=== PATIENT | female | born 1960 | race Caucasian/White ===

== ENCOUNTER → 2019-11-21 12:54 | Outpatient (BNVA) | payer OTHER, SELFPAY | PROVIDERS: PCP Nurse Practitioner Family; Referring Provider Nurse Practitioner Family; Visit Provider Internal Medicine Cardiovascular Disease | DX: R00.2 Palpitations (principal); I73.9 Peripheral vascular disease, unspecified; Z79.82 Long term (current) use of aspirin; Z79.899 Other long term (current) drug therapy | CPT/HCPCS: 99213 ==

== ENCOUNTER 2019-11-27 15:57 | Outpatient (REF) | payer OTHER, SELFPAY ==
--- NOTE | 2019-11-27 | MM_ITS ---
EXAMINATION: MM SCREENING DIGITAL BREAST TOMOSYNTHESIS, BILATERAL CLINICAL INFORMATION: Screening. Asymptomatic. The lifetime risk of breast cancer based on the Tyrer-Cuzick Model is 5%. COMPARISON: Mammography: 11/21/2018, 09/03/2015 TECHNIQUE: Digital breast tomosynthesis is performed in both the craniocaudal and mediolateral oblique views along with computer-aided detection (CAD). Synthesized 2D images are generated from the tomosynthesis. Additional right exaggerated CC view is provided. FINDINGS: There are scattered areas of fibroglandular density (ACR BI-RADS breast composition Category b). There are no significant masses, abnormal calcifications, or other abnormalities. Parenchymal pattern is similar to prior studies. No significant changes. IMPRESSION: No mammographic evidence of malignancy. ASSESSMENT: BI-RADS 1: Negative RECOMMENDATION: Routine annual mammography screening. This patient's information was entered into a reminder system with a target due date for their next mammogram.
== END 2019-11-27 15:58 | disposition home or self-care (01) ==
LOC: HO.MAMMO 15:57
PROVIDERS: PCP Nurse Practitioner Family; Visit Provider Nurse Practitioner Family
DX: Z12.31 Encounter for screening mammogram for malignant neoplasm of breast (principal)
CPT/HCPCS: 77063; 77067

== ENCOUNTER 2020-02-14 16:28 | Outpatient (REF) | payer OTHER, SELFPAY ==
[2020-02-16 11:31] LABS: BV Int Neg Control Negative (Negative); BV Int Pos Control Positive (Positive)
== END 2020-02-14 16:29 | disposition home or self-care (01) ==
LOC: HO.LAB 16:28
PROVIDERS: Visit Provider Nurse Practitioner Family
DX: R10.2 Pelvic and perineal pain (principal)
CPT/HCPCS: 87480; 87510; 87660

== ENCOUNTER 2020-02-18 14:44 | Outpatient (REF) | payer OTHER, SELFPAY ==
[2020-02-18 16:54] LABS: Alanine Aminotransferase 40 U/L (0-31); Albumin Level 4.1 g/dL (3.5-5.0); Alkaline Phosphatase 123 U/L (39-117); Anion Gap 12 (12-20); Aspartate Amino Transferase 30 U/L (5-31); Bilirubin Total 0.7 mg/dL (0.0-1.0); Blood Urea Nitrogen 11 mg/dL (9-16); Calcium 8.8 mg/dL (8.4-10.2); Carbon Dioxide 30 mmol/L (22-29); Chloride 105 mmol/L (96-108); Cholesterol 137 mg/dL; Estimated Glomerular Filt Rate > 60; Glucose Fasting 108 mg/dL (60-99); HDL Cholesterol 48 mg/dL; LDL Cholesterol Calculated 69 mg/dl; Potassium 4.7 mmol/l (3.3-5.1); Sodium 142 mmol/L (135-145); Total Protein 7.1 g/dL (6.5-8.0); Triglycerides 104 mg/dL
[2020-02-18 17:08] LABS: TSH reflex Free T4 1.56 mIU/mL (0.32-4.0)
== END 2020-02-18 14:45 | disposition home or self-care (01) ==
LOC: HO.HMGCLDS 14:44
PROVIDERS: PCP Nurse Practitioner Family; Visit Provider Nurse Practitioner Family
DX: E78.5 Hyperlipidemia, unspecified (principal); E03.9 Hypothyroidism, unspecified
CPT/HCPCS: 36415; 80053; 80061; 84443

== ENCOUNTER 2020-03-06 14:55 | Outpatient (REF) | payer OTHER, SELFPAY ==
[2020-03-06 16:58] LABS: Alanine Aminotransferase 27 U/L (0-31); Albumin Level 4.3 g/dL (3.5-5.0); Alkaline Phosphatase 121 U/L (39-117); Aspartate Amino Transferase 19 U/L (5-31); Bilirubin Direct 0.3 mg/dL (0.0-0.5); Total Protein 7.4 g/dL (6.5-8.0)
[2020-03-06 17:04] LABS: Gamma Glutamyl Transpeptidase 26 U/L (7-33)
== END 2020-03-06 14:56 | disposition home or self-care (01) ==
LOC: HO.HMGCLDS 14:55
PROVIDERS: PCP Nurse Practitioner Family; Visit Provider Nurse Practitioner Family
DX: R74.8 Abnormal levels of other serum enzymes (principal)
CPT/HCPCS: 36415; 80076; 82977

== ENCOUNTER 2020-04-16 13:27 | Outpatient (REF) | payer OTHER, SELFPAY ==
[2020-04-17 09:21] LABS: BV Int Neg Control Negative (Negative); BV Int Pos Control Positive (Positive)
[2020-04-20 12:07] LABS: HPV mRNA E6/E7 rflx Not Detected (Not Detected)
== END 2020-04-16 13:28 | disposition home or self-care (01) ==
LOC: HO.LAB 13:27
PROVIDERS: PCP Nurse Practitioner Family; Visit Provider Advanced Practice Midwife
DX: Z01.419 Encounter for gynecological examination (general) (routine) without abnormal findings (principal); E66.01 Morbid (severe) obesity due to excess calories; N76.0 Acute vaginitis; Z68.44 Body mass index [BMI] 60.0-69.9, adult
CPT/HCPCS: 36415; 87480; 87510; 87624; 87660; 88142

== ENCOUNTER 2020-04-17 07:26 | Day surgery (SDC) | payer OTHER, SELFPAY ==
[2020-04-14 15:30] VITALS: BMI 58.4
--- NOTE | 2020-04-16 09:22 | P.CONAN_ITS ---
Documented by User: Lisethher Tellezney 04/16/20 09:26 HPI - Anesthesia Eval Consult details Narrative: 59yo F for Colonoscopy PMFSH Active Problems Active Problems: All Active Problems (Updated 04/14/20 @ 15:27 by Yina Duncan) Pelvic pain (Acute) Dyslipidemia (Acute) Elevated alkaline phosphatase level (Acute) Mild depression (Acute) Sinusitis (Acute) Depression with anxiety (Acute) Hypothyroid (Acute) Morbid obesity (Acute) Low back pain (Acute) PVD (peripheral vascular disease) (Acute) Palpitations (Acute) Past Medical History Medical History Anxiety Arthritis DDD (degenerative disc disease) Depression with anxiety Diabetes Elevated cholesterol History of cellulitis HTN (hypertension) Hx of solitary pulmonary nodule Hypothyroid Low back pain Morbid obesity Morbid obesity with BMI of 60.0-69.9, adult AMY on CPAP Palpitations PVD (peripheral vascular disease) Spinal stenosis Family History Family History Father Stroke Former smoker Mother Brain tumor Maternal Uncle CVD (cardiovascular disease) Diabetes mellitus Myocardial infarction Brother No problems noted. Sister No problems noted. Sister No problems noted. Sister No problems noted. Son No problems noted. Daughter No problems noted. Daughter No problems noted. Surgical History Surgical History History of carpal tunnel surgery of left wrist History of endometrial ablation History of incisional hernia repair Hx of section Hx of cholecystectomy Hx of colonoscopy Hx of repair of left rotator cuff Hx of tonsillectomy Hx of tubal ligation Social History Social History Smoking Status: Former smoker Use of substances other than those prescribed or required for medical reasons: No Have you been hit, kicked, punched, or otherwise hurt by someone within the past year? If so, by whom?: No Advance Directives: No Advance Directives Information Provided: No Advance Directives on File: No Meds Allergies Allergy/AdvReac Type Severity Reaction Status Date / Time tioconazole Allergy Rash Verified 04/17/20 08:06 [From Monistat 1 (tioconazole)] Penicillin Allergy Unknown Unknown Uncoded 04/17/20 08:06 Sulfa Allergy Unknown Unknown Uncoded 04/17/20 08:06 Home Medications Medication Instructions Recorded Confirmed Last Taken Type aspirin 81 mg tablet,delayed 81 mg PO DAILY 11/21/19 04/17/20 04/16/20 23:59 History release meloxicam 15 mg tablet 15 mg PO DAILY tab 11/21/19 04/14/20 Unknown History Exam Exam Date and Time: April 16, 2020 0922 Height,Weight and Vital Signs: Height 5 ft 3 in Weight 149.685 kg Pertinent Lab Results Pertinent Lab Results: Laboratory Tests 02/18/20 14:50 Sodium 142 Potassium 4.7 Chloride 105 Carbon Dioxide 30 H BUN 11 Creatinine 0.82 Narrative Narrative: Echo 2018 LV systolic function is normal EF 55-60% Indeterminate filling pressures Gr 1-2 diastolic dysfunction No obvious valve pathology Mild pulmonary htn EKG 01/2020 per Cardiology Office Visit: gagan BLACK EKG Assessment and Plan Assessment Anesthesia Assessment: Chart Reviewed Documented by User: Daniel Dao 04/17/20 08:45 PMFSH Past Medical History Medical History Anxiety Arthritis DDD (degenerative disc disease) Depression with anxiety Diabetes Elevated cholesterol History of cellulitis HTN (hypertension) Hx of solitary pulmonary nodule Hypothyroid Low back pain Morbid obesity Morbid obesity with BMI of 60.0-69.9, adult AMY on CPAP Palpitations PVD (peripheral vascular disease) Spinal stenosis Family History Family History Father Stroke Former smoker Mother Brain tumor Maternal Uncle CVD (cardiovascular disease) Diabetes mellitus Myocardial infarction Brother No problems noted. Sister No problems noted. Sister No problems noted. Sister No problems noted. Son No problems noted. Daughter No problems noted. Daughter No problems noted. Surgical History Surgical History History of carpal tunnel surgery of left wrist History of endometrial ablation History of incisional hernia repair Hx of section Hx of cholecystectomy Hx of colonoscopy Hx of repair of left rotator cuff Hx of tonsillectomy Hx of tubal ligation Social History Social History Smoking Status: Former smoker Use of substances other than those prescribed or required for medical reasons: No Have you been hit, kicked, punched, or otherwise hurt by someone within the past year? If so, by whom?: No Advance Directives: No Advance Directives Information Provided: No Advance Directives on File: No Meds Allergies Allergy/AdvReac Type Severity Reaction Status Date / Time tioconazole Allergy Rash Verified 04/17/20 08:06 [From Monistat 1 (tioconazole)] Penicillin Allergy Unknown Unknown Uncoded 04/17/20 08:06 Sulfa Allergy Unknown Unknown Uncoded 04/17/20 08:06 Home Medications Medication Instructions Recorded Confirmed Last Taken Type aspirin 81 mg tablet,delayed 81 mg PO DAILY 11/21/19 04/17/20 04/16/20 23:59 Hi story release meloxicam 15 mg tablet 15 mg PO DAILY tab 11/21/19 04/14/20 Unknown History Exam Airway Mallampati Class: III TM Dist: >3cm Neck ROM: Full Denture: Upper Partial: Lower Loose/Missing/Broken Teeth: Yes Heart: [id number] Lungs: cta b/l Assessment and Plan Assessment Anesthesia Assessment: Anesthesia Plan Discussed, PAT Visit and Chart Reviewed Final Anesthetic Review NPO: Yes ASA Class: IV Final Preanesthetic Review: No Changes in Pt Med Stat, Meds/Allgs Chart Reviewed, Consent Obtained/Reviewed and Anes Risks/Benef Reviewed Patient Risk: High Procedure Risk: Low Assessment/Block/Sedation in SS: Assess/Block/Sedation-SS Anesthetic Plan Anesthetic Plan: MAC: and Agree w/ Assess. and Plan Disposition: Standard PACU
[2020-04-17 08:08] VITALS: BP 174/93; PULSE 82; RESP 20; TEMP 36.4; O2SAT 97
[2020-04-17 08:23] LABS: Glucose, Whole Blood 109 mg/dL (60-115)
--- NOTE | 2020-04-17 08:25 | P.HPSUR_ITS ---
Pre-Procedural Eval Section B Chief Complaint: screening Details of Present Illness: Colon cancer screening, Brother(older) had polyps recent sinus infection-resolved with antibx Relevant Family History (Specify if Yes): Yes Relevant Social History: None Present Medications: see Short Stay Collaborative assessment Medical History: Significant History (AMY(USES CPAP), PULMONARY HTN, BMI--60) History of Previous Operations: Relevant previous surgery/procedure and date(s) ( X2;CHOLECYSTECTOMY, LAST COLO (PLEET)--> 10YR--NO POLYPS) Allergies: Allergies Allergy/AdvReac Type Severity Reaction Status Date / Time tioconazole Allergy Rash Verified 04/17/20 08:06 [From Monistat 1 (tioconazole)] Penicillin Allergy Unknown Unknown Uncoded 04/17/20 08:06 Sulfa Allergy Unknown Unknown Uncoded 04/17/20 08:06 Review of Systems Sugical H&P ROS: Negative: Cardiovascular and Gastrointestinal and Yes, Specify: Constitution (MORBID OBESITY), Respiratory (AMY) and Psychiatric (HX DEPRESSION) Exam Surgical H&P Exam: Normal: HEENT, Normal: Heart, Normal: Lungs, Normal: Ext remities and Normal: Skin and Significant Findings: Abdomen (MARKED CENTRAL OBESITY) Plan Diagnosis/Plan: Unchanged I have reviewed the history and physical and performed a pertinent physical examination on my patient. No changes have occurred unless specified. YES
--- NOTE | 2020-04-17 09:11 | P.BOP_ITS ---
Brief Operative Note Date of Service: 04/17/20 Pre-op diagnosis: Colon cancer screening (hx polyps in her brother)--last colo- 2007 markedly elevated BMI/hx AMY Post-op diagnosis: other (Diminutive polyp) Procedure: Colonoscopy with excisional polypectomy Implants: none Surgeon: Kim Marcelino MD Anesthesia: MAC (Cuff, phone screener) Estimated blood loss (mL): 5 Pathology: other (polyp @ 70cm) Condition: stable Disposition: PACU
--- NOTE | 2020-04-17 09:11 | PM.OP ---
Brief Operative Note Date of Service: 04/17/20 Pre-op diagnosis: Colon cancer screening (hx polyps in her brother)--last colo-2007 markedly elevated BMI/hx AMY Post-op diagnosis: other (Diminutive polyp) Procedure: Colonoscopy with excisional polypectomy Implants: none Surgeon: Kim Marcelino MD Anesthesia: MAC (Cuff, memorandum statement clerk) Estimated blood loss (mL): 5 Pathology: other (polyp @ 70cm) Condition: stable Disposition: PACU
[2020-04-17 09:13] VITALS: BP 127/75; PULSE 78; RESP 20; TEMP 37.2; O2SAT 98
[2020-04-17 09:18] VITALS: PULSE 78; RESP 18; O2SAT 95
[2020-04-17 09:33] VITALS: BP 113/65; PULSE 80; RESP 18; O2SAT 98
--- NOTE | 2020-04-17 09:33 | W.PM.OPN ---
Operative Note Operative Note Date of Service: 04/17/20 Narrative: Pre-op diagnosis: Colon cancer screening (hx polyps in her brother)--last colo-2007 markedly elevated BMI/hx AMY Post-op diagnosis: other (Diminutive polyp) Procedure: Colonoscopy with excisional polypectomy Implants: none Surgeon: Kim Marcelino MD Anesthesia: MAC (Cuff, Steam Station Supervisor) FINDINGS: RONNI-good tone Colonoscope introduced with no difficulty advanced easily through sigmoid, descending to transverse colon--there was mild looping as we approached the hepatic flexure. With repositioning I was able to pass into the ascending colon and cecum. Appendiceal orifice and ileocecal valve were seen PREP: Good moderate residual liquid residue, easily flushed and suctioned. On our way in @ about 70cm a diminutive polyp had been removed excisionally with cold bx forceps. Slow withdrawal of scope revealed no additional mucosal lesions. ARV was clear. (She has hx of hemorrhoids. In Left lateral position for the procedure these were not seen. Estimated blood loss (mL): 5 Pathology: other (polyp @ 70cm) Condition: stable Disposition: PACU PLAN; WITH POSITIVE FAMILY HX PATIENT WOULD BEST BE MANAGED ON A 6 YEAR ASYMPTOMATIC RECALL. Patient was spoken to after the procedure. Should be considered for Tele visit--post op in 2-4 weeks.
== END 2020-04-17 10:06 | disposition home or self-care (01) ==
PROVIDERS: PCP Nurse Practitioner Family; Visit Provider Internal Medicine Gastroenterology
PROC: 0DJD8ZZ Inspection of Lower Intestinal Tract, Via Natural or Artificial Opening Endoscopic (ICD-10-PCS; CPT 45378; principal; 2020-04-17 08:30)
DX: Z12.11 Encounter for screening for malignant neoplasm of colon (principal); Z83.71 Family history of colonic polyps; D12.4 Benign neoplasm of descending colon; K64.8 Other hemorrhoids; I10 Essential (primary) hypertension; I27.20 Pulmonary hypertension, unspecified; E11.9 Type 2 diabetes mellitus without complications; G47.33 Obstructive sleep apnea (adult) (pediatric); Z99.89 Dependence on other enabling machines and devices; Z79.82 Long term (current) use of aspirin; Z79.899 Other long term (current) drug therapy; E66.01 Morbid (severe) obesity due to excess calories; Z68.44 Body mass index [BMI] 60.0-69.9, adult; Z90.49 Acquired absence of other specified parts of digestive tract; Z87.891 Personal history of nicotine dependence; Z88.0 Allergy status to penicillin; Z88.2 Allergy status to sulfonamides
CPT/HCPCS: 45380; 82947; 88305

== ENCOUNTER 2020-09-18 15:34 | Emergency (ER) | payer OTHER, SELFPAY ==
--- NOTE | 2020-09-18 | ECG_ITS ---
Test Reason : CP Blood Pressure : / mmHG Vent. Rate : 077 BPM Atrial Rate : 077 BPM P-R Int : 152 ms QRS Dur : 102 ms QT Int : 400 ms P-R-T Axes : 017 020 012 degrees QTc Int : 452 ms Normal sinus rhythm Normal ECG No significant changes when compared with the previous EKG of 2014 Referred By: Generic ED Physician Electronically Signed By:NANCY ALMAZAN
--- NOTE | ~2020-09-18 | XR_ITS ---
EXAMINATION: XR CHEST CLINICAL INFORMATION: Chest pain COMPARISON: 01/17/2018 TECHNIQUE: Frontal view of the chest was obtained. FINDINGS: No acute finding. No obvious failure or infiltrate. There is no effusion. Lung hill are grossly clear. The hilar structures are comparable to previous. The cardiac silhouette is unremarkable. XR/XR chest 1V IMPRESSION: No acute finding.
[2020-09-18 15:43] VITALS: BP 151/73; PULSE 82; RESP 16; TEMP 36.1; O2SAT 95; BMI 58.4
[2020-09-18 21:06] LABS: MANUAL DIFF FLAG NO
[2020-09-18 21:13] LABS: Basophils Percent Auto 0.5 % (0-2); Eosinophils Absolute Auto 0.1 X10*3/uL (0.0-0.4); Eosinophils Percent Auto 1.1 % (0-4); Hematocrit 40.1 % (37-47); Hemoglobin 12.5 g/dl (12.0-16.0); Imm Gran Abs Auto 0.02 X10*3/uL (0.00-0.03); Imm Gran Pct Auto 0.2 % (0.0-0.4); Lymphocytes Absolute Auto 2.5 X10*3/uL (1.2-4.9); Lymphocytes Percent Auto 29.3 % (20-40); Mean Corpuscular HGB Conc 31.2 g/dl (31.0-35.0); Mean Corpuscular Hemoglobin 28.7 pg (27.0-33.0); Mean Platelet Volume 10.9 fL (9.4-12.3); Monocytes Absolute Auto 0.6 X10*3/uL (0.1-1.2); Monocytes Percent Auto 6.8 % (2-11); Neutrophils Absolute Auto 5.2 X10*3/uL (2.0-8.3); Neutrophils Percent Auto 62.1 % (45-73); Platelet Count 232 X10*3/uL (160-400); Red Blood Count 4.36 X10*6/uL (4.20-5.50); Red Cell Distribution Width 13.8 % (11.0-16.0); White Blood Count 8.4 X10*3/uL (4.8-10.8)
[2020-09-18 21:28] LABS: D Dimer < 200 NG/ML
[2020-09-18 21:38] LABS: Alanine Aminotransferase 23 U/L (0-31); Albumin Level 4.1 g/dL (3.5-5.0); Alkaline Phosphatase 128 U/L (39-117); Anion Gap 12 (12-20); Aspartate Amino Transferase 17 U/L (5-31); Bilirubin Total 0.8 mg/dL (0.0-1.0); Blood Urea Nitrogen 7 mg/dL (9-16); Calcium 9.3 mg/dL (8.4-10.2); Carbon Dioxide 26 mmol/L (22-29); Chloride 108 mmol/L (96-108); Estimated Glomerular Filt Rate 59; Glucose Random 96 mg/dL (60-115); Magnesium 1.9 mg/dL (1.6-2.6); Potassium 4.1 mmol/L (3.3-5.1); Sodium 142 mmol/L (135-145)
[2020-09-18 21:40] LABS: B Type Natriuretic Peptide 36 pg/mL (<100); Troponin-I High Sensitivity < 3.5 ng/L (<3.5-17.0)
[2020-09-18 21:58] LABS: TSH reflex Free T4 3.19 uIU/mL (0.32-4.0)
[2020-09-18 22:00] VITALS: BP 130/73; PULSE 70; RESP 16; O2SAT 97
[2020-09-18 22:21] VITALS: BP 122/75; PULSE 75
[2020-09-18 22:22] VITALS: BP 159/85; PULSE 73
[2020-09-18 22:24] VITALS: BP 160/91; PULSE 74
--- NOTE | 2020-09-18 22:49 | ED_ITS ---
HPI - Chest Pain General Chief Complaint: Chest Pain Stated Complaint: CHEST HEAVY Time Seen by Provider: 09/18/20 20:07 Source: patient Mode of arrival: ambulatory History of Present Illness HPI narrative: 60-year-old female with a past medical history of anxiety, arthritis, DDD, diabetes, hyperlipidemia, hypertension, hypothyroid, AMY on CPAP, PVD to the ED complaining of chest tightness, mild SOB, intermittent lightheadedness, intermittent palpitations, and feeling like she can not take a complete breath x3 days. Admits symptoms are intermittent, actually improving today. Denies fever, chills, cough, abdominal pain, nausea/vomiting, headache, visual change, LE edema, recent travel, COVID-19 exposure MD complaint: chest heaviness Related Data Home Medications Medication Instructions Recorded Confirmed aspirin 81 mg tablet,delayed 81 mg PO DAILY 11/21/19 04/17/20 release (Adult Low Dose Aspirin) meloxicam 15 mg tablet 15 mg PO DAILY tab 11/21/19 04/14/20 Previous Rx's Medication Instructions Recorded doxycycline hyclate 100 mg tablet 100 mg PO BID 10 Days #20 tab 04/09/20 fluconazole 150 mg tablet 150 mg PO DAILY 2 Days #2 tab 04/09/20 (Diflucan) levothyroxine 150 mcg tablet 150 mcg PO QAM #90 tab 06/03/20 atenolol 25 mg tablet 25 mg PO DAILY #30 tab 07/31/20 bupropion HCl 300 mg 24 hr tablet, 300 mg PO QAM 30 Days #30 tab 07/31/20 extended release atorvastatin 80 mg tablet 80 mg PO DAILY #90 tab 08/27/20 Allergies Allergy/AdvReac Type Severity Reaction Status Date / Time tioconazole Allergy Rash Verified 04/17/20 08:06 [From Monistat 1 (tioconazole)] Penicillin Allergy Unknown Unknown Uncoded 04/17/20 08:06 Sulfa Allergy Unknown Unknown Uncoded 04/17/20 08:06 Review of Systems Review of Systems: Constitutional: No Fever, No Chills, + Fatigue, No Malaise Cardiovascular: + Chest Pain, + SOB, No Dyspnea on Exertion, No Orthopnea, No Edema, + Palpitations Respiratory: No Cough, +Dyspnea Gastrointestinal: No Nausea, No Vomiting, No Abdominal pain Genitourinary: No Dysuria, No Urinary Frequency, No Hematuria Musculoskeletal: No joint pain, No Myalgias, No Joint Swelling Skin: No Skin Lesions, No rash Neuro: No Weakness, No Numbness, No Paresthesias, + lightheadedness, No Headache Yes all other systems are reviewed and are negative [facility] Past Medical History Attestation statement: The following information was validated with the patient. Medical History Anxiety Arthritis DDD (degenerative disc disease) Depression with anxiety Diabetes Elevated cholesterol History of cellulitis HTN (hypertension) Hx of solitary pulmonary nodule Hypothyroid Low back pain Morbid obesity Morbid obesity with BMI of 60.0-69.9, adult AMY on CPAP Palpitations PVD (peripheral vascular disease) Spinal stenosis Surgical History History of carpal tunnel surgery of left wrist History of endometrial ablation History of incisional hernia repair Hx of section Hx of cholecystectomy Hx of colonoscopy Hx of repair of left rotator cuff Hx of tonsillectomy Hx of tubal ligation Family History Family History Father Stroke Former smoker Mother Brain tumor Maternal Uncle CVD (cardiovascular disease) Diabetes mellitus Myocardial infarction Brother No problems noted. Sister No problems noted. Sister No problems noted. Sister No problems noted. Son No problems noted. Daughter No problems noted. Daughter No problems noted. Social History Social History Advance Directives: No Patient : No Physical Exam Vital Signs: Vital Signs: Last Vital Signs Temp 97.0 F 09/18/20 15:43 Pulse 74 09/18/20 22:24 Resp 16 09/18/20 22:00 BP 160/91 H 09/18/20 22:24 Pulse Ox 97 09/18/20 22:00 Body Mass Index 58.4 Const: General: cooperative, comfortable, no acute distress, well developed, alert and awake Nutritional Appearance: obese Orientation/consciousness: patient oriented x3 Limitations: no limitations HENMT: Head: Yes normal to inspection Ears: hearing grossly normal bilaterally General nose exam: Normal external nose present Face and sinus: Yes normal facial exam Eyes: General: appearance normal, both eyes and all related structures EOM: EOMs intact bilaterally Neck: Neck: Yes normal visual inspection and Yes no meningeal signs Resp: Effort & Inspection: normal respiratory effort Auscultation: clear to auscultation bilaterally, no rales, no rhonchi and no wheezes Cardio: Rate: regular rate Heart sounds: S1 normal heart sound present and S2 normal heart sound present GI: Inspection: Yes normal to inspection Palpation (GI): Soft to palpation, nontender, no guarding and not rigid Skin: Rashes: no rashes Wounds: no wounds Neuro: General: patient oriented x3 and no meningeal signs Gait exam (Neuro): Normal gait present Extrem: General: Yes normal to inspection, Yes no pedal edema and Yes no calf tenderness Course Course Course Narrative: -no leukocytosis, H&H stable, D-dimer negative -labs otherwise unremarkable, troponin negative, BNP WNL, TSH WNL XR chest 1V IMPRESSION: No acute finding. ? -orthostatic vital signs negative. Lab results discussed with patient including worrisome signs and symptoms and strict return precautions. She is to follow-up with her PCP/cardiology as needed, she verbalized understanding feel safe for discharge home MDM - Chest Pain Lab Data Result diagrams: 09/18/20 21:02 09/18/20 21:02 Labs: Lab Results 09/18/20 09/18/20 09/18/20 Range/Units 21:02 21:02 21:02 WBC 8.4 (4.8-10.8) X10*3/uL RBC 4.36 (4.20-5.50) X10*6/uL Hgb 12.5 (12.0-16.0) g/dl Hct 40.1 (37-47) % MCV 92.0 (80-98) fL MCH 28.7 (27.0-33.0) pg MCHC 31.2 (31.0-35.0) g/dl RDW 13.8 (11.0-16.0) % Plt Count 232 (160-400) X10*3/uL MPV 10.9 (9.4-12.3) fL Immature Gran % (Auto) 0.2 (0.0-0.4) % Neut % (Auto) 62.1 (45-73) % Lymph % (Auto) 29.3 (20-40) % Greene % (Auto) 6.8 (2-11) % Eos % (Auto) 1.1 (0-4) % Baso % (Auto) 0.5 (0-2) % Lymph # (Auto) 2.5 (1.2-4.9) X10*3/uL Greene # (Auto) 0.6 (0.1-1.2) X10*3/uL Eos # (Auto) 0.1 (0.0-0.4) X10*3/uL Baso # (Auto) 0.0 (0.0-0.2) X10*3/uL Abs Immat Gran (auto) 0.02 (0.00-0.03) X10*3/uL Absolute Neuts (auto) 5.2 (2.0-8.3) X10*3/uL Absolute Nucleated RBC 0.000 (0.0-0.012) X10*3/uL Nucleated RBC % (auto) 0.0 (0.0-0.2) /100WBC D-Dimer NG/ML Sodium 142 (135-145) mmol/L Potassium 4.1 (3.3-5.1) mmol/L Chloride 108 (96-108) mmol/L Carbon Dioxide 26 (22-29) mmol/L Anion Gap 12 (12-20) BUN 7 L (9-16) mg/dL Creatinine 0.96 (0.5-1.4) mg/dL Estim Creat Clear Calc 91.0 Estimated GFR 59 Random Glucose 96 (60-115) mg/dL Calcium 9.3 (8.4-10.2) mg/dL Magnesium 1.9 (1.6-2.6) mg/dL Total Bilirubin 0.8 (0.0-1.0) mg/dL AST 17 (5-31) U/L ALT 23 (0-31) U/L Alkaline Phosphatase 128 H (39-117) U/L Troponin I High Sens < 3.5 (<3.5-17.0) ng/L B-Natriuretic Peptide 36 (<100) pg/mL Total Protein 7.0 (6.5-8.0) g/dL Albumin 4.1 (3.5-5.0) g/dL TSH 3.19 (0.32-4.0) uIU/mL 09/18/20 Range/Units 21:02 WBC (4.8-10.8) X10*3/uL RBC (4.20-5.50) X10*6/uL Hgb (12.0-16.0) g/dl Hct (37-47) % MCV (80-98) fL MCH (27.0-33.0) pg MCHC (31.0-35.0) g/dl RDW (11.0-16.0) % Plt Count (160-400) X10*3/uL MPV (9.4-12.3) fL Immature Gran % (Auto) (0.0-0.4) % Neut % (Auto) (45-73) % Lymph % (Auto) (20-40) % Greene % (Auto) (2-11) % Eos % (Auto) (0-4) % Baso % (Auto) (0-2) % Lymph # (Auto) (1.2-4.9) X10*3/uL Greene # (Auto) (0.1-1.2) X10*3/uL Eos # (Auto) (0.0-0.4) X10*3/uL Baso # (Auto) (0.0-0.2) X10*3/uL Abs Immat Gran (auto) (0.00-0.03) X10*3/uL Absolute Neuts (auto) (2.0-8.3) X10*3/uL Absolute Nucleated RBC (0.0-0.012) X10*3/uL Nucleated RBC % (auto) (0.0-0.2) /100WBC D-Dimer < 200 NG/ML Sodium (135-145) mmol/L Potassium (3.3-5.1) mmol/L Chloride (96-108) mmol/L Carbon Dioxide (22-29) mmol/L Anion Gap (12-20) BUN (9-16) mg/dL Creatinine (0.5-1.4) mg/dL Estim Creat Clear Calc Estimated GFR Random Glucose (60-115) mg/dL Calcium (8.4-10.2) mg/dL Magnesium (1.6-2.6) mg/dL Total Bilirubin (0.0-1.0) mg/dL AST (5-31) U/L ALT (0-31) U/L Alkaline Phosphatase (39-117) U/L Troponin I High Sens (<3.5-17.0) ng/L B-Natriuretic Peptide (<100) pg/mL Total Protein (6.5-8.0) g/dL Albumin (3.5-5.0) g/dL TSH (0.32-4.0) uIU/mL Discharge Plan Discharge Clinical Impression: Atypical chest pain, Dyspnea, Episodic lightheadedness Patient Disposition: Home, Self-Care Instructions: Chest Pain (ED) Additional Instructions: Your blood work and chest x-ray were reassuring today in the ED It is important for you to follow-up her primary care doctor Please stay hydrated at home If her symptoms persist or worsen, be more constant, unbearable, you have fever/chills Please return to the ED Follow-up with cardiology as needed Prescriptions: No Action doxycycline hyclate 100 mg tablet 100 mg PO BID 10 Days Qty: 20 RF: 0 fluconazole [Diflucan] 150 mg tablet 150 mg PO DAILY 2 Days Qty: 2 RF: 2 levothyroxine 150 mcg tablet 150 mcg PO QAM Qty: 90 RF: 1 atenolol 25 mg tablet 25 mg PO DAILY Qty: 30 RF: 3 bupropion HCl 300 mg tablet extended release 24 hr 300 mg PO QAM 30 Days Qty: 30 RF: 3 atorvastatin 80 mg tablet 80 mg PO DAILY Qty: 90 RF: 1 meloxicam 15 mg tablet 15 mg PO DAILY RF: 0 Hold Instructions: Resume on 04/24/20. DIMINUTIVE POLYPECTOMY ASA 81MG OK aspirin [Adult Low Dose Aspirin] 81 mg tablet,delayed release (DR/EC) 81 mg PO DAILY RF: 0 Referrals: Ruddy Nicole FNP- [Primary Care Provider] - 2 days Sergio Soriano MD [Physician] - 1 week
== END 2020-09-18 23:05 | disposition home or self-care (01) ==
PROVIDERS: Physician Assistant; Emergency Provider Student in an Organized Health Care Education/Training Program; PCP Nurse Practitioner Family
DX: R07.89 Other chest pain (principal); R06.00 Dyspnea, unspecified; R42 Dizziness and giddiness; R06.02 Shortness of breath; E11.9 Type 2 diabetes mellitus without complications; I10 Essential (primary) hypertension; Z79.82 Long term (current) use of aspirin; Z79.899 Other long term (current) drug therapy
CPT/HCPCS: 36415; 71045; 80053; 83735; 83880; 84443; 84484; 85025; 85379; 93005; 99283; 99284

== ENCOUNTER → 2020-11-24 13:03 | Outpatient (BNVA) | payer OTHER, SELFPAY | PROVIDERS: PCP Nurse Practitioner Family; Referring Provider Nurse Practitioner Family; Visit Provider Internal Medicine Cardiovascular Disease | DX: I73.9 Peripheral vascular disease, unspecified (principal); R00.2 Palpitations | CPT/HCPCS: 99212 ==

== ENCOUNTER 2020-12-02 14:00 | Emergency (ER) | payer OTHER, SELFPAY ==
[2020-12-02 14:05] VITALS: BP 156/94; PULSE 81; RESP 20; TEMP 36.7; O2SAT 97; BMI 58.4
--- NOTE | 2020-12-02 14:24 | ED.BACK ---
HPI - Back Pain/Injury General Chief Complaint: Back Pain/Injury Stated Complaint: back pain Time Seen by Provider: 12/02/20 14:24 Source: patient Mode of arrival: ambulatory Limitations: no limitations History of Present Illness HPI Narrative: 60-year-old female with a history of obesity, depression, anxiety, HLD, PVD, degenerative disc disease who presents to the ER with 3 days of increased right sided low back pain that radiates down her leg. She reports a history of longstanding low back pain for the last several years. Three days ago she noticed a hernia right lower back and right buttock were hurting more than usual. The pain comes and goes and is sharp and shooting. She started having pain radiating down the backside of her right leg along with pins and needle sensation in her right leg. She denies any trauma or falls recently. She had this similar sensation several years ago but does not recall what was done about it or how it went away. She denies any urinary or fecal incontinence. She denies any saddle paresthesias. She has not seen her PCP in some time, and last she knew she did not fit in the MRI when it was ordered to further assess her back. MD elicited complaint: back pain Pertinent past history: prior back pain Onset (ago): day(s) (3) Timing: intermittent Severity: severe Similar Symptoms Previously: Yes Quality: burning and sharp Location: right lower back Radiation: right upper leg Exacerbating factors: movement and walking Relieving factors: none Context: unknown Associated symptoms: denies other symptoms Work related injury: No Related Data Home Medications Medication Instructions Recorded Confirmed aspirin 81 mg tablet,delayed 81 mg PO DAILY 11/21/19 11/24/20 release (Adult Low Dose Aspirin) meloxicam 15 mg tablet 15 mg PO DAILY tab 11/21/19 11/24/20 Previous Rx's Medication Instructions Recorded levothyroxine 150 mcg tablet 150 mcg PO QAM #90 tab 06/03/20 bupropion HCl 300 mg 24 hr tablet, 300 mg PO QAM 30 Days #30 tab 07/31/20 extended release atenolol 25 mg tablet 25 mg PO DAILY #90 tab 11/24/20 atorvastatin 80 mg tablet 80 mg PO DAILY #90 tab 11/24/20 cyclobenzaprine 10 mg tablet 10 mg PO TID PRN #10 tab 12/02/20 lidocaine 5 % topical patch 1 patch TOPICAL DAILY #15 ea 12/02/20 naproxen 500 mg tablet 500 mg PO BID PRN #20 tab 12/02/20 oxycodone-acetaminophen 5 mg-325 1 tab PO TID PRN #7 tab 12/02/20 mg tablet Allergies Allergy/AdvReac Type Severity Reaction Status Date / Time tioconazole Allergy Rash Verified 11/24/20 13:43 [From Monistat 1 (tioconazole)] Penicillin Allergy Unknown Unknown Uncoded 11/24/20 13:43 Sulfa Allergy Unknown Unknown Uncoded 11/24/20 13:43 Review of Systems Review of Systems: Constitutional: No Fever, No Chills Cardiovascular: No Chest Pain, No SOB Gastrointestinal: No Nausea, No Vomiting, No Diarrhea, No abdominal Pain Genitourinary: No Dysuria, No Urinary Frequency, No Hematuria Musculoskeletal: + joint pain, + Myalgias Skin: No Skin Lesions, No rash Neuro: No Weakness, No Numbness Psych: + Anxiety/Panic, + Depression Heme/Lymph: No Bruising, No Lymphadenopathy PMFSH Past Medical History Attestation statement: The following information was validated with the patient. Medical History Anxiety Arthritis DDD (degenerative disc disease) Depression with anxiety Diabetes Elevated cholesterol History of cellulitis HTN (hypertension) Hx of solitary pulmonary nodule Hypothyroid Low back pain Morbid obesity Morbid obesity with BMI of 60.0-69.9, adult AMY on CPAP Palpitations PVD (peripheral vascular disease) Spinal stenosis Surgical History History of carpal tunnel surgery of left wrist History of endometrial ablation History of incisional hernia repair Hx of section Hx of cholecystectomy Hx of colonoscopy Hx of repair of left rotator cuff Hx of tonsillectomy Hx of tubal ligation Family History Family History Father Stroke Former smoker Mother Brain tumor Maternal Uncle CVD (cardiovascular disease) Diabetes mellitus Myocardial infarction Brother No problems noted. Sister No problems noted. Sister No problems noted. Sister No problems noted. Son No problems noted. Daughter No problems noted. Daughter No problems noted. Social History Social History (Updated 11/24/20 @ 13:45 by ESTHELA KnutsonGriselda) Patient Tobacco Use Status: Never used Tobacco Advance Directives: No Patient : No Physical Exam Vital Signs: Vital Signs: Last Vital Signs Temp 98.0 F 12/02/20 14:05 Pulse 81 12/02/20 14:05 Resp 20 12/02/20 14:05 BP 156/94 H 12/02/20 14:05 Pulse Ox 97 12/02/20 14:05 Body Mass Index 58.4 Appearance: Alert. Oriented X3. Tearful at times. HEENT: normal external inspection Neck: Normal inspection. Neck supple. CVS: Normal heart rate and rhythm. Pulses normal. Respiratory: No respiratory distress. Breath sounds normal. Back: normal inspection. right low lumbar and right SI joint tenderness. Skin: Skin warm and dry. Normal skin color. Normal skin turgor. No rashes. Extremities: No lower extremity edema. Neuro: Oriented X 3. No motor deficit. No sensory deficit. Ambulates with a slow but steady gait Course Course Course Narrative: 60 yo female presenting with acute on chronic right sided low back pain. No recent trauma. No red flag symptoms of LBP. No IVDA, no fevers. Her clinical presentation is consistent with lumbar radiculopathy and sciatica. She has not taken any medication for pain yet today. She is in severe pain right now. Will medicate and reassess. Reevaluation(s) Reevaluation #1: Patient's pain is much improved. Will plan to discharge home with a course of anti-inflammatories, muscle relaxers, an as needed oxycodone for severe pain. She was encouraged follow-up with her PCP to arrange for an outpatient MRI for further evaluation of her radiculopathy. Patient agrees with plan is stable for discharge home Critical Care Time Critical Care Time Critical Care Time: No Discharge Plan Discharge Clinical Impression: Acute lumbar radiculopathy Patient Disposition: Home, Self-Care Instructions: Lumbar Radiculopathy (ED) Additional Instructions: Rest but do not stay in one position for too long. No bending, lifting or twisting. Use ice several times per day for 20 minutes at a time for the next 48 hours and then change to heat. Take medications as prescribed to help with pain and discomfort. Follow up with your Primary Care Doctor this week. You need an outpatient MRI for further evaluation. If your pain worsens, if you develop new numbness, tingling, weakness, loss of function or incontinence call 911 or come back to the ER right away for evaluation. Prescriptions: New oxycodone-acetaminophen 5-325 mg tablet 1 tab PO TID PRN (Reason: pain) Qty: 7 RF: 0 cyclobenzaprine 10 mg tablet 10 mg PO TID PRN (Reason: muscle spasm) Qty: 10 RF: 0 lidocaine 5 % adhesive patch,medicated 1 patch topical DAILY Qty: 15 RF: 0 naproxen 500 mg tablet 500 mg PO BID PRN (Reason: pain) Qty: 20 RF: 0 No Action levothyroxine 150 mcg tablet 150 mcg PO QAM Qty: 90 RF: 1 bupropion HCl 300 mg tablet extended release 24 hr 300 mg PO QAM 30 Days Qty: 30 RF: 3 atenolol 25 mg tablet 25 mg PO DAILY Qty: 90 RF: 1 atorvastatin 80 mg tablet 80 mg PO DAILY Qty: 90 RF: 1 meloxicam 15 mg tablet 15 mg PO DAILY RF: 0 Hold Instructions: Resume on 04/24/20. DIMINUTIVE POLYPECTOMY ASA 81MG OK aspirin [Adult Low Dose Aspirin] 81 mg tablet,delayed release (DR/EC) 81 mg PO DAILY RF: 0
[2020-12-02] MEDS: Acetaminophen 325 MG TABLET 975 MG PO (15:04)
[2020-12-02] MEDS: Ketorolac Tromethamine 60 MG/2 ML VIAL IM (15:04)
[2020-12-02] MEDS: oxyCODONE HCl Immed Release 5 MG TABLET PO (15:04)
[2020-12-02 15:24] VITALS: RESP 18
== END 2020-12-02 15:25 | disposition home or self-care (01) ==
PROVIDERS: Emergency Provider Emergency Medicine; PCP Nurse Practitioner Family
DX: M54.16 Radiculopathy, lumbar region (principal); M54.50 Low back pain, unspecified; E66.01 Morbid (severe) obesity due to excess calories
CPT/HCPCS: 96372; 99284; J1885

== ENCOUNTER 2020-12-15 13:04 | Outpatient (REF) | payer OTHER, SELFPAY ==
--- NOTE | ~2020-12-15 | MM_ITS ---
EXAMINATION: MM SCREENING DIGITAL BREAST TOMOSYNTHESIS, BILATERAL CLINICAL INFORMATION: Screening. Asymptomatic. The lifetime risk of breast cancer based on the Tyrer-Cuzick Model is 5%. COMPARISON: Mammography: 11/27/2019, 11/21/2018, 09/03/2015 TECHNIQUE: Digital breast tomosynthesis is performed in both the craniocaudal and mediolateral oblique views along with computer-aided detection (CAD). Synthesized 2D images are generated from the tomosynthesis. Additional left MLO view is provided. FINDINGS: There are scattered areas of fibroglandular density (ACR BI-RADS breast composition Category b). There are no significant masses, abnormal calcifications, or other abnormalities. The parenchymal pattern is similar to prior studies. No developing density. No significant changes. MM/MM tomosynthesis screening BI IMPRESSION: No mammographic evidence of malignancy. ASSESSMENT: BI-RADS 1: Negative RECOMMENDATION: Routine annual mammography screening. This patient's information was entered into a reminder system with a target due date for their next mammogram.
== END 2020-12-15 13:05 | disposition home or self-care (01) ==
LOC: HO.MAMMO 13:04
PROVIDERS: Visit Provider Nurse Practitioner Family
DX: Z12.31 Encounter for screening mammogram for malignant neoplasm of breast (principal)
CPT/HCPCS: 77063; 77067

== ENCOUNTER 2020-12-16 14:59 | Outpatient (REF) | payer OTHER, SELFPAY ==
--- NOTE | ~2020-12-16 | XR_ITS ---
EXAMINATION: XR LUMBOSACRAL SPINE CLINICAL INFORMATION: Radiculopathy, lumbar region COMPARISON: Abdomen CT from 07/11/2013. Lumbar spine radiographs from 06/27/2018. TECHNIQUE: Three views of the lumbosacral spine. FINDINGS: The lumbar vertebra are normal in height. No evidence of pars interarticularis defect or vertebral compression fracture. No focal lytic or osteoblastic lesion. There is 0.3 cm of grade 1 anterolisthesis at L3-L4 and L4-L5. There is chronic severe loss of disc height, vacuum disc phenomenon and endplate sclerosis at L5-S1. There is degenerative subarticular sclerosis/osteophytosis at the sacroiliac joints. No evidence of sacral fracture or sacroiliitis. Atherosclerotic calcification of the abdominal aorta. Cholecystectomy clips in the right upper quadrant. Bowel gas pattern is normal. A 1.3 x 1.5 cm opacity/calcific density projects over the right mid abdomen (projects to the right of L3-L4).. The specific location/significance of this is uncertain. There was no calcified lymph node in the mesentery on 07/11/2013. This finding is unchanged compared to 06/27/2018. XR/XR lumbar spine 2-3V IMPRESSION: * No acute fractures in the lumbar spine. * Chronic degenerative disc disease at L5-S1. * Chronic, minimal degenerative anterolisthesis is noted at L3-L4 and L4-L5.
== END 2020-12-16 15:00 | disposition home or self-care (01) ==
LOC: HO.HMGCX 14:59
PROVIDERS: PCP Nurse Practitioner Family; Visit Provider Nurse Practitioner Family
DX: M54.16 Radiculopathy, lumbar region (principal); G89.29 Other chronic pain
CPT/HCPCS: 72100

== ENCOUNTER 2021-01-05 14:51 | Outpatient (REF) | payer OTHER, SELFPAY ==
[2021-01-05 16:49] LABS: Appearance Urine CLEAR; Color Urine YELLOW; Glucose Urine UA NEG (NEG); Leukocyte Esterase Urine NEG (NEG); Nitrite Urine NEG (NEG); Urine Blood NEG (NEG); Urine Ketones NEG (NEG); Urine Protein NEG (NEG-TRACE)
[2021-01-05 17:04] LABS: Alanine Aminotransferase 35 U/L (0-31); Albumin Level 3.9 g/dL (3.5-5.0); Alkaline Phosphatase 116 U/L (39-117); Anion Gap 12 (12-20); Aspartate Amino Transferase 23 U/L (5-31); Bilirubin Total 0.9 mg/dL (0.0-1.0); Blood Urea Nitrogen 12 mg/dL (9-16); Carbon Dioxide 27 mmol/L (22-29); Chloride 106 mmol/L (96-108); Cholesterol 141 mg/dL; Estimated Glomerular Filt Rate > 60; Glucose Fasting 100 mg/dL (60-99); HDL Cholesterol 47 mg/dL; LDL Cholesterol Calculated 71 mg/dl; Potassium 4.5 mmol/L (3.3-5.1); Sodium 140 mmol/L (135-145); Triglycerides 116 mg/dL
[2021-01-05 17:27] LABS: TSH reflex Free T4 1.97 uIU/mL (0.32-4.0)
== END 2021-01-05 14:52 | disposition home or self-care (01) ==
LOC: HO.HMGCLDS 14:51
PROVIDERS: Visit Provider Nurse Practitioner Family
DX: E78.5 Hyperlipidemia, unspecified (principal)
CPT/HCPCS: 36415; 80053; 80061; 81003; 84443

== ENCOUNTER 2021-04-20 13:27 | Outpatient (REF) | payer MEDICARE, MEDICAID, SELFPAY ==
[2021-04-21 14:12] LABS: BV Int Neg Control Negative (Negative); BV Int Pos Control Positive (Positive)
== END 2021-04-20 13:28 | disposition home or self-care (01) ==
LOC: HO.LAB 13:27
PROVIDERS: PCP Nurse Practitioner Family; Visit Provider Advanced Practice Midwife
DX: Z01.411 Encounter for gynecological examination (general) (routine) with abnormal findings (principal); N89.8 Other specified noninflammatory disorders of vagina; R10.2 Pelvic and perineal pain
CPT/HCPCS: 87480; 87510; 87660; 99212

== ENCOUNTER 2021-05-06 15:09 | Outpatient (REF) | payer MEDICARE, MEDICAID, SELFPAY ==
--- NOTE | ~2021-05-06 | XR_ITS ---
EXAMINATION: XR SHOULDER, RIGHT CLINICAL INFORMATION: Right shoulder pain. COMPARISON: Right shoulder MRI dated 12/23/2009. TECHNIQUE: AP, Grashey, and scapular Y views of the right shoulder. FINDINGS: No acute fracture or dislocation. Moderate acromioclavicular marginal osteophytes. No glenohumeral joint space narrowing or marginal osteophytes. No osseous erosion. No abnormal soft tissue calcification. XR/XR shoulder RT min 2V IMPRESSION: Moderate acromioclavicular osteoarthritis.
--- NOTE | ~2021-05-06 | XR_ITS ---
EXAMINATION: XR HAND, LEFT CLINICAL INFORMATION: Left ring finger pain. COMPARISON: None TECHNIQUE: PA, lateral, and oblique views of the left hand. FINDINGS: Evaluation is limited due to the overlying metallic ring. No acute fracture or dislocation. Normal carpal alignment. Mild joint space narrowing with tiny marginal osteophytes scattered throughout the interphalangeal joints. No osseous erosion. No abnormal soft tissue calcification. Mild 4th finger soft tissue swelling distal to the ring. XR/XR hand LT min 3V IMPRESSION: Mild 4th finger soft tissue swelling distal to the ring without acute osseous abnormality. Mild osteoarthritis throughout the interphalangeal joints.
[2021-05-06 16:47] LABS: MANUAL DIFF FLAG NO
[2021-05-06 16:50] LABS: Basophils Percent Auto 0.6 % (0-2); Eosinophils Absolute Auto 0.2 X10*3/uL (0.0-0.4); Eosinophils Percent Auto 2.4 % (0-4); Hematocrit 40.4 % (37.0-47.0); Hemoglobin 12.6 g/dl (12.0-16.0); Imm Gran Abs Auto 0.03 X10*3/uL (0.00-0.03); Imm Gran Pct Auto 0.4 % (0.0-0.4); Lymphocytes Absolute Auto 2.1 X10*3/uL (1.2-4.9); Lymphocytes Percent Auto 30.4 % (20-40); Mean Corpuscular HGB Conc 31.2 g/dl (31.0-35.0); Mean Corpuscular Hemoglobin 28.9 pg (27.0-33.0); Mean Corpuscular Volume 92.7 fL (80.0-98.0); Mean Platelet Volume 11.7 fL (9.4-12.3); Monocytes Absolute Auto 0.6 X10*3/uL (0.1-1.2); Monocytes Percent Auto 8.4 % (2-11); Neutrophils Absolute Auto 3.9 x10*3/uL (2.0-8.3); Neutrophils Percent Auto 57.8 % (45-73); Platelet Count 220 X10*3/uL (160-400); Red Blood Count 4.36 X10*6/uL (4.20-5.50); Red Cell Distribution Width 13.7 % (11.0-16.0); White Blood Count 6.8 X10*3/uL (4.8-10.8)
[2021-05-06 16:52] LABS: Appearance Urine CLEAR; Color Urine YELLOW; Glucose Urine UA NEG (NEG); Leukocyte Esterase Urine NEG (NEG); Nitrite Urine NEG (NEG); Specific Gravity - Urine 1.025 (1.005-1.025); Urine Blood NEG (NEG); Urine Ketones NEG (NEG); Urine Protein NEG (NEG-TRACE)
[2021-05-06 17:25] LABS: Alanine Aminotransferase 23 U/L (0-31); Albumin Level 4.1 g/dL (3.5-5.0); Alkaline Phosphatase 118 U/L (39-117); Anion Gap 12 (12-20); Aspartate Amino Transferase 17 U/L (5-31); Bilirubin Total 0.7 mg/dL (0.0-1.0); Blood Urea Nitrogen 11 mg/dL (9-16); Calcium 9.1 mg/dL (8.4-10.2); Carbon Dioxide 27 mmol/L (22-29); Chloride 106 mmol/L (96-108); Cholesterol 128 mg/dL; Estimated Glomerular Filt Rate > 60; Glucose Fasting 98 mg/dL (60-99); HDL Cholesterol 51 mg/dL; LDL Cholesterol Calculated 61 mg/dl; Potassium 4.5 mmol/L (3.3-5.1); Sodium 140 mmol/L (135-145); Total Protein 6.9 g/dL (6.5-8.0); Triglycerides 81 mg/dL
[2021-05-06 17:48] LABS: TSH reflex Free T4 3.01 uIU/mL (0.32-4.0)
== END 2021-05-06 15:10 | disposition home or self-care (01) ==
LOC: HO.HMGCX 15:09
PROVIDERS: PCP Nurse Practitioner Family; Visit Provider Nurse Practitioner Family
DX: M25.511 Pain in right shoulder (principal); M79.645 Pain in left finger(s); I10 Essential (primary) hypertension
CPT/HCPCS: 36415; 73030; 73130; 80053; 80061; 81003; 84443; 85025

== ENCOUNTER → 2021-05-20 13:55 | Outpatient (BNVA) | payer MEDICARE, MEDICAID, SELFPAY | PROVIDERS: PCP Nurse Practitioner Family; Referring Provider Nurse Practitioner Family; Visit Provider Internal Medicine Cardiovascular Disease | DX: I10 Essential (primary) hypertension (principal) | CPT/HCPCS: 99212 ==

== ENCOUNTER 2021-07-08 14:00 | Outpatient (RCR) | payer MEDICARE, MEDICAID, SELFPAY ==
--- NOTE | 2021-05-27 15:53 | MHC.PT.EP ---
[facility] [place] Office [place] Office [place] Office [address] Aurea Stallings [address] [phone] F: [phone] F: [phone] F: [phone] F: [phone] Physical Therapy Plan of Care Date of Evaluation: Date of Surgery: n/a Diagnosis: R shoulder pain Assessment: Patient is a 60 year old female presenting to PT with complaints of pain in her R shoulder. Pt reports onset of pain began March 2021 due to falling and landing on her hands. She presents today with impairments in pain, shoulder ROM, shoulder strength, and posture. Pt's current occupation is none - disabled, with baseline physical activities including reaching, lifting, and ADLs. 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 Clinical presentation today is most consistent with signs and sx associated with shoulder pain with likely RC involvement and pt will benefit from skilled PT to address the following problems and impairments noted upon evaluation: pain, shoulder ROM, shoulder strength, and posture. These problems limit the patient with the following functional activities: reaching, lifting, and ADLs. The prescribed treatment plan of care is medically necessary. Co-morbidities of PVD, diabetes, HTN, states she has palpitations, hx L RC repair 2016 were identified and taken into considerations of plan of care. Pt was educated on HEP, role of PT, prognosis, POC. Frequency and Duration: The patient will be seen 2 x week x 4 weeks Short Term Goals: Pt will demonstrate improved shoulder AROM flex and abd to 100 in 2 weeks. Pt will demonstrate improved shoulder MMT strength by 1/3 grade in 2 weeks. Pt will demonstrate improved postural awareness by sitting with biomechanically correct posture without cues throughout session to improve overall postural function in 2 weeks. Retirement Goals: Pt will demonstrate improved SPADI score by 13 points in 4 weeks for improved UE functional mobility. Pt will demonstrate improved ability to reach OH in 4 weeks for improved tolerance to ADLs. Pt will demonstrate ability to lift household items with min to difficulty in 4 weeks for return to PLOF. Treatment Plan: Modalities to reduce pain, spasms and effusion. Manual therapy to restore motion and function. Therapeutic exercise to improve strength and flexibility. Neuromuscular re-education for posture and balance. Therapeutic activities to return to functional activities of daily living. Electronically signed by: Corrine Muro, PT, DPT, ATC Please sign and return to therapist. Thank you for your referral.
--- NOTE | 2021-07-08 15:07 | MHC.PT.DC ---
[facility] [place] [facility] [place] [facility] [place] Office [address] Janae Stallings [address] [phone] F: [phone] F: [phone] F: [phone] F: [phone] Physical Therapy Discharge Report Diagnosis: R shoulder pain Date of Surgery: n/a Date of Evaluation: 05/27/21 Date of Discharge: 07/08/21 Treatments to Date: 9 Cancellations to Date: 1 No Shows to Date: 0 Discharge Status: Recommend MD Follow-up Discharge Summary: Pt has made some improvements since beginning skilled PT however continues to have pain and functional limitations primarily with lifting and reaching activities. She has made some progress towards her goals but her pain and continued limited ROM and strength has prevented her from fully meeting her goals. At this time max benefits of PT have been provided and skilled PT is no longer indicated at this time. Discussed with patient recommendation to follow up with referring provider for possible ortho referral for further assessment and pt with good understanding. Pt in agreement with d/c today. Electronically signed by: Corrine Muro, PT, DPT, ATC Please sign and return to therapist. Thank you for your referral.
== END 2021-07-08 15:07 | disposition home or self-care (01) ==
LOC: HO.PTCHIC 14:00
PROVIDERS: PCP Nurse Practitioner Family; Visit Provider Nurse Practitioner Family
DX: M25.511 Pain in right shoulder (principal)
CPT/HCPCS: 97110; 97162

== ENCOUNTER 2021-12-24 12:37 | Outpatient (REF) | payer MEDICARE, MEDICAID, SELFPAY ==
--- NOTE | ~2021-12-24 | MM_ITS ---
EXAMINATION: MM SCREENING DIGITAL BREAST TOMOSYNTHESIS, BILATERAL CLINICAL INFORMATION: Screening. Asymptomatic. The lifetime risk of breast cancer based on the Tyrer-Cuzick Model is 4.5%. COMPARISON: Mammography: 12/15/2020 and studies dating back to 01/12/2014. TECHNIQUE: Digital breast tomosynthesis is performed in both the craniocaudal and mediolateral oblique views along with computer-aided detection (CAD). Synthesized 2D images are generated from the tomosynthesis. FINDINGS: There are scattered areas of fibroglandular density (ACR BI-RADS breast composition Category b). There is a stable parenchymal pattern of the right breast without new abnormal dominant mass or suspicious grouping of microcalcifications. Within the superior aspect of the left breast approximately 4 cm from the nipple there is an asymmetric density present for which further evaluation with spot compression film and possible ultrasound is recommended. MM/MM tomosynthesis screening BI IMPRESSION: Question left breast density superiorly. ASSESSMENT: BI-RADS 0: Incomplete - Need Additional Imaging Evaluation RECOMMENDATION: 1. Additional views of the left breast. 2. Targeted ultrasound if warranted after review of the additional views. 3. Radiology department staff will contact the patient for additional imaging. This patient's information was entered into a reminder system with a target due date for their next mammogram.
--- NOTE | ~2021-12-24 | MM_ITS ---
EXAMINATION: BONE DENSITOMETRY CLINICAL INDICATION: Asymptomatic menopausal state. COMPARISON: None (current study represents initial baseline exam). TECHNIQUE: Using a Derceto DXA System (software version: 13.1) manufactured by [employer], dual-energy x-ray absorptiometry was performed of the lumbar spine and left hip. The images are of good technical quality. Summary results are attached. FINDINGS: AP SPINE L1-L4: BMD 1.201 g/cm2, Z-score 0.2, T-score 0.2, normal. LEFT FEMUR, NECK: BMD 0.749 g/cm2, Z-score -1.6, T-score -2.1, osteopenia. LEFT FEMUR, TOTAL: BMD 0.881 g/cm2, Z-score -0.9, T-score -1.0, normal. IDENTIFIED RISK FACTORS: Menopause. HISTORY OF FRACTURE: None listed. MEDICATIONS: None listed. MM/XR DEXA axial skeleton IMPRESSION: 1. DIAGNOSIS: Osteopenia based on the lowest T-score value of -2.1 in the lumbar spine applying World Health Organization criteria. 2. 10-YEAR FRACTURE RISK PREDICTION, FRAX: Major osteoporotic fracture (clinical spine, forearm, hip or shoulder) 5.8%. Hip fracture 0.6%. 3. Treatment Recommendations: NOF guidelines recommend consideration for treatment in postmenopausal women and men age 50 and older presenting with the following: -A hip or vertebral (clinical or morphometric) fracture. -T-score less than or equal to -2.5 at the femoral neck or spine after appropriate evaluation to exclude secondary causes. -Low bone mass at the hip or spine and a 10-year fracture probability by FRAX of greater than or equal to 3% for hip fracture or greater than or equal to 20% for major osteoporotic fracture based on the [place] adapted WHO algorithm. 4. Other Recommendations: All treatment decisions require clinical judgment and consideration of individual patient factors, including patient preferences, comorbidities, previous drug use, risk factors not captured in the FRAX model (e.g. frailty, falls, vitamin D deficiency, increased bone turnover, interval significant decline in bone density) and possible under or overestimation of fracture risk by FRAX. Additional medical evaluation for secondary cause of low bone mineral density may be appropriate. FUTURE SCAN RECOMMENDATION: People with diagnosed cases of osteoporosis or at high risk for fracture should have regular bone mineral density tests. For patients eligible for Medicare, routine testing is allowed once every 2 years. The testing frequency can be increased to one year for patients who have rapidly progressing disease, those who are receiving or discontinuing medical therapy to restore bone mass, or have additional risk factors.
== END 2021-12-24 12:38 | disposition home or self-care (01) ==
LOC: HO.MAMMO 12:37
PROVIDERS: PCP Nurse Practitioner Family; Visit Provider Nurse Practitioner Family
DX: Z12.31 Encounter for screening mammogram for malignant neoplasm of breast (principal); Z13.820 Encounter for screening for osteoporosis; Z78.0 Asymptomatic menopausal state
CPT/HCPCS: 77063; 77067; 77080

== ENCOUNTER 2022-01-12 13:54 | Outpatient (REF) | payer MEDICARE, MEDICAID, SELFPAY ==
--- NOTE | ~2022-01-12 | MM_ITS ---
EXAMINATION: MM DIAGNOSTIC DIGITAL BREAST TOMOSYNTHESIS, LEFT CLINICAL INFORMATION: Recall from screening for question of asymmetric density upper left breast 4 cm from nipple. COMPARISON: Mammography: 12/24/2021, 12/15/2020, 11/27/2019, 11/21/2018, 09/03/2015 TECHNIQUE: Digital breast tomosynthesis is performed. 2D images are generated from the tomosynthesis. The following views are obtained: Spot CC, spot MLO. FINDINGS: There are scattered areas of fibroglandular density (ACR BI-RADS breast composition Category b). The additional views show no underlying mass or architectural abnormality or developing density from prior studies. Finding on recent synthesized left MLO view at screening is believed to have represented summation artifact. Results are discussed with the patient at time of visit. MM/MM tomosynthesis added views L IMPRESSION: Additional views show no persistent asymmetric density or other significant change from prior studies. ASSESSMENT: BI-RADS 2: Benign RECOMMENDATION: Routine annual mammography screening. This patient's information was entered into a reminder system with a target due date for their next mammogram.
== END 2022-01-12 13:55 | disposition home or self-care (01) ==
LOC: HO.MAMMO 13:54
PROVIDERS: PCP Nurse Practitioner Family; Visit Provider Nurse Practitioner Family
DX: R92.2 Inconclusive mammogram (principal)
CPT/HCPCS: 77061; 77065

== ENCOUNTER 2022-04-22 12:58 | Outpatient (REF) | payer MEDICARE, MEDICAID, SELFPAY ==
[2022-04-23 11:14] LABS: BV Int Neg Control Negative (Negative); BV Int Pos Control Positive (Positive)
== END 2022-04-22 12:59 | disposition home or self-care (01) ==
LOC: HO.LAB 12:58
PROVIDERS: PCP Nurse Practitioner Family; Visit Provider Advanced Practice Midwife
DX: N89.8 Other specified noninflammatory disorders of vagina (principal)
CPT/HCPCS: 87480; 87510; 87660

== ENCOUNTER 2022-05-19 14:46 | Outpatient (REF) | payer MEDICARE, MEDICAID, SELFPAY ==
[2022-05-19 17:10] LABS: MANUAL DIFF FLAG NO
[2022-05-19 17:11] LABS: Appearance Urine Clear; Color Urine Yellow; Glucose Urine UA Negative (Negative); Leukocyte Esterase Urine Trace (Negative); Nitrite Urine Negative (Negative); UMIC TRIGGER UACC YES; Urine Blood Negative (Negative); Urine Ketones Negative (Negative); Urine Protein Negative (Neg-Trace)
[2022-05-19 17:14] LABS: Bacteria Urine None Seen (None Seen); Hyaline Casts Urine 0-2 /LPF (0-2); RBC Urine 0-2 /HPF (0-2); WBC Urine 0-5 /HPF (0-5)
[2022-05-19 17:24] LABS: Basophils Absolute Auto 0.1 X10*3/uL (0.0-0.2); Eosinophils Absolute Auto 0.1 X10*3/uL (0.0-0.4); Eosinophils Percent Auto 1.3 % (0-4); Hematocrit 39.5 % (37.0-47.0); Hemoglobin 12.4 g/dl (12.0-16.0); Imm Gran Abs Auto 0.02 X10*3/uL (0.00-0.03); Imm Gran Pct Auto 0.3 % (0.0-0.4); Lymphocytes Absolute Auto 2.2 X10*3/uL (1.2-4.9); Lymphocytes Percent Auto 31.3 % (20-40); Mean Corpuscular HGB Conc 31.4 g/dl (31.0-35.0); Mean Corpuscular Hemoglobin 28.4 pg (27.0-33.0); Mean Corpuscular Volume 90.6 fL (80.0-98.0); Mean Platelet Volume 11.6 fL (9.4-12.3); Monocytes Absolute Auto 0.5 X10*3/uL (0.1-1.2); Monocytes Percent Auto 6.7 % (2-11); Neutrophils Absolute Auto 4.2 x10*3/uL (2.0-8.3); Neutrophils Percent Auto 59.4 % (45-73); Platelet Count 243 X10*3/uL (160-400); Red Blood Count 4.36 X10*6/uL (4.20-5.50); Red Cell Distribution Width 14.1 % (11.0-16.0)
[2022-05-19 17:49] LABS: Alanine Aminotransferase 26 U/L (0-31); Albumin Level 3.9 g/dL (3.5-5.0); Alkaline Phosphatase 126 U/L (39-117); Anion Gap 10 (12-20); Aspartate Amino Transferase 16 U/L (5-31); Blood Urea Nitrogen 10 mg/dL (9-16); Calcium 9.2 mg/dL (8.4-10.2); Carbon Dioxide 28 mmol/L (22-29); Chloride 107 mmol/L (96-108); Cholesterol 129 mg/dL; Estimated Glomerular Filt Rate > 60; Glucose Fasting 109 mg/dL (60-99); HDL Cholesterol 49 mg/dL; LDL Cholesterol Calculated 63 mg/dl; Potassium 4.2 mmol/L (3.3-5.1); Sodium 141 mmol/L (135-145); TSH reflex Free T4 1.33 uIU/mL (0.32-4.0); Total Protein 6.5 g/dL (6.5-8.0); Triglycerides 86 mg/dL
== END 2022-05-19 14:47 | disposition home or self-care (01) ==
LOC: HO.HMGCLDS 14:46
PROVIDERS: PCP Nurse Practitioner Family; Visit Provider Nurse Practitioner Family
DX: I10 Essential (primary) hypertension (principal)
CPT/HCPCS: 36415; 80053; 80061; 81001; 84443; 85025

== ENCOUNTER 2022-05-27 11:29 | Outpatient (REF) | payer MEDICARE, MEDICAID, SELFPAY ==
--- NOTE | ~2022-05-27 | CT_ITS ---
EXAMINATION: CT ABDOMEN AND PELVIS WITH CONTRAST CLINICAL INFORMATION: Abdominal hernia without obstruction or gangrene COMPARISON: Previous CT of the abdomen and pelvis most recent from 2013 TECHNIQUE: Multidetector volumetric images were obtained from the superior aspect of the liver through the pubic symphysis following administration 100 mL of Omnipaque 350 intravenous contrast. Sagittal and coronal reformatted images were obtained on the technologist's workstation. Oral contrast: Yes This CT examination was performed using dose optimization techniques as appropriate, variously including the following: *Automated exposure control *Adjustment of mA and/or kV according to patient size (this includes techniques or standardized protocols for targeted exams where dose is matched to indication/reason for exam; i.e. extremities or head) *Use of iterative reconstruction technique DLP: 1458 mGy-cm FINDINGS: LUNG BASES: The visualized lung bases are unremarkable. LIVER, GALLBLADDER, AND BILIARY TREE: The liver is normal in size, shape, and attenuation. No focal hepatic lesion or biliary ductal dilatation is present. The gallbladder has been removed. PANCREAS: Unremarkable. SPLEEN: Unremarkable. ADRENAL GLANDS: Unremarkable. KIDNEYS AND URETERS: Severe right hydronephrosis from a 6 x 10 mm right UVJ stone. Small bilateral renal stones. Question 1 cm low-attenuation lesion in the anterior lower pole of the right kidney axial image 37 series 3. Hounsfield units without contrast measure 49 not suggestive of a simple cyst. Previous CT from 2013 demonstrates a 1.8 cm cyst in this region. This may represent complex hyperdense cyst. Follow-up renal ultrasound recommended. BLADDER: Unremarkable. GASTROINTESTINAL TRACT: The small and large bowel are unremarkable. The appendix is unremarkable. ABDOMINAL WALL: Large umbilical hernia containing fat. Right ventral hernia containing fat. LYMPH NODES: Normal. VASCULAR: Unremarkable. PELVIC VISCERA: Unremarkable. OSSEOUS STRUCTURES: Degenerative changes of the spine. CT/CT abdomen pelvis w IV con IMPRESSION: Right ventral and umbilical hernias containing fat. Severe right hydronephrosis from a 6 x 10 mm right UPJ stone. Small bilateral renal stones. 1 cm indeterminate lesion in the anterior lower pole of the left kidney. When compared with prior exam July 2013, this may represent a hyperdense cyst. Follow-up renal ultrasound recommended. Findings will be communicated by the [place] work flow prototype fabricator Fleischner guidelines were followed.
[2022-05-27] MEDS: iohexoL 350 MG/ML 100 ML INFUS..BTL IV (14:04)
[2022-05-27] MEDS: Barium Sulfate Oral (Vanilla) 450 ML ORAL.SUSP 900 ML PO (14:05)
== END 2022-05-27 11:30 | disposition home or self-care (01) ==
LOC: HO.CT 11:29
PROVIDERS: PCP Nurse Practitioner Family; Visit Provider Nurse Practitioner Family
DX: K46.9 Unspecified abdominal hernia without obstruction or gangrene (principal)
CPT/HCPCS: 74177; Q9967

== ENCOUNTER 2022-06-02 14:52 | Outpatient (REF) | payer MEDICARE, MEDICAID, SELFPAY ==
[2022-06-02 16:53] LABS: Appearance Urine Cloudy; Color Urine Yellow; Glucose Urine UA Negative (Negative); Leukocyte Esterase Urine Trace (Negative); Nitrite Urine Negative (Negative); PH 5.5 (5.0-9.0); UMIC TRIGGER UACC YES; Urine Blood Negative (Negative); Urine Ketones Negative (Negative); Urine Protein Negative (Neg-Trace)
[2022-06-02 17:14] LABS: Gamma Glutamyl Transpeptidase 20 U/L (7-33)
[2022-06-02 17:16] LABS: Bacteria Urine 1+ (None Seen); Hyaline Casts Urine 0-2 /LPF (0-2); UACC Culture Trigger YES
[2022-06-02 17:43] LABS: WBC Urine 0-5 /HPF (0-5)
[2022-06-09 14:23] LABS: Alk.Phos Iso. Macrohepatic 0 % (<=0); Alk.Phos Isoenzymes Bone 23 % (28-66); Alk.Phos Isoenzymes Intest 4 % (1-24); Alk.Phos Isoenzymes Liver 73 % (25-69); Alk.Phos Isoenzymes Placental 0 % (<=0); Alk.Phos Isoenzymes Total 107 U/L (37-153)
== END 2022-06-02 14:53 | disposition home or self-care (01) ==
LOC: HO.HMGCLDS 14:52
PROVIDERS: PCP Nurse Practitioner Family; Visit Provider Nurse Practitioner Family
DX: R74.8 Abnormal levels of other serum enzymes (principal); R82.90 Unspecified abnormal findings in urine
CPT/HCPCS: 36415; 81001; 82977; 84080; 87086

== ENCOUNTER 2022-06-03 15:21 | Outpatient (REF) | payer MEDICARE, MEDICAID, SELFPAY ==
--- NOTE | ~2022-06-03 | US_ITS ---
EXAMINATION: US RETROPERITONEAL LIMITED (RENAL ONLY) CLINICAL INFORMATION: N13.30 - Unspecified hydronephrosis. COMPARISON: CT abdomen and pelvis with contrast 05/27/2022. TECHNIQUE: Ultrasound of the kidneys is performed using grayscale imaging and color Doppler. The bladder is not imaged. FINDINGS: RIGHT KIDNEY: 13.4 x 5.6 x 7.3 cm (SAG x AP x TRV). The kidney is normal in size, contour, and echogenicity. Renal cortical thickness is normal. Incidental lower pole cyst under 1 cm. No additional imaging follow-up recommended for the cyst. There is prominent hydronephrosis and distended extrarenal pelvis similar to recent CT. No visible perinephric fluid. Ureteropelvic junction calculus is again noted, estimated around 1.5 cm, better visualized on the CT exam. LEFT KIDNEY: 12.5 x 6.4 x 5.9 cm (SAG x AP x TRV). The kidney is normal in size, contour, and echogenicity. Renal cortical thickness is normal. Incidental anterior mid to lower pole cyst approximately 1.4 cm. No additional imaging follow-up recommended for the cyst. No hydronephrosis. There are nonobstructing calculi again noted upper pole approximately 1.1 cm and smaller nonobstructing calculus lower pole, better visualized on the CT. US/US renal BI IMPRESSION: Right: -Prominent hydronephrosis secondary to a UPJ calculus as noted on recent CT imaging. No perinephric fluid. Left: -No hydronephrosis. Nonobstructing calculi upper and lower pole as noted on recent CT imaging.
== END 2022-06-03 15:22 | disposition home or self-care (01) ==
LOC: HO.HMGCX 15:21
PROVIDERS: PCP Nurse Practitioner Family; Visit Provider Nurse Practitioner Family
DX: N13.30 Unspecified hydronephrosis (principal); N28.1 Cyst of kidney, acquired
CPT/HCPCS: 76775

== ENCOUNTER → 2022-06-10 15:24 | Outpatient (BNVA) | payer MEDICARE, MEDICAID, SELFPAY | PROVIDERS: PCP Nurse Practitioner Family; Visit Provider Nurse Practitioner Family | DX: N13.1 Hydronephrosis with ureteral stricture, not elsewhere classified (principal); N28.1 Cyst of kidney, acquired | CPT/HCPCS: 99202 ==

== ENCOUNTER 2022-06-11 14:20 | Outpatient (REF) | payer MEDICARE, MEDICAID, SELFPAY ==
[2022-06-11 17:22] LABS: Folate 6.8 ng/mL (> or = 4.0); Vitamin B12 290 pg/mL (200-900)
[2022-06-15 18:14] LABS: Ceruloplasmin 28 mg/dL (18-53)
== END 2022-06-11 14:21 | disposition home or self-care (01) ==
LOC: HO.HMGCLDS 14:20
PROVIDERS: PCP Nurse Practitioner Family; Visit Provider Nurse Practitioner Family
DX: R74.8 Abnormal levels of other serum enzymes (principal)
CPT/HCPCS: 36415; 82390; 82607; 82746; 84630

== ENCOUNTER 2022-06-15 12:53 | Day surgery (SDC) | payer MEDICARE, MEDICAID, SELFPAY ==
--- NOTE | ~2022-06-15 | FL_ITS ---
EXAMINATION: XR FLUOROSCOPY WITH IMAGES CLINICAL INFORMATION: Cystoscopy ureteroscopy and retrograde exam. Right hydronephrosis and UPJ stone. COMPARISON: Previous CT of the abdomen and pelvis May 2022 TECHNIQUE: Fluoroscopy Supervised By: Dr. Wise. Fluoroscopy Time: 216 seconds. Cumulative Dose: 193 mGy. DAP: Gycm2. Images: 4. FINDINGS: There is severe right hydronephrosis. There is right UPJ obstruction. There is a filling defect or irregularity seen in this region questionable for a stone. Final image demonstrates catheter or stent in the right renal pelvis. FL/FL guidance in OR IMPRESSION: Fluoroscopy guidance for urologic procedure.
[2022-06-15 13:19] VITALS: BMI 60.2
[2022-06-15] MEDS: Lactated Ringers 1,000 ML 50 ML IVCONT (13:28)
--- NOTE | 2022-06-15 13:29 | PC.NURSE ---
verified with Dr. Wise that patient has an unknown reaction to PCN. stated okay to give Cefazolin 2 gm IV as ordered. Pharmacy updated.
--- NOTE | 2022-06-15 15:10 | P.CONAN_ITS ---
HPI - Anesthesia Eval Consult details Narrative: for cysto, ureteroscopy, laser. Right ureteral stone PMFSH Active Problems Active Problems: All Active Problems (Updated 06/12/22 @ 11:40 by Ruddy Nicole [facility]) Vitamin D deficiency (Acute) Ureteropelvic junction (UPJ) obstruction, right (Acute) Kidney cysts (Acute) Hydronephrosis (Acute) Cyst of left kidney (Acute) Abdominal hernia (Acute) Encounter for annual wellness visit (AWV) in Medicare patient (Acute) Postmenopausal (Acute) Screening for AAA (aortic abdominal aneurysm) (Acute) Screening for heart disease (Acute) Arthritis of shoulder region, right (Acute) HTN (hypertension) (Acute) Pain of left thumb (Acute) Right shoulder pain (Acute) Chronic radicular pain of lower back (Acute) Skin lesion of face (Acute) Morbid obesity with BMI of 60.0-69.9, adult (Acute) Pelvic pain (Acute) Dyslipidemia (Acute) Elevated alkaline phosphatase level (Acute) Mild depression (Acute) Sinusitis (Acute) Depression with anxiety (Acute) Hypothyroid (Acute) Morbid obesity (Acute) Low back pain (Acute) PVD (peripheral vascular disease) (Acute) Palpitations (Acute) Past Medical History Medical History Anterolisthesis of cervicothoracic spine Anxiety Arthritis DDD (degenerative disc disease) Depression with anxiety Diabetes Elevated cholesterol History of cellulitis HTN (hypertension) Hx of solitary pulmonary nodule Hypothyroid Low back pain Morbid obesity Morbid obesity with BMI of 60.0-69.9, adult AMY on CPAP Palpitations PVD (peripheral vascular disease) Spinal stenosis Family History Family History Father Stroke Former smoker Mother Brain tumor Maternal Uncle CVD (cardiovascular disease) Diabetes mellitus Myocardial infarction Brother No problems noted. Sister No problems noted. Sister No problems noted. Sister No problems noted. Son No problems noted. Daughter No problems noted. Daughter No problems noted. Family history of problems with anesthesia: No Surgical History Surgical History History of carpal tunnel surgery of left wrist History of endometrial ablation History of incisional hernia repair Hx of section Hx of cholecystectomy Hx of colonoscopy Hx of repair of left rotator cuff Hx of tonsillectomy Hx of tubal ligation History of Problems with Anesthesia: No Social History Social History Housing: House Patient Tobacco Use Status: Former Tobacco user Years Smoked: 16 years ago e-Cigarette/Vaping Use: Never Used Second Hand Smoke Exposure: No Are you DNR?: No Advance Directives: No Advance Directives Information Provided: Yes Nutrition Risks: No Nutritional Risk service: No Current occupational status: disabled Cognitive needs: No Hearing needs: No Vision needs: No Meds Allergies Allergy/AdvReac Type Severity Reaction Status Date / Time Penicillins Allergy Unknown Unknown Verified 06/15/22 03:13 Sulfa (Sulfonamide Allergy Unknown Unknown Verified 06/15/22 03:14 Antibiotics) tioconazole Allergy Rash Verified 06/10/22 15:29 [From Monistat 1 (tioconazole)] Active Medications: Current Medications Lactated Ringer's (Lr) 1,000 mls @ 50 mls/hr IVCONT .Q20H ZACHARY Last Admin: 06/15/22 13:28 Dose: 50 mls/hr Home Medications Medication Instructions Recorded Confirmed Last Taken Type aspirin 81 mg tablet,delayed 81 mg PO DAILY 11/21/19 06/15/22 04/16/20 23:59 History release (Adult Low Dose Aspirin) Exam Exam Date and Time: June 15, 2022 1510 Height,Weight and Vital Signs: Height 5 ft 3 in Weight 154.221 kg Airway Mallampati Class: I TM Dist: <=3cm (no neck.) Neck ROM: Full Denture: Upper Partial: Lower Heart: ok Lungs: ok Assessment and Plan Assessment Anesthesia Assessment: Anesthesia Plan Discussed and Chart Reviewed Final Anesthetic Review Family History of Problems with Anesthesia: No History of Problems with Anesthesia: No NPO: Yes ASA Class: III Final Preanesthetic Review: No Changes in Pt Med Stat, Meds/Allgs Chart Reviewed, Consent Obtained/Reviewed and Anes Risks/Benef Reviewed Patient Risk: Intermediate Procedure Risk: Intermediate Anesthetic Plan Anesthetic Plan: GA and Agree w/ Assess. and Plan Disposition: Standard PACU
--- NOTE | 2022-06-15 15:16 | MHC.SHP ---
Pre-Procedural Eval Section A Date of Service: 06/15/22 The patient is an INPATIENT: No The History & Physical has been completed within 30 days and I have reviewed it.: Yes Section B Chief Complaint: Calculus of kidney Allergies: Allergies Allergy/AdvReac Type Severity Reaction Status Date / Time Penicillins Allergy Unknown Unknown Verified 06/15/22 03:13 Sulfa (Sulfonamide Allergy Unknown Unknown Verified 06/15/22 03:14 Antibiotics) tioconazole Allergy Rash Verified 06/10/22 15:29 [From Monistat 1 (tioconazole)] Plan Diagnosis/Plan: Unchanged I have reviewed the history and physical and performed a pertinent physical examination on my patient. No changes have occurred unless specified. Cystoscopy. Right ureteral stent. right retrograde, possible ureteroscopy. Discussed risks to include but not limited to, blood in the urine, burning with urination, urgency. Time Spent With Patient Time: Total time managing care of this patient today ____ minutes.
[2022-06-15 16:45] VITALS: BP 119/61; BP 144/64; PULSE 83; PULSE 84; RESP 16; RESP 18; TEMP 36.3; O2SAT 94; O2SAT 97
--- NOTE | 2022-06-15 16:47 | W.PM.OPN ---
Operative Note Operative Note Date of Service: 06/15/22 Narrative: PreOperative Diagnosis:?? Right obstructing UPJ stone, right hydronephrosis Post Operative Diagnosis:?? ?Right obstructing UPJ stone, right hydronephrosis Procedure: - cystoscopy, right retrograde, - balloon dilation right ureteral orifice - right ureteroscopy - right stent placement, size 6 fr x 26 cm Surgeon:?Dr Rachel Wise Anesthesia:? General Indications for procedure: Michelle holder for treatment of obstructing right UPJ stone Procedure: After informed consent was verified the patient was brought to the operating placed on the OR table in supine position.? General Anesthesia was administered per protocol.? The patient was placed in lithotomy position, prepped and draped in the usual sterile fashion.? Safety pause time-out and side of surgery confirmed.? Antibiotics confirmed. A 22 Citizen [place] cystoscope was inserted transurethrally, The bladder was visualized.? Both ureteric orifices were in normal position. The? right ureteric orifice was cannulated? and a retrograde examination was performed, the stone was noted at the UPJ stone which was obstructive. A hydrophilic guidewire was passed and there was difficulty to bypass stone. Following several attempts to pass the guidewire beyond the stone, next the right ureteral orifice was balloon dilated. Then the Assess shealth 12f by 28 cm, was placed followed by the flexible ureteroscope and the guide wire was passed into to renal pelvis. After removing ureteroscopy, a? 6 [place] by 26 length stent was placed into the ureter and renal pelvis under a combination of fluoroscopy and direct visualization. The bladder was emptied.? The rigid cystoscope was removed. ? The patient tolerated the procedure well and was brought to the recovery room in stable condition. Complications: None Drains: Ureteral stent as dictated above
[2022-06-15 16:50] VITALS: BP 124/67; PULSE 77; RESP 18; O2SAT 97
[2022-06-15] MEDS: Acetaminophen 325 MG TABLET 650 MG PO (16:51)
[2022-06-15] MEDS: Phenazopyridine HCL 100 MG TABLET 200 MG PO (16:52)
--- NOTE | 2022-06-15 16:53 | PC.NURSE ---
Pyridium 200mg tablet not in pyxis. Two pyridium 100mg given. Pharmacy verified to do this and they would change in MAR
[2022-06-15 16:55] VITALS: BP 112/61; PULSE 72; RESP 18; O2SAT 97
[2022-06-15 17:00] VITALS: BP 118/62; PULSE 80; RESP 16; O2SAT 97
[2022-06-15 17:15] VITALS: BP 114/78; PULSE 79; RESP 16; TEMP 36.3; O2SAT 98
== END 2022-06-15 17:20 | disposition home or self-care (01) ==
PROVIDERS: PCP Nurse Practitioner Family; Visit Provider Urology
PROC: (CPT 52345; principal; 2022-06-15 14:25)
DX: N13.2 Hydronephrosis with renal and ureteral calculous obstruction (principal); N28.1 Cyst of kidney, acquired; G47.33 Obstructive sleep apnea (adult) (pediatric); I10 Essential (primary) hypertension; I73.9 Peripheral vascular disease, unspecified; R00.2 Palpitations; E78.00 Pure hypercholesterolemia, unspecified; E03.9 Hypothyroidism, unspecified; E11.9 Type 2 diabetes mellitus without complications; F41.8 Other specified anxiety disorders; M48.00 Spinal stenosis, site unspecified; Z88.0 Allergy status to penicillin; Z88.2 Allergy status to sulfonamides; E66.01 Morbid (severe) obesity due to excess calories; Z68.44 Body mass index [BMI] 60.0-69.9, adult; Z79.82 Long term (current) use of aspirin; Z79.899 Other long term (current) drug therapy; Z98.890 Other specified postprocedural states; Z87.891 Personal history of nicotine dependence
CPT/HCPCS: 52345; 52332; 87086; C1726; C1758; C1769; C2617; J0690; J2405; J3010; Q9967

== ENCOUNTER → 2022-06-28 13:37 | Outpatient (BNVA) | payer MEDICARE, MEDICAID, SELFPAY | PROVIDERS: PCP Nurse Practitioner Family; Referring Provider Nurse Practitioner Family; Visit Provider Internal Medicine Cardiovascular Disease | DX: I10 Essential (primary) hypertension (principal); I73.9 Peripheral vascular disease, unspecified; Z79.899 Other long term (current) drug therapy | CPT/HCPCS: 93005; 99212 ==

== ENCOUNTER 2022-07-02 14:03 | Outpatient (REF) | payer MEDICARE, MEDICAID, SELFPAY ==
--- NOTE | ~2022-07-02 | XR_ITS ---
EXAMINATION: XR ABDOMEN KUB CLINICAL INDICATION: Hydronephrosis. COMPARISON: None available. TECHNIQUE: AP view of the abdomen. XR/XR KUB FINDINGS/IMPRESSION: The study is somewhat limited by patient body habitus and the lateral portions of the abdomen being cut off the film. Overlying bowel contents limit evaluation for subtle urinary tract stone. An approximately 1.5 cm calcification projects over the lower pole of the right renal shadow, suggesting a renal collecting system stone. No stone is identified as such on the left. The proximal loop of a right double-J stent projects over the mid right renal shadow. The distal loop projects over the expected location of the urinary bladder. There are bilateral pelvic phleboliths. No soft tissue mass or organomegaly is noted. There is no evidence of intestinal obstruction or free air. There are mild degenerative changes of the lower lumbar spine. The patient is status post cholecystectomy.
== END 2022-07-02 14:04 | disposition home or self-care (01) ==
LOC: HO.HMGCX 14:03
PROVIDERS: Absent Provider Urology; PCP Nurse Practitioner Family; Visit Provider Nurse Practitioner Family
DX: N13.30 Unspecified hydronephrosis (principal); E55.9 Vitamin D deficiency, unspecified
CPT/HCPCS: 36415; 74018; 82306

== ENCOUNTER → 2022-07-08 14:40 | Outpatient (BNVA) | payer MEDICARE, MEDICAID, SELFPAY | PROVIDERS: PCP Nurse Practitioner Family; Visit Provider Urology | DX: N20.0 Calculus of kidney (principal) | CPT/HCPCS: 99212 ==

== ENCOUNTER 2022-08-11 06:07 | Day surgery (SDC) | payer MEDICARE, MEDICAID, SELFPAY ==
--- NOTE | 2022-08-09 09:19 | HO.ANESPROP2 ---
Documented by User: Liseth Castro NP 08/09/22 09:20 HPI - Anesthesia Eval Consult details Narrative: 62yo F for Right ESWL s/p cysto,etc 06/2022 with GA-LMA 3 Stable at 06/2022 routine cardio office visit. No change in tx. OK to hold asa for uro procedures. [facility] Active Problems Active Problems: All Active Problems (Updated 07/08/22 @ 15:53 by Fallon Hines) Renal calculi (Acute) Vitamin D deficiency (Acute) Ureteropelvic junction (UPJ) obstruction, right (Acute) Kidney cysts (Acute) Hydronephrosis (Acute) Cyst of left kidney (Acute) Abdominal hernia (Acute) Encounter for annual wellness visit (AWV) in Medicare patient (Acute) Postmenopausal (Acute) Screening for AAA (aortic abdominal aneurysm) (Acute) Screening for heart disease (Acute) Arthritis of shoulder region, right (Acute) HTN (hypertension) (Acute) Pain of left thumb (Acute) Right shoulder pain (Acute) Chronic radicular pain of lower back (Acute) Skin lesion of face (Acute) Morbid obesity with BMI of 60.0-69.9, adult (Acute) Pelvic pain (Acute) Dyslipidemia (Acute) Elevated alkaline phosphatase level (Acute) Mild depression (Acute) Sinusitis (Acute) Depression with anxiety (Acute) Hypothyroid (Acute) Morbid obesity (Acute) Low back pain (Acute) PVD (peripheral vascular disease) (Acute) Palpitations (Acute) Past Medical History Medical History Anterolisthesis of cervicothoracic spine Anxiety Arthritis DDD (degenerative disc disease) Depression with anxiety Diabetes Elevated cholesterol History of cellulitis HTN (hypertension) Hx of solitary pulmonary nodule Hypothyroid Low back pain Morbid obesity Morbid obesity with BMI of 60.0-69.9, adult AMY on CPAP Palpitations PVD (peripheral vascular disease) Spinal stenosis Family History Family History Father Stroke Former smoker Mother Brain tumor Maternal Uncle CVD (cardiovascular disease) Diabetes mellitus Myocardial infarction Brother No problems noted. Sister No problems noted. Sister No problems noted. Sister No problems noted. Son No problems noted. Daughter No problems noted. Daughter No problems noted. Family history of problems with anesthesia: No Surgical History Surgical History History of carpal tunnel surgery of left wrist History of endometrial ablation History of incisional hernia repair Hx of section Hx of cholecystectomy Hx of colonoscopy Hx of repair of left rotator cuff Hx of tonsillectomy Hx of tubal ligation History of Problems with Anesthesia: No Social History Social History Housing: House Patient Tobacco Use Status: Former Tobacco user Years Smoked: 16 years ago e-Cigarette/Vaping Use: Never Used Second Hand Smoke Exposure: No Use of substances other than those prescribed or required for medical reasons: No Are you DNR?: No Advance Directives: No Advance Directives Information Provided: Yes service: No Current occupational status: disabled Cognitive needs: No Hearing needs: No Vision needs: No Meds Allergies Allergy/AdvReac Type Severity Reaction Status Date / Time Penicillins Allergy Unknown Unknown Verified 07/08/22 15:04 Sulfa (Sulfonamide Allergy Unknown Unknown Verified 07/08/22 15:04 Antibiotics) tioconazole Allergy Rash Verified 07/08/22 15:04 [From Monistat 1 (tioconazole)] Home Medications Medication Instructions Recorded Confirmed Last Taken Type aspirin 81 mg tablet,delayed 81 mg PO DAILY 11/21/19 08/05/22 08/05/22 History release (Adult Low Dose Aspirin) Exam Exam Date and Time: August 09, 2022 0919 Narrative Narrative: EKG 06/2022 Sinus rhythm 75 beats per minute, normal axis, normal EKG, QTC 448 milliseconds Assessment and Plan Assessment Anesthesia Assessment: Chart Reviewed Final Anesthetic Review Family History of Problems with Anesthesia: No History of Problems with Anesthesia: No Documented by User: Wade Martinez MD 08/11/22 07:18 [facility] Past Medical History Medical History Anterolisthesis of cervicothoracic spine Anxiety Arthritis DDD (degenerative disc disease) Depression with anxiety Diabetes Elevated cholesterol History of cellulitis HTN (hypertension) Hx of solitary pulmonary nodule Hypothyroid Low back pain Morbid obesity Morbid obesity with BMI of 60.0-69.9, adult AMY on CPAP Palpitations PVD (peripheral vascular disease) Spinal stenosis Family History Family History Father Stroke Former smoker Mother Brain tumor Maternal Uncle CVD (cardiovascular disease) Diabetes mellitus Myocardial infarction Brother No problems noted. Sister No problems noted. Sister No problems noted. Sister No problems noted. Son No problems noted. Daughter No problems noted. Daughter No problems noted. Surgical History Surgical History History of carpal tunnel surgery of left wrist History of endometrial ablation History of incisional hernia repair Hx of section Hx of cholecystectomy Hx of colonoscopy Hx of repair of left rotator cuff Hx of tonsillectomy Hx of tubal ligation Social History Social History Housing: House Patient Tobacco Use Status: Former Tobacco user Years Smoked: 16 years ago e-Cigarette/Vaping Use: Never Used Second Hand Smoke Exposure: No Use of substances other than those prescribed or required for medical reasons: No Are you DNR?: No Advance Directives: No Advance Directives Information Provided: Yes service: No Current occupational status: disabled Cognitive needs: No Hearing needs: No Vision needs: No Meds Allergies Allergy/AdvReac Type Severity Reaction Status Date / Time Penicillins Allergy Unknown Unknown Verified 07/08/22 15:04 Sulfa (Sulfonamide Allergy Unknown Unknown Verified 07/08/22 15:04 Antibiotics) tioconazole Allergy Rash Verified 07/08/22 15:04 [From Monistat 1 (tioconazole)] Home Medications Medication Instructions Recorded Confirmed Last Taken Type aspirin 81 mg tablet,delayed 81 mg PO DAILY 11/21/19 08/05/22 08/05/22 History release (Adult Low Dose Aspirin) Exam Airway Mallampati Class: II TM Dist: <=3cm Neck ROM: Full Denture: Upper Partial: Lower Heart: ok Lungs: ok Assessment and Plan Assessment Anesthesia Assessment: Anesthesia Plan Discussed Final Anesthetic Review NPO: Yes ASA Class: III Final Preanesthetic Review: No Changes in Pt Med Stat, Meds/Allgs Chart Reviewed, Consent Obtained/Reviewed and Anes Risks/Benef Reviewed Patient Risk: Intermediate Procedure Risk: Low Anesthetic Plan Anesthetic Plan: GA and Agree w/ Assess. and Plan Disposition: Standard PACU
[2022-08-11 06:42] VITALS: BMI 59.3
[2022-08-11 06:55] VITALS: BP 127/71; PULSE 75; RESP 18; TEMP 36.8; O2SAT 96
--- NOTE | 2022-08-11 07:37 | MHC.SHP ---
Pre-Procedural Eval Section A Date of Service: 08/11/22 The patient is an INPATIENT: No The History & Physical has been completed within 30 days and I have reviewed it.: Yes Section B Chief Complaint: Calculus of kidney Allergies: Allergies Allergy/AdvReac Type Severity Reaction Status Date / Time Penicillins Allergy Unknown Unknown Verified 07/08/22 15:04 Sulfa (Sulfonamide Allergy Unknown Unknown Verified 07/08/22 15:04 Antibiotics) tioconazole Allergy Rash Verified 07/08/22 15:04 [From Monistat 1 (tioconazole)] Plan Diagnosis/Plan: Unchanged I have reviewed the history and physical and performed a pertinent physical examination on my patient. No changes have occurred unless specified. Right ESWL Time Spent With Patient Time: Total time managing care of this patient today ____ minutes.
[2022-08-11 08:30] VITALS: BP 141/79; PULSE 68; RESP 16; TEMP 36.9; O2SAT 100
--- NOTE | 2022-08-11 08:33 | W.PM.OPN ---
Operative Note Operative Note Date of Service: 08/11/22 Narrative: PreOperative Diagnosis:? ? Right Renal stone Post Operative Diagnosis:?Right? Renal stone Procedure:?Right? ESWL Surgeon:?Dr Rachel Wise Anesthesia:? General Indications for procedure: The patient is status post right ureteral stent. The patient understands ESWL may be a staged procedure and subsequent intervention may be required based on imaging after ESWL.? They also understand? there is a risk of bleeding to the kidney, infection, damage to adjacent organs, and stone migration following the procedure. - Imaging 16 mm Right lower pole stone Procedure: After informed consent was verified the patient was brought to the operating room and placed in a supine position.? Anesthesia was performed per protocol. Safety pause time-out was performed. Imaging was displayed in the room and laterality confirmed. ESWL was performed.?The stone was visualized on ultrasound.? Shockwave lithotripsy was performed, after the first 300 shocks a pause for 3 minutes.? A total of 2500 shocks to a maximum of power of 18 with a maximum rate of 120 hertz.? Some fragmentation of the stone was appreciated. The patient tolerated the procedure well and was transferred to the recovery area upon completion. Complications: None
[2022-08-11 08:35] VITALS: BP 140/83; PULSE 68; RESP 16; O2SAT 98
[2022-08-11 08:40] VITALS: BP 137/81; PULSE 66; RESP 16; O2SAT 98
[2022-08-11 08:45] VITALS: BP 140/81; PULSE 71; RESP 16; O2SAT 98
[2022-08-11 09:00] VITALS: BP 151/94; PULSE 79; RESP 16; TEMP 36.2; O2SAT 97
== END 2022-08-11 09:46 ==
LOC: HO.SSS 06:07
PROVIDERS: PCP Nurse Practitioner Family; Visit Provider Urology
PROC: (CPT 50590; principal; 2022-08-11 07:30)
DX: N20.0 Calculus of kidney (principal); Z96.0 Presence of urogenital implants; N28.1 Cyst of kidney, acquired; I10 Essential (primary) hypertension; G47.33 Obstructive sleep apnea (adult) (pediatric); F41.8 Other specified anxiety disorders; E66.01 Morbid (severe) obesity due to excess calories; Z68.44 Body mass index [BMI] 60.0-69.9, adult; I73.89 Other specified peripheral vascular diseases; E78.00 Pure hypercholesterolemia, unspecified; E11.9 Type 2 diabetes mellitus without complications; Z99.89 Dependence on other enabling machines and devices; Z88.0 Allergy status to penicillin; Z88.2 Allergy status to sulfonamides; Z87.891 Personal history of nicotine dependence
CPT/HCPCS: 50590; 74018; J0131; J1100; J1940; J1956; J2250; J2405; J3010

== ENCOUNTER 2022-08-17 11:37 | Outpatient (AMB) | payer MEDICARE, MEDICAID, SELFPAY ==
[2022-08-17 11:42] VITALS: BP 120/82; PULSE 80; O2SAT 97; BMI 59.0
--- NOTE | 2022-08-17 11:42 | AM.OFFVISMDC ---
Intake Vital Signs 08/17/22 11:42 Height 5 ft 3 in Intake Visit Reasons: AWV Allergies Penicillins Allergy (Unknown, Verified 07/08/22 15:04) Unknown Sulfa (Sulfonamide Antibiotics) Allergy (Unknown, Verified 07/08/22 15:04) Unknown tioconazole [From Monistat 1 (tioconazole)] Allergy (Verified 07/08/22 15:04) Rash PFSH Medical History Anterolisthesis of cervicothoracic spine Anxiety Arthritis DDD (degenerative disc disease) Depression with anxiety Diabetes Elevated cholesterol History of cellulitis HTN (hypertension) Hx of solitary pulmonary nodule Hypothyroid Low back pain Morbid obesity Morbid obesity with BMI of 60.0-69.9, adult AMY on CPAP Palpitations PVD (peripheral vascular disease) Spinal stenosis Surgical History History of carpal tunnel surgery of left wrist History of endometrial ablation History of incisional hernia repair Hx of section Hx of cholecystectomy Hx of colonoscopy Hx of repair of left rotator cuff Hx of tonsillectomy Hx of tubal ligation Family History Father Stroke Former smoker Mother Brain tumor Maternal Uncle CVD (cardiovascular disease) Diabetes mellitus Myocardial infarction Brother No problems noted. Sister No problems noted. Sister No problems noted. Sister No problems noted. Son No problems noted. Daughter No problems noted. Daughter No problems noted. Social History Housing: House Patient Tobacco Use Status: Former Tobacco user Years Smoked: 16 years ago e-Cigarette/Vaping Use: Never Used Second Hand Smoke Exposure: No service: No Current occupational status: disabled Cognitive needs: No Hearing needs: No Vision needs: No Coding Diagnoses
--- NOTE | 2022-08-17 11:51 | A.OFFPC_ITS ---
Vital Signs 08/17/22 11:42 Height 5 ft 3 in Weight 333 lb 6 oz BMI 59.0 BP 120/82 Blood Pressure Location Lt brachial Position Sitting Pulse 80 Pulse Source Pulse Oximeter Pulse Oximetry (%) 97 Oxygen Delivery Method Room Air Intake Visit Reasons: AWV Allergies Penicillins Allergy (Unknown, Verified 08/17/22 13:44) Unknown Sulfa (Sulfonamide Antibiotics) Allergy (Unknown, Verified 08/17/22 13:44) Unknown tioconazole [From Monistat 1 (tioconazole)] Allergy (Verified 08/17/22 13:44) Rash Medication List - Last Reconciled 08/17/22 by Ruddy Nicole, MANAGER OF IT- aspirin (Adult Low Dose Aspirin) 81 mg PO DAILY atenolol 25 mg PO DAILY atorvastatin 80 mg PO DAILY bupropion HCl 300 mg PO QAM 90 days calcium carbonate-vitamin D3 600 mg-10 mcg (400 unit) (Calcium 600 with Vitamin D3) 1 tab PO BID fluconazole (Diflucan) 150 mg PO ONCE 2 doses levofloxacin 500 mg PO DAILY 7 days levothyroxine 150 mcg PO QAM oxycodone-acetaminophen 5-325 mg (Percocet) 1 tab PO Q6H PRN Tobacco use date assessed: 05/17/22 HPI AWV HPI Details NOT AN AWV. HTN: Blood pressure is stable, managed with atenolol 25mg. Will order labs. Denies shortness of breath, headache, dizziness, and blurred vision. Pt reports some intermittent palpitations. Last holter was 07/2018. Pt's symptoms correlated with isolated PVCs. Will do an EKG in office. She reports some chest discomfort related to anxiety. Denies any syncope. Pt reports being under a lot of stress currently. Pt has seen cardiology in the [facility] Medical History Anterolisthesis of cervicothoracic spine Anxiety Arthritis DDD (degenerative disc disease) Depression with anxiety Diabetes Elevated cholesterol History of cellulitis HTN (hypertension) Hx of solitary pulmonary nodule Hypothyroid Low back pain Morbid obesity Morbid obesity with BMI of 60.0-69.9, adult AMY on CPAP Palpitations PVD (peripheral vascular disease) Spinal stenosis Surgical History History of carpal tunnel surgery of left wrist History of endometrial ablation History of incisional hernia repair Hx of section Hx of cholecystectomy Hx of colonoscopy Hx of repair of left rotator cuff Hx of tonsillectomy Hx of tubal ligation Family History Father Stroke Former smoker Mother Brain tumor Maternal Uncle CVD (cardiovascular disease) Diabetes mellitus Myocardial infarction Brother No problems noted. Sister No problems noted. Sister No problems noted. Sister No problems noted. Son No problems noted. Daughter No problems noted. Daughter No problems noted. Social History Housing: House Patient Tobacco Use Status: Former Tobacco user Years Smoked: 16 years ago e-Cigarette/Vaping Use: Never Used Second Hand Smoke Exposure: No service: No Current occupational status: disabled Cognitive needs: No Hearing needs: No Vision needs: No Questionnaire Thrive Questionnaire Date Thrive assessed: 04/30/21 ROSEMARY-7 AMB Questionnaire ROSEMARY-7 Date ROSEMARY - 7 assessed: 04/30/21 Source: Developed by Drs. Ghassan Marie, Heather Bennett, Bucky Chadwick and colleagues, with an educational halina from [employer]. Review of Systems Const Reports as per HPI Physical exam (Primary Care) Vital Signs: Last Vital Signs Pulse 80 08/17/22 11:42 BP 120/82 08/17/22 11:42 Pulse Ox 97 08/17/22 11:42 Oxygen Delivery Method Room Air 08/17/22 11:42 BMI result Body Mass Index 59.0 Tobacco/Smoking Status: Tobacco use Status Tobacco use date assessed 05/17/22 08/17/22 11:53 Patient Tobacco Use Status Former Tobacco user 08/17/22 11:53 e-Cigarette/Vaping Use Never Used 08/17/22 11:53 Thrive Assessment: Date of Thrive Assessment Date Thrive assessed 04/30/21 08/17/22 11:53 Const General: cooperative Nutritional Appearance: obese morbidly obese Orientation/consciousness: patient oriented x3 Resp Effort & Inspection: normal respiratory effort Auscultation: clear to auscultation bilaterally Cardio Rate: regular rate Rhythm: regular rhythm Heart sounds: S1 normal heart sound present and S2 normal heart sound present Neuro General: patient oriented x3 Extrem Right lower extremity: edema (trace) Left lower extremity: edema (trace) Psych Appearance: grossly normal Mental Status: mental status grossly normal Speech and movement: Normal speech and movement present Affect: normal affect Attitude: cooperative Thought process: Normal thought process present Thought content: Normal thought content present Insight: Good insight present (Psych) Judgement: Good judgement present (Psych) Assessment and Plan Assessment & Plan (1) HTN (hypertension): Code(s): I10 - Essential (primary) hypertension Plan: Labs ordered (2) Palpitations: Comment: Sees Dr Monsalve Code(s): R00.2 - Palpitations Plan The patient agreed to the use of a director medical safety for this encounter. Scribed for STACIE Auguste by Olivia Nicole director medical safety, on 08/17/2022 at 11:55 EST. Orders: Orders Comprehensive [place]. Panel Fast Today I10 - Essential (primary) hypertension Lipid Panel Today I10 - Essential (primary) hypertension TSH reflex Free T4 Today I10 - Essential (primary) hypertension Complete Blood Count Auto Diff Today I10 - Essential (primary) hypertension UA CC w/rflx Micro + Cult Today I10 - Essential (primary) hypertension AMB EKG-In Office Today I10 - Essential (primary) hypertension Coding Level of Care Code Est Pt Level 3 (12339) Diagnoses HTN (hypertension) I10 Palpitations R00.2
== END 2022-08-17 12:51 | disposition home or self-care (01) ==
PROVIDERS: PCP Nurse Practitioner Family; Visit Provider Nurse Practitioner Family
DX: I10 Essential (primary) hypertension (principal); R00.2 Palpitations
CPT/HCPCS: 99213

== ENCOUNTER 2022-08-23 14:45 | Outpatient (REF) | payer MEDICARE, MEDICAID, SELFPAY ==
--- NOTE | ~2022-08-23 | XR_ITS ---
EXAMINATION: XR ABDOMEN KUB CLINICAL INDICATION: Stone disease status ESWL COMPARISON: 08/11/2022 TECHNIQUE: 2 views of the abdomen. FINDINGS: Right-sided pigtail stent in place in good position unchanged. Clips consistent with cholecystectomy. Previously questioned faint calculi on the left is not well demonstrated on the current study. Imaging is limited due to body habitus. The index stones in the right appear fragmented and less well-defined. The amorphous calcifications are presumably secondary to a small ESWL with fragmentation. Large fragment measures up to 9 mm only in the current study. No definite stones along the course of the ureter. Sclerosis about the right sacrum stable. XR/XR KUB IMPRESSION: 1. Right-sided stent in good position. No definite calculi along the course of the ureter. 2. Fragmented appearance of the right index renal calculi as above.
[2022-08-23 16:02] LABS: MANUAL DIFF FLAG NO
[2022-08-23 16:13] LABS: Appearance Urine Clear; Color Urine Yellow; Glucose Urine UA Negative (Negative); Leukocyte Esterase Urine Trace (Negative); Nitrite Urine Negative (Negative); PH 6.5 (5.0-9.0); UMIC TRIGGER UACC YES; Urine Blood Moderate (2+) (Negative); Urine Ketones Negative (Negative); Urine Protein Negative (Neg-Trace)
[2022-08-23 16:15] LABS: Bacteria Urine None Seen (None Seen); Hyaline Casts Urine 0-2 /LPF (0-2); RBC Urine >20 /HPF (0-2); Squamous Epithelial Cell Urine 0-2 /HPF (0-2); WBC Urine 0-5 /HPF (0-5)
[2022-08-23 16:30] LABS: Basophils Absolute Auto 0.1 X10*3/uL (0.0-0.2); Basophils Percent Auto 0.7 % (0-2); Eosinophils Absolute Auto 0.1 X10*3/uL (0.0-0.4); Eosinophils Percent Auto 1.5 % (0-4); Hematocrit 41.3 % (37.0-47.0); Hemoglobin 12.9 g/dl (12.0-16.0); Imm Gran Abs Auto 0.02 X10*3/uL (0.00-0.03); Imm Gran Pct Auto 0.3 % (0.0-0.4); Lymphocytes Absolute Auto 2.2 X10*3/uL (1.2-4.9); Lymphocytes Percent Auto 32.8 % (20-40); Mean Corpuscular HGB Conc 31.2 g/dl (31.0-35.0); Mean Corpuscular Hemoglobin 28.4 pg (27.0-33.0); Mean Platelet Volume 11.4 fL (9.4-12.3); Monocytes Absolute Auto 0.5 X10*3/uL (0.1-1.2); Monocytes Percent Auto 7.8 % (2-11); Neutrophils Absolute Auto 3.9 x10*3/uL (2.0-8.3); Neutrophils Percent Auto 56.9 % (45-73); Platelet Count 220 X10*3/uL (160-400); Red Blood Count 4.54 X10*6/uL (4.20-5.50); White Blood Count 6.8 X10*3/uL (4.8-10.8)
[2022-08-23 17:17] LABS: Alanine Aminotransferase 22 U/L (0-31); Alkaline Phosphatase 107 U/L (39-117); Anion Gap 12 (12-20); Aspartate Amino Transferase 17 U/L (5-31); Bilirubin Total 0.7 mg/dL (0.0-1.0); Blood Urea Nitrogen 12 mg/dL (9-16); Calcium 9.3 mg/dL (8.4-10.2); Carbon Dioxide 25 mmol/L (22-29); Chloride 106 mmol/L (96-108); Cholesterol 189 mg/dL; Estimated Glomerular Filt Rate > 60; Glucose Fasting 107 mg/dL (60-99); HDL Cholesterol 57 mg/dL; LDL Cholesterol Calculated 109 mg/dl; Potassium 4.3 mmol/L (3.3-5.1); Sodium 139 mmol/L (135-145); Triglycerides 117 mg/dL
[2022-08-23 17:34] LABS: TSH reflex Free T4 2.49 uIU/mL (0.32-4.0)
== END 2022-08-23 14:46 | disposition home or self-care (01) ==
LOC: HO.HMGCX 14:45
PROVIDERS: Absent Provider Urology; PCP Nurse Practitioner Family; Visit Provider Nurse Practitioner Family
DX: N20.0 Calculus of kidney (principal); I10 Essential (primary) hypertension
CPT/HCPCS: 36415; 74018; 80053; 80061; 81001; 84443; 85025

== ENCOUNTER 2022-08-26 13:27 | Outpatient (REF) | payer MEDICARE, MEDICAID, SELFPAY | END 2022-08-26 13:28 | disposition home or self-care (01) | LOC: HO.LNP 13:27 | PROVIDERS: PCP Nurse Practitioner Family; Visit Provider Urology | DX: N20.0 Calculus of kidney (principal) | CPT/HCPCS: 52310; 88300 ==

== ENCOUNTER 2022-08-26 13:27 | Outpatient (AMB) | payer MEDICARE, MEDICAID, SELFPAY ==
--- NOTE | 2022-08-26 11:11 | A.OFFVIS_ITS ---
Intake Intake Visit Reasons: post op/stent removal/KUB Intake Note: Patient presents today for a CYSTOSCOPY Procedure: Meds: None Allergies to Antibiotic: Penicillin & Sulfa Blood Thinner: Asprin Urinalysis test clear for Cysto Disposible Uro-G Cystoscope Cannula: Lot: [id number] Exp: 07/23/2024 Bliss Press Operator Required: No Accompanied by: Self / Same As Patient Allergies Penicillins Allergy (Unknown, Verified 08/26/22 13:44) Unknown Sulfa (Sulfonamide Antibiotics) Allergy (Unknown, Verified 08/26/22 13:44) Unknown tioconazole [From Monistat 1 (tioconazole)] Allergy (Verified 08/26/22 13:44) Rash Medication List - Last Reconciled 08/26/22 by Rachel Wise MD aspirin (Adult Low Dose Aspirin) 81 mg PO DAILY atenolol 25 mg PO DAILY atorvastatin 80 mg PO DAILY bupropion HCl 300 mg PO QAM 90 days calcium carbonate-vitamin D3 600 mg-10 mcg (400 unit) (Calcium 600 with Vitamin D3) 1 tab PO BID fluconazole (Diflucan) 150 mg PO ONCE 2 doses fluconazole (Diflucan) 150 mg PO ONCE levofloxacin 500 mg PO DAILY 7 days levothyroxine 150 mcg PO QAM oxycodone-acetaminophen 5-325 mg (Percocet) 1 tab PO Q6H PRN HPI HPI Comments History of Present Illness Details Michelle is a 62-year-old male who presents today to the office for cystoscopy stent removal. 07/08/22-- Michelle is a 62-year-old female. She is s/p right ureteroscopy and right stent placement on 06/15/22 for right obstructing UPJ stone and hydronephrosis. She was found to have right hydronephrosis secondary to right obstructing UPJ stone. The patient is status post cystoscopy and right ureteral stent placement. At the time of the procedure the stone migrated into the kidney. She is here to follow-up and had KUB done, I reviewed the results with the patient.The stone is in the renal pelvis. I discussed stone management to include right ESWL. The patient has discussed with me that she is very concerned with her son who is currently on peritoneal dialysis. This is very stressful time for the family. The KUB film as well as the CAT scan was reviewed with the patient. Evaluation today-- Blood: 200 Sher/uL. I have discussed treatment with right ESWL, discussed risks including but not limited to, blood in the urine, bruising to the skin, bleeding, possible need for another procedure if a stone fragment obstructs the ureter while passing, possible need to repeat procedure if stone is not completely fragmented. 08/26/2022-- Michelle is a 62-year-old female who presents to the clinic today for cystoscopy stent removal. She is status post left ESWL on 08/11/22. She had a KUB done on 08/23/22. Results reviewed-- I have reviewed the x-rays. Impression: Stent is in good position. No stone fragments along the stent. There are some remaining stone fragments in the left kidney. Patient has brought in significant stone fragment that she passed and we will send it for stone analysis. Serum calcium on 08/23/22 -? 9.3 Plan: Prescribed Diflucan 150 mg as patient states she gets yeast infection after antibiotic use. Right ureteral stent was removed without difficulty. Metabolic work-up to include 24-hour urine collection, CAT scan of abdomen and pelvis, stone protocol in 1 month. Follow up in 10 to 12 weeks. COUNT INCLUDES THE [facility] Medical History Anterolisthesis of cervicothoracic spine Anxiety Arthritis DDD (degenerative disc disease) Depression with anxiety Diabetes Elevated cholesterol History of cellulitis HTN (hypertension) Hx of solitary pulmonary nodule Hypothyroid Low back pain Morbid obesity Morbid obesity with BMI of 60.0-69.9, adult AMY on CPAP Palpitations PVD (peripheral vascular disease) Spinal stenosis Surgical History History of carpal tunnel surgery of left wrist History of endometrial ablation History of incisional hernia repair Hx of section Hx of cholecystectomy Hx of colonoscopy Hx of repair of left rotator cuff Hx of tonsillectomy Hx of tubal ligation Family History Father Stroke Former smoker Mother Brain tumor Maternal Uncle CVD (cardiovascular disease) Diabetes mellitus Myocardial infarction Brother No problems noted. Sister No problems noted. Sister No problems noted. Sister No problems noted. Son No problems noted. Daughter No problems noted. Daughter No problems noted. Social History Housing: House Patient Tobacco Use Status: Former Tobacco user Years Smoked: 16 years ago e-Cigarette/Vaping Use: Never Used Second Hand Smoke Exposure: No service: No Current occupational status: disabled Cognitive needs: No Hearing needs: No Vision needs: No Office Procedures Cystoscopy Consent Discussed risk and benefit or proposed procedure with the patient. Information consent for procedure given to the patient. Discussed technical aspects, risks, benefits and alternatives in full. Addressed all of the patient's questions and concerns regarding the procedure. The patient demonstrated knowledge and understanding. They wish to proceed with this procedure. Preparation The patient was prepped in the usual manner. A analysis reporting developer was present and in the room. Genitalia was prepped with betadine solution in a sterile manner. Lidocaine Jelly 2% was placed into the urethra and 16Fr flexible Olympus cystoscope was inserted into the meatus after adequate lubrication. Time out per protocol performed. Bladder Inspection Cystoscopy findings: mild edema right ureteral orifice which is expected, distal end of ureteral stent visualized. The grasping forceps were used and the stent was removed without difficulty. [id number] with stent removal Procedure code (CPT) selection complete Office Meds lidocaine HCl 2 % mucosal jelly in applicator Performing Provider: Rachel Wise MD [place] [facility] [place] [facility] Documented (not given) by: Rachel Wise MD on 08/26/22 14:47 Dose Route Admin Location Dispensed Lot Number Expiration Date [facility] Finish Mender 10 mL intra-urethral mL nitrofurantoin monohydrate/macrocrystals 100 mg capsule Performing Provider: Rachel Wise MD [place] [facility] [facility] Documented (not given) by: Rachel Wise MD on 08/26/22 14:47 Dose Route Admin Location Dispensed Lot Number Expiration Date [facility] Finish Mender 100 mg PO cap Results AMB Urinalysis, Automated UA Leukoctes 0 Deanne/uL Last Edit by KIRSTIE Mon on 08/26/22 14:22 UA Nitrite Negative Last Edit by Ramiro Julian [facility] on 08/26/22 14:22 UA Urobilinogen 0.2 mg/dL Last Edit by Ramiro Julian [facility] on 08/26/22 14:2 2 UA Protein 0 mg/dL Last Edit by Ramiro Julian [facility] on 08/26/22 14:22 UA pH 6.0 Last Edit by Ramiro Julian [facility] on 08/26/22 14:22 UA Blood 200 Sher/uL Last Edit by Ramiro Julian [facility] on 08/26/22 14:22 3+ Ramiro Julian 08/26/22 14:22 UA Specific [place] 1.010 Last Edit by Ramiro Julian [facility] on 08/26/22 14: 22 UA Ketone Negative Last Edit by Ramiro Julian [facility] on 08/26/22 14:22 UA Bilirubin 0 mg/dL Last Edit by Ramiro Julian [facility] on 08/26/22 14:22 UA Glucose 0 mg/dL Last Edit by Ramiro Julian [facility] on 08/26/22 14:22 Results Reviewed Results Reviewed: 08/26/22 16:55 Kidney Stone Routine Laboratory Last Values Urine pH (Auto) 6.0 08/26/22 13:39 Specific [place] (Auto) 1.010 08/26/22 13:39 Urine Protein (Auto) 0 mg/dL 08/26/22 13:39 Glucose (UA)(Auto) 0 mg/dL 08/26/22 13:39 Urine Ketones (Auto) Negative 08/26/22 13:39 Urine Blood (Auto) 200 Sher/uL 08/26/22 13:39 Urine Nitrite (Auto) Negative 08/26/22 13:39 Urine Bilirubin (Auto) 0 mg/dL 08/26/22 13:39 Urine Urobilinogen (Auto) 0.2 mg/dL 08/26/22 13:39 Leukocyte Esterase (Auto) 0 Deanne/uL 08/26/22 13:39 Stone Source KIDNEY STONE 08/26/22 16:55 Stone Weight 0.077 g 08/26/22 16:55 Stone Constituent 1 SEE NOTE 08/26/22 16:55 Assessment & Plan Assessment & Plan (1) Renal calculi: Code(s): N20.0 - Calculus of kidney Plan Prescribed Diflucan 150 mg as patient states she gets yeast infection after antibiotic use. Right ureteral stent was removed without difficulty. Metabolic work-up to include 24-hour urine collection, CAT scan of abdomen and pelvis, stone protocol in 1 month. Follow up in 10 to 12 weeks. Orders: Orders AMB Urinalysis Automated 08/26/22 Z13.9 - Encounter for screening, unspecified AMB Cystoscopy 08/26/22 Z96.0 - Presence of urogenital implants Surgical 08/26/22 N20.0 - Calculus of kidney Medications: New fluconazole (Diflucan) repeat dose in 3 dys if symptoms persist 150 mg PO ONCE 2 tabs 0RF lidocaine HCl 2% 10 mL intra-urethral ONCE 10 mL 0RF Z96.0 - Presence of urogenital implants nitrofurantoin monohyd/m-cryst 100 mg 100 mg PO ONCE 1 cap 0RF Z96.0 - Presence of urogenital implants Patient Instructions: The patient had an opportunity to ask questions regarding treatment plan. All questions were answered. Imaging, Laboratory studies and physical exam results were discussed and reviewed in detail. No major barriers to understanding were identified. The patient expressed understanding and agreement with the above treatment plan. The patient is aware they should contact our office by phone for worsening of their current condition or the appearance of new symptoms. Compliance is encouraged with any medications and followup testing that is ordered. It is a privilege to be allowed the opportunity to participate in the urologic care of your patient. If you have any questions or concerns regarding treatment for the above conditions please do not hesitate to contact me. The office telephone contact is [phone]. This note is constructed in part using voice recognition software. While every effort has been made to ensure accuracy drier tender naphthalene errors may have been included. Yours sincerely, Rachel Wise MD Coding Level of Care Code Est Pt Level 3 (18591) Procedure Only Diagnoses Renal calculi N20.0 CPT Codes Cystoscopy - CPT: 49017-[id number] with stent removal ([id number])
[2022-09-03 16:48] LABS: Stone Source KIDNEY STONE
== END 2022-08-26 14:44 | disposition home or self-care (01) ==
PROVIDERS: PCP Nurse Practitioner Family; Visit Provider Urology
DX: N20.0 Calculus of kidney (principal)
CPT/HCPCS: 52310

== ENCOUNTER 2022-11-12 11:16 | Outpatient (REF) | payer MEDICARE, MEDICAID, SELFPAY ==
[2022-11-12 14:36] LABS: Blood Urea Nitrogen 13 mg/dL (9-16); Estimated Glomerular Filt Rate > 60
== END 2022-11-12 11:17 | disposition home or self-care (01) ==
LOC: HO.HMGCLDS 11:16
PROVIDERS: PCP Nurse Practitioner Family; Visit Provider Urology
DX: N20.0 Calculus of kidney (principal); N28.1 Cyst of kidney, acquired
CPT/HCPCS: 36415; 82565; 84520

== ENCOUNTER 2022-11-18 15:54 | Outpatient (REF) | payer MEDICARE, MEDICAID, SELFPAY ==
--- NOTE | ~2022-11-18 | CT_ITS ---
EXAMINATION: CT ABDOMEN AND PELVIS WITHOUT AND WITH CONTRAST CLINICAL INFORMATION: Reason for Exam N20.0 - Calculus of kidney COMPARISON: CT abdomen and pelvis 05/27/2022. TECHNIQUE: Noncontrast helical scanning was performed with submillimeter collimation through the abdomen and pelvis. Postcontrast helical scanning was then repeated with submillimeter collimation through the abdomen and pelvis in the pyelographic/urographic phase using split dose technique with 85 mL of Omnipaque 350 intravenous contrast. Sagittal and coronal 2-D reconstructions were obtained. This CT examination was performed using dose optimization techniques as appropriate, variously including the following: *Automated exposure control *Adjustment of mA and/or kV according to patient size (this includes techniques or standardized protocols for targeted exams where dose is matched to indication/reason for exam; i.e. extremities or head) *Use of iterative reconstruction technique DLP: 2317 mGycm FINDINGS: KIDNEYS, URETERS, BLADDER: Specific attention was given to the kidneys, ureters, and bladder. The right kidney measures 11.8 cm in size and the left kidney measures 11.7 cm in size. NONCONTRAST: 2 mm nonobstructing calculus upper pole left kidney 13.3 cm from posterior skin surface. Punctate nonobstructing calculus lower pole left kidney 17.5 cm from posterior skin surface. 0.8 cm 950 HU nonobstructing calculus in the posterior mid right kidney 17.0 cm from the posterior skin surface. POSTCONTRAST NEPHROGRAPHIC/UROGRAPHIC: The nephrograms are symmetric. There is mild right hydronephrosis without ureteral nephrosis possibly representing a stricture at the UPJ in the location of the prior stone. The urinary excretion is symmetric. No filling defect in the collecting systems. No discrete ureteral lesion. BLADDER: Unremarkable. PELVIC VISCERA: Again seen is a low-attenuation lesion in the anterior aspect of the mid left kidney which is nonspecific by CT but correlates with a simple cyst on renal ultrasound. OTHER: LUNG BASES: The visualized lung bases are unremarkable. LIVER, GALLBLADDER, AND BILIARY TREE: The liver is normal in size, shape, and attenuation. No focal hepatic lesion or biliary ductal dilatation is present. Cholecystectomy. PANCREAS: No discrete pancreatic mass. No ductal dilatation. SPLEEN: Unremarkable. ADRENAL GLANDS: Unremarkable. GASTROINTESTINAL TRACT: Small bowel is normal in caliber. No mesenteric mass or fluid. The large bowel is normal in caliber. ABDOMINAL WALL: Suspect prior ventral hernia repair with mesh. Right supraumbilical ventral hernia containing fat. Large periumbilical hernia containing fat. LYMPH NODES: No lymphadenopathy. VASCULAR: Unremarkable. OSSEOUS STRUCTURES: Degenerative changes in the spine. CT/CT abdomen pelvis wo/w IV con IMPRESSION: 0.8 cm 950 HU nonobstructing calculus posterior mid right kidney may represent the previously seen UVJ calculus that has migrated retrograde. Additional tiny left-sided nonobstructing renal calculi. Mild right hydronephrosis possibly due to a stricture at the UVJ. There is no delay in the nephrogram to suggest that this is urodynamically significant. Otherwise normal CT urogram.
[2022-11-18] MEDS: iohexoL 350 MG/ML 100 ML INFUS..BTL IV (17:39)
== END 2022-11-18 15:55 | disposition home or self-care (01) ==
LOC: HO.CT 15:54
PROVIDERS: PCP Nurse Practitioner Family; Visit Provider Urology
DX: N20.0 Calculus of kidney (principal); N13.30 Unspecified hydronephrosis; N28.1 Cyst of kidney, acquired
CPT/HCPCS: 74178; Q9967

== ENCOUNTER 2022-11-29 13:13 | Outpatient (AMB) | payer MEDICARE, MEDICAID, SELFPAY ==
--- NOTE | 2022-11-29 13:20 | A.OFFVIS_ITS ---
Intake Intake Visit Reasons: 10w/CT/litholink Intake Note: Patient presents today for a follow-up on Litholink & CT scan results: CT Booked on 11/18/2022 Meds: None Allergies to Antibiotic: Penicillin & Sulfa Blood Thinner: Asprin Coordinator Of Evaluation Required: No Accompanied by: Self / Same As Patient Allergies Penicillins Allergy (Unknown, Verified 11/29/22 13:20) Unknown Sulfa (Sulfonamide Antibiotics) Allergy (Unknown, Verified 11/29/22 13:20) Unknown tioconazole [From Monistat 1 (tioconazole)] Allergy (Verified 11/29/22 13:20) Rash HPI HPI Comments History of Present Illness Details Michelle is a 62-year-old female who presents today to the office for a follow-up. 11/29/22? She is followed today for litholink results, and CT scan results.? She is a status post right ESWL done on 08/11/2022.? She was last seen by me on 08/26/22 for post op/stent removal/KUB. Prescribed Diflucan 150 mg as patient states she gets yeast infection after antibiotic use during that time. I have reviewed 24-hour urine collection results from 09/02/2022 revealed urine volume was 1.55 L, urine calcium was 161, urine oxalates was 21, urine citrate was 514, and urine sodium was 186. I have reviewed the CT abdomen/pelvis results from 11/18/22 revealed 0.8 cm 950 HU nonobstructing calculus posterior mid right kidney may represent the previously seen UVJ calculus that has migrated retrograde. Additional tiny left- sided nonobstructing renal calculi.? Mild right hydronephrosis possibly due to a stricture at the UVJ. I reviewed the X-ray imaging films comparing the CAT scan from 11/18/22 with CAT scan from 05/2022. I discussed the stone analysis with the patient revealed primarily calcium oxalates. Review of charts: She is status post left ESWL on 08/11/22. KUB done on 08/23/22. Results reviewed-- I have reviewed the x-rays. Impression: Stent is in good position. No stone fragments along the stent. There are some remaining stone fragments in the left kidney. Serum calcium on 08/23/22 -? 9.3 11/29/22: Plan: Will schedule repeat right ESWL. [facility] Medical History Anterolisthesis of cervicothoracic spine Morbid obesity with BMI of 60.0-69.9, adult DDD (degenerative disc disease) Diabetes History of cellulitis Hx of solitary pulmonary nodule Depression with anxiety AMY on CPAP Spinal stenosis Arthritis Hypothyroid Elevated cholesterol HTN (hypertension) Anxiety Morbid obesity Low back pain PVD (peripheral vascular disease) Palpitations Surgical History History of endometrial ablation Hx of colonoscopy History of carpal tunnel surgery of left wrist Hx of repair of left rotator cuff History of incisional hernia repair Hx of cholecystectomy Hx of tonsillectomy Hx of tubal ligation Hx of section Family History Father Stroke Former smoker Mother Brain tumor Maternal Uncle CVD (cardiovascular disease) Diabetes mellitus Myocardial infarction Brother No problems noted. Sister No problems noted. Sister No problems noted. Sister No problems noted. Son No problems noted. Daughter No problems noted. Daughter No problems noted. Social History Housing: House Patient Tobacco Use Status: Former Tobacco user Years Smoked: 16 years ago e-Cigarette/Vaping Use: Never Used Second Hand Smoke Exposure: No service: No Current occupational status: disabled Cognitive needs: No Hearing needs: No Vision needs: No Review of Systems Const All systems reviewed & are unremarkable except as noted in HPI and below Reports no additional complaints Eyes Reports no additional complaints and Reports tunnel vision ENT Reports no additional complaints Card Denies dyspnea Resp Denies cough and Denies dyspnea GI Reports no additional complaints Reports no additional complaints Musc Reports no additional complaints Skin/Breast Denies rash and Denies unusual bruising Neuro Reports no additional complaints Psych Reports no additional complaints Endo Reports no additional complaints Timbo/Lymph Reports no additional complaints Aller/Immun Reports no additional complaints Results AMB Urinalysis, Automated UA Leukoctes 0 Deanne/uL Last Edit by Ramiro Julian, A on 11/29/22 16:09 UA Nitrite Negative Last Edit by Ramiro Julian, A on 11/29/22 16:09 UA Urobilinogen 0.2 mg/dL Last Edit by Ramiro Julian, A on 11/29/22 16:0 9 UA Protein 0 mg/dL Last Edit by Ramiro Julian, A on 11/29/22 16:09 UA pH 7.0 Last Edit by Ramiro Julian, A on 11/29/22 16:09 UA Blood 0 Sher/uL Last Edit by Ramiro Julian, A on 11/29/22 16:09 UA Specific Colony 1.010 Last Edit by Ramiro Julian [facility] on 11/29/22 16: 09 UA Ketone Negative Last Edit by Ramiro Julian, A on 11/29/22 16:09 UA Bilirubin 0 mg/dL Last Edit by Ramiro Julian A on 11/29/22 16:09 UA Glucose 0 mg/dL Last Edit by Ramiro Julian, [facility] on 11/29/22 16:09 Results Reviewed Results Reviewed: Laboratory Last Values Urine pH (Auto) 7.0 11/29/22 16:08 Specific Colony (Auto) 1.010 11/29/22 16:08 Urine Protein (Auto) 0 mg/dL 11/29/22 16:08 Glucose (UA)(Auto) 0 mg/dL 11/29/22 16:08 Urine Ketones (Auto) Negative 11/29/22 16:08 Urine Blood (Auto) 0 Sher/uL 11/29/22 16:08 Urine Nitrite (Auto) Negative 11/29/22 16:08 Urine Bilirubin (Auto) 0 mg/dL 11/29/22 16:08 Urine Urobilinogen (Auto) 0.2 mg/dL 11/29/22 16:08 Leukocyte Esterase (Auto) 0 Deanne/uL 11/29/22 16:08 Date of Service: 11/18/22 EXAMINATION: CT ABDOMEN AND PELVIS WITHOUT AND WITH CONTRAST CLINICAL INFORMATION:? Reason for Exam N20.0 - Calculus of kidney COMPARISON:? CT abdomen and pelvis 05/27/2022.?? FINDINGS:? KIDNEYS, URETERS, BLADDER: Specific attention was given to the kidneys, ureters, and bladder. The right kidney measures 11.8 cm in size and the left kidney measures 11.7 cm in size.?? NONCONTRAST: 2 mm nonobstructing calculus upper pole left kidney 13.3 cm from posterior skin surface. Punctate nonobstructing calculus lower pole left kidney 17.5 cm from posterior skin surface. 0.8 cm 950 HU nonobstructing calculus in the posterior mid right kidney 17.0 cm from the posterior skin surface.? POSTCONTRAST NEPHROGRAPHIC/UROGRAPHIC: The nephrograms are symmetric. There is mild right hydronephrosis without ureteral nephrosis possibly representing a stricture at the UPJ in the location of the prior stone. The urinary excretion is symmetric. No filling defect in the collecting systems. No discrete ureteral lesion. BLADDER: Unremarkable. PELVIC VISCERA: Again seen is a low-attenuation lesion in the anterior aspect of the mid left kidney which is nonspecific by CT but correlates with a simple cyst on renal ultrasound. OTHER: LUNG BASES: The visualized lung bases are unremarkable.?? LIVER, GALLBLADDER, AND BILIARY TREE: The liver is normal in size, shape, and attenuation. No focal hepatic lesion or biliary ductal dilatation is present. Cholecystectomy.?? PANCREAS: No discrete pancreatic mass. No ductal dilatation.?? SPLEEN: Unremarkable.?? ADRENAL GLANDS: Unremarkable.?? GASTROINTESTINAL TRACT: Small bowel is normal in caliber. No mesenteric mass or fluid. The large bowel is normal in caliber.?? ABDOMINAL WALL: Suspect prior ventral hernia repair with mesh. Right supraumbilical ventral hernia containing fat. Large periumbilical hernia containing fat. LYMPH NODES: No lymphadenopathy. VASCULAR: Unremarkable. OSSEOUS STRUCTURES: Degenerative changes in the spine.?? IMPRESSION:? 0.8 cm 950 HU nonobstructing calculus posterior mid right kidney may represent the previously seen UVJ calculus that has migrated retrograde. Additional tiny left-sided nonobstructing renal calculi.?? Mild right hydronephrosis possibly due to a stricture at the UVJ. There is no delay in the nephrogram to suggest that this is urodynamically significant. Otherwise normal CT urogram. Assessment & Plan Assessment & Plan (1) Renal calculi: Code(s): N20.0 - Calculus of kidney Plan Will schedule repeat right ESWL. Orders: Orders Urine Culture 11/29/22 N39.0 - Urinary tract infection, site not specified AMB Urinalysis Automated 11/29/22 Z13.9 - Encounter for screening, unspecified Patient Instructions: The patient had an opportunity to ask questions regarding treatment plan. All questions were answered. Imaging, Laboratory studies and physical exam results were discussed and reviewed in detail. No major barriers to understanding were identified. The patient expressed understanding and agreement with the above treatment plan.? ? ? The patient is aware they should contact our office by phone for worsening of their current condition or the appearance of new symptoms. Compliance is encouraged with any medications and followup testing that is ordered.? ? ? It is a privilege to be allowed the opportunity to participate in the urologic care of your patient. If you have any questions or concerns regarding treatment for the above conditions please do not hesitate to contact me. The office telephone contact is [phone].? ? ? This note is constructed in part using voice recognition software. While every effort has been made to ensure accuracy dredge operator supervisor errors may have been included.? ? ? Yours sincerely,? ? ? Rachel Wise MD? Coding Level of Care Code Est Pt Level 4 (86691) Diagnoses Renal calculi N20.0 Time Spent (min) 33
== END 2022-11-29 14:21 | disposition home or self-care (01) ==
PROVIDERS: PCP Nurse Practitioner Family; Visit Provider Urology
DX: N20.0 Calculus of kidney (principal)
CPT/HCPCS: 99214

== ENCOUNTER 2022-11-29 13:13 | Outpatient (REF) | payer MEDICARE, MEDICAID, SELFPAY | END 2022-11-29 13:14 | disposition home or self-care (01) | LOC: HO.LAB 13:13 | PROVIDERS: PCP Nurse Practitioner Family; Visit Provider Urology | DX: N39.0 Urinary tract infection, site not specified (principal); N20.0 Calculus of kidney | CPT/HCPCS: 81003; 87086; 99212 ==

== ENCOUNTER 2022-12-02 12:58 | Outpatient (AMB) | payer MEDICARE, MEDICAID, SELFPAY ==
--- NOTE | 2022-12-02 13:00 | A.OFFPC_ITS ---
Intake Visit Reasons: swv Allergies Penicillins Allergy (Unknown, Verified 11/29/22 13:20) Unknown Sulfa (Sulfonamide Antibiotics) Allergy (Unknown, Verified 11/29/22 13:20) Unknown tioconazole [From Monistat 1 (tioconazole)] Allergy (Verified 11/29/22 13:20) Rash Tobacco use date assessed: 05/17/22 [facility] Medical History Anterolisthesis of cervicothoracic spine Morbid obesity with BMI of 60.0-69.9, adult DDD (degenerative disc disease) Diabetes History of cellulitis Hx of solitary pulmonary nodule Depression with anxiety AMY on CPAP Spinal stenosis Arthritis Hypothyroid Elevated cholesterol HTN (hypertension) Anxiety Morbid obesity Low back pain PVD (peripheral vascular disease) Palpitations Surgical History History of endometrial ablation Hx of colonoscopy History of carpal tunnel surgery of left wrist Hx of repair of left rotator cuff History of incisional hernia repair Hx of cholecystectomy Hx of tonsillectomy Hx of tubal ligation Hx of section Family History Father Stroke Former smoker Mother Brain tumor Maternal Uncle CVD (cardiovascular disease) Diabetes mellitus Myocardial infarction Brother No problems noted. Sister No problems noted. Sister No problems noted. Sister No problems noted. Son No problems noted. Daughter No problems noted. Daughter No problems noted. Social History Housing: House Patient Tobacco Use Status: Former Tobacco user Years Smoked: 16 years ago e-Cigarette/Vaping Use: Never Used Second Hand Smoke Exposure: No service: No Current occupational status: disabled Cognitive needs: No Hearing needs: No Vision needs: No Questionnaire Thrive Questionnaire Date Thrive assessed: 04/30/21 ROSEMARY-7 AMB Questionnaire ROSEMARY-7 Date ROSEMARY - 7 assessed: 04/30/21 Source: Developed by Drs. Ghassan Marie, Heather Bennett, Bucky Chadwick and colleagues, with an educational halina from [employer]. Physical exam (Primary Care) Tobacco/Smoking Status: Tobacco use Status Tobacco use date assessed 05/17/22 08/17/22 11:53 Patient Tobacco Use Status Former Tobacco user 08/17/22 11:53 e-Cigarette/Vaping Use Never Used 08/17/22 11:53 Thrive Assessment: Date of Thrive Assessment Date Thrive assessed 04/30/21 08/17/22 11:53 Coding
[2022-12-02 13:09] VITALS: BP 120/82; PULSE 81; O2SAT 98; BMI 60.0
--- NOTE | 2022-12-02 13:09 | AM.OFFVISMDC ---
Intake Vital Signs 12/02/22 13:09 12/02/22 13:13 Height 5 ft 3 in Weight 339 lb BMI 60.0 60.0 BP 120/82 Blood Pressure Location Rt brachial Position Sitting Pulse 81 Pulse Source Pulse Oximeter Pulse Oximetry (%) 98 Oxygen Delivery Method Room Air Intake Visit Reasons: swv Allergies Penicillins Allergy (Unknown, Verified 11/29/22 13:20) Unknown Sulfa (Sulfonamide Antibiotics) Allergy (Unknown, Verified 11/29/22 13:20) Unknown tioconazole [From Monistat 1 (tioconazole)] Allergy (Verified 11/29/22 13:20) Rash Medication List - Last Reconciled 12/02/22 by STACIE Pulido aspirin (Adult Low Dose Aspirin) 81 mg PO DAILY atenolol 25 mg PO DAILY atorvastatin 80 mg PO DAILY bupropion HCl 300 mg PO QAM 90 days calcium carbonate-vitamin D3 600 mg-10 mcg (400 unit) (Calcium 600 with Vitamin D3) 1 tab PO BID levothyroxine 150 mcg PO QAM Do you need a note to return to daycare/school/sports/work: No HPI swv HPI Details Pt is here for an SWV. Denies fever, chills, and dizziness. [place] of care in scan pile. PPP will be scanned in chart and copy will be given to pt. HPI Comments History of Present Illness Details BMI at 60.00. pt has tried dieting, minimal weight loss noted. Pt is not interested in any surgical procedures, and the weight is causing worsening knee pains. Pt is using a rolling walker currently. Went over major side effects of wegovy, starting medication [facility] Medical History Anterolisthesis of cervicothoracic spine Morbid obesity with BMI of 60.0-69.9, adult DDD (degenerative disc disease) Diabetes History of cellulitis Hx of solitary pulmonary nodule Depression with anxiety AMY on CPAP Spinal stenosis Arthritis Hypothyroid Elevated cholesterol HTN (hypertension) Anxiety Morbid obesity Low back pain PVD (peripheral vascular disease) Palpitations Surgical History History of endometrial ablation Hx of colonoscopy History of carpal tunnel surgery of left wrist Hx of repair of left rotator cuff History of incisional hernia repair Hx of cholecystectomy Hx of tonsillectomy Hx of tubal ligation Hx of section Family History Father Stroke Former smoker Mother Brain tumor Maternal Uncle CVD (cardiovascular disease) Diabetes mellitus Myocardial infarction Brother No problems noted. Sister No problems noted. Sister No problems noted. Sister No problems noted. Son No problems noted. Daughter No problems noted. Daughter No problems noted. Social History (Reviewed 12/02/22 @ 13:41 by Ruddy Nicole [facility] Housing: House Patient Tobacco Use Status: Former Tobacco user Years Smoked: 16 years ago e-Cigarette/Vaping Use: Never Used Second Hand Smoke Exposure: No service: No Current occupational status: disabled Cognitive needs: No Hearing needs: No Vision needs: No Questionnaire Medicare Wellness Checkup What gender do you identify with?: female During the past 4 weeks, how much have you been bothered by emotional problems such as feeling anxious, depressed, irritable, sad or downhearted, and blue?: quite a bit During the past 4 weeks, has your physical & emotional health limited your social activities with family, friends, neighbors, or groups?: quite a bit During the past 4 weeks, how much bodily pain have you generally had?: moderate pain During the past 4 weeks, was someone available to help you if you needed & wanted help?: yes, quite a bit During the past 4 weeks, what was the hardest physical activity you could do for at least 2 minutes?: light Can you get to places out of walking distance without help? (For eg., can you travel alone on buses, taxis or drive your car?): Yes Can you go shopping for groceries or clothes without someone's help?: Yes Can you prepare your own meals?: Yes Because of any health problems, do you need the help of another person with your personal care needs such as eating, bathing, dressing or getting around the house?: No Can you handle your own money without help?: Yes During the past 4 weeks, how would you rate your health in general?: good During the past 4 weeks how have things been going for you?: good & bad parts about equal Are you having difficulties driving your car?: no Do you always fasten your seat belt when you are in a car?: yes, usually During past 4 weeks, have you been bothered by the following: never: Problems using the telephone?, seldom: Falling or dizzy when standing up and Sexual problems?, sometimes: Teeth or denture problems? and often: Trouble eating well? and Tiredness or fatigue? Have you fallen 2 or more times in the past year?: No Are you afraid of falling?: No Are you a smoker?: no During the past 4 weeks, how many drinks of wine, beer, or other alcoholic beverages did you have?: 1 drink or less per week Do you exercise for about 20 minutes 3 or more times a week?: no, I usually do not exercise this much Have you been given information to help with the following?: no: Hazards in your house that might hurt you? and no: Keeping track of your medications? How often do you have trouble taking medicines the way you have been told to take them?: I always take medicine as prescribed How confident are you that you can control & manage most of your health problems?: somewhat confident What is your race?: White Mini Mental State Exam (MMSE) Orientation What is the (year) (season) (date) (day) (month)?: year (2022) Where are we (state) (county) (town or city) (hospital) (floor[place] state ([place] Registration Name of 3 unrelated objects clearly and slowly, then ask patient to repeat all 3 of them. (1st repeat determines score. Make sure they can repeat all three): object 1, object 2 and object 3 Attention & Calculation (CHOOSE ONE) Spell WORLD backwards (DLROW): 5 letters Recall Ask patient to repeat the 3 items from question #3.: object 1, object 2 and object 3 Language Show patient a wristwatch & ask what it is. Repeat for pencil.: watch and pencil Ask the patient to repeat the phrase 'No ifs, ands, or buts' after you.: correct Ask the patient to 'take a piece of paper with their right hand' 'fold paper in half' 'place paper on floor': take paper in right hand, fold paper in half and place paper on floor Print the sentence 'CLOSE YOUR EYES' on a piece. If patient actually closes eyes then score.: followed written direction Give patient a blank piece of paper & ask to write a sentence. Score if it contains a noun & verb.: sentence contains subject and verb Ask patient to copy figure of intersecting pentagons exactly. Score if all 10 angles & 2 intersects are included.: all 10 angles present & 2 are intersected Score Score: 22 Activity of Daily Living Bathing - sponge bath, tub bath or shower: receives no assistance (gets in/out by self, if usual bathing means Dressing - getting clothes from closets & drawers, including inner/outer garments & fasteners.: gets clothes & gets completely dressed without help Toileting - going to the 'toilet room' for urine/bowel elimination & cleaning self/arranging clothes: goes to toilet room, cleans self, arranges clothes without help Transfer: moves in & out of bed and chair without help (may use support object) Continence: controls urination/bowel movements completely by self Feeding: feeds self without help Total Score: 0 Information obtained from: patient Using telephone: independent Traveling: independent Shopping: independent Preparing meals: independent Housework: needs assistance Taking medicine: independent Managing money: independent Review of Systems Const Denies chills and Denies fever(s) Eyes Denies blurry vision ENT Denies vertigo, Denies dizziness and Denies sore throat Card Denies chest pain at rest, Denies chest pain with activity, Denies diaphoresis, Denies dyspnea and Denies dyspnea on exertion Resp Denies cough, Denies dyspnea, Denies dyspnea on exertion and Denies wheezing GI Denies abdominal pain, Denies melena, Denies hematochezia, Denies constipation, Denies diarrhea and Denies loose stools Denies hematuria Musc Denies numbness and Denies tingling Skin/Breast Denies lesions Neuro Denies vertigo, Denies dizziness, Denies numbness and Denies tingling Psych Denies anxiety, Denies depression, Denies homicidal ideation, Denies suicidal ideation and Denies other (substance abuse) Aller/Immun Denies wheezing Physical Exam Vital Signs: Last Vital Signs Pulse 81 12/02/22 13:09 BP 120/82 12/02/22 13:09 Pulse Ox 98 12/02/22 13:09 Oxygen Delivery Method Room Air 12/02/22 13:09 BMI result Body Mass Index 60.0 Const Other: using rolling walker General: cooperative Nutritional Appearance: well nourished Orientation/consciousness: patient oriented x3 HEENT Head: Yes normal to inspection, Yes normocephalic and Yes atraumatic Ears: TM's normal bilaterally Eyes General: appearance normal, both eyes and all related structures Alignment and Position: alignment normal and position normal Neck Neck: Yes normal visual inspection and Yes no lymphadenopathy Thyroid: Thyroid normal Resp Effort & Inspection: normal respiratory effort Auscultation: clear to auscultation bilaterally Cardio Rate: regular rate Rhythm: regular rhythm Heart sounds: S1 normal heart sound present, S2 normal heart sound present and no murmurs GI Palpation (GI): Soft to palpation and nontender Auscultation: normal bowel sounds Skin Rashes: no rashes Neuro General: patient oriented x3, moves all extremities, no focal motor deficits and deep tendon reflexes 2+ bilaterally Romberg Test: Negative Psych Appearance: grossly normal Mental Status: mental status grossly normal Speech and movement: Normal speech and movement present Affect: normal affect Attitude: cooperative Thought process: Normal thought process present Thought content: Normal thought content present Insight: Good insight present (Psych) Judgement: Good judgement present (Psych) Assessment & Plan Assessment & Plan (1) Hearing loss: Code(s): H91.90 - Unspecified hearing loss, unspecified ear (2) Morbid obesity with BMI of 60.0-69.9, adult: Code(s): E66.01 - Morbid (severe) obesity due to excess calories; Z68.44 - Body mass index [BMI] 60.0-69.9, adult (3) Encounter for subsequent annual wellness visit (AWV) in Medicare patient: Code(s): Z00.00 - Encounter for general adult medical examination without abnormal findings Orders: Referrals Speech and Hearing Referral H91.90 - Unspecified hearing loss, unspecified ear Medications: New semaglutide (weight loss) (Wegovy) administer weeks 1 through 4 of therapy 0.25 mg (0.5 mL) subcut QWEEK 2 mL 0RF Coding Level of Care Code Medicare Subsequent (G0439) Est Pt Level 3 (14782) Diagnoses Hearing loss H91.90 Morbid obesity with BMI of 60.0-69.9, adult E66.01; Z68.44 Encounter for subsequent annual wellness visit (AWV) in Medicare patient Z00.00 Advance Care Planning Forms completed: Health Care Proxy (form filled out, pt will drop off), MOLST and Living will (not set up yet, pt is aware)
[2022-12-02 13:13] VITALS: BMI 60.0
== END 2022-12-02 17:28 | disposition home or self-care (01) ==
PROVIDERS: PCP Nurse Practitioner Family; Visit Provider Nurse Practitioner Family
DX: Z00.00 Encounter for general adult medical examination without abnormal findings (principal); E66.01 Morbid (severe) obesity due to excess calories; Z68.44 Body mass index [BMI] 60.0-69.9, adult
CPT/HCPCS: G0439

== ENCOUNTER 2022-12-15 11:18 | Outpatient (REF) | payer MEDICARE, MEDICAID, SELFPAY ==
[2022-12-15 13:31] LABS: MANUAL DIFF FLAG NO
[2022-12-15 13:38] LABS: Basophils Percent Auto 0.5 % (0-2); Eosinophils Absolute Auto 0.1 X10*3/uL (0.0-0.4); Eosinophils Percent Auto 1.5 % (0-4); Hematocrit 40.1 % (37.0-47.0); Hemoglobin 12.4 g/dl (12.0-16.0); Imm Gran Abs Auto 0.02 X10*3/uL (0.00-0.03); Imm Gran Pct Auto 0.3 % (0.0-0.4); Lymphocytes Percent Auto 27.4 % (20-40); Mean Corpuscular HGB Conc 30.9 g/dl (31.0-35.0); Mean Corpuscular Hemoglobin 28.1 pg (27.0-33.0); Mean Corpuscular Volume 90.7 fL (80.0-98.0); Mean Platelet Volume 11.3 fL (9.4-12.3); Monocytes Absolute Auto 0.5 X10*3/uL (0.1-1.2); Monocytes Percent Auto 6.8 % (2-11); Neutrophils Absolute Auto 4.7 x10*3/uL (2.0-8.3); Neutrophils Percent Auto 63.5 % (45-73); Platelet Count 231 X10*3/uL (160-400); Red Blood Count 4.42 X10*6/uL (4.20-5.50); Red Cell Distribution Width 13.7 % (11.0-16.0); White Blood Count 7.3 X10*3/uL (4.8-10.8)
[2022-12-15 14:06] LABS: Alanine Aminotransferase 21 U/L (0-31); Albumin Level 3.9 g/dL (3.5-5.0); Alkaline Phosphatase 115 U/L (39-117); Anion Gap 13 (12-20); Aspartate Amino Transferase 17 U/L (5-31); Bilirubin Total 0.6 mg/dL (0.0-1.0); Blood Urea Nitrogen 10 mg/dL (9-16); Calcium 9.2 mg/dL (8.4-10.2); Carbon Dioxide 27 mmol/L (22-29); Chloride 106 mmol/L (96-108); Estimated Glomerular Filt Rate > 60; Glucose Random 114 mg/dL (60-115); Iron 47 mcg/dL (30-160); Percent Iron Saturation 16 % (15-50); Potassium 4.2 mmol/L (3.3-5.1); Sodium 142 mmol/L (135-145); Total Iron Binding Capacity 288 mcg/dL (228-428); Unsaturated Iron Binding 241 ug/dL
[2022-12-15 14:21] LABS: Ferritin 49 ng/mL (10-250)
[2022-12-15 14:32] LABS: Vitamin B12 246 pg/mL (200-900)
[2022-12-17 15:03] LABS: A. Phagocytphilium DNA,RT-PCR NOT DETECTED (NOT DETECTED); Babesia Microti DNA, RT-PCR NOT DETECTED (NOT DETECTED); Borrelia Miyamotoi,DNA RT-PCR NOT DETECTED (NOT DETECTED); E.Chaffeensis DNA RT-PCR NOT DETECTED (NOT DETECTED); Lyme(Borrelia ssp)DNA RT-PCR NOT DETECTED (NOT DETECTED)
== END 2022-12-15 11:19 | disposition home or self-care (01) ==
LOC: HO.HMGCLDS 11:18
PROVIDERS: PCP Nurse Practitioner Family; Visit Provider Nurse Practitioner Family
DX: R53.83 Other fatigue (principal); D64.9 Anemia, unspecified
CPT/HCPCS: 36415; 80053; 82607; 82728; 82746; 83540; 85025; 87468; 87469; 87478; 87484; 87798

== ENCOUNTER 2022-12-27 12:34 | Outpatient (REF) | payer MEDICARE, MEDICAID, SELFPAY | END 2022-12-27 12:35 | disposition home or self-care (01) | LOC: HO.MAMMO 12:34 | PROVIDERS: PCP Nurse Practitioner Family; Visit Provider Nurse Practitioner Family | DX: Z12.31 Encounter for screening mammogram for malignant neoplasm of breast (principal) | CPT/HCPCS: 77063; 77067 ==

== ENCOUNTER → 2022-12-27 12:45 | Outpatient (BNV) | payer MEDICARE, MEDICAID, SELFPAY | PROVIDERS: PCP Nurse Practitioner Family; Visit Provider Radiology Diagnostic Radiology | DX: Z12.31 Encounter for screening mammogram for malignant neoplasm of breast (principal) | CPT/HCPCS: 77063; 77067 ==

== ENCOUNTER 2023-01-12 09:25 | Day surgery (SDC) | payer MEDICARE, MEDICAID, SELFPAY ==
[2023-01-10 14:21] VITALS: BMI 60.0
--- NOTE | 2023-01-11 10:01 | P.CONAN_ITS ---
HPI - Anesthesia Eval Consult details Narrative: 62yo F for ESWL s/p same 08/2022 with GA-LMA 5 [place] [facility] [place] mild peripheral vascular disease and hypertension. Last office visit 06/2022. Cardiac cleared by workload message 12/2022. ? if pt started semaglutide. LM to confirm last dose. Anesthesia Pre-Procedure Meds Is the patient on any of the following meds?: Semaglutide (Ozempic) If Yes to any meds - educate patient: Pt education - increased risk of aspiration and Pt education - possibility of cancelled proc at provider's discretion PMFSH Active Problems Active Problems: All Active Problems (Updated 01/10/23 @ 14:09 by Marissa Angulo RN) Fatigue (Acute) Encounter for subsequent annual wellness visit (AWV) in Medicare patient (Acute) Hearing loss (Acute) Renal calculi (Acute) Vitamin D deficiency (Acute) Ureteropelvic junction (UPJ) obstruction, right (Acute) Kidney cysts (Acute) Hydronephrosis (Acute) Cyst of left kidney (Acute) Abdominal hernia (Acute) Encounter for annual wellness visit (AWV) in Medicare patient (Acute) Postmenopausal (Acute) Screening for AAA (aortic abdominal aneurysm) (Acute) Screening for heart disease (Acute) Arthritis of shoulder region, right (Acute) HTN (hypertension) (Acute) Pain of left thumb (Acute) Right shoulder pain (Acute) Chronic radicular pain of lower back (Acute) Skin lesion of face (Acute) Sinusitis (Acute) Mild depression (Acute) Elevated alkaline phosphatase level (Acute) Dyslipidemia (Acute) Pelvic pain (Acute) Morbid obesity (Acute) Morbid obesity with BMI of 60.0-69.9, adult (Acute) Depression with anxiety (Acute) Hypothyroid (Acute) Low back pain (Acute) PVD (peripheral vascular disease) (Acute) Palpitations (Acute) Past Medical History Medical History (Updated 01/12/23 @ 11:18 by Madelin Carlisle RN) Anterolisthesis of cervicothoracic spine Morbid obesity with BMI of 60.0-69.9, adult DDD (degenerative disc disease) Diabetes History of cellulitis Hx of solitary pulmonary nodule Depression with anxiety AMY on CPAP Spinal stenosis Arthritis Hypothyroid Elevated cholesterol HTN (hypertension) Anxiety Low back pain PVD (peripheral vascular disease) Palpitations Family History Family History Father Stroke Former smoker Mother Brain tumor Maternal Uncle CVD (cardiovascular disease) Diabetes mellitus Myocardial infarction Brother No problems noted. Sister No problems noted. Sister No problems noted. Sister No problems noted. Son No problems noted. Daughter No problems noted. Daughter No problems noted. Family history of problems with anesthesia: No Surgical History Surgical History Hx of cystoscopy Hx of lithotripsy History of endometrial ablation Hx of colonoscopy History of carpal tunnel surgery of left wrist Hx of repair of left rotator cuff History of incisional hernia repair Hx of cholecystectomy Hx of tonsillectomy Hx of tubal ligation Hx of section History of Problems with Anesthesia: No Social History Social History Housing: House Patient Tobacco Use Status: Former Tobacco user Quit Date: 18 yrs ago Years Smoked: 16 years ago e-Cigarette/Vaping Use: Never Used Second Hand Smoke Exposure: No service: No Current occupational status: disabled Cognitive needs: No Hearing needs: No Vision needs: No Meds Allergies Allergy/AdvReac Type Severity Reaction Status Date / Time tioconazole Allergy Intermediate Rash Verified 01/10/23 14:03 [From Monistat 1 (tioconazole)] Penicillins Allergy Unknown Unknown Verified 11/29/22 13:20 Sulfa (Sulfonamide Allergy Unknown Unknown Verified 11/29/22 13:20 Antibiotics) Home Medications Medication Instructions Recorded Confirmed Last Taken Type aspirin 81 mg tablet,delayed 81 mg PO DAILY 11/21/19 01/10/23 08/05/22 History release (Adult Low Dose Aspirin) Exam Height,Weight and Vital Signs: Height 5 ft 3 in Weight 153.768 kg Pertinent Lab Results Pertinent Lab Results: Laboratory Tests 12/15/22 11:24 WBC 7.3 Hgb 12.4 Hct 40.1 Plt Count 231 Sodium 142 Potassium 4.2 Chloride 106 Carbon Dioxide 27 BUN 10 Creatinine 0.85 Narrative Narrative: EKG 08/2022 NSR @ 82 Inc RBBB Assessment and Plan Assessment Anesthesia Assessment: Chart Reviewed Final Anesthetic Review Family History of Problems with Anesthesia: No History of Problems with Anesthesia: No
--- NOTE | ~2023-01-12 | XR_ITS ---
EXAMINATION: XR ABDOMEN KUB CLINICAL INDICATION: Right renal stone COMPARISON: The abdomen from 11/18/2022 TECHNIQUE: AP view of the abdomen. FINDINGS: 1.1 cm radiopaque calculus overlying the right renal interpolar region. No radiopaque calcifications overlying the left renal shadow or bilateral ureteral paths. Pelvic phleboliths are noted. Bowel gas is nonobstructive. Slight levocurvature of the mid lumbar spine with multilevel degenerative changes. Surgical clips right upper abdomen. Degenerative arthropathy of the bilateral femoral acetabular joints, left greater than right. Soft tissues are unremarkable. XR/XR KUB IMPRESSION: 1. 1.1 cm radiopaque calculus overlying the right renal interpolar region. 2. No radiopaque calcifications overlying the left renal shadow or bilateral ureteral paths. 3. Pelvic phleboliths are noted. 4. Bowel gas is nonobstructive.
--- NOTE | 2023-01-12 11:01 | P.CONAN_ITS ---
[facility] Active Problems Active Problems: All Active Problems (Updated 01/10/23 @ 14:09 by Marissa Angulo RN) Fatigue (Acute) Encounter for subsequent annual wellness visit (AWV) in Medicare patient (Acute) Hearing loss (Acute) Renal calculi (Acute) Vitamin D deficiency (Acute) Ureteropelvic junction (UPJ) obstruction, right (Acute) Kidney cysts (Acute) Hydronephrosis (Acute) Cyst of left kidney (Acute) Abdominal hernia (Acute) Encounter for annual wellness visit (AWV) in Medicare patient (Acute) Postmenopausal (Acute) Screening for AAA (aortic abdominal aneurysm) (Acute) Screening for heart disease (Acute) Arthritis of shoulder region, right (Acute) HTN (hypertension) (Acute) Pain of left thumb (Acute) Right shoulder pain (Acute) Chronic radicular pain of lower back (Acute) Skin lesion of face (Acute) Sinusitis (Acute) Mild depression (Acute) Elevated alkaline phosphatase level (Acute) Dyslipidemia (Acute) Pelvic pain (Acute) Morbid obesity (Acute) Morbid obesity with BMI of 60.0-69.9, adult (Acute) Depression with anxiety (Acute) Hypothyroid (Acute) Low back pain (Acute) PVD (peripheral vascular disease) (Acute) Palpitations (Acute) Past Medical History Medical History Anterolisthesis of cervicothoracic spine Morbid obesity with BMI of 60.0-69.9, adult DDD (degenerative disc disease) Diabetes History of cellulitis Hx of solitary pulmonary nodule Depression with anxiety AMY on CPAP Spinal stenosis Arthritis Hypothyroid Elevated cholesterol HTN (hypertension) Anxiety Low back pain PVD (peripheral vascular disease) Palpitations Patient : No Family History Family History Father Stroke Former smoker Mother Brain tumor Maternal Uncle CVD (cardiovascular disease) Diabetes mellitus Myocardial infarction Brother No problems noted. Sister No problems noted. Sister No problems noted. Sister No problems noted. Son No problems noted. Daughter No problems noted. Daughter No problems noted. Family history of problems with anesthesia: No Surgical History Surgical History Hx of cystoscopy Hx of lithotripsy History of endometrial ablation Hx of colonoscopy History of carpal tunnel surgery of left wrist Hx of repair of left rotator cuff History of incisional hernia repair Hx of cholecystectomy Hx of tonsillectomy Hx of tubal ligation Hx of section History of Problems with Anesthesia: No Social History Social History Housing: House Patient Tobacco Use Status: Former Tobacco user Years Smoked: 16 years ago e-Cigarette/Vaping Use: Never Used Second Hand Smoke Exposure: No Advance Directives: No Advance Directives Information Provided: Yes service: No Current occupational status: disabled Cognitive needs: No Hearing needs: No Vision needs: No Meds Allergies Allergy/AdvReac Type Severity Reaction Status Date / Time tioconazole Allergy Intermediate Rash Verified 01/10/23 14:03 [From Monistat 1 (tioconazole)] Penicillins Allergy Unknown Unknown Verified 11/29/22 13:20 Sulfa (Sulfonamide Allergy Unknown Unknown Verified 11/29/22 13:20 Antibiotics) Home Medications Medication Instructions Recorded Confirmed Last Taken Type aspirin 81 mg tablet,delayed 81 mg PO DAILY 11/21/19 01/10/23 08/05/22 History release (Adult Low Dose Aspirin) Exam Height,Weight and Vital Signs: Height 5 ft 3 in Weight 153.768 kg Airway Mallampati Class: III TM Dist: >3cm Neck ROM: Full Heart: RRR Lungs: CTA Assessment and Plan Assessment Anesthesia Assessment: Anesthesia Plan Discussed Final Anesthetic Review Family History of Problems with Anesthesia: No History of Problems with Anesthesia: No ASA Class: III Final Preanesthetic Review: Meds/Allgs Chart Reviewed, Consent Obtained/Reviewed and Anes Risks/Benef Reviewed Patient Risk: Intermediate Procedure Risk: Low Anesthetic Plan Anesthetic Plan: GA Disposition: Standard PACU
[2023-01-12 11:09] VITALS: BP 127/71; PULSE 72; RESP 16; TEMP 36.9; O2SAT 98; BMI 61.3
[2023-01-12] MEDS: Lactated Ringers 500 ML 999 ML IV (11:26)
[2023-01-12 12:27] VITALS: BP 107/75; PULSE 77; RESP 16; TEMP 36.8; O2SAT 96
[2023-01-12 12:32] VITALS: BP 110/62; PULSE 74; RESP 16; O2SAT 94
--- NOTE | 2023-01-12 12:34 | W.PM.OPN ---
Operative Note Operative Note Date of Service: 01/12/23 Narrative: PreOperative Diagnosis:? ? Right Renal stone Post Operative Diagnosis:?Right? Renal stone Procedure:?Right? ESWL Surgeon:?Dr Rachel Wise Anesthesia:? General Indications for procedure: The patient understands there is a risk of bruising or hematoma to the kidney, infection, and stone migration following the procedure and subsequent intervention may be required.? - Imaging 9 x 9 mm stone Procedure: After informed consent was verified the patient was brought to the operating room and placed in a supine position.? Anesthesia was performed per protocol. Safety pause time-out was performed. Imaging was displayed in the room and laterality confirmed. ESWL was performed.?The stone was visualized on both fluoroscopy and ultrasound.? Shockwave lithotripsy was performed, the first 300 shocks at 120 hertz.? A pause for 3 minutes.? A total of 2500 shocks to a maximum of power of 20 with a maximum rate of 120 hertz.? Good fragmentation of the stone was appreciated. The patient tolerated the procedure well and was transferred to the recovery area upon completion. Complications: None
[2023-01-12 12:37] VITALS: BP 108/62; PULSE 69; RESP 16; O2SAT 96
[2023-01-12 12:42] VITALS: BP 113/53; PULSE 72; RESP 16; O2SAT 97
[2023-01-12 12:57] VITALS: BP 116/56; PULSE 68; RESP 16; TEMP 36.8; O2SAT 98
== END 2023-01-12 13:20 | disposition home or self-care (01) ==
PROVIDERS: PCP Nurse Practitioner Family; Visit Provider Urology
PROC: (CPT 50590; principal; 2023-01-12 11:00)
DX: N20.0 Calculus of kidney (principal); Z87.442 Personal history of urinary calculi; I10 Essential (primary) hypertension; R00.2 Palpitations; E78.00 Pure hypercholesterolemia, unspecified; E11.9 Type 2 diabetes mellitus without complications; I73.9 Peripheral vascular disease, unspecified; G47.33 Obstructive sleep apnea (adult) (pediatric); R91.1 Solitary pulmonary nodule; E66.01 Morbid (severe) obesity due to excess calories; Z68.44 Body mass index [BMI] 60.0-69.9, adult; Z99.89 Dependence on other enabling machines and devices; Z79.82 Long term (current) use of aspirin; Z88.0 Allergy status to penicillin; Z88.2 Allergy status to sulfonamides; Z87.891 Personal history of nicotine dependence
CPT/HCPCS: 50590; 74018; J0131; J1100; J1940; J1956; J2405; J2704

== ENCOUNTER → 2023-01-12 09:25 | Outpatient (BNV) | payer MEDICARE, MEDICAID, SELFPAY | PROVIDERS: PCP Nurse Practitioner Family; Visit Provider Urology | DX: N20.0 Calculus of kidney (principal) | CPT/HCPCS: 50590 ==

== ENCOUNTER 2023-02-24 09:06 | Outpatient (AMB) | payer MEDICARE, MEDICAID, SELFPAY ==
--- NOTE | 2023-02-24 10:15 | MHC.OFFVIS ---
Intake Intake Visit Reasons: S/P R ESWL/US/SET Allergies tioconazole [From Monistat 1 (tioconazole)] Allergy (Intermediate, Verified 01/10/23 14:03) Rash Penicillins Allergy (Unknown, Verified 11/29/22 13:20) Unknown Sulfa (Sulfonamide Antibiotics) Allergy (Unknown, Verified 11/29/22 13:20) Unknown Medication List - Last Reconciled 02/24/23 by Rachel Wise MD aspirin (Adult Low Dose Aspirin) 81 mg PO DAILY atenolol 25 mg PO DAILY atorvastatin 80 mg PO DAILY bupropion HCl 300 mg PO QAM 90 days calcium carbonate-vitamin D3 600 mg-10 mcg (400 unit) (Calcium 600 with Vitamin D3) 1 tab PO BID levothyroxine 150 mcg PO QAM oxycodone-acetaminophen 5-325 mg (Percocet) 1 tab PO Q4-6H PRN semaglutide (weight loss) (Wegovy) 0.5 mg subcut QWEEK HPI HPI Comments History of Present Illness Details Kanika is s/p repeat ESWL of large right kidney stone on 01/12/23. She states she did pass some stone fragments that she saw in the urine. She had some blood in the urine for 1-2 days post procedure. She is unclear if she is having any right kidney pain specifically as she is having some sciatica symptoms, but states definitely she does not feel like she did in the past when the kidney was obstructed. I have discussed follow-up renal ultrasound in KUB. [facility] Medical History Anterolisthesis of cervicothoracic spine Morbid obesity with BMI of 60.0-69.9, adult DDD (degenerative disc disease) Diabetes History of cellulitis Hx of solitary pulmonary nodule Depression with anxiety AMY on CPAP Spinal stenosis Arthritis Hypothyroid Elevated cholesterol HTN (hypertension) Anxiety Low back pain PVD (peripheral vascular disease) Palpitations Surgical History Hx of cystoscopy Hx of lithotripsy History of endometrial ablation Hx of colonoscopy History of carpal tunnel surgery of left wrist Hx of repair of left rotator cuff History of incisional hernia repair Hx of cholecystectomy Hx of tonsillectomy Hx of tubal ligation Hx of section Family History Father Stroke Former smoker Mother Brain tumor Maternal Uncle CVD (cardiovascular disease) Diabetes mellitus Myocardial infarction Brother No problems noted. Sister No problems noted. Sister No problems noted. Sister No problems noted. Son No problems noted. Daughter No problems noted. Daughter No problems noted. Social History Housing: House Patient Tobacco Use Status: Former Tobacco user Quit Date: 18 yrs ago Years Smoked: 16 years ago e-Cigarette/Vaping Use: Never Used Second Hand Smoke Exposure: No service: No Current occupational status: disabled Cognitive needs: No Hearing needs: No Vision needs: No Review of Systems Const All systems reviewed & are unremarkable except as noted in HPI and below Reports no additional complaints Eyes Reports no additional complaints ENT Reports no additional complaints Card Denies dyspnea Resp Denies cough and Denies dyspnea GI Reports no additional complaints Reports no additional complaints Musc Reports no additional complaints Skin/Breast Denies rash and Denies unusual bruising Neuro Reports no additional complaints Psych Reports no additional complaints Endo Reports no additional complaints Timbo/Lymph Reports no additional complaints Aller/Immun Reports no additional complaints Assessment & Plan Assessment & Plan (1) Renal calculi: Code(s): N20.0 - Calculus of kidney (2) Right renal stone: Code(s): N20.0 - Calculus of kidney Plan renal US, KUB Orders: Orders US renal BI 1 Month N20.0 - Calculus of kidney XR KUB 1 Month N20.0 - Calculus of kidney Telehealth Telehealth Location of provider rendering services: practice address Location of patient: address on file Patient Identification confirmed using: Name, : Yes Telehealth method: voice only Patient verbally consented to treatment: Yes Patient verbally consented to billing insurance company: Yes Patient informed of any privacy concerns related to visit: Yes Minutes spent on Phone/Video with Pt.: 10 Coding Level of Care Code Global (45389) Diagnoses Renal calculi N20.0 Right renal stone N20.0
== END 2023-02-24 10:59 | disposition home or self-care (01) ==
LOC: HO.HUSH 09:06
PROVIDERS: PCP Nurse Practitioner Family; Visit Provider Urology
DX: N20.0 Calculus of kidney (principal)
CPT/HCPCS: 99024

== ENCOUNTER → 2023-02-24 09:06 | Outpatient (BNVA) | payer MEDICARE, MEDICAID, SELFPAY | PROVIDERS: PCP Nurse Practitioner Family; Visit Provider Urology | DX: N20.0 Calculus of kidney (principal) | CPT/HCPCS: 99212 ==

== ENCOUNTER 2023-03-07 11:20 | Outpatient (AMB) | payer MEDICARE, MEDICAID, SELFPAY ==
--- NOTE | 2023-03-07 11:26 | A.OFFPC_ITS ---
Vital Signs 03/07/23 11:27 Height 5 ft 3 in Weight 348 lb 8 oz BMI 61.7 BP 136/82 Blood Pressure Location Lt brachial Position Sitting Pulse 80 Pulse Source Pulse Oximeter Pulse Oximetry (%) 98 Oxygen Delivery Method Room Air Intake Visit Reasons: 4 Month follow up Intake Note: Pt is here for a 4 month follow HTN and lipids Allergies tioconazole [From Monistat 1 (tioconazole)] Allergy (Intermediate, Verified 03/07/23 11:31) Rash Penicillins Allergy (Unknown, Verified 03/07/23 11:31) Unknown Sulfa (Sulfonamide Antibiotics) Allergy (Unknown, Verified 03/07/23 11:31) Unknown Tobacco use date assessed: 03/07/23 Dental Screening Dental Screen Date: 03/07/23 Did you have a dental visit in the last 12 months?: Yes Did you have a dental problem in the last 6 months where you did not have access to dental care?: No Was dental information given to patient?: Patient has dentist HPI 4 Month follow up HPI Details Pt c/o left thumb pain. She reports pain to the thenar region of her thumb radiating to her medial wrist. She had a previous hand XR which showed mild osteoarthritis throughout the interphalangeal joints. Will refer to ortho (hand specialist). Denies fever, chills, and dizziness. [facility] Medical History Anterolisthesis of cervicothoracic spine Morbid obesity with BMI of 60.0-69.9, adult DDD (degenerative disc disease) Diabetes History of cellulitis Hx of solitary pulmonary nodule Depression with anxiety AMY on CPAP Spinal stenosis Arthritis Hypothyroid Elevated cholesterol HTN (hypertension) Anxiety Low back pain PVD (peripheral vascular disease) Palpitations Surgical History Hx of cystoscopy Hx of lithotripsy History of endometrial ablation Hx of colonoscopy History of carpal tunnel surgery of left wrist Hx of repair of left rotator cuff History of incisional hernia repair Hx of cholecystectomy Hx of tonsillectomy Hx of tubal ligation Hx of section Family History Father Stroke Former smoker Mother Brain tumor Maternal Uncle CVD (cardiovascular disease) Diabetes mellitus Myocardial infarction Brother No problems noted. Sister No problems noted. Sister No problems noted. Sister No problems noted. Son No problems noted. Daughter No problems noted. Daughter No problems noted. Social History Housing: House Patient Tobacco Use Status: Former Tobacco user Quit Date: 18 yrs ago Years Smoked: 16 years ago e-Cigarette/Vaping Use: Never Used Second Hand Smoke Exposure: No service: No Current occupational status: disabled Cognitive needs: No Hearing needs: No Vision needs: No Questionnaire PHQ-9 Over the last 2 weeks, how often have you been bothered by any of the following problems? 1. Little interest or pleasure in doing things: several days 2. Feeling down, depressed, or hopeless: several days 3. Trouble falling or staying asleep, or sleeping too much: several days 4. Feeling tired or having little energy: several days 5. Poor appetite or overeating: more than half the days 6. Feeling bad about yourself - or that you are a failure or have let yourself or your family down: several days 7. Trouble concentrating on things, such as reading the newspaper or watching television: not at all 8. Moving or speaking so slowly that other people could have noticed. Or the opposite - being so fidgety or restless that you have been moving around a lot more than usual: not at all 9. Thoughts that you would be better off or of hurting yourself in some way: not at all Total score: 7 Source: Developed by Drs. Ghassan Marie, Heather Bennett, Bucky Chadwick and colleagues, with an educational halina from [employer]. Thrive Questionnaire Date Thrive assessed: 03/07/23 What is your living situation today?: I have a steady place to live Within the past 12 months, did the food you bought not last and you didn't have the money to get more?: Never true Within the past 12 months, did you worry whether your food would run out before you got money to buy more?: Never true Do you have trouble paying for medicines?: No Do you have trouble getting transportation to medical appointments?: No Do you have trouble paying your heating and electricity bill?: No Do you have trouble taking care of your child, family member or friend?: No Do you have trouble with day-to-day activities such as bathing, preparing meals, shopping, managing finances, etc.?: Yes Are you currently unemployed and looking for a job?: No Are you interested in more education?: No Please select the resources that you would like help with: None THRIVE Score: 0 AUDIT C Alcohol Use Questionnaire (AUDIT-C) 1. How often do you have a drink containing alcohol?: Monthly or less 2. How many drinks containing alcohol do you have on a typical day when you are drinking?: 1 or 2 3. How often do you have six or more drinks on one occasion?: Never Total Score: 1 ROSEMARY-7 AMB Questionnaire ROSEMARY-7 Date ROSEMARY - 7 assessed: 03/07/23 Feeling nervous, anxious, or on edge: 1 = Several days Not being able to stop or control worryin = Several days Worrying too much about different things: 0 = Not at all Trouble relaxin = Several days Being so restless that it is hard to sit still: 0 = Not at all Becoming easily annoyed or irritable: 0 = Not at all Feeling afraid as if something awful might happen: 0 = Not at all Total ROSEMARY-7 score (0-4 normal; 5-9 mild; 10-14 moderate; 15-21 severe): 3 Source: Developed by Drs. Ghassan Marie, Heather Bennett, Bucky Chadwick and colleagues, with an educational halina from [employer] Review of Systems Const Reports as per HPI Physical exam (Primary Care) Vital Signs: Last Vital Signs Pulse 80 03/07/23 11:27 BP 136/82 03/07/23 11:27 Pulse Ox 98 03/07/23 11:27 Oxygen Delivery Method Room Air 03/07/23 11:27 BMI result Body Mass Index 61.7 Tobacco/Smoking Status: Tobacco use Status Tobacco use date assessed 03/07/23 03/07/23 11:36 Patient Tobacco Use Status Former Tobacco user 03/07/23 11:36 e-Cigarette/Vaping Use Never Used 03/07/23 11:36 PHQ-9: PHQ-9 Score PHQ-9: Total score 7 03/07/23 11:48 Thrive Assessment: Date of Thrive Assessment Date Thrive assessed 03/07/23 03/07/23 11:40 Const General: cooperative Nutritional Appearance: obese morbidly obese Orientation/consciousness: patient oriented x3 Resp Effort & Inspection: normal respiratory effort Auscultation: clear to auscultation bilaterally Cardio Rate: regular rate Rhythm: regular rhythm Heart sounds: S1 normal heart sound present and S2 normal heart sound present Neuro General: patient oriented x3 Extrem Other: - finklesteins to left thumb, no active swelling Psych Appearance: grossly normal Mental Status: mental status grossly normal Speech and movement: Normal speech and movement present Affect: normal affect Attitude: cooperative Thought process: Normal thought process present Thought content: Normal thought content present Insight: Good insight present (Psych) Judgement: Good judgement present (Psych) Assessment and Plan Assessment & Plan (1) Pain of left thumb: Code(s): M79.645 - Pain in left finger(s) Plan: Referred to ortho Plan The patient agreed to the use of a medical support specialist for this encounter. Scribed for STACIE Auguste by Olivia Nicole medical support specialist, on 03/07/2023 at 11:45 EST. Orders: Referrals Orthopedics Referral M79.645 - Pain in left finger(s) Coding Level of Care Code Est Pt Level 3 (16102) Diagnoses Pain of left thumb M79.645
[2023-03-07 11:27] VITALS: BP 136/82; PULSE 80; O2SAT 98; BMI 61.7
== END 2023-03-07 12:19 | disposition home or self-care (01) ==
PROVIDERS: PCP Nurse Practitioner Family; Visit Provider Nurse Practitioner Family
DX: M79.645 Pain in left finger(s) (principal)
CPT/HCPCS: 99213

== ENCOUNTER 2023-03-11 11:18 | Outpatient (REF) | payer MEDICARE, MEDICAID, SELFPAY ==
[2023-03-11 13:11] LABS: MANUAL DIFF FLAG NO
[2023-03-11 13:33] LABS: Basophils Absolute Auto 0.1 X10*3/uL (0.0-0.2); Basophils Percent Auto 0.6 % (0-2); Eosinophils Absolute Auto 0.2 X10*3/uL (0.0-0.4); Eosinophils Percent Auto 1.9 % (0-4); Hematocrit 39.6 % (37.0-47.0); Hemoglobin 12.7 g/dl (12.0-16.0); Imm Gran Abs Auto 0.04 X10*3/uL (0.00-0.03); Imm Gran Pct Auto 0.5 % (0.0-0.4); Lymphocytes Absolute Auto 2.3 X10*3/uL (1.2-4.9); Lymphocytes Percent Auto 28.8 % (20-40); Mean Corpuscular HGB Conc 32.1 g/dl (31.0-35.0); Mean Corpuscular Hemoglobin 28.9 pg (27.0-33.0); Mean Corpuscular Volume 90.2 fL (80.0-98.0); Mean Platelet Volume 11.4 fL (9.4-12.3); Monocytes Absolute Auto 0.6 X10*3/uL (0.1-1.2); Neutrophils Absolute Auto 4.7 x10*3/uL (2.0-8.3); Neutrophils Percent Auto 60.2 % (45-73); Platelet Count 213 X10*3/uL (160-400); Red Blood Count 4.39 X10*6/uL (4.20-5.50); Red Cell Distribution Width 14.2 % (11.0-16.0); White Blood Count 7.9 X10*3/uL (4.8-10.8)
[2023-03-11 14:06] LABS: Alanine Aminotransferase 25 U/L (0-31); Albumin Level 3.9 g/dL (3.5-5.0); Alkaline Phosphatase 120 U/L (39-117); Anion Gap 11 (12-20); Aspartate Amino Transferase 17 U/L (5-31); Bilirubin Total 0.7 mg/dL (0.0-1.0); Blood Urea Nitrogen 13 mg/dL (9-16); Calcium 9.4 mg/dL (8.4-10.2); Carbon Dioxide 26 mmol/L (22-29); Chloride 107 mmol/L (96-108); Estimated Glomerular Filt Rate > 60; Glucose Random 115 mg/dL (60-115); Potassium 3.9 mmol/L (3.3-5.1); Sodium 140 mmol/L (135-145); Total Protein 6.9 g/dL (6.5-8.0)
[2023-03-11 14:24] LABS: TSH reflex Free T4 1.93 uIU/mL (0.32-4.0)
== END 2023-03-11 11:19 | disposition home or self-care (01) ==
LOC: HO.HMGCLDS 11:18
PROVIDERS: PCP Nurse Practitioner Family; Visit Provider Nurse Practitioner Family
DX: R53.83 Other fatigue (principal)
CPT/HCPCS: 36415; 80053; 84443; 85025

== ENCOUNTER 2023-03-29 13:56 | Outpatient (REF) | payer MEDICARE, MEDICAID, SELFPAY ==
--- NOTE | ~2023-03-29 | XR_ITS ---
EXAMINATION: XR ABDOMEN KUB CLINICAL INDICATION: Calculus of kidney COMPARISON: KUB 01/12/2023 TECHNIQUE: AP view of the abdomen. FINDINGS: The bowel gas pattern is normal with no evidence of ileus or obstruction. The left kidney is significantly obscured by overlying bowel gas. No left renal calculus is seen. Previously noted calculus overlying the right renal interpolar region is no longer evident. No right renal calculi are seen. Pelvic phleboliths are unchanged in appearance. Slight curve of the mid lumbar spine, convex left. There are multilevel degenerative changes of the lumbar spine. Surgical clips in the right upper quadrant consistent with prior cholecystectomy. There are mild degenerative changes of the hip joints. XR/XR KUB IMPRESSION: No renal calculus is seen. The left kidney is significantly obscured by overlying bowel gas.
--- NOTE | ~2023-03-29 | US_ITS ---
EXAMINATION: US RETROPERITONEAL LIMITED (RENAL ONLY) CLINICAL INFORMATION: Calculus of kidney. Status post right ESWL 01/12/2023. COMPARISON: X-ray abdomen KUB same date and 01/12/2023. CT abdomen and pelvis 11/18/2022. Renal ultrasound 06/03/2022. TECHNIQUE: Real-time imaging of the kidneys. FINDINGS: RIGHT KIDNEY: 11.6 x 5.3 x 5.1 cm (SAG x AP x TRV). The kidney is normal in size, contour, and echogenicity. Renal cortical thickness is normal. No calculi or focal parenchymal lesions. No hydronephrosis. LEFT KIDNEY: 11.9 x 5.7 x 5.1 cm (SAG x AP x TRV). The kidney is normal in size, contour, and echogenicity. Renal cortical thickness is normal. No hydronephrosis. At the lower pole, 5 mm and 4 mm nonobstructing calculi are seen. At the lower pole, a 1.3 cm benign, simple cyst is seen, for which no imaging follow-up is recommended. US/US renal BI IMPRESSION: 5 mm and 4 mm nonobstructing left renal calculi are seen. No right renal calculus is seen. No hydronephrosis is noted bilaterally.
== END 2023-03-29 13:57 | disposition home or self-care (01) ==
LOC: HO.HMGCX 13:56
PROVIDERS: PCP Nurse Practitioner Family; Visit Provider Urology
DX: N20.0 Calculus of kidney (principal)
CPT/HCPCS: 74018; 76775

== ENCOUNTER 2023-04-12 10:31 | Outpatient (REF) | payer MEDICARE, MEDICAID, SELFPAY ==
--- NOTE | ~2023-04-12 | XR_ITS ---
EXAMINATION: XR HAND, LEFT CLINICAL INFORMATION: Pain. COMPARISON: Radiograph left hand 05/06/2021. TECHNIQUE: PA, lateral, and oblique views of the left hand. FINDINGS: No fracture or subluxation. Mild multifocal degenerative arthrosis with joint space narrowing, subcortical sclerosis and small marginal osteophytes more noticeable in the first carpometacarpal joint, middle interphalangeal and distal interphalangeal joints. No osseous erosions. No abnormal soft tissue calcifications. Again noted diffuse soft tissue swelling most likely related with patient body habitus. XR/XR hand LT min 3V IMPRESSION: 1. No acute fracture or subluxation. 2. Mild multifocal degenerative arthrosis. 3. Diffuse soft tissue swelling.
== END 2023-04-12 10:32 | disposition home or self-care (01) ==
LOC: HO.HOSX 10:31
PROVIDERS: Visit Provider Orthopaedic Surgery
DX: M18.12 Unilateral primary osteoarthritis of first carpometacarpal joint, left hand (principal); R20.0 Anesthesia of skin; R20.2 Paresthesia of skin
CPT/HCPCS: 20600; 73130; 99212

== ENCOUNTER 2023-04-12 13:08 | Outpatient (AMB) | payer MEDICARE, MEDICAID, SELFPAY ==
--- NOTE | 2023-04-12 13:17 | A.OFFVIS_ITS ---
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 States her pain comes and goes through out the years and has worsen recently. Pain is worse with pinching, gripping and over use of thumb. States she feels pain radiating around her CMC joint. States she recalls when putting on her seat belt, at times her thumb has gotten caught and has hyper extended. Also has numbness and tingling at times. Hx of CTR with Dr. Miles 2015. 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 She complains of pain at the base of her thumb primarily with pinching or gripping activities, or with overuse. She says she has had intermittent pain for several years in her thumb. She says her pain tends to be sharp and following activity, she denies any throbbing pain. She says she has found some relief from wearing a thumb brace in the past. She also reports numbness & tingling in her right thumb, index, and middle fingers, and she feels like her small finger has started to go numb, particularly when her elbow is bent. She says she had a left carpal tunnel release with Dr. Miles, DOS: 07/09/15. She says following surgery her sensation improved and is now normal. She ambulates with a walker. [facility] Medical History Anterolisthesis of cervicothoracic spine Morbid obesity with BMI of 60.0-69.9, adult DDD (degenerative disc disease) Diabetes History of cellulitis Hx of solitary pulmonary nodule Depression with anxiety AMY on CPAP Spinal stenosis Arthritis Hypothyroid Elevated cholesterol HTN (hypertension) Anxiety Low back pain PVD (peripheral vascular disease) Palpitations Surgical History Hx of cystoscopy Hx of lithotripsy History of endometrial ablation Hx of colonoscopy History of carpal tunnel surgery of left wrist Hx of repair of left rotator cuff History of incisional hernia repair Hx of cholecystectomy Hx of tonsillectomy Hx of tubal ligation Hx of section Family History Father Stroke Former smoker Mother Brain tumor Maternal Uncle CVD (cardiovascular disease) Diabetes mellitus Myocardial infarction Brother No problems noted. Sister No problems noted. Sister No problems noted. Sister No problems noted. Son No problems noted. Daughter No problems noted. Daughter No problems noted. 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 Cognitive needs: No Hearing needs: No Vision needs: No Review of Systems Const All systems reviewed & are unremarkable except as noted in HPI and below Physical Exam Vital Signs: BMI result Body Mass Index 61.1 Const General: cooperative, healthy appearing and no acute distress Orientation/consciousness: patient oriented x3 HEENT Head: Yes normocephalic and Yes atraumatic Eyes EOM: EOMs intact bilaterally Resp Effort & Inspection: normal respiratory effort and able to speak in complete sentences Cardio Jugular venous distension: no JVD Skin General skin exam: turgor normal Rashes: no rashes Neuro General: patient oriented x3 Extrem Other: Evaluation of Left Upper Extremity: The patient is alert, oriented, and in no acute distress Neuro: Median, Ulnar, Radial nerves motor and sensory intact In regards to the right hand: Normal sensation to the tips of all digits today in clinic Vascular: Cap refill brisk ROM: She can make a fist and extend all her digits Skin: No lacerations or abrasions. General: No Ecchymosis. No Erythema or evidence of infection. Tender over the basal joint + shoulder sign No tenderness over the 1st dorsal compartment or over the MCP joint Radiographs: 3 views of the left hand, with attention to the thumb, were taken and viewed by me today in clinic. They show no fractures or dislocations. There is some basal joint arthritis with joint space narrowing subluxation, and some early osteophyte formation. STT joint appears relatively well-preserved. She has some more generalized arthritic changes in her DIP joints, MCP joints, and ehr middle finger PIP joint. Psych Appearance: grossly normal Affect: normal affect Attitude: cooperative Office Procedures Fracture Care Details: No fracture, injection Fracture Billing Code: Fracture Billing Code Assessment & Plan Assessment & Plan (1) Arthritis of carpometacarpal (CMC) joint of left thumb: Code(s): M18.12 - Unilateral primary osteoarthritis of first carpometacarpal joint, left hand (2) Numbness and tingling in right hand: Code(s): R20.0 - Anesthesia of skin; R20.2 - Paresthesia of skin Plan Assessment & Plan: 1. Left basal joint arthritis I educated her about this condition I discussed operative and non-operative treatment options. I am not recommending surgery at this time. The patient would like to proceed with an injection & bracing She was fitted for a comfort cool brace to wear with daily activity I discussed activity modification, she should limit or avoid any heavy or repetitive pinching or gripping activities If her symptoms persist or worsen she can follow up for a possible steroid injection Injection #1 : The risks and benefits of a steroid injection including but not limited to risk of damage to blood vessels, nerve, tendon, infection, skin bleaching, persistent or worsening pain, and failure to improve symptoms were discussed with the patient and they wish to proceed with the steroid injection. Once consent was obtained the skin over the dorsum of the Left basal joint was sterilely prepped. The joint was then injected with a combination of 1 mL of (40 mg/ml} Depo-Medrol and 1% plain Lidocaine. The patient appears to have tolerated the procedure well and with no complications. She had good early relief before leaving clinic today. She knows that they may not have another steroid injection into this joint for least 4 months. 2. Right hand numbness To the tips of all digits Symptoms intermittent, but daily, worse at night I ordered a NCS to assess for peripheral nerve compression She will follow up when completed for review 3. History of left carpal tunnel release, By Teran: 07/09/15 With normal sensation Scribed for Laura Hansen MD by Maurice Simpson, medical records coordinator, on 04/12/23 at 2:00 PM, EST. Orders: Orders NE nerve conduction velocity Today R20.0 - Anesthesia of skin, R20.2 - Paresthesia of skin XR hand LT min 3V Today M79.642 - Pain in left hand Coding Level of Care Code Est Pt Level 3 (20600) Diagnoses Arthritis of carpometacarpal (CMC) joint of left thumb M18.12 Numbness and tingling in right hand R20.0; R20.2 CPT Codes Fracture Care - Fracture Billing Code: Fracture Billing Code ([id number])
[2023-04-12 13:18] VITALS: BMI 61.1
== END 2023-04-12 14:15 | disposition home or self-care (01) ==
PROVIDERS: PCP Nurse Practitioner Family; Visit Provider Orthopaedic Surgery
DX: M18.12 Unilateral primary osteoarthritis of first carpometacarpal joint, left hand (principal); R20.0 Anesthesia of skin; R20.2 Paresthesia of skin
CPT/HCPCS: 20600; 99213

== ENCOUNTER 2023-04-26 12:56 | Outpatient (AMB) | payer MEDICARE, MEDICAID, SELFPAY ==
--- NOTE | 2023-04-26 13:00 | MHC.OFFVIS ---
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 She is doing well with no concerns. She reports an area that has intermittent irritation of her labia, used a topical cream in the past which worked well. She also uses preventative antifungal powders for her creases with good success in treatment. Attempting to eat a healthy diet with calcium and vitamin D. Currently not sexually active, has medical issues. Last pap smear; 2020. Last mammogram; 2022. Colonoscopy is UTD. Denies any family history of breast, ovarian or colon cancer. [facility] Medical History Anterolisthesis of cervicothoracic spine Morbid obesity with BMI of 60.0-69.9, adult DDD (degenerative disc disease) Diabetes History of cellulitis Hx of solitary pulmonary nodule Depression with anxiety AMY on CPAP Spinal stenosis Arthritis Hypothyroid Elevated cholesterol HTN (hypertension) Anxiety Low back pain PVD (peripheral vascular disease) Palpitations Surgical History Hx of cystoscopy Hx of lithotripsy History of endometrial ablation Hx of colonoscopy History of carpal tunnel surgery of left wrist Hx of repair of left rotator cuff History of incisional hernia repair Hx of cholecystectomy Hx of tonsillectomy Hx of tubal ligation Hx of section Family History Father Stroke Former smoker Mother Brain tumor Maternal Uncle CVD (cardiovascular disease) Diabetes mellitus Myocardial infarction Brother No problems noted. Sister No problems noted. Sister No problems noted. Sister No problems noted. Son No problems noted. Daughter No problems noted. Daughter No problems noted. 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 Cognitive needs: No Hearing needs: No Vision needs: No Female Reproductive History Menstrual Total pregnancies: 3 Full term: 3 Number of Living Children: 3 Date of last pap smear: 04/16/20 (neg pap and hpv) Date of Mammogram: 12/27/22 (Birad 1) Review of Systems Const All systems reviewed & are unremarkable except as noted in HPI and below Reports as per HPI Eyes Reports no additional complaints ENT Reports no additional complaints Card Reports no additional complaints Resp Reports no additional complaints GI Reports as per HPI and Reports no additional complaints Reports as per HPI Musc Reports no additional complaints Skin/Breast Reports as per HPI Neuro Reports no additional complaints Psych Reports no additional complaints Endo Reports no additional complaints Timbo/Lymph Reports no additional complaints Aller/Immun Reports no additional complaints Physical Exam Vital Signs: Last Vital Signs BP 128/80 04/26/23 13:01 BMI result Body Mass Index 61.1 Const General: cooperative, healthy appearing, no acute distress, well developed and alert Orientation/consciousness: patient oriented x3 HEENT Head: Yes normal to inspection Eyes General: appearance normal, both eyes and all related structures Neck Neck: Yes normal visual inspection Thyroid: Thyroid normal Chest Chest palpation & inspection: normal inspection of the chest and other (no puckering, dimpling, peau de orange, retraction, discharge, masses) Breast/axilla inspection: normal inspection of the breasts Breast/axilla palpation: normal palpation of the breasts Resp Effort & Inspection: normal respiratory effort GI Inspection: Yes normal to inspection Palpation (GI): Soft to palpation Rectal Exam - Female: deferred Other: Limited exposure due to approximation of her thighs and limited range of motion with her hips. Staff had to help approximate her thighs to have access to the labial region for visualization. Left labia majora with prominent, pendulous tissue appearance to be in area of thighs which are touching. No lesions or erythema. General: Yes bladder normal to palpation External Female Exam: normal external appearance and normal appearance of the urethra Speculum Exam - Vagina: normal appearance of the vagina, normal palpation and normal vaginal discharge Speculum Exam - Cervix: normal appearance of the cervix and normal palpation Bimanual exam- vagina & uterus: normal bimanual exam, normal palpation, uterine size normal, bladder normal to palpation, normal palpation and non-tender Bimanual Exam- Adnexa, other: no masses Skin General skin exam: no rashes or lesions noted Rashes: no rashes Neuro General: patient oriented x3 Cognition (Neuro): normal cognition Extrem General: Yes normal to inspection Psych Attitude: cooperative Thought process: Normal thought process present Assessment & Plan Assessment & Plan (1) Encounter for well woman exam with routine gynecological exam: Code(s): Z01.419 - Encounter for gynecological examination (general) (routine) without abnormal findings Plan Discussed: Current recommendations for pap smears per ASCCP guidelines. Breast awareness, periodic self breast exams and yearly mammogram. Maintain a healthy lifestyle, well balanced diet including Calcium 1,200 mg and Vitamin D 600 IU daily, and routine exercise with her limitations and follow-up with her primary care for weight management. Discussed vulvar skin care, most likely cause of labial irritation is due to a constant rubbing of the tissues coming together, heat in the area, and moisture to the area. Reviewed self-help measures to keep the area clean and dry. Exposed to air when possible. At this time it will be difficult for anything to prevent the rubbing due to her body habitus. Advised use of the cortisone cream only sparingly, if the itch or irritated region is not resolving or worsening to follow-up for further evaluation. Use of the antifungal is more for the summer as needed, not to be used in combination at this time. Contact the office with any postmenopausal bleeding. Patient verbalizes understanding and agrees to the plan of care. She was given opportunity to ask questions and all questions were answered to the best of my ability. RTO in 1 year for annual nurse gynecology exam. This note is constructed using voice recognition software. While every effort has been made to ensure accuracy, garageman errors may have been included. Medications: New betamethasone, augmented 0.05 % use as directed for itching 1 appl topical BEDTIME PRN 45 grams 0RF itching clotrimazole-betamethasone 1-0.05 % use a directed 1 appl topical BID 7 days 45 grams 0RF itching Coding Level of Care Code Est Pt Prev Care 40-64y(75302) Diagnoses Encounter for well woman exam with routine gynecological exam Z01.419
[2023-04-26 13:01] VITALS: BP 128/80; BMI 61.1
== END 2023-04-26 14:03 | disposition home or self-care (01) ==
PROVIDERS: Visit Provider Advanced Practice Midwife
DX: Z01.419 Encounter for gynecological examination (general) (routine) without abnormal findings (principal)
CPT/HCPCS: G0101

== ENCOUNTER → 2023-04-26 12:56 | Outpatient (BNVA) | payer MEDICARE, MEDICAID, SELFPAY | PROVIDERS: Visit Provider Advanced Practice Midwife | DX: Z01.419 Encounter for gynecological examination (general) (routine) without abnormal findings (principal) | CPT/HCPCS: G0101 ==

== ENCOUNTER 2023-04-28 12:33 | Outpatient (REF) | payer MEDICARE, MEDICAID, SELFPAY | END 2023-04-28 12:34 | disposition home or self-care (01) | LOC: HO.SH 12:33 | PROVIDERS: PCP Nurse Practitioner Family; Visit Provider Nurse Practitioner Family | DX: Z01.10 Encounter for examination of ears and hearing without abnormal findings (principal); H90.3 Sensorineural hearing loss, bilateral | CPT/HCPCS: 92557 ==

== ENCOUNTER 2023-05-12 14:30 | Outpatient (REF) | payer MEDICARE, MEDICAID, SELFPAY ==
--- NOTE | 2023-05-12 14:33 | EMG_ITS ---
Chief complaint: Right forearm and thumb pain. Denies numbness Noted atrophy of right FDI muscle. Chronic neck pain, history of disc herniation. EMG done by Dr. Spencer, in 2016, reported mild right Carpal Tunnel Syndrome. Reason for referral: Evaluate for neuropathy versus radiculopathy Referred by: Dr. Hansen Procedure done: Right upper extremity NCS/EMG Precautions and/or limitations: None The limb temperature was monitored continuously and remained between 32-36 degrees C during the performance of the NCS. Nerve Conduction Studies Anti Sensory Summary Table ?Stim Site NR Onset (ms) Norm Onset (ms) Peak (ms) Norm Peak (ms) O-P Amp (?V) Norm O-P Amp Site1 Site2 Delta-0 (ms) Dist (cm) Escobar (m/s) Norm Escobar (m/s) Right Median Anti Sensory (2nd Digit) Wrist ? 3.7 4.5 <3.6 12.5 >10 Wrist 2nd Digit 3.7 14.0 38 Right Radial Anti Sensory (Thumb) Forearm ? 1.7 2.2 <3.1 23.8 Forearm Thumb 1.7 0.0 Right Ulnar Anti Sensory (5th Digit) Wrist ? 0.9 3.3 <3.7 23.2 >15.0 Wrist 5th Digit 0.9 14.0 156 Motor Summary Table ?Stim Site NR Onset (ms) Norm Onset (ms) O-P Amp (mV) Norm O-P Amp iAmp (mV) Amp (1st) (%) Site1 Site2 Delta-0 (ms) Dist (cm) Escobar (m/s) Norm Escobar (m/s) Right Median Motor (Abd Poll Brev) Wrist ? 6.1 <3.9 6.8 >4.5 8.5 100.0 Elbow Wrist 3.8 18.0 47 >45 Elbow ? 9.9 6.4 7.9 94.1 Right Ulnar Motor (Abd Dig Minimi) Wrist ? 3.0 <3.0 8.1 >5 9.7 100.0 B Elbow Wrist 2.5 15.0 60 >45 B Elbow ? 5.5 7.0 8.6 86.4 A Elbow B Elbow 1.5 10.0 67 >45 A Elbow ? 7.0 6.9 8.6 85.2 EMG ?Side Muscle Nerve Root Ins Act Fibs Psw Amp Dur Poly Recrt Int Pat Comment Right 1stDorInt Ulnar C8-T1 Incr 1+ 1+ Incr Incr 0 Nml Complete Right FlexCarRad Median C6-7 Nml Nml Nml Nml Nml 0 Nml Complete Right Biceps Musculocut C5-6 Nml Nml Nml Nml Nml 0 Nml Complete Right Triceps Radial C6-7-8 Nml Nml Nml Incr Incr 0 Nml Complete Right Deltoid Axillary C5-6 Nml Nml Nml Nml Nml 0 Nml Complete Paraspinal EMG ?Side Muscle Nerve Root Ins Act Fibs Psw Comment Right Cervical Upper Rami Nml Nml Nml Right Cervical Mid Rami Nml Nml Nml Right Cervical Lower Rami Nml Nml Nml FINDINGS: Right median motor nerve showed prolonged distal latency, normal amplitude and normal conduction velocity. Right median sensory nerve prolonged peak latency. All other nerves tested were within normal. Concentric needle EMG was performed in selected muscles of the right upper extremity and cervical paraspinal. Study revealed Signs of electric abnormalities as shown in the table below. Right triceps showed increased duration and amplitude. Right FDI showed increased insertional activity, PSWs, fibrillations; increased duration and amplitude. IMPRESSION: 1. This is an abnormal study. 2. There is electrodiagnostic evidence for right moderate-severe median neuropathy at the wrist consistent with Carpal Tunnel Syndrome. 3. There is electrodiagnostic evidence for right C7-8 subacute/chronic radiculopathy. 4. There is no electrodiagnostic evidence for ulnar neuropathy or brachial plexopathy. CLINICAL COMMENT: Further clinical correlation recommended. Thank you for your kind referral. Zulema Oliveros MD, YASMANI Board Certified, [place] Board of Physical Medicine and Rehabilitation (ABPMR) Board Certified, [place] Board of Electrodiagnostic Medicine (ABEM) CODIN [id number] MTDD
== END 2023-05-12 14:31 | disposition home or self-care (01) ==
LOC: HO.NEURO 14:30
PROVIDERS: PCP Nurse Practitioner Family; Visit Provider Orthopaedic Surgery
DX: R20.0 Anesthesia of skin (principal); R20.2 Paresthesia of skin
CPT/HCPCS: 95886; 95909

== ENCOUNTER → 2023-05-12 14:33 | Outpatient (BNV) | payer MEDICARE, MEDICAID, SELFPAY | PROVIDERS: PCP Nurse Practitioner Family; Visit Provider Physical Medicine & Rehabilitation | DX: G56.01 Carpal tunnel syndrome, right upper limb (principal) | CPT/HCPCS: 95886; 95909 ==

== ENCOUNTER 2023-05-20 14:07 | Outpatient (AMB) | payer MEDICARE, MEDICAID, SELFPAY ==
--- NOTE | 2023-05-20 14:11 | A.OFFVIS_ITS ---
Intake Visit Reasons: 10 week follow up/ US/ KUB Intake Note: Patient presents today for a follow-up on us Results: Meds: None Allergies to Antibiotic: Penicillin & Sulfa Blood Thinner: Aspirin Collective Bargaining Specialist Required: No Accompanied by: Self / Same As Patient Allergies tioconazole [From Monistat 1 (tioconazole)] Allergy (Intermediate, Verified 06/21/23 13:36) Rash Penicillins Allergy (Unknown, Verified 06/21/23 13:36) Unknown Sulfa (Sulfonamide Antibiotics) Allergy (Unknown, Verified 06/21/23 13:36) Unknown HPI Comments Details: Kanika is followed for bilateral nephrolithiasis, she had ESWL x 2 of large right kidney stone. She is here for FU. She had renal US and KUB, 03/29/23. I have reviewed results, Left kidney stones nonobtructing, resolution of right renal calculi. Will cont to monitor kidneys. KUB in [address] [facility] Medical History Anterolisthesis of cervicothoracic spine Morbid obesity with BMI of 60.0-69.9, adult DDD (degenerative disc disease) Diabetes History of cellulitis Hx of solitary pulmonary nodule Depression with anxiety AMY on CPAP Spinal stenosis Arthritis Hypothyroid Elevated cholesterol HTN (hypertension) Anxiety Low back pain PVD (peripheral vascular disease) Palpitations Surgical History Hx of cystoscopy Hx of lithotripsy History of endometrial ablation Hx of colonoscopy History of carpal tunnel surgery of left wrist Hx of repair of left rotator cuff History of incisional hernia repair Hx of cholecystectomy Hx of tonsillectomy Hx of tubal ligation Hx of section Family History Father Stroke Former smoker Mother Brain tumor Maternal Uncle CVD (cardiovascular disease) Diabetes mellitus Myocardial infarction Brother No problems noted. Sister No problems noted. Sister No problems noted. Sister No problems noted. Son No problems noted. Daughter No problems noted. Daughter No problems noted. 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 Cognitive needs: No Hearing needs: No Vision needs: No Review of Systems Const All systems reviewed & are unremarkable except as noted in HPI and below Reports no additional complaints Eyes Reports no additional complaints ENT Reports no additional complaints Card Reports no additional complaints Resp Reports no additional complaints GI Reports no additional complaints Reports as per HPI Musc Reports no additional complaints Skin/Breast Reports system reviewed and no additional complaints, except as documented Neuro Reports no additional complaints Psych Reports no additional complaints Endo Reports no additional complaints Timbo/Lymph Reports no additional complaints Aller/Immun Reports no additional complaints Results Reviewed Results Reviewed: Date of Service: 03/29/23 US RETROPERITONEAL LIMITED (RENAL ONLY) CLINICAL INFORMATION: Calculus of kidney. Status post right ESWL 01/12/2023. COMPARISON: X-ray abdomen KUB same date and 01/12/2023. CT abdomen and pelvis 11/18/2022. Renal ultrasound 06/03/2022. TECHNIQUE: Real-time imaging of the kidneys. FINDINGS: RIGHT KIDNEY: 11.6 x 5.3 x 5.1 cm (SAG x AP x TRV). The kidney is normal in size, contour, and echogenicity. Renal cortical thickness is normal. No calculi or focal parenchymal lesions. No hydronephrosis. LEFT KIDNEY: 11.9 x 5.7 x 5.1 cm (SAG x AP x TRV). The kidney is normal in size, contour, and echogenicity. Renal cortical thickness is normal. No hydronephrosis. At the lower pole, 5 mm and 4 mm nonobstructing calculi are seen. At the lower pole, a 1.3 cm benign, simple cyst is seen, for which no imaging follow-up is recommended. IMPRESSION: 5 mm and 4 mm nonobstructing left renal calculi are seen. No right renal calculus is seen. No hydronephrosis is noted bilaterally. Date of Service: 03/29/23 EXAMINATION: XR ABDOMEN KUB CLINICAL INDICATION: Calculus of kidney COMPARISON: KUB 01/12/2023 TECHNIQUE: AP view of the abdomen. FINDINGS: The bowel gas pattern is normal with no evidence of ileus or obstruction. The left kidney is significantly obscured by overlying bowel gas. No left renal calculus is seen. Previously noted calculus overlying the right renal interpolar region is no longer evident. No right renal calculi are seen. Pelvic phleboliths are unchanged in appearance. Slight curve of the mid lumbar spine, convex left. There are multilevel degenerative changes of the lumbar spine. Surgical clips in the right upper quadrant consistent with prior cholecystectomy. There are mild degenerative changes of the hip joints. IMPRESSION: No renal calculus is seen. The left kidney is significantly obscured by overlying bowel gas. Assessment & Plan Assessment & Plan (1) Renal calculi: Code(s): N20.0 - Calculus of kidney Category: Medical (2) Right renal stone: Code(s): N20.0 - Calculus of kidney Category: Medical Plan fu in 9 months, KUB prior Orders: Orders XR KUB 9 Months N20.0 - Calculus of kidney Patient Instructions: The patient had an opportunity to ask questions regarding treatment plan. The patient expressed understanding and agreement with the above treatment plan. The patient is aware they should contact our office by phone for worsening of their current condition or the appearance of new symptoms. Compliance is encouraged with any medications and followup testing that is ordered. It is a privilege to be allowed the opportunity to participate in the urologic care of your patient. If you have any questions or concerns regarding treatment for the above conditions please do not hesitate to contact me. The office tel ephone contact is [phone]. This note is constructed in part using voice recognition software. While every effort has been made to ensure accuracy drilling rig operator errors may have been included. Yours sincerely, Rachel Wise MD Coding Level of Care Code Est Pt Level 3 (16049) Diagnoses Renal calculi N20.0 Right renal stone N20.0
== END 2023-05-20 14:47 | disposition home or self-care (01) ==
PROVIDERS: PCP Nurse Practitioner Family; Visit Provider Urology
DX: N20.0 Calculus of kidney (principal)
CPT/HCPCS: 99213

== ENCOUNTER → 2023-05-20 14:07 | Outpatient (BNVA) | payer MEDICARE, MEDICAID, SELFPAY | PROVIDERS: PCP Nurse Practitioner Family; Visit Provider Urology | DX: N20.0 Calculus of kidney (principal) | CPT/HCPCS: 99212 ==

== ENCOUNTER 2023-06-21 13:06 | Outpatient (AMB) | payer MEDICARE, MEDICAID, SELFPAY ==
--- NOTE | 2023-06-21 13:23 | A.OFFVIS_ITS ---
Vital Signs 06/21/23 13:24 Height 5 ft 3 in Weight 345 lb BMI 61.1 Intake Visit Reasons: O/V EMG rev rt hand Intake Note: Michelle 63 yr old female presents today for her EMG review of her right hand. Also patient is confirming she did not go forward with left basal joint injection on her last visit from 04/12/23 and states her pain has improved very little. Allergies tioconazole [From Monistat 1 (tioconazole)] Allergy (Intermediate, Verified 06/21/23 13:36) Rash Penicillins Allergy (Unknown, Verified 06/21/23 13:36) Unknown Sulfa (Sulfonamide Antibiotics) Allergy (Unknown, Verified 06/21/23 13:36) Unknown HPI HPI O/V EMG rev rt hand : Details: Michelle Lopez) is a 63 year old right hand dominant woman who returns for a NCS review of her right hand numbness. She continues to have numbness in all fingers of her right hand. Symptoms intermittent, but daily, worse at night or with activity. She was most recently seen on 04/12/2023 for her left basal joint arthritis, but elected not to proceed with the injection. She did not receive a basal joint injection at her last appointment on 04/12/23, her previous note has been addended.? She says she had a left carpal tunnel release with Dr. Miles, DOS: 07/09/15. She says following surgery her sensation improved and is now normal. She ambulates with a walker. [facility] Medical History Anterolisthesis of cervicothoracic spine Morbid obesity with BMI of 60.0-69.9, adult DDD (degenerative disc disease) Diabetes History of cellulitis Hx of solitary pulmonary nodule Depression with anxiety AMY on CPAP Spinal stenosis Arthritis Hypothyroid Elevated cholesterol HTN (hypertension) Anxiety Low back pain PVD (peripheral vascular disease) Palpitations Surgical History Hx of cystoscopy Hx of lithotripsy History of endometrial ablation Hx of colonoscopy History of carpal tunnel surgery of left wrist Hx of repair of left rotator cuff History of incisional hernia repair Hx of cholecystectomy Hx of tonsillectomy Hx of tubal ligation Hx of section Family History Father Stroke Former smoker Mother Brain tumor Maternal Uncle CVD (cardiovascular disease) Diabetes mellitus Myocardial infarction Brother No problems noted. Sister No problems noted. Sister No problems noted. Sister No problems noted. Son No problems noted. Daughter No problems noted. Daughter No problems noted. 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 Cognitive needs: No Hearing needs: No Vision needs: No Physical Exam Vital Signs: BMI result Body Mass Index 61.1 Extrem Other: Evaluation of Right Upper Extremity: The patient is alert, oriented, and in no acute distress Neuro: Normal sensation to the tips of all digits today in clinic No thenar or intrinsic wasting Good APB muscle belly firing and good finger cross Vascular: Cap refill brisk ROM: She can make a fist and extend all her digits General: Left hand: Tender over the basal joint + shoulder sign No tenderness over the 1st dorsal compartment or over the MCP joint Nerve Conduction Study: IMPRESSION: 1. This is an abnormal study. 2. There is electrodiagnostic evidence for right moderate-severe median neuropathy at the wrist consistent with Carpal Tunnel Syndrome. 3. There is electrodiagnostic evidence for right C7-8 subacute/chronic radiculopathy. 4. There is no electrodiagnostic evidence for ulnar neuropathy or brachial plexopathy. CLINICAL COMMENT: Further clinical correlation recommended. Zulema Oliveros MD, YASMANI 05/12/23 Radiographs: 3 views of the left hand, with attention to the thumb, from 04/12/23 were reviewed by me today in clinic. They show no fractures or dislocations. There is some basal joint arthritis with joint space narrowing subluxation, and some early osteophyte formation. STT joint appears relatively well-preserved. She has some more generalized arthritic changes in her DIP joints, MCP joints, and ehr middle finger PIP joint. Assessment & Plan Assessment & Plan (1) Arthritis of carpometacarpal (CMC) joint of left thumb: Code(s): M18.12 - Unilateral primary osteoarthritis of first carpometacarpal joint, left hand Category: Medical (2) Carpal tunnel syndrome of right wrist: Code(s): G56.01 - Carpal tunnel syndrome, right upper limb Category: Medical (3) Cervical radiculopathy: Comment: Right C7-C8 Code(s): M54.12 - Radiculopathy, cervical region Category: Medical Plan Assessment & Plan: 1. Right carpal tunnel syndrome, moderate-severe Symptoms intermittent, but daily, worse at night I educated her about this condition I discussed operative and non-operative treatment options The patient would like to proceed with surgery The risks and benefits of operative treatment were discussed with the patient and the patient wishes to proceed with surgery. These risks include, but are not limited to risk of damage to blood vessels, nerves, tendons, infection, recurrence, incomplete relief of preoperative symptoms, persistent pain, possible need for further surgery and the risks associated with regional blocks and anesthesia. The plan is to take the patient to the operating room sometime in the next few weeks for the following procedures: 1. Right carpal tunnel release, under local All of the preoperative paperwork including the consent was reviewed today. All the patient's questions were answered. The patient understands that they will be contacted by our surgery consultant soon to schedule this procedure She denies Diabetes, blood thinners, asthma, lung, kidney issues She has PVD, and says she takes Semaglutide injections for this. 2 Cervical radiculopathy Right C7-C8, subacute/chronic She also complains of numbness in the right ring & small fingers If her symptoms persist following her carpal tunnel release, we may consider a referral to the spine specialists 3. Left basal joint arthritis I educated her about this condition She will continue to wear her comfort cool brace with daily activity I discussed activity modification, she should limit or avoid any heavy or repetitive pinching or gripping activities 4. History of left carpal tunnel release, By Dr. Miles, DOS: 07/09/15 With normal sensation Scribed for Laura Hansen MD by Maurice Simpson, biomedical service engineer, on 06/21/23 at 1:55 PM, EST. Coding Level of Care Code Est Pt Level 4 (28367) Diagnoses Arthritis of carpometacarpal (CMC) joint of left thumb M18.12 Carpal tunnel syndrome of right wrist G56.01 Cervical radiculopathy M54.12
[2023-06-21 13:24] VITALS: BMI 61.1
== END 2023-06-21 14:10 | disposition home or self-care (01) ==
PROVIDERS: PCP Nurse Practitioner Family; Visit Provider Orthopaedic Surgery
DX: M18.12 Unilateral primary osteoarthritis of first carpometacarpal joint, left hand (principal); G56.01 Carpal tunnel syndrome, right upper limb
CPT/HCPCS: 99214

== ENCOUNTER → 2023-06-21 13:06 | Outpatient (BNVA) | payer MEDICARE, MEDICAID, SELFPAY | PROVIDERS: PCP Nurse Practitioner Family; Visit Provider Orthopaedic Surgery | DX: M18.12 Unilateral primary osteoarthritis of first carpometacarpal joint, left hand (principal); G56.01 Carpal tunnel syndrome, right upper limb; M54.12 Radiculopathy, cervical region | CPT/HCPCS: 99212 ==

== ENCOUNTER 2023-07-12 12:57 | Outpatient (AMB) | payer MEDICARE, MEDICAID, SELFPAY ==
--- NOTE | 2023-07-12 12:58 | A.OFFPC_ITS ---
Vital Signs 07/12/23 13:01 Height 5 ft 3 in Weight 318 lb BMI 56.3 BP 118/80 Blood Pressure Location Lt brachial Pulse 102 H Pulse Source Pulse Oximeter Pulse Oximetry (%) 98 Oxygen Delivery Method Room Air Intake Visit Reasons: Back issues Intake Note: Patient here for back issues. Allergies tioconazole [From Monistat 1 (tioconazole)] Allergy (Intermediate, Verified 07/12/23 13:34) Rash Penicillins Allergy (Unknown, Verified 07/12/23 13:34) Unknown Sulfa (Sulfonamide Antibiotics) Allergy (Unknown, Verified 07/12/23 13:34) Unknown Medication List - Last Reconciled 07/12/23 by STACIE Pulido aspirin (Adult Low Dose Aspirin) 81 mg PO DAILY atenolol 25 mg PO DAILY atorvastatin 80 mg PO DAILY betamethasone, augmented 0.05 % 1 appl topical BEDTIME PRN bupropion HCl XL 300 mg PO QAM 90 days calcium carbonate-vitamin D3 600 mg-10 mcg (400 unit) (Calcium 600 with Vitamin D3) 1 tab PO BID clotrimazole-betamethasone 1-0.05 % 1 appl topical BID 7 days levothyroxine 150 mcg PO QAM semaglutide 0.25 mg subcut QWEEK Tobacco use date assessed: 03/07/23 Dental Screening Dental Screen Date: 03/07/23 HPI Back issues HPI Details Pt c/o lower back pain. She does report radicular symptoms down her lower extremities. Previous XR in December of 2020 showed no acute fractures in the lumbar spine. Chronic degenerative disc disease at L5-S1. Chronic, minimal degenerative anterolisthesis is noted at L3-L4 and L4-L5. Will repeat XR. Denies any signs of cauda equina. Pt is currently taking semaglutide for weight loss. She is also working on her diet. Explained to pt that weight loss will significantly help her back pain. [facility] Medical History Anterolisthesis of cervicothoracic spine Morbid obesity with BMI of 60.0-69.9, adult DDD (degenerative disc disease) Diabetes History of cellulitis Hx of solitary pulmonary nodule Depression with anxiety AMY on CPAP Spinal stenosis Arthritis Hypothyroid Elevated cholesterol HTN (hypertension) Anxiety Low back pain PVD (peripheral vascular disease) Palpitations Surgical History Hx of cystoscopy Hx of lithotripsy History of endometrial ablation Hx of colonoscopy History of carpal tunnel surgery of left wrist Hx of repair of left rotator cuff History of incisional hernia repair Hx of cholecystectomy Hx of tonsillectomy Hx of tubal ligation Hx of section Family History Father Stroke Former smoker Mother Brain tumor Maternal Uncle CVD (cardiovascular disease) Diabetes mellitus Myocardial infarction Brother No problems noted. Sister No problems noted. Sister No problems noted. Sister No problems noted. Son No problems noted. Daughter No problems noted. Daughter No problems noted. 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 Ghassan Marie, Heather Bennett, Bucky Chadwick and colleagues, with an educational halina from [employer]. Review of Systems Const Reports as per HPI Physical exam (Primary Care) BMI result Body Mass Index 56.3 Tobacco/Smoking Status: Tobacco use Status Tobacco use date assessed 03/07/23 07/12/23 12:59 Patient Tobacco Use Status Former Tobacco user 07/12/23 12:59 e-Cigarette/Vaping Use Never Used 07/12/23 12:59 Thrive Assessment: Date of Thrive Assessment Date Thrive assessed 03/07/23 07/12/23 12:59 Const General: cooperative Nutritional Appearance: obese morbidly obese Orientation/consciousness: patient oriented x3 Resp Effort & Inspection: normal respiratory effort Auscultation: clear to auscultation bilaterally Cardio Rate: regular rate Rhythm: regular rhythm Heart sounds: S1 normal heart sound present and S2 normal heart sound present Back/Spine/Pelvis Other: lower back discomfort with radicular symptoms down BLE with heel and toe walking, no pain with bilat straight leg raises Neuro General: patient oriented x3 Psych Appearance: grossly normal Mental Status: mental status grossly normal Speech and movement: Normal speech and movement present Affect: normal affect Attitude: cooperative Thought process: Normal thought process present Thought content: Normal thought content present Insight: Good insight present (Psych) Judgement: Good judgement present (Psych) Assessment and Plan Assessment & Plan (1) Chronic radicular pain of lower back: Code(s): M54.16 - Radiculopathy, lumbar region; G89.29 - Other chronic pain Plan: XR ordered, continue to work on weight loss (2) Morbid obesity: Code(s): E66.01 - Morbid (severe) obesity due to excess calories Plan: Continue to work on weight loss Plan The patient agreed to the use of a infertility medical assistant for this encounter. Scribed for ADONAY Auguste-JOELLE by Olivia Nicole infertility medical assistant, on 07/12/2023 at 13:15 EST. Orders: Orders XR lumbar spine 2-3V Today G89.29 - Other chronic pain, M54.16 - Radiculopathy, lumbar region Coding Level of Care Code Est Pt Level 3 (72075) Diagnoses Chronic radicular pain of lower back M54.16; G89.29 Morbid obesity E66.01
[2023-07-12 13:01] VITALS: BP 118/80; PULSE 102; O2SAT 98; BMI 56.3
== END 2023-07-12 13:37 | disposition home or self-care (01) ==
PROVIDERS: PCP Nurse Practitioner Family; Visit Provider Nurse Practitioner Family
DX: M54.16 Radiculopathy, lumbar region (principal); G89.29 Other chronic pain; E66.01 Morbid (severe) obesity due to excess calories; Z68.43 Body mass index [BMI] 50.0-59.9, adult
CPT/HCPCS: 99213

== ENCOUNTER 2023-07-14 13:52 | Outpatient (AMB) | payer MEDICARE, MEDICAID, SELFPAY ==
[2023-07-14 14:01] VITALS: BP 114/72; PULSE 86; BMI 56.4
--- NOTE | 2023-07-14 14:01 | A.OFFVIS_ITS ---
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 Allergies tioconazole [From Monistat 1 (tioconazole)] Allergy (Intermediate, Verified 07/14/23 14:04) Rash Penicillins Allergy (Unknown, Verified 07/14/23 14:04) Unknown Sulfa (Sulfonamide Antibiotics) Allergy (Unknown, Verified 07/14/23 14:04) Unknown Medication List - Last Reconciled 07/14/23 by Muna Arzate NP-C aspirin (Adult Low Dose Aspirin) 81 mg PO DAILY atenolol 25 mg PO DAILY atorvastatin 80 mg PO DAILY betamethasone, augmented 0.05 % 1 appl topical BEDTIME PRN bupropion HCl XL 300 mg PO QAM 90 days calcium carbonate-vitamin D3 600 mg-10 mcg (400 unit) (Calcium 600 with Vitamin D3) 1 tab PO BID clotrimazole-betamethasone 1-0.05 % 1 appl topical BID 7 days levothyroxine 150 mcg PO QAM semaglutide 0.25 mg subcut QWEEK HPI HPI 1year follow up: Details: Kanika is a 63-year-old female with past medical history of morbid obesity, hypertension, peripheral vascular disease, palpitations who presents for follow- up. Today she reports that she has been doing well in the last year. Her last prior visit was 06/28/2022. She will feel occasional skips in her heartbeat. No sustained rapid or irregular heartbeats. No lightheadedness, presyncope, syncope, falls. No chest discomfort at rest or with activity. No concerning shortness of breath, PND, orthopnea. She will get some swelling in her lower legs at times. Taking meds as directed. [facility] Medical History Anterolisthesis of cervicothoracic spine Morbid obesity with BMI of 60.0-69.9, adult DDD (degenerative disc disease) Diabetes History of cellulitis Hx of solitary pulmonary nodule Depression with anxiety AMY on CPAP Spinal stenosis Arthritis Hypothyroid Elevated cholesterol HTN (hypertension) Anxiety Low back pain PVD (peripheral vascular disease) Palpitations Surgical History Hx of cystoscopy Hx of lithotripsy History of endometrial ablation Hx of colonoscopy History of carpal tunnel surgery of left wrist Hx of repair of left rotator cuff History of incisional hernia repair Hx of cholecystectomy Hx of tonsillectomy Hx of tubal ligation Hx of section Family History Father Stroke Former smoker Mother Brain tumor Maternal Uncle CVD (cardiovascular disease) Diabetes mellitus Myocardial infarction Brother No problems noted. Sister No problems noted. Sister No problems noted. Sister No problems noted. Son No problems noted. Daughter No problems noted. Daughter No problems noted. 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 Cognitive needs: No Hearing needs: No Vision needs: No Review of Systems Const All systems reviewed & are unremarkable except as noted in HPI and below ENT Denies dizziness Card Denies chest pain, Denies chest pain at rest, Denies chest pain with activity, Denies rapid heart rate, Denies pedal edema, Denies edema, Denies leg edema, Denies lightheadedness, Denies palpitations, Denies dyspnea, Reports dyspnea on exertion and Denies orthopnea Resp Denies cough, Denies dyspnea and Reports dyspnea on exertion GI Denies hematochezia and Denies change in stool character Musc Reports abnormal gait, Reports limited range of motion, Denies muscle cramps, Denies muscle weakness, Denies numbness, Denies radiating pain into limb, Denies stiffness and Denies tingling Neuro Reports abnormal gait, Denies dizziness, Denies numbness and Denies tingling Endo Denies palpitations Physical Exam Vital Signs: Last Vital Signs Pulse 86 07/14/23 14:01 BP 114/72 07/14/23 14:01 BMI result Body Mass Index 56.4 Const Other: morbidly obese General: cooperative, healthy appearing and no acute distress Nutritional Appearance: overweight Orientation/consciousness: patient oriented x3 HEENT Head: Yes normal to inspection, Yes normocephalic and Yes atraumatic Neck Neck: Yes normal visual inspection and Yes trachea midline Chest Chest palpation & inspection: normal inspection of the chest Resp Effort & Inspection: normal respiratory effort, able to speak in complete sentences, normal respiratory pattern and no cough Auscultation: clear to auscultation bilaterally, no crackles, no rales, no rhonchi and no wheezes Cardio Rate: regular rate Rhythm: regular rhythm Heart sounds: S1 normal heart sound present, S2 normal heart sound present and no murmurs GI Inspection: Yes normal to inspection (obese) Skin General skin exam: no rashes or lesions noted Neuro General: patient oriented x3 Extrem Other: nonpitting fullness to lower legs General: Yes normal to inspection Psych Appearance: grossly normal Office Procedures EKG Details: Today, read by me, normal sinus rhythm, low-voltage QRS, can not prior exclude anterior infarct, rate 86, QTC 435 milliseconds [id number], Complete Assessment & Plan Assessment & Plan (1) Palpitations: Comment: Sees Dr Monsalve Code(s): R00.2 - Palpitations Category: Medical Plan: Reports of heart palpitations that feel like skipped beats. Previously shown to have PVCs on Holter monitor. Holter done 07/19/2014 shows sinus rhythm with average heart rate 88, rare PVCs. Last echocardiogram done 07/18/2018 showing EF 55-60%, grade 2 diastolic dysfunction, no valve abnormalities. She continues to feel an occasional skipped beat. She has not had sustained rapid or irregular rates. EKG done today showing sinus rhythm with low-voltage QRS, can not exclude prior anterior infarct, rate 86. She can continue on atenolol 25 mg daily. Emergency care if ever needed for concerning palpitations. Cardiology follow-up in 1 year, sooner if needed. (2) Premature ventricular contraction: Code(s): I49.3 - Ventricular premature depolarization Category: Medical Plan: As above (3) HTN (hypertension): Code(s): I10 - Essential (primary) hypertension Category: Medical Plan: Very well controlled at this time. No med changes made. Continues on atenolol. (4) Dyslipidemia: Code(s): E78.5 - Hyperlipidemia, unspecified Category: Medical Plan: [place] LDL goal less than 100. Labs done 08/23/2022 shows LDL 109. Prior LDL is a are much better controlled. The importance of med compliance, weight loss, physical activity all reviewed with her. No med changes made at this time. Plan Time spent on chart review, documentation, interview assessment Coding Level of Care Code Est Pt Level 3 (71479) Diagnoses Palpitations R00.2 Premature ventricular contraction I49.3 HTN (hypertension) I10 Dyslipidemia E78.5 CPT Codes EKG - CPT: 01773-[id number], Complete ([id number]) Time Spent (min) 24
== END 2023-07-14 14:40 | disposition home or self-care (01) ==
PROVIDERS: PCP Nurse Practitioner Family; Visit Provider Nurse Practitioner Family
DX: R00.2 Palpitations (principal); I49.3 Ventricular premature depolarization; I10 Essential (primary) hypertension; E78.5 Hyperlipidemia, unspecified
CPT/HCPCS: 93010; 99213

== ENCOUNTER → 2023-07-14 13:52 | Outpatient (BNVA) | payer MEDICARE, MEDICAID, SELFPAY | PROVIDERS: PCP Nurse Practitioner Family; Visit Provider Nurse Practitioner Family | DX: I49.3 Ventricular premature depolarization (principal); R00.2 Palpitations; I10 Essential (primary) hypertension; E78.5 Hyperlipidemia, unspecified | CPT/HCPCS: 72100; 93005; 99212 ==

== ENCOUNTER 2023-07-14 15:13 | Outpatient (REF) | payer MEDICARE, MEDICAID, SELFPAY ==
--- NOTE | ~2023-07-14 | XR_ITS ---
EXAMINATION: XR LUMBOSACRAL SPINE CLINICAL INFORMATION: Radiculopathy, lumbar region COMPARISON: Lumbar spine 12/16/2020 TECHNIQUE: Three views of the lumbosacral spine. FINDINGS: There is mild curve of the lumbar spine, convex left. There 5 nonrib-bearing lumbar-type vertebral bodies. The height of vertebral bodies is well-maintained. There is marked disc space narrowing with discogenic sclerosis at L5-S1. There is multilevel degenerative facet joint disease. There is grade 1 anterolisthesis of L3 with respect to L4. XR/XR lumbar spine 2-3V IMPRESSION: 1. Marked degenerative disc disease at L5-S1. 2. Multilevel degenerative facet joint disease. 3. Grade 1 anterolisthesis of L3 with respect to L4.
== END 2023-07-14 15:14 | disposition home or self-care (01) ==
LOC: HO.HMGCX 15:13
PROVIDERS: PCP Nurse Practitioner Family; Visit Provider Nurse Practitioner Family
DX: Z13.89 Encounter for screening for other disorder (principal)
CPT/HCPCS: 72100

== ENCOUNTER 2023-10-25 12:56 | Outpatient (AMB) | payer MEDICARE, MEDICAID, SELFPAY ==
--- NOTE | 2023-10-25 12:58 | HO.SPINEOV ---
Intake Visit Reasons: LBP Intake Note: Mrs. Greco is here today c/o neck pain that radiates down the arms with low back pain/numbness, and tingling on right leg. 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 She is a pleasant 63 year old female who comes in today with a chief complaint of low back pain and shooting pain down her right lower extremity. When describing the distribution of her pain she runs her hand down the posterior aspect of her right thigh all the down to the back of her calf. She reports some associated numbness/tingling with this pain. She denies any bowel/bladder incontinence or saddle anesthesia. Kanika reports this has been ongoing since but is unable to identify specific inciting incident that brought it about. She has attempted to take Tylenol, ibuprofen, and CBD cream in an effort to mitigate her pain, but these only provided modest relief. She has not yet been to physical therapy, has not seen a fleshing machine operator/pain management, and has not attempted any other conservative treatments. She feels like the pain near right leg is beginning to affect her daily life, causing her to ambulate with the assistance of a walker and reduce her overall ADLs. PMH: Obesity (BMI over 60), hypothyroidism, depression, high blood pressure, hyperlipidemia. Social hx: The patient does not smoke, reports no substance use. Medications: Aspirin, atenolol, atorvastatin, betamethasone, bupropion, calcium carbonate, clotrimazole, levothyroxine, lidocaine, nitrofurantoin, prednisone, semaglutide. Allergies: Monistat, penicillin, sulfa. Physical exam: On examination CT the has 5/5 strength in her upper and lower extremities with the exception of 4/5 strength with left-sided iliopsoas testing. She has no notable hypoesthesias during examination. She ambulates with the assistance of a walker without a notably antalgic or spastic gait. (-) bilateral straight leg raise, (-) Mccall's, (-) clonus. Imaging review: MRI of the lumbar spine completed at [facility] on 10/13/2023 shows severe degenerative disc disease L5-S1 with a right-sided central disc protrusion, and a extruded fragment effacing the right S1 nerve root. Impression: Kanika is a pleasant 63-year-old female who comes in today with a chief complaint of low back pain and shooting pains down her right lower extremity. On MRI imaging she has a disc herniation effacing the right-sided S1 nerve root. The dermatomal distribution in which she describes her pain matches this nerve. Kanika has not as of yet attempted many conservative treatments aside from [id number]/prescription medications. I would like to send her for both a course of physical therapy and evaluation by physiatry/pain management. Disc herniations can at times resorb on their own although I do have relatively low expectations for this to completely resorb as there is a extruded fragment. Hopefully she at the very least can obtain pain relief via physical therapy and physiatry. I have completed referrals for both. Thank you for allowing us to care for your patient. The total time spent with this visit with this patient was 45 minutes reviewing history, physical exam, MRI imaging review, and implementation of treatment plan or further diagnostic testing Jaswinder Rivera MD,PhD [facility] Orders: Orders PT Evaluation and Treatment Today M54.16 - Radiculopathy, lumbar region Referrals Pain Management Referral M54.16 - Radiculopathy, lumbar region Coding Level of Care Code New Pt Level 4 (91089) Diagnoses Lumbar radiculopathy M54.16
== END 2023-10-25 13:40 | disposition home or self-care (01) ==
PROVIDERS: PCP Nurse Practitioner Family; Referring Provider Nurse Practitioner Family; Visit Provider Physician Assistant
DX: M54.16 Radiculopathy, lumbar region (principal)
CPT/HCPCS: 99204

== ENCOUNTER → 2023-10-25 12:56 | Outpatient (BNVA) | payer MEDICARE, MEDICAID, SELFPAY | PROVIDERS: PCP Nurse Practitioner Family; Visit Provider Physician Assistant | DX: M54.16 Radiculopathy, lumbar region (principal) | CPT/HCPCS: 99202 ==

== ENCOUNTER 2023-11-16 11:33 | Outpatient (AMB) | payer MEDICARE, MEDICAID, SELFPAY ==
[2023-11-16 11:37] VITALS: BP 126/80; PULSE 90; O2SAT 97; BMI 53.3
--- NOTE | 2023-11-16 11:37 | MHC.PC.OV ---
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 Accompanied by: Self / Same As Patient Allergies tioconazole [From Monistat 1 (tioconazole)] Allergy (Intermediate, Verified 11/16/23 11:53) Rash Penicillins Allergy (Unknown, Verified 11/16/23 11:53) Unknown Sulfa (Sulfonamide Antibiotics) Allergy (Unknown, Verified 11/16/23 11:53) Unknown Medication List - Last Reconciled 11/16/23 by STACIE Pulido aspirin (Adult Low Dose Aspirin) 81 mg PO DAILY atenolol 25 mg PO DAILY atorvastatin 80 mg PO DAILY betamethasone, augmented 0.05 % 1 appl topical BEDTIME PRN bupropion HCl XL 300 mg PO QAM 90 days calcium carbonate-vitamin D3 600 mg-10 mcg (400 unit) (Calcium 600 with Vitamin D3) 1 tab PO BID clotrimazole-betamethasone 1-0.05 % 1 appl topical BID 7 days levothyroxine 150 mcg PO QAM semaglutide 2.3 mg subcut QWEEK Tobacco use date assessed: 03/07/23 Dental Screening Dental Screen Date: 03/07/23 HPI Back issues - see comments HPI Details Pt saw neurosurgery due to lower back pain. MRI showed degenerative changes, greater at L5-S1, with right paracentral disc extrusion and sequestered fragment measuring 7mm. Effacement of the descending right S1 nerve root. Less pronounced degenerative changes at L3-4 and L4-5. She reports ongoing lower back pain with right-sided sciatica. Pt is going to [facility] for PT but she has not started this yet. She was also referred to pain management but has not heard anything about this yet. Will send dexamethasone. She will keep me posted with her condition. Denies any signs of cauda equina. COUNTS INCLUDE 234 BEDS AT THE [facility] Medical History Anterolisthesis of cervicothoracic spine Morbid obesity with BMI of 60.0-69.9, adult DDD (degenerative disc disease) Diabetes History of cellulitis Hx of solitary pulmonary nodule Depression with anxiety AMY on CPAP Spinal stenosis Arthritis Hypothyroid Elevated cholesterol HTN (hypertension) Anxiety Low back pain PVD (peripheral vascular disease) Palpitations Surgical History Hx of cystoscopy Hx of lithotripsy History of endometrial ablation Hx of colonoscopy History of carpal tunnel surgery of left wrist Hx of repair of left rotator cuff History of incisional hernia repair Hx of cholecystectomy Hx of tonsillectomy Hx of tubal ligation Hx of section Family History Father Stroke Former smoker Mother Brain tumor Maternal Uncle CVD (cardiovascular disease) Diabetes mellitus Myocardial infarction Brother No problems noted. Sister No problems noted. Sister No problems noted. Sister No problems noted. Son No problems noted. Daughter No problems noted. Daughter No problems noted. 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 1. Little interest or pleasure in doing things: not at all 2. Feeling down, depressed, or hopeless: not at all 3. Trouble falling or staying asleep, or sleeping too much: several days 4. Feeling tired or having little energy: several days 5. Poor appetite or overeating: several days 6. Feeling bad about yourself - or that you are a failure or have let yourself or your family down: not at all 7. Trouble concentrating on things, such as reading the newspaper or watching television: not at all 8. Moving or speaking so slowly that other people could have noticed. Or the opposite - being so fidgety or restless that you have been moving around a lot more than usual: not at all 9. Thoughts that you would be better off or of hurting yourself in some way: not at all Total score: 3 Depression Screening Interpretation: Negative Depression Screening Done: Yes 57642 - PHQ-9 Billing: Yes Source: Developed by Drs. Ghassan Marie, Heather Bennett, Bucky Chadwick and colleagues, with an educational halina from [employer]. Thrive Questionnaire Date Thrive assessed: 11/16/23 I am a: Patient What is your living situation today?: I have a steady place to live Within the past 12 months, did the food you bought not last and you didn't have the money to get more?: Never true Within the past 12 months, did you worry whether your food would run out before you got money to buy more?: Never true Do you have trouble paying for medicines?: No Do you have trouble getting transportation to medical appointments?: No Do you have trouble paying your heating and electricity bill?: No Do you have trouble taking care of your child, family member or friend?: No Do you have trouble with day-to-day activities such as bathing, preparing meals, shopping, managing finances, etc.?: No Are you interested in more education?: No Please select the resources that you would like help with: None Currently or been in a relationship where the following occur: No concerns reported THRIVE Score: 0 AUDIT C Alcohol Use Questionnaire (AUDIT-C) 1. How often do you have a drink containing alcohol?: Monthly or less 2. How many drinks containing alcohol do you have on a typical day when you are drinking?: 1 or 2 3. How often do you have six or more drinks on one occasion?: Never Total Score: 1 Score Reviewed/Action Taken: Yes ROSEMARY-7 AMB Questionnaire ROSEMARY-7 Date ROSEMARY - 7 assessed: 11/16/23 Feeling nervous, anxious, or on edge: 0 = Not at all Not being able to stop or control worryin = Several days Worrying too much about different things: 1 = Several days Trouble relaxin = Not at all Being so restless that it is hard to sit still: 0 = Not at all Becoming easily annoyed or irritable: 0 = Not at all Feeling afraid as if something awful might happen: 0 = Not at all Total ROSEMARY-7 score (0-4 normal; 5-9 mild; 10-14 moderate; 15-21 severe): 2 Source: Developed by Drs. Ghassan Marie, Heather Bennett, Bucky Chadwick and colleagues, with an educational halina from [employer]. ROSEMARY-7 Assessment Billing ROSEMARY-7 Assessment Tool: ROSEMARY-7 Assessment 62935 Review of Systems Const Reports as per HPI Physical exam (Primary Care) Vital Signs: Last Vital Signs Pulse 90 11/16/23 11:37 BP 126/80 11/16/23 11:37 Pulse Ox 97 11/16/23 11:37 Oxygen Delivery Method Room Air 11/16/23 11:37 BMI result Body Mass Index 53.3 Tobacco/Smoking Status: Tobacco use Status Tobacco use date assessed 03/07/23 11/16/23 11:39 Patient Tobacco Use Status Former Tobacco user 11/16/23 11:39 e-Cigarette/Vaping Use Never Used 11/16/23 11:39 PHQ-9: PHQ-9 Score PHQ-9: Total score 3 11/16/23 12:31 Depression Screening Interpretation: Negative Thrive Assessment: Date of Thrive Assessment Date Thrive assessed 11/16/23 11/16/23 11:39 Currently or been in a relationship where the following occur: No concerns reported Const General: cooperative Nutritional Appearance: obese morbidly obese Orientation/consciousness: patient oriented x3 Resp Effort & Inspection: normal respiratory effort Auscultation: clear to auscultation bilaterally Cardio Rate: regular rate Rhythm: regular rhythm Heart sounds: S1 normal heart sound present and S2 normal heart sound present Neuro General: patient oriented x3 Psych Appearance: grossly normal Mental Status: mental status grossly normal Speech and movement: Normal speech and movement present Affect: normal affect Attitude: cooperative Thought process: Normal thought process present Thought content: Normal thought content present Insight: Good insight present (Psych) Judgement: Good judgement present (Psych) Coding Level of Care Code Est Pt Level 3 (58318) Diagnoses Lumbar radiculopathy M54.16 Nerve root compression G54.9 Anterolisthesis of lumbar spine M43.16 Additional Codes ROSEMARY-7 Assessment Billing - ROSEMARY-7 Assessment Tool: ROSEMARY-7 Assessment 69487 ([id number]) Assessment & Plan Assessment & Plan (1) Lumbar radiculopathy: Code(s): M54.16 - Radiculopathy, lumbar region Category: Medical Plan: PSSP, follow up with me after (2) Nerve root compression: Code(s): G54.9 - Nerve root and plexus disorder, unspecified Category: Medical (3) Anterolisthesis of lumbar spine: Code(s): M43.16 - Spondylolisthesis, lumbar region Category: Medical Plan: PSSP Plan The patient agreed to the use of a medical lab technologist for this encounter. Scribed for STACIE Auguste by Olivia Nicole medical lab technologist, on 11/16/2023 at 11:50 EST. Medications: New dexamethasone 1 tab 3 times a day for 3 days, then twice a day for 3 days, then daily for 3 days 4 mg PO DAILY 18 tabs 0RF 9 days Changed From semaglutide 0.5 mg (0.736 mL) subcut QWEEK 3 mL 0RF To semaglutide 2.3 mg subcut QWEEK
== END 2023-11-16 14:36 | disposition home or self-care (01) ==
PROVIDERS: PCP Nurse Practitioner Family; Visit Provider Nurse Practitioner Family
DX: M54.16 Radiculopathy, lumbar region (principal); M43.16 Spondylolisthesis, lumbar region

== ENCOUNTER → 2023-11-16 11:33 | Outpatient (BNVA) | payer MEDICARE, MEDICAID, SELFPAY | PROVIDERS: PCP Nurse Practitioner Family; Visit Provider Nurse Practitioner Family | DX: M54.16 Radiculopathy, lumbar region (principal); M43.16 Spondylolisthesis, lumbar region | CPT/HCPCS: 96127; 99212 ==

== ENCOUNTER 2024-01-03 13:10 | Outpatient (REF) | payer MEDICARE, MEDICAID, SELFPAY ==
--- NOTE | ~2024-01-03 | MM_ITS ---
EXAMINATION: MM SCREENING DIGITAL BREAST TOMOSYNTHESIS, BILATERAL CLINICAL INFORMATION: Screening. Asymptomatic. COMPARISON: Mammography: Comparison is made with available priors TECHNIQUE: Digital breast mammography with tomosynthesis is performed in both the craniocaudal and mediolateral oblique views along with computer-aided detection (CAD). FINDINGS: There are scattered areas of fibroglandular density (ACR BI-RADS breast composition Category b). There are no significant masses, abnormal calcifications, or other abnormalities. MM/MM tomosynthesis screening BI IMPRESSION: No mammographic evidence of malignancy. ASSESSMENT: BI-RADS BI-RADS 1 - Negative RECOMMENDATION: Routine annual mammography screening. 1 year F/U This examination should not preclude the clinical evaluation of a suspicious palpable abnormality. This patient's information was entered into a reminder system with a target due date for their next mammogram. Electronically signed by: Margie Arce DO 01/12/2024 01:47 PM [facility]EL
== END 2024-01-03 13:11 | disposition home or self-care (01) ==
LOC: HO.MAMMO 13:10
PROVIDERS: PCP Nurse Practitioner Family; Visit Provider Nurse Practitioner Family
DX: Z12.31 Encounter for screening mammogram for malignant neoplasm of breast (principal)
CPT/HCPCS: 77063; 77067

== ENCOUNTER → 2024-01-03 13:15 | Outpatient (BNV) | payer MEDICARE, MEDICAID, SELFPAY | PROVIDERS: PCP Nurse Practitioner Family; Visit Provider Internal Medicine | DX: Z12.31 Encounter for screening mammogram for malignant neoplasm of breast (principal) | CPT/HCPCS: 77063; 77067 ==

== ENCOUNTER 2024-01-16 17:56 | Emergency (ER) | payer OTHER, SELFPAY ==
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
--- NOTE | ~2024-01-16 | XR_ITS ---
EXAMINATION: XR KNEE, LEFT CLINICAL INFORMATION: left knee pain COMPARISON: None available. TECHNIQUE: Four views of the left knee. FINDINGS: No acute fracture or dislocation appreciated. Advanced degenerative changes greatest in the medial compartment and patellofemoral compartment. Tricompartmental osteophyte formation. XR/XR knee LT 4V IMPRESSION: Advanced degenerative change in the left knee. Electronically signed by: Ghassan Correia MD 01/16/2024 09:22 PM [facility]
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
[2024-01-16 18:04] VITALS: BP 140/84; PULSE 110; O2SAT 98
[2024-01-16 18:39] VITALS: BP 152/91; PULSE 80; RESP 20; TEMP 36.6; O2SAT 99; BMI 52.8
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
[2024-01-16 22:07] VITALS: BP 145/85; PULSE 80; RESP 16; TEMP 36.9; O2SAT 100
[2024-01-16 23:19] VITALS: BP 145/85; PULSE 80; RESP 16; TEMP 36.9; O2SAT 100
== END 2024-01-16 23:20 | disposition home or self-care (01) ==
PROVIDERS: Emergency Provider Emergency Medicine; PCP Nurse Practitioner Family
DX: S13.4XXA Sprain of ligaments of cervical spine, initial encounter (principal); S80.12XA Contusion of left lower leg, initial encounter; R51.9 Headache, unspecified; M54.2 Cervicalgia; M25.562 Pain in left knee; M25.512 Pain in left shoulder; M25.511 Pain in right shoulder; R10.2 Pelvic and perineal pain; R07.89 Other chest pain; V43.52XA Car driver injured in collision with other type car in traffic accident, initial encounter; Y93.9 Activity, unspecified; Y92.488 Other paved roadways as the place of occurrence of the external cause; Y99.8 Other external cause status
CPT/HCPCS: 70450; 71250; 72125; 73030; 73564; 73700; 74176; 99282; 99284

== ENCOUNTER 2024-01-31 12:38 | Outpatient (AMB) | payer OTHER, SELFPAY ==
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
[2024-01-31 13:08] VITALS: BP 132/80; PULSE 90; O2SAT 97
== END 2024-01-31 14:38 | disposition home or self-care (01) ==
PROVIDERS: PCP Nurse Practitioner Family; Visit Provider Internal Medicine
DX: S80.12XA Contusion of left lower leg, initial encounter (principal)

== ENCOUNTER → 2024-01-31 12:38 | Outpatient (BNVA) | payer OTHER, SELFPAY | PROVIDERS: PCP Nurse Practitioner Family; Visit Provider Internal Medicine ==

== ENCOUNTER 2024-02-17 09:43 | Outpatient (REF) | payer OTHER, SELFPAY ==
--- NOTE | ~2024-02-17 | XR_ITS ---
CLINICAL HISTORY: M25.562 - Pain in left knee 1 view left knee Comparison: None Findings: Bones intact. No dislocations. No significant arthritic change or erosions. No joint effusion. No radiopaque foreign body. [employer] view left knee demonstrates no acute abnormalities. IMPRESSION: 1. No acute findings. This document has been electronically signed by: Sigifredo Williamson MD on 02/20/2024 12:16:44
--- NOTE | ~2024-02-17 | XR_ITS ---
CLINICAL HISTORY: M25.561 - Pain in right knee AP views of both knees. Comparison: None Findings: No fractures or dislocations. No joint effusion. No radiopaque foreign body. There are severe osteoarthritic changes with destruction of the medial joint space bilaterally. Soft tissue calcification/ossification adjacent to the medial compartment left knee. IMPRESSION: 1. No acute findings. 2.There are severe osteoarthritic changes with destruction of the medial joint space bilaterally. There is bone on bone. This document has been electronically signed by: Sigifredo Williamson MD on 02/20/2024 12:20:31
== END 2024-02-17 09:44 | disposition home or self-care (01) ==
LOC: HO.HOSX 09:43
PROVIDERS: PCP Nurse Practitioner Family; Visit Provider Physician Assistant
DX: M25.562 Pain in left knee (principal); M25.561 Pain in right knee; M17.0 Bilateral primary osteoarthritis of knee; Z87.828 Personal history of other (healed) physical injury and trauma
CPT/HCPCS: 20610; 73560; J1010; J2003

== ENCOUNTER 2024-02-17 09:43 | Outpatient (AMB) | payer OTHER, SELFPAY ==
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
[2024-02-17 09:49] VITALS: BMI 52.8
== END 2024-02-17 11:52 | disposition home or self-care (01) ==
PROVIDERS: PCP Nurse Practitioner Family; Visit Provider Physician Assistant
DX: M17.0 Bilateral primary osteoarthritis of knee (principal); Z04.3 Encounter for examination and observation following other accident
CPT/HCPCS: 20610; 99203

== ENCOUNTER 2024-02-22 13:45 | Outpatient (AMB) | payer OTHER, SELFPAY ==
[2024-02-22 13:46] VITALS: BP 120/74; PULSE 92; O2SAT 99; BMI 51.9
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
== END 2024-02-22 14:28 | disposition home or self-care (01) ==
PROVIDERS: PCP Nurse Practitioner Family; Visit Provider Nurse Practitioner Family
DX: M54.16 Radiculopathy, lumbar region (principal); V89.2XXA Person injured in unspecified motor-vehicle accident, traffic, initial encounter

== ENCOUNTER → 2024-02-22 13:45 | Outpatient (BNVA) | payer OTHER, SELFPAY | PROVIDERS: PCP Nurse Practitioner Family; Visit Provider Nurse Practitioner Family | DX: M54.16 Radiculopathy, lumbar region (principal) | CPT/HCPCS: 96127 ==

== ENCOUNTER 2024-04-17 11:15 | Outpatient (AMB) | payer OTHER, MEDICARE, SELFPAY ==
[2024-04-17 11:25] VITALS: BP 122/80; PULSE 86; TEMP 36.7; O2SAT 98; BMI 51.4
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
--- OUTSIDE RECORDS SUMMARY | 2024-04-17 13:57 | XMS_ITS | Clinical Summary ---
Author Organization [employer] Address [address] [facility] [address] [place] [address] Care Team Providers Care Screening Specialist Name Role Phone Unavailable Primary Care Provider Unavailabl e Allergies No known active allergies Medications levothyroxine (Synthroid, Levoxyl) 150 MCG tablet Take 150 mcg by mouth in the morning. 01/01/2022 Active atenolol (Tenormin) 25 MG tablet Take 25 mg by mouth in the morning. 01/22/2022 Active aspirin 81 MG chewable tablet Chew 81 mg in the morning. Active buPROPion XL (Wellbutrin XL) 300 MG 24 hr tablet 02/09/2022 Active Calcium Carb-Cholecalcif lluvia 600-10 MG-MCG tablet Take 1 tablet by mouth 2 times daily. 02/03/2022 Active atorvastatin (Lipitor) 80 MG tablet Take 80 mg by mouth in the morning. Active Encounters Date Type Department Care Team Description 02/13/2024 Telephone [facility] [address] [place], [place] [id number] Bharath Chand DDS from Last 3 Months Social History Tobacco Use Types Packs/Day Years Used Date Smoking Tobacco: Never Assessed Comments Unknown Sex and Gender Information Value Date Recorded Sex Assigned at Female 12/07/2021 10:24 AM EDT Legal Sex Female 10:24 AM EDT Gender Identity Female 12/07/2021 10:24 AM EDT Sexual Orientation Don't know 12/07/2021 10 :24 AM EDT Plan of Treatment Health Maintenance Due Date Last Done Comments CT Colonography 1961 Colonoscopy 1961 Colorectal Cancer Screening 1961 Dental Oral Exam 1961 Dental Prophylaxis 1961 Dental X-Ray: Bitewings 1961 Dental X-Ray: Full Mouth 1961 Depression Screening 1961 FIT DNA/Cologuard 1961 FIT 1961 FOBT 1961 HIV Screening 1961 Lipid Panel 1961 SDOH Screening 1961 Sigmoidoscopy 1961 Alcohol/Substance Use Screening 1973 Tobacco Screening 1973 Hepatitis C Screening 06/13/1979 DTaP/Tdap/Td Vaccines (1 - Tdap) 1980 Pap Smear 1982 Cervical Cancer Screening 06/13/1991 HPV/Cotest 06/13/1991 Mammogram 2001 Pneumococcal Vaccine: 50+ Years (1 of 1 - PCV) 06/13/2011 Zoster Vaccines (1 of 2) 06/13/2011 COVID-19 Vaccine (4 - 2023-2 5 season) 2023 05/06/2022, 05/22/2020, 05/01/2020 Influenza Vaccine (#1) 2023 RSV Patients and Patients Aged 60 years or older (1 - 1-dose 75+ series) 2036 HIB Vaccines Aged Out No longer eligi ble based on patient's age to complete this topic HPV Vaccines Aged Out No longer eligi ble based on patient's age to complete this topic Hepatitis A Vaccines Aged Out No long er eligible based on patient's age to complete this topic Hepatitis B Vaccines Aged Out No long er eligible based on patient's age to complete this topic IPV Vaccines Aged Out No longer eligi ble based on patient's age to complete this topic Meningococcal Vaccine Aged Out No nae zoe eligible based on patient's age to complete this topic Pneumococcal Vaccine: Pediatrics (0 to 5 Years) and At-Risk Patients (6 to 49) Years) Aged Out No longer eligible b ased on patient's age to complete this topic RSV under 20 months Aged Out No longe r eligible based on patient's age to complete this topic Rotavirus Vaccines Aged Out No longer eligible based on patient's age to complete this topic Insurance [facility] MEDICAID STAND ADULT
--- OUTSIDE RECORDS SUMMARY | 2024-04-17 13:57 | XMS_ITS | Clinical Summary ---
Author Organization [address] [facility] Address [address] [place] [address] Phone Care Team Providers Care Commercial Census Taker Name Role Phone Ruddy Nicole NP Primary Care Provider Allergies No known active allergies Medications aspirin 81 mg chewable tablet Chew 1 tablet (81 mg total) 1 (one) time each day. Active calcium carbonate 1,500 mg (600 mg elemental calcium) tablet Take 1 Tablet by mouth 2 times daily (with meals). Active naproxen (EC NAPROSYN) 500 mg EC tablet Take by mouth. Active cyclobenzaprine (FLEXERIL) 10 mg tablet Take 10 mg by mouth. One daily Active levothyroxine (SYNTHROID, LEVOTHROID) 150 mcg tablet Take 1 tablet (150 mcg total) by mouth 1 (one) time each day. Active buPROPion XL (WELLBUTRIN XL) 300 mg 24 hr tablet Take 300 mg by mouth every morning Active atenoloL (TENORMIN) 25 mg tablet Take 1 tablet (25 mg total) by mouth 1 (one) time each day. Active atorvastatin (LIPITOR) 80 mg tablet Take 1 tablet (80 mg total) by mouth 1 (one) time each day. Active Active Problems Problem Noted Date Diagnosed Date Morbid obesity with BMI of 50.0-59.9, adult 12/09 Varicose veins of legs 10/11/2018 Overview (11/11/2023): S/p laser surgery right DJD (degenerative joint disease) of knee 019 Lumbar spinal stenosis 10/11/2018 Overview (11/11/2023): Small disc herniation L4-5, L5-S1 Ventral hernia 10/11/2018 Hyperlipidemia 05/11/2017 Hypothyroidism 05/11/2017 Depression 05/11/2017 IBS (irritable bowel syndrome) 05/11/2017 Obstructive sleep apnea syndrome 07/19/2016 Pulmonary nodule 04/07/2016 Encounters Date Type Department Care Team Description 03/07/2024 Telephone Pulmonology - [place] [address] [facility] [address] [place] [phone] Miguel Mary MA Fitting for DME ([employer]: Cpap Supplies) 03/07/2024 Telephone Pulmonology [facility] [address] [facility] [address] [place] [phone] Miguel Mary MA 02/17/2024 Telephone Pulmonolgy [facility] [address] [facility] [address] [place] [phone] Hayley Hutchins MD MEDICATION REQUEST 02/13/2024 1:00 PM EST Office Visit Pulmonolgy [facility] [address] [facility] [address] [place] [phone] Hayley Hutchins MD AMY (obstructive sleep apnea) (Primary Dx); Pulmonary nodule from Last 3 Months Immunizations Name Administration Dates Next Due Pfizer SARS-CoV-2 COVID-19, mRNA, LNP-S, preservative free 05/06/2022,05/22/2020,05/01/2020 Surgical History Surgery Date Site/Laterality Comments COLONOSCOPY 10/25/2007 PROCEDURE: HISTORICAL COLONOSCOPY; COMMENT: normal CHOLECYSTECTOMY PROCEDURE: HISTORICAL CHOLECYSTECTOMY SECTION PROCEDURE: HISTORICAL DELIVERY; COMMENT: times 2 TONSILLECTOMY PROCEDURE: HISTORICAL TONSILLECTOMY; COMMENT: and palate reduction CARPAL TUNNEL RELEASE 07/2016 Left PROCEDURE: HISTORICAL CARPAL TUNNEL REL ROTATOR CUFF REPAIR 09/2015 Left PROCEDURE: HISTORICAL ROTATOR CUFF REPAIR Medical History Medical History Date Comments Obstructive sleep apnea syndrome 07/19/2016 DX:Obstructive sleep apnea syndrome Pulmonary nodule 04/07/2016 DX:Pulmonary no dule Hyperlipidemia 05/11/2017 DX:Hyperlipidemi a Hypothyroidism 05/11/2017 DX:Hypothyroidis m Depression 05/11/2017 DX:Depression IBS (irritable bowel syndrome) 05/11/2017 D X:IBS (irritable bowel syndrome) Morbid obesity with BMI of 5 0.0-59.9, adult (CMS/HCC) 10/11/2018 DX:Morbid obesity with BMI o f 50.0-59.9, adult (HCC) Lumbar spinal stenosis 10/11/2018 DX:Lumbar spinal stenosis; COMMENT: Small disc herniation L4-5, L5-S1 DJD (degenerative joint disease) of knee 9 DX:DJD (degenerative joint disease) of knee Ventral hernia 10/11/2018 DX:Ventral herni a Varicose veins of legs 10/11/2018 DX:Varico se veins of legs; COMMENT: S/p laser surgery right Family History Medical History Relation Name Comments Testicular cancer Brother Stroke Father Other: brain tumor Mother Diabetes Uncle Relation Name Status Comments Brother Father Mother Uncle Social History Tobacco Use Types Packs/Day Years Used Date Smoking Tobacco: Former Cigarettes Q uit: 02/08/2004 Smokeless Tobacco: Never Tobacco Cessation:Counseling Given: Not Answered Alcohol Use Standard Drinks/Week Comments Yes 1 (1 standard drink = 0.6 oz pur e alcohol) Comments Unknown Sex and Gender Information Value Date Recorded Sex Assigned at Not on file Legal Sex Female 7:32 AM EST Gender Identity Not on file Sexual Orientation Not on file Obstetrics History Last Filed Vital Signs Vital Sign Reading Time Taken Comments Blood Pressure 114/62 02/13/2024 1:15 PM EST Pulse 99 02/13/2024 1:15 PM EST Temperature 36.6 ??C (97.8 ??F) 02/13/2024 1:15 PM ES T Respiratory Rate 20 02/13/2024 1:15 PM EST Oxygen Saturation 96% 02/13/2024 1:15 PM EST Inhaled Oxygen Concentration - - Weight 136 kg (299 lb) 02/13/2024 1:15 PM EST Height 160 cm (5' 3 ) 02/13/2024 1:15 PM EST Body Mass Index 52.97 02/13/2024 1:15 PM EST Plan of Treatment Upcoming Encounters Date Type Department Care Team (Late st Contact Info) Description 02/13/2025 1:00 PM EST Office Visit Pulmonolgy - [place] [address] [facility] [address] [place] [address] Hayley Hutchins MD [address] [facility] [place] [address] [place] [address] Health Maintenance Due Date Last Done Comments Breast Cancer Screening 1961 DTaP,Tdap,and Td Vaccines (1 - Tdap) 1980 Cervical Cancer Screening: P ap Smear 1982 Pneumococcal Vaccine: 50+ Years (1 of 1 - PCV) 06/13/2011 Zoster Vaccines (1 of 2) 06/13/2011 RSV Immunization Patients 60 + Years Old (1 - Risk 60-74 years 1-dose series) 2021 Cholesterol Screening (Lipid Panel) 01/17/2022 Colorectal Cancer Screening: Colonoscopy 01/17/2022 Depression Screening 01/17/2022 HIV Screening 01/17/2022 Hepatitis C Screening 01/17/2022 Medicare Annual Wellness Visit 01/17/2022 Social Influencers of Health Screening 01/17/2022 COVID-19 Vaccine (4 - 2023-2 5 season) 2023 05/06/2022, 05/22/2020, 05/01/2020 Influenza Vaccine (#1) 2023 HIB Vaccines Aged Out No longer eligi [...] on patient's age to complete this topic MMR Vaccines Aged Out No longer eligi ble based on patient's age to complete this topic Meningococcal ACWY Vaccine Aged Out N o longer eligible based on patient's age to complete this topic Meningococcal B Vacine Aged Out No lo nger eligible based on patient's age to complete this topic Pneumococcal Vaccine: Pediatrics (0 to 5 Years) and At-Risk Patients (6 to 64 Years) Aged Out No longer eligible b ased on patient's age to complete this topic RSV Immunization Patients Under 20 months Aged Out No longer eligible b ased on patient's age to complete this topic Varicella Vaccines Aged Out No longer eligible based on patient's age to complete this topic Insurance MEDICARE MEDICAID - [place] Care Teams Commercial Census Taker Relationship Specialty Start Date End Date Ruddy Nicole NP [address] [place], [place] PCP - General 08/07/18
--- OUTSIDE RECORDS SUMMARY | 2024-04-17 13:57 | XMS_ITS | Encounter Summary ---
Author Organization [employer] Address [address] [facility] [address] [place] [address] Care Team Providers Care Director Of Blood Name Role Phone Unavailable Primary Care Provider Unavailabl e Encounter Details Date Type Department Care Team (Latest Contact Info) Description 12/01/2021 Abstract [facility] Dental, Provider, DDS Social History Tobacco Use Types Packs/Day Years Used Date Smoking Tobacco: Never Assessed Comments Unknown Sex and Gender Information Value Date Recorded Sex Assigned at Female 12/07/2021 10:24 AM EDT Legal Sex Female 10:24 AM EDT Gender Identity Female 12/07/2021 10:24 AM EDT Sexual Orientation Don't know 12/07/2021 10 :24 AM EDT documented as of this encounter Plan of Treatment Not on file documented as of this encounter Visit Diagnoses Not on filedocumented in this encounter
--- OUTSIDE RECORDS SUMMARY | 2024-04-17 13:57 | XMS_ITS | Encounter Summary ---
Author Organization [facility] Address [address] [place] [address] Care Team Providers Care Hardscape Foreman Name Role Phone Ruddy Nicole NP Primary Care Provider Unavail able Carol Jiménez Md, MD Unavailable Unava ilable Reason for Visit * Reason Onset Date Comments DME Request 08/04/2021 Encounter Details Date Type Department Care Team Description 08/04/2021 Telephone Pulmonology - [place] [address] [facility] [address] [place] [address] Hayley Hutchins MD [address] [place] [address] DME Request Social History Tobacco Use Types Packs/Day Years Used Date Smoking Tobacco: Former Cigarettes 1 Q uit: 2004 Smokeless Tobacco: Never Alcohol Use Standard Drinks/Week Comments Yes 1 (1 standard drink = 0.6 oz pur e alcohol) Sex Assigned at Date Recorded Female 04/25/2023 3:56 PM E DT COVID-19 Exposure Response Date Recorded In the last 10 days, have yo u been in contact with someone who was confirmed or suspected to have Coronavirus/COVID-19? No / Unsure 08/03/2021 11:32 AM EDT documented as of this encounter Miscellaneous Notes * Telephone Encounter - Marie Lester - 08/04/2021 3:18 PM EDT Done faxed order to [employer] for supplies documented in this encounter Plan of Treatment Not on file documented as of this encounter Visit Diagnoses Not on filedocumented in this encounter Care Teams Hardscape Foreman Relationship Specialty Start Date End Date Ruddy Nicole NP PCP - General Family Practice 08/07/18 Carol Jiménez MD, MD Internal Medicine 08/07/18 documented as of this encounter
--- OUTSIDE RECORDS SUMMARY | 2024-04-17 13:57 | XMS_ITS | Encounter Summary ---
Author Organization [facility] Address [address] [place] [address] Care Team Providers Care Manager Community Name Role Phone Ruddy Nicole NP Primary Care Provider Unavail able Carol Jiménez Md, MD Unavailable Unava ilable Encounter Details Date Type Department Care Team Description 03/17/2023 Telephone Pulmonology - [place] [address] [facility] [address] [place] [address] Hayley Hutchins MD [address] [place] [address] Social History Tobacco Use Types Packs/Day Years Used Date Smoking Tobacco: Former Cigarettes 1 Q uit: 2004 Smokeless Tobacco: Never Alcohol Use Standard Drinks/Week Comments Yes 1 (1 standard drink = 0.6 oz pur e alcohol) ocassional Sex Assigned at Date Recorded Female 04/25/2023 3:56 PM E DT documented as of this encounter Miscellaneous Notes * Telephone Encounter - Miguel Mary CMA - 03/17/2023 3:52 PM EST Pt called no answer. I am sending sleep study order and notes to [facility]. documented in this encounter Plan of Treatment Not on file documented as of this encounter Visit Diagnoses Not on filedocumented in this encounter Care Teams Manager Community Relationship Specialty Start Date End Date Ruddy Nicole NP PCP - General Family Practice 08/07/18 Carol Jiménez MD, MD Internal Medicine 08/07/18 documented as of this encounter
--- OUTSIDE RECORDS SUMMARY | 2024-04-17 13:57 | XMS_ITS | Encounter Summary ---
Author Organization [facility] Address [address] [place] [address] Care Team Providers Care Clay Puddler Name Role Phone Carol Jiménez Md, MD Primary Care Provider Unavailable Ruddy Nicole NP Primary Care Provider Unavail able Carol Jiménez Md, MD Unavailable Unava ilable Encounter Details Date Type Department Care Team Description 04/28/2017 Release of Information Medical Records [address] [place] [id number] Abstract, Provider Social History Tobacco Use Types Packs/Day Years Used Date Smoking Tobacco: Former Cigarettes 1 Q uit: 2005 Alcohol Use Standard Drinks/Week Comments Yes 0 (1 standard drink = 0.6 oz pur e alcohol) Sex Assigned at Date Recorded Female 04/25/2023 3:56 PM E DT documented as of this encounter Plan of Treatment Not on file documented as of this encounter Visit Diagnoses Not on filedocumented in this encounter Care Teams Clay Puddler Relationship Specialty Start Date End Date Carol Jiménez MD, MD PCP - General Internal Medicine 03/21/17 Ruddy Nicole NP PCP - General Family Practice 08/07/18 Carol Jiménez MD, MD Internal Medicine 08/07/18 documented as of this encounter
--- OUTSIDE RECORDS SUMMARY | 2024-04-17 13:57 | XMS_ITS | Encounter Summary ---
Author Organization [employer] Address [address] [facility] [address] [place] [address] Care Team Providers Care Political Scientist Name Role Phone Unavailable Primary Care Provider Unavailabl e Reason for Visit * Reason Onset Date Comments Dentures 04/09/2022 Michelle Greco 0 1960 Patient called in and stated if upper dentures repairs are in office. Please advise Appointment 04/09/2022 Encounter Details Date Type Department Care Team (Late st Contact Info) Description 04/09/2022 Telephone [facility] ADULT DENTAL [address] [place] [address] Bharath Chand, DDS [address] [place] [address] Dentures (Michelle Greco 1960 Patient called in and stated if upper dentures repairs are in office. Please advise ); Appointment Social History Tobacco Use Types Packs/Day Years Used Date Smoking Tobacco: Never Assessed Comments Unknown Sex and Gender Information Value Date Recorded Sex Assigned at Female 12/07/2021 10:24 AM EDT Legal Sex Female 10:24 AM EDT Gender Identity Female 12/07/2021 10:24 AM EDT Sexual Orientation Don't know 12/07/2021 10 :24 AM EDT documented as of this encounter Miscellaneous Notes * Telephone Encounter - Mine Streeter - 04/14/2022 1:05 PM EST Patient stated she received a callt hat she is returning stating that her dentures are in office and she is looking for delivery appt. * Telephone Encounter - Soledad Gomez - 04/09/2022 2:14 PM EST Michelle Greco 1960 Patient called in and stated if upper dentures repairs are in office. Please advise AV documented in this encounter Plan of Treatment Not on file documented as of this encounter Visit Diagnoses Not on filedocumented in this encounter
--- OUTSIDE RECORDS SUMMARY | 2024-04-17 13:57 | XMS_ITS | Encounter Summary ---
Author Organization [employer] Address [address] [facility] 7[address] [place] [address] Care Team Providers Care Banking Services Clerk Name Role Phone Unavailable Primary Care Provider Unavailabl e Encounter Details Date Type Department Care Team (Latest Contact Info) Description 06/26/2020 Abstract [facility] CONVERSIONS Dental, Provider, DDS Social History Tobacco [...]
== END 2024-04-17 12:24 | disposition home or self-care (01) ==
PROVIDERS: PCP Nurse Practitioner Family; Visit Provider Nurse Practitioner Family
DX: M25.562 Pain in left knee (principal); M25.511 Pain in right shoulder; V89.2XXA Person injured in unspecified motor-vehicle accident, traffic, initial encounter; Z04.2 Encounter for examination and observation following work accident

== ENCOUNTER → 2024-04-17 11:15 | Outpatient (BNVA) | payer OTHER, SELFPAY | PROVIDERS: PCP Nurse Practitioner Family; Visit Provider Nurse Practitioner Family ==

== ENCOUNTER 2024-04-20 14:55 | Outpatient (REF) | payer MEDICARE, MEDICAID, SELFPAY ==
--- NOTE | ~2024-04-20 | XR_ITS ---
EXAMINATION: XR ABDOMEN 1 VIEW (KUB) HISTORY: N20.0 - Calculus of kidney COMPARISON: Comparison is made with the prior examination dated 03/29/2023. FINDINGS: A single supine view of the abdomen is submitted. The bowel gas pattern is unremarkable, without evidence of mechanical obstruction. There is a 4 mm left-sided calcification the level of the L3-4 intervertebral disc space which may be related to the left kidney or proximal ureter. There are phleboliths in the pelvis bilaterally. There are surgical clips in the right upper quadrant. There are no abnormal soft tissue masses. There is narrowing of both hip joints. XR/XR KUB IMPRESSION: 4 mm left-sided calcification which may be related to the left kidney or proximal ureter. If there is clinical concern for ureteral calculi, unenhanced CT could be performed. Electronically signed by: Ghassan Shultz MD 04/23/2024 10:02 AM EDT
--- OUTSIDE RECORDS SUMMARY | 2024-04-20 16:20 | XMS_ITS | Clinical Summary ---
Author Organization [employer] Address [address] [facility] 7[address] [place] [address] Care Team Providers Care Dance Entertainer Name Role Phone Unavailable Primary Care Provider [...] Type Department Care Team Description 02/13/2024 Telephone [facility] ADULT DENTAL [address] [place], [place] [id number] Bharath Chand DDS from Last 3 Months [...] patient's age to complete this topic Insurance [facility]AL-[facility] MEDICAID STAND ADULT
--- OUTSIDE RECORDS SUMMARY | 2024-04-20 16:20 | XMS_ITS | Encounter Summary ---
Author Organization [employer] Address [address] [facility] [address] [place] [address] Care Team Providers Care Upholstery Parts Sorter Name Role Phone Unavailable Primary Care Provider Unavailabl e Encounter Details Date Type Department Care Team (Latest Contact Info) Description 12/01/[address] [facility] CONVERSIONS Dental, Provider, DDS Social History [...]
--- OUTSIDE RECORDS SUMMARY | 2024-04-20 16:20 | XMS_ITS | Encounter Summary ---
Author Organization [facility] Address [address] [place] [address] Care Team Providers Care Poiser Balance Name Role Phone Ruddy Nicole NP Primary Care Provider Unavail able Carol Jiménez Md, MD Unavailable Unava ilable Encounter Details Date Type Department Care Team Description 04/25/2023 Orders Only Medical Records [address] [place] [address] Social History Tobacco Use Types Packs/Day Years [...] on file documented as of this encounter Procedures Procedure Name Priority Date/Time Associated Diagnosis Comments OUTSIDE SLEEP STUDY Routine 03/26/2023 documented in this encounter Results * OUTSIDE SLEEP STUDY (03/26/2023) [facility] PULMONOLOGY documented in this encounter Visit Diagnoses Not on filedocumented in this encounter Care Teams Poiser Balance Relationship Specialty Start Date End Date Ruddy Nicole NP PCP - General Family Practice 08/07/18 Carol Jiménez MD, MD Internal Medicine 08/07/18 documented as of this encounter
--- OUTSIDE RECORDS SUMMARY | 2024-04-20 16:20 | XMS_ITS | Clinical Summary ---
Author Organization [address] [facility] Address [address] [place] [address] Phone Care Team Providers Care Repair Clerk Name Role Phone Ruddy Nicole NP Primary [...] Care Team Description 03/07/2024 Telephone Pulmonology - [place] [address] [facility] [address] [place] [phone] Miguel Mary MA Fitting for DME ([employer]: [employer]) 03/07/2024 Telephone Pulmonology [facility] [address] [facility] [address] [place] [phone] Miguel Mary MA 02/17/2024 Telephone Pulmonolgy [facility] [address] [facility] [address] [place] [phone] Hayley Hutchins MD MEDICATION REQUEST 02/13/2024 1:00 PM EST Office Visit Pulmonolgy [facility] [address] [facility] [address] [place] [phone] Hayley Hutchins MD AMY (obstructive sleep apnea) [...] 1:00 PM EST Office Visit Pulmonolgy - [place] [address] [facility] [address] [place] [address] Hayley Hutchins MD [address] [facility] [address] [place] [address] Health Maintenance Due Date Last Done Comments [...] Insurance MEDICARE MEDICAID - [place] Care Teams Repair Clerk Relationship Specialty Start Date End Date Ruddy Nicole NP [address] [place], [place] PCP - General 08/07/18
--- OUTSIDE RECORDS SUMMARY | 2024-04-20 16:20 | XMS_ITS | Encounter Summary ---
Author Organization [employer] Address [address] [facility] [address] [place] [address] Care Team Providers Care Bale Opener Name Role Phone Unavailable Primary Care Provider Unavailabl e Encounter Details Date Type Department Care Team (Latest Contact Info) Description 06/26/2020 Abstract [facility] CONVERSIONS Dental, Provider, DDS Social [...]
--- OUTSIDE RECORDS SUMMARY | 2024-04-20 16:20 | XMS_ITS | Encounter Summary ---
Author Organization [employer] Address [address] [facility] [address] [place] [address] Care Team Providers Care Producer Name Role Phone Unavailable Primary Care Provider Unavailabl e Reason for Visit * Reason Onset Date Comments Dentures 04/09/2022 Michelle Greco 0 1960 Patient called in and stated if upper dentures repairs are in office. Please advise Appointment 04/09/2022 Encounter Details Date Type Department Care Team (Late st Contact Info) Description 04/09/2022 Telephone C [facility] ADULT DENTAL [address] [place] [address] Bharath Chand, DDS [address] [place] [address] Dentures (Michelle Greco 1960 Patient called in [...]
== END 2024-04-20 14:56 | disposition home or self-care (01) ==
LOC: HO.HMGCX 14:55
PROVIDERS: PCP Nurse Practitioner Family; Visit Provider Urology
DX: N20.0 Calculus of kidney (principal)
CPT/HCPCS: 74018

== ENCOUNTER → 2024-04-20 15:01 | Outpatient (BNV) | payer MEDICARE, MEDICAID, SELFPAY | PROVIDERS: PCP Nurse Practitioner Family; Visit Provider Radiology Diagnostic Radiology | DX: N20.0 Calculus of kidney (principal) | CPT/HCPCS: 74018 ==

== ENCOUNTER 2024-04-25 18:47 | Outpatient (REF) | payer MEDICARE, MEDICAID, OTHER, SELFPAY ==
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
== END 2024-04-25 18:48 | disposition home or self-care (01) ==
LOC: HO.MRI 18:47
PROVIDERS: PCP Nurse Practitioner Family; Visit Provider Nurse Practitioner Family
DX: M25.562 Pain in left knee (principal); V89.2XXD Person injured in unspecified motor-vehicle accident, traffic, subsequent encounter
CPT/HCPCS: 73721

== ENCOUNTER → 2024-04-25 19:03 | Outpatient (BNV) | payer MEDICARE, MEDICAID, SELFPAY | PROVIDERS: PCP Nurse Practitioner Family; Visit Provider Radiology Diagnostic Radiology | DX: M17.12 Unilateral primary osteoarthritis, left knee (principal); M71.22 Synovial cyst of popliteal space [Baker], left knee | CPT/HCPCS: 73721 ==

== ENCOUNTER 2024-04-30 13:07 | Outpatient (AMB) | payer OTHER, MEDICARE, SELFPAY ==
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
== END 2024-04-30 13:45 | disposition home or self-care (01) ==
LOC: HO.HUSH 13:07
PROVIDERS: PCP Nurse Practitioner Family; Visit Provider Urology
DX: N20.0 Calculus of kidney (principal); M54.9 Dorsalgia, unspecified; V89.2XXA Person injured in unspecified motor-vehicle accident, traffic, initial encounter
CPT/HCPCS: 99213; G2211

== ENCOUNTER → 2024-04-30 13:07 | Outpatient (BNVA) | payer OTHER, MEDICARE, SELFPAY | PROVIDERS: PCP Nurse Practitioner Family; Visit Provider Urology ==

== ENCOUNTER 2024-05-01 12:58 | Outpatient (AMB) | payer MEDICARE, MEDICAID, SELFPAY ==
--- NOTE | 2024-05-01 13:03 | MHC.OFFVIS ---
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 She is doing well with no manager process excellence concerns. Currently not sexually active due to husbands medical concerns. Denies any vaginal dryness or irritation. Attempting to eat a healthy diet with calcium and vitamin D. Lost 60lbs. in the past year. No exercise due to physical limitations. Uses a walker. Last pap smear; 2020. Last mammogram; 2023. Colonoscopy is UTD. Denies any family history of breast, ovarian or colon cancer. [facility] Medical History Anterolisthesis of cervicothoracic spine Morbid obesity with BMI of 60.0-69.9, adult DDD (degenerative disc disease) Diabetes History of cellulitis Hx of solitary pulmonary nodule Depression with anxiety AMY on CPAP Spinal stenosis Arthritis Hypothyroid Elevated cholesterol HTN (hypertension) Anxiety Low back pain PVD (peripheral vascular disease) Palpitations Surgical History Hx of cystoscopy Hx of lithotripsy History of endometrial ablation Hx of colonoscopy History of carpal tunnel surgery of left wrist Hx of repair of left rotator cuff History of incisional hernia repair Hx of cholecystectomy Hx of tonsillectomy Hx of tubal ligation Hx of section Family History Father Stroke Former smoker Mother Brain tumor Maternal Uncle CVD (cardiovascular disease) Diabetes mellitus Myocardial infarction Brother No problems noted. Sister No problems noted. Sister No problems noted. Sister No problems noted. Son No problems noted. Daughter No problems noted. Daughter No problems noted. 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 Cognitive needs: No Hearing needs: No Vision needs: No Female Reproductive History Menstrual control method: permanent sterilization Permanent Sterilization: BTL Total pregnancies: 3 Full term: 3 Number of Living Children: 3 Date of last pap smear: 04/16/20 (neg pap and hpv) Date of Mammogram: 01/03/24 (Birad 1) Review of Systems Const All systems reviewed & are unremarkable except as noted in HPI and below Reports as per HPI Eyes Reports no additional complaints ENT Reports no additional complaints Card Reports no additional complaints Resp Reports no additional complaints GI Reports as per HPI and Reports no additional complaints Reports as per HPI Musc Reports no additional complaints Skin/Breast Reports as per HPI Neuro Reports no additional complaints Psych Reports no additional complaints Endo Reports no additional complaints Timbo/Lymph Reports no additional complaints Aller/Immun Reports no additional complaints Physical Exam Vital Signs: Last Vital Signs BP 134/70 05/01/24 13:05 BMI result Body Mass Index 51.4 Const General: cooperative, healthy appearing, no acute distress, well developed and alert Orientation/consciousness: patient oriented x3 HEENT Head: Yes normal to inspection Eyes General: appearance normal, both eyes and all related structures Neck Neck: Yes normal visual inspection Thyroid: Thyroid normal Chest Chest palpation & inspection: normal inspection of the chest and other (no puckering, dimpling, peau de orange, retraction, discharge, masses) Breast/axilla inspection: normal inspection of the breasts Breast/axilla palpation: normal palpation of the breasts Resp Effort & Inspection: normal respiratory effort GI Inspection: Yes normal to inspection, Yes obesity and Yes other (hernia) Palpation (GI): Soft to palpation Rectal Exam - Female: deferred General: Yes bladder normal to palpation External Female Exam: normal external appearance and normal appearance of the urethra Speculum Exam - Vagina: normal appearance of the vagina, normal palpation, normal vaginal discharge and vagina atrophic Speculum Exam - Cervix: normal appearance of the cervix and normal palpation Bimanual exam- vagina & uterus: normal bimanual exam, normal palpation, uterine size normal, bladder normal to palpation, normal palpation and non-tender Bimanual Exam- Adnexa, other: no masses Skin General skin exam: no rashes or lesions noted Rashes: no rashes Neuro General: patient oriented x3 Cognition (Neuro): normal cognition Extrem General: Yes normal to inspection Psych Attitude: cooperative Thought process: Normal thought process present Assessment & Plan Assessment & Plan (1) Encounter for well woman exam with routine gynecological exam: Code(s): Z01.419 - Encounter for gynecological examination (general) (routine) without abnormal findings Category: Medical Plan Discussed: Current recommendations for pap smears per ASCCP guidelines. Breast awareness, periodic self breast exams and yearly mammogram. Maintain a healthy lifestyle, well balanced diet including Calcium 1,200 mg and Vitamin D 600 IU daily, and routine exercise. Contact the office with any postmenopausal bleeding. Patient verbalizes understanding and agrees to the plan of care. She was given opportunity to ask questions and all questions were answered to the best of my ability. RTO in 1 year for annual manager process excellence exam. This note is constructed using voice recognition software. While every effort has been made to ensure accuracy, boilermaker ship errors may have been included. Orders: Orders Bacterial Vaginosis Panel Today N89.8 - Other specified noninflammatory disorders of vagina Coding Level of Care Code Est Pt Prev Care 40-64y(23273) Diagnoses Encounter for well woman exam with routine gynecological exam Z01.419
[2024-05-01 13:05] VITALS: BP 134/70; BMI 51.4
--- OUTSIDE RECORDS SUMMARY | 2024-05-01 15:42 | XMS_ITS | Encounter Summary ---
Author Organization [employer] Address [address] [facility] 7t [place] [address] Care Team Providers Care Automation Analyst Name Role Phone Unavailable Primary Care Provider Unavailabl e Reason for Visit * Reason Onset Date Comments Dentures 04/09/2022 Michelle Greco 0 1960 Patient called in and stated if upper dentures repairs are in office. Please advise Appointment 04/09/2022 Encounter Details Date Type Department Care Team (Late st Contact Info) Description 04/09/2022 Telephone [facility] ADULT DENTAL [address] [place] [address] Bharath Chand, DDS [address] [place] [address] Dentures (Michelle Greco 1960 Patient called in [...]
--- OUTSIDE RECORDS SUMMARY | 2024-05-01 15:42 | XMS_ITS | Clinical Summary ---
Author Organization [employer] Address [address] [facility] [address] [place] [address] Care Team Providers Care Human Resources Compliance Manager Name Role Phone Unavailable Primary Care Provider [...] Type Department Care Team Description 02/13/2024 Telephone [facility] ADULT DENTAL [address] [place], [place] [id number] Bharath Chand DDS from Last 3 Months [...] patient's age to complete this topic Insurance D[facility]AL-[facility] MEDICAID STAND ADULT
--- OUTSIDE RECORDS SUMMARY | 2024-05-01 15:42 | XMS_ITS | Clinical Summary ---
Author Organization [address] [facility] Address [address] [place] [address] Phone Care Team Providers Care Management Analyst Name Role Phone Ruddy Nicole NP Primary Care Provider [phone] Allergies No known active allergies Medications aspirin [...] Care Team Description 03/07/2024 Telephone Pulmonology - [facility] [address] [facility] [address] [place] [phone] Miguel Mary MA Fitting for DME ([employer]: [employer] Supplies) 03/07/2024 Telephone Pulmonology [facility] [address] [facility] [address] [place] [phone] Miguel Mary MA 02/17/2024 Telephone Pulmonolgy [facility] [address] [facility] [address] [place] [phone] Hayley Hutchins MD MEDICATION REQUEST 02/13/2024 1:00 PM EST Office Visit Pulmonolgy [facility] [address] [facility] [address] [place] [phone] Hayley Hutchins MD AMY (obstructive sleep apnea) [...] 1:00 PM EST Office Visit Pulmonolgy - [place] [address] [facility] [address] [place] [address] Hayley Hutchins MD [address] [facility] [address] [place] [address] Health Maintenance Due Date Last Done Comments [...] Insurance MEDICARE MEDICAID - [place] Care Teams Management Analyst Relationship Specialty Start Date End Date Ruddy Nicole NP [address] [place], [place] PCP - General 08/07/18
--- OUTSIDE RECORDS SUMMARY | 2024-05-01 15:42 | XMS_ITS | Encounter Summary ---
Author Organization [employer] Address [address] [facility] 7t [place] [address] Care Team Providers Care Freight Flow Sales Leader Name Role Phone Unavailable Primary Care Provider [...]
--- OUTSIDE RECORDS SUMMARY | 2024-05-01 15:42 | XMS_ITS | Encounter Summary ---
Author Organization [employer] Address [address] [facility] [address] [place] [address] Care Team Providers Care Demo Coordinator Name Role Phone Unavailable Primary Care Provider Unavailabl e Encounter Details Date Type Department Care Team (Latest Contact Info) Description 06/26/2020 Abstract [facility] CONVERSIONS Dental, Provider, DDS Social History [...]
== END 2024-05-01 13:54 | disposition home or self-care (01) ==
LOC: HO.HWS 12:58
PROVIDERS: PCP Nurse Practitioner Family; Visit Provider Advanced Practice Midwife
DX: Z01.419 Encounter for gynecological examination (general) (routine) without abnormal findings (principal)
CPT/HCPCS: G0101

== ENCOUNTER 2024-05-01 12:58 | Outpatient (REF) | payer OTHER, MEDICARE, SELFPAY ==
[2024-05-01 18:01] LABS: Bacterial Vaginosis PCR NEGATIVE (Negative); Candida Group PCR NOT DETECTED (Not Detect); Candida glab krusei PCR NOT DETECTED (Not Detect); Trichomonas vaginalis PCR NOT DETECTED (Not Detect)
== END 2024-05-01 12:59 | disposition home or self-care (01) ==
LOC: HO.LAB 12:58
PROVIDERS: PCP Nurse Practitioner Family; Visit Provider Advanced Practice Midwife
DX: Z01.419 Encounter for gynecological examination (general) (routine) without abnormal findings (principal); N89.8 Other specified noninflammatory disorders of vagina
CPT/HCPCS: 81515; G0101

== ENCOUNTER → 2024-05-09 07:05 | Outpatient (BNVA) | payer OTHER, MEDICARE, SELFPAY | PROVIDERS: PCP Nurse Practitioner Family; Visit Provider Nurse Practitioner Family ==

== ENCOUNTER 2024-06-15 10:29 | Outpatient (AMB) | payer OTHER, MEDICARE, SELFPAY ==
[2024-06-15 10:35] VITALS: BMI 51.4
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
--- OUTSIDE RECORDS SUMMARY | 2024-06-15 11:01 | XMS_ITS | Clinical Summary ---
Author Organization [address] [facility] Address [address] [place] [address] Phone Care Team Providers Care Commercial Lease Administrator Name Role Phone Ruddy Nicole NP Primary [...] Diagnosed Date Morbid obesity with BMI of 5 0.0-59.9, adult (CMS/HCC V24, CMS/HCC V28) 12/28/2023 Varicose veins of legs 10/11/2018 Overview (11/11/2023): S/p laser surgery right DJD (degenerative joint disease) of knee 019 Lumbar spinal stenosis 10/11/2018 Overview (11/11/2023): Small disc herniation L4-5, L5-S1 Ventral hernia 10/11/2018 Hyperlipidemia 05/11/2017 Hypothyroidism 05/11/2017 Depression 05/11/2017 IBS (irritable bowel syndrome) 05/11/2017 Obstructive sleep apnea syndrome 07/19/2016 Pulmonary nodule 04/07/2016 Immunizations Name Administration Dates Next Due Pfizer [...] obesity with BMI of 5 0.0-59.9, adult ([facility] V24, [facility] V28) 10/11/2018 DX:Morbid obesity wit h BMI of 50.0-59.9, adult ([facility]) Lumbar spinal stenosis 10/11/2018 DX:Lumbar spinal stenosis; [...] 1:00 PM EST Office Visit Pulmonolgy - [place] [address] [facility] [address] [place] [phone] Hayley Hutchins MD [address] [facility] [address] [place] [address] Health Maintenance Due Date Last Done Comments Breast Cancer Screening 1960 DTaP,Tdap,and Td Vaccines (1 - Tdap) 1980 Cervical Cancer Screening: P ap Smear 1982 Pneumococcal Vaccine: 50+ Years (1 of 1 - PCV) 06/13/2011 Zoster Vaccines (1 of 2) 06/13/2011 RSV Immunization Adult Patients (1 - Risk 60-74 years 1-dose series) 2021 Cholesterol Screening (Lipid Panel) 01/17/2022 Colorectal Cancer Screening: Colonoscopy 01/17/2022 Depression Screening 01/17/2022 HIV Screening 01/17/2022 Hepatitis C Screening 01/17/2022 Medicare Annual Wellness Visit 01/17/2022 Social Influencers of Health Screening 01/17/2022 COVID-19 Vaccine (2023-2 5 season) 2023 05/06/2022, 05/22/2020, 05/01/2020 Influenza Vaccine (Season Ended) 2024 HIB Vaccines Aged Out No longer eligi [...] age to complete this topic Meningococcal B Vaccine Aged Out No l onger eligible based on patient's age to complete [...] MEDICARE MEDICAID - [place] Care Teams Commercial Lease Administrator Relationship Specialty Start Date End Date Ruddy Nicole NP [address] [place], [place] PCP - General 08/07/18
--- OUTSIDE RECORDS SUMMARY | 2024-06-15 11:01 | XMS_ITS | Encounter Summary ---
Author Organization [employer] Address [address] [facility] [facility] [address] [place] [address] Care Team Providers Care Drafter Seismograph Name Role Phone Unavailable Primary Care Provider Unavailabl e Encounter Details Date Type Department Care Team (Latest Contact Info) Description 12/01/2021 Abstract C CONVERSIONS Dental, Provider, DDS Social History Tobacco [...]
--- OUTSIDE RECORDS SUMMARY | 2024-06-15 11:01 | XMS_ITS | Encounter Summary ---
Author Organization [employer] Address [address] [facility] [address] [place] [address] Care Team Providers Care Cyber Forensics Analyst Name Role Phone Unavailable Primary Care Provider Unavailabl e Encounter Details Date Type Department Care Team (Latest Contact Info) Description 06/26/2020 Abstract C CONVERSIONS Dental, Provider, DDS Social [...]
--- OUTSIDE RECORDS SUMMARY | 2024-06-15 11:01 | XMS_ITS | Encounter Summary ---
Author Organization [employer] Address [address] [facility] [address] [place] [address] Care Team Providers Care Film Crew Member Name Role Phone Unavailable Primary Care Provider Unavailabl e Reason for Visit * Reason Onset Date Comments Dentures 04/09/2022 Michelle Greco 0 1960 Patient called in and stated if upper dentures repairs are in office. Please advise Appointment 04/09/2022 Encounter Details Date Type Department Care Team ([facility] st Contact Info) Description 04/09/2022 Telephone C [facility] ADULT DENTAL [address] [place] [address] Bharath Chand, DDS [address] [place] [address] Dentures (Michelle Greco 1960 Patient called in [...]
--- OUTSIDE RECORDS SUMMARY | 2024-06-15 11:01 | XMS_ITS | Clinical Summary ---
Author Organization [employer] Address [address] [facility] [address] [place] [address] Care Team Providers Care Hoop Punch And Coiler Operator Helper Name Role Phone Unavailable Primary Care Provider [...] mg by mouth in the morning. Active Social History Tobacco Use Types Packs/Day Years [...] (1 of 2) 06/13/2011 COVID-19 Vaccine (4 2023-2 5 season) 2023 05/06/2022, 05/22/2020, 05/01/2020 [...] patient's age to complete this topic Insurance DENTAL-[facility] MEDICAID STAND ADULT
== END 2024-06-15 11:26 | disposition home or self-care (01) ==
LOC: HO.HOS 10:30
PROVIDERS: PCP Nurse Practitioner Family; Visit Provider Physician Assistant
DX: M17.0 Bilateral primary osteoarthritis of knee (principal); M23.307 Other meniscus derangements, unspecified meniscus, left knee
CPT/HCPCS: 99213; G2211

== ENCOUNTER 2024-07-09 11:31 | Outpatient (AMB) | payer MEDICARE, MEDICAID, SELFPAY ==
--- NOTE | 2024-07-09 11:53 | MHC.OFFVIS ---
Vital Signs 07/09/24 11:55 Height 5 ft 3 in Weight 280 lb 13.903 oz BMI 49.7 BP 126/64 Blood Pressure Location Lt brachial Position Sitting Pulse 90 Pulse Source Monitor Intake Visit Reasons: 1 yr f/up Intake Note: 1 yr f/up Chief Medical Technologist Required: No Accompanied by: Self / Same As Patient Allergies tioconazole [From Monistat 1 (tioconazole)] Allergy (Intermediate, Verified 06/15/24 10:44) Rash Penicillins Allergy (Unknown, Verified 06/15/24 10:44) Unknown Sulfa (Sulfonamide Antibiotics) Allergy (Unknown, Verified 06/15/24 10:44) Unknown Medication List - Last Reconciled 07/09/24 by Gallo Monslave MD aspirin (Adult Low Dose Aspirin) 81 mg PO DAILY atenolol 25 mg PO DAILY atorvastatin 80 mg PO DAILY betamethasone, augmented 0.05 % 1 appl topical BEDTIME PRN bupropion HCl XL 300 mg PO QAM 90 days calcium carbonate-vitamin D3 600 mg-10 mcg (400 unit) (Calcium 600 with Vitamin D3) 1 tab PO BID celecoxib (Celebrex) 200 mg PO BID 30 days clotrimazole-betamethasone 1-0.05 % 1 appl topical BID 7 days cyclobenzaprine 10 mg PO BEDTIME levothyroxine 150 mcg PO QAM tirzepatide (weight loss) 10 mg (0.5 mL) subcut QWEEK HPI Comments Details: 64-year-old female here for follow up. She previously had symptomatic premature ventricular complexes. She was sent for ankle-brachial index which showed mild peripheral vascular disease. She is on aspirin and statin. Today she returns for follow-up. She is denying any chest pain or shortness of breath. Blood pressure control is good. Taking medications regularly. Denies symptoms. She has hydronephrosis from ureteric stone. She may need lithotripsy. Overall doing well. No CP or significant SOB. 07/09/2024: She is here for follow-up. Taking medications regularly. No chest pain or shortness of breath she has arthritis involving her back and knees which limits her mobility. She has been on Zepbound and has been losing weight. Blood pressure well controlled. [facility] Medical History Anterolisthesis of cervicothoracic spine Morbid obesity with BMI of 60.0-69.9, adult DDD (degenerative disc disease) Diabetes History of cellulitis Hx of solitary pulmonary nodule Depression with anxiety AMY on CPAP Spinal stenosis Arthritis Hypothyroid Elevated cholesterol HTN (hypertension) Anxiety Low back pain PVD (peripheral vascular disease) Palpitations Surgical History Hx of cystoscopy Hx of lithotripsy History of endometrial ablation Hx of colonoscopy History of carpal tunnel surgery of left wrist Hx of repair of left rotator cuff History of incisional hernia repair Hx of cholecystectomy Hx of tonsillectomy Hx of tubal ligation Hx of section Family History Father Stroke Former smoker Mother Brain tumor Maternal Uncle CVD (cardiovascular disease) Diabetes mellitus Myocardial infarction Brother No problems noted. Sister No problems noted. Sister No problems noted. Sister No problems noted. Son No problems noted. Daughter No problems noted. Daughter No problems noted. 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 Cognitive needs: No Hearing needs: No Vision needs: No Review of Systems Const Denies chills, Denies fatigue, Denies fever(s), Denies frequent falls, Denies weakness, Denies weight gain and Denies weight loss ENT Denies dizziness Card Denies chest pain, Denies leg edema, Denies lightheadedness, Denies palpitations, Denies dyspnea and Denies dyspnea on exertion Resp Denies cough, Denies dyspnea and Denies dyspnea on exertion GI Denies hematochezia Musc Denies abnormal gait, Denies muscle weakness, Denies numbness, Denies radiating pain into limb and Denies tingling Neuro Denies abnormal gait, Denies dizziness, Denies frequent falls, Denies numbness, Denies tingling and Denies weakness Endo Denies fatigue and Denies palpitations Physical Exam Vital Signs: Last Vital Signs Pulse 90 07/09/24 11:55 BP 126/64 07/09/24 11:55 BMI result Body Mass Index 49.7 GENERAL APPEARANCE: in no acute distress, morbidly obese. NECK/THYROID: neck supple, no carotid bruit. SKIN: no suspicious lesions, warm and dry. HEART: no murmurs, regular rate and rhythm, S1, S2 normal. LUNGS: clear to auscultation bilaterally. ABDOMEN: normal, bowel sounds present, soft, nontender, nondistended. EXTREMITIES: no clubbing, cyanosis, or edema. PERIPHERAL PULSES: equal. NEUROLOGIC: nonfocal, alert and oriented. Office Procedures EKG Details: Sinus rhythm 90 beats per minute, normal axis, QTc 452 msec. 10697-[id number], Complete Assessment & Plan Assessment & Plan (1) HTN (hypertension): Code(s): I10 - Essential (primary) hypertension Category: Medical Plan 64-year-old female with mild peripheral vascular disease and hypertension. Blood pressure control is good on current regimen. She should continue atenolol. No CP or SOB. Not in CHF. On Zepbound and has been losing weight. I think she will definitely benefit from weight loss. She has significant arthritis and limitations due to obesity. Thank you for allowing me to participate in the care of your patient. Please feel free to contact me if you have any questions. Coding Level of Care Code Est Pt Level 4 (46917) Diagnoses HTN (hypertension) I10 CPT Codes EKG - CPT: 15428-[id number], Complete ([id number])
[2024-07-09 11:55] VITALS: BP 126/64; PULSE 90; BMI 49.7
--- OUTSIDE RECORDS SUMMARY | 2024-07-09 12:49 | XMS_ITS | Encounter Summary ---
Author Organization [employer] Address [address] [facility] [address] [place] [address] Care Team Providers Care University Librarian Name Role Phone Unavailable Primary Care Provider Unavailabl e Reason for Visit * Reason Onset Date Comments Dentures 04/09/2022 Michelle Greco 0 1960 Patient called in and stated if upper dentures repairs are in office. Please advise Appointment 04/09/2022 Encounter Details Date Type Department Care Team ([facility] st Contact Info) Description 04/09/2022 Telephone C [facility] [address] [place] [address] Bharath Chand, DDS [address] [place] [address] Dentures (Michelle Greco 1960 Patient called in [...]
== END 2024-07-09 12:42 | disposition home or self-care (01) ==
LOC: HO.HCS 11:32
PROVIDERS: PCP Nurse Practitioner Family; Visit Provider Internal Medicine Cardiovascular Disease
DX: I10 Essential (primary) hypertension (principal)
CPT/HCPCS: 99214

== ENCOUNTER → 2024-07-09 11:31 | Outpatient (BNVA) | payer MEDICARE, MEDICAID, SELFPAY | PROVIDERS: PCP Nurse Practitioner Family; Visit Provider Internal Medicine Cardiovascular Disease | DX: I10 Essential (primary) hypertension (principal); Z79.82 Long term (current) use of aspirin; Z87.891 Personal history of nicotine dependence; Z79.899 Other long term (current) drug therapy | CPT/HCPCS: 93005; 99212 ==

== ENCOUNTER 2024-07-19 13:33 | Outpatient (AMB) | payer OTHER, MEDICARE, SELFPAY ==
--- NOTE | 2024-07-19 13:36 | MHC.OFFVIS ---
Intake Visit Reasons: B/L knee Durolane Gel Injections Intake Note: Michelle is a 64 year old female who presents today for Bilateral knee Durolane Gel Injections. Allergies tioconazole [From Monistat 1 (tioconazole)] Allergy (Intermediate, Verified 07/19/24 13:43) Rash Penicillins Allergy (Unknown, Verified 07/19/24 13:43) Unknown Sulfa (Sulfonamide Antibiotics) Allergy (Unknown, Verified 07/19/24 13:43) Unknown Medication List - Last Reconciled 07/19/24 by Aram Hutson PA-C aspirin (Adult Low Dose Aspirin) 81 mg PO DAILY atenolol 25 mg PO DAILY atorvastatin 80 mg PO DAILY betamethasone, augmented 0.05 % 1 appl topical BEDTIME PRN bupropion HCl XL 300 mg PO QAM 90 days calcium carbonate-vitamin D3 600 mg-10 mcg (400 unit) (Calcium 600 with Vitamin D3) 1 tab PO BID celecoxib (Celebrex) 200 mg PO BID 30 days clotrimazole-betamethasone 1-0.05 % 1 appl topical BID 7 days cyclobenzaprine 10 mg PO BEDTIME levothyroxine 150 mcg PO QAM tirzepatide (weight loss) 10 mg (0.5 mL) subcut QWEEK HPI HPI B/L knee Durolane Gel Injections: Details: 64 yo female presents to the office today for bilat knee durolane injections PFSH Medical History Anterolisthesis of cervicothoracic spine Morbid obesity with BMI of 60.0-69.9, adult DDD (degenerative disc disease) Diabetes History of cellulitis Hx of solitary pulmonary nodule Depression with anxiety AMY on CPAP Spinal stenosis Arthritis Hypothyroid Elevated cholesterol HTN (hypertension) Anxiety Low back pain PVD (peripheral vascular disease) Palpitations Surgical History Hx of cystoscopy Hx of lithotripsy History of endometrial ablation Hx of colonoscopy History of carpal tunnel surgery of left wrist Hx of repair of left rotator cuff History of incisional hernia repair Hx of cholecystectomy Hx of tonsillectomy Hx of tubal ligation Hx of section Family History Father Stroke Former smoker Mother Brain tumor Maternal Uncle CVD (cardiovascular disease) Diabetes mellitus Myocardial infarction Brother No problems noted. Sister No problems noted. Sister No problems noted. Sister No problems noted. Son No problems noted. Daughter No problems noted. Daughter No problems noted. 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 Tenderness along the medial joint line. ROM full with crepitus. Negative steinmans. No ligamentous laxity. NVI. Office Procedures AMB Joint Injection/Aspiration Joint Injection/Aspiration Details: durolane injetion Primary Site: right knee Secondary Site: left knee Prep: site was prepped using aseptic technique, ethochloride spray was applied and injection warnings given Injected: in the joint Approach Used: anterolateral Coding 54216 - Glenohumeral/Tronchanteric Bursa/Intraarticular Procedure code (CPT) selection complete Assessment & Plan Assessment & Plan (1) Degenerative arthritis of knee, bilateral: Code(s): M17.0 - Bilateral primary osteoarthritis of knee Category: Medical Plan: Plan was to proceed with gel injection today. Injection performed today which the patient tolerated well. She will rest ice and use anti-inflammatories as needed for the next several days. I will see her back prn . Coding Level of Care Code Procedure Only Diagnoses Degenerative arthritis of knee, bilateral M17.0 CPT Codes Coding - Joint 7: 21960 - Glenohumeral/Tronchanteric Bursa/Intraarticular ([id number])
--- OUTSIDE RECORDS SUMMARY | 2024-07-19 15:50 | XMS_ITS | Encounter Summary ---
Author Organization [employer] Address [address] [facility] [address] [place] [address] Care Team Providers Care Respiratory Therapy Manager Name Role Phone Unavailable Primary Care Provider Unavailabl e Reason for Visit * Reason Onset Date Comments Dentures 04/09/2022 Michelle Greco 0 1960 Patient called in and stated if upper dentures repairs are in office. Please advise Appointment 04/09/2022 Encounter Details Date Type Department Care Team ([facility] st Contact Info) Description 04/09/2022 Telephone C [facility] [address] [place] [address] Bharath Chand, DDS [address] [place] [address] Dentures (Michelle Greco 1960 Patient called in [...]
== END 2024-07-19 15:19 | disposition home or self-care (01) ==
LOC: HO.HOS 13:34
PROVIDERS: PCP Nurse Practitioner Family; Visit Provider Physician Assistant
DX: M17.0 Bilateral primary osteoarthritis of knee (principal)
CPT/HCPCS: 20610

== ENCOUNTER → 2024-07-19 13:33 | Outpatient (BNVA) | payer OTHER, MEDICARE, SELFPAY | PROVIDERS: PCP Nurse Practitioner Family; Visit Provider Physician Assistant | DX: M17.0 Bilateral primary osteoarthritis of knee (principal) | CPT/HCPCS: 20610; J7318 ==

== ENCOUNTER 2024-07-31 15:21 | Outpatient (REF) | payer MEDICARE, MEDICAID, SELFPAY ==
--- NOTE | ~2024-07-31 | XR_ITS ---
CLINICAL HISTORY: N20.0 - Calculus of kidney 1 view abdomen Comparison: None provided Findings: Nonobstructive bowel gas pattern. Two right-sided and 2 left-sided small densities measuring up to 8 mm projecting over the renal beds bilaterally may be artifactual or due to renal stones. No acute fractures. Uzzysvls-xi-vrzhkj bilateral hip joint space degenerative narrowing. IMPRESSION: Two right-sided and 2left-sided small densities measuring up to 8 mm projecting over the renal beds bilaterally may be artifactual or due to renal stones. This document has been electronically signed by: Manuela Hurley MD on 08/01/2024 13:34:49
--- OUTSIDE RECORDS SUMMARY | 2024-07-31 18:33 | XMS_ITS | Encounter Summary ---
Author Organization [employer] Address [address] [facility] [address] [place] [address] Care Team Providers Care Hospice Superintendent Name Role Phone Unavailable Primary Care Provider Unavailabl e Reason for Visit * Reason Onset Date Comments Dentures 04/09/2022 Michelle Greco 0 1960 Patient called in and stated if upper dentures repairs are in office. Please advise Appointment 04/09/2022 Encounter Details Date Type Department Care Team ([facility] st Contact Info) Description 04/09/2022 Telephone C [facility] [address] [place] [address] Bharath Chand, DDS [address] [place] [address] Dentures (Michelle Greco 1960 Patient called in [...]
== END 2024-07-31 15:22 | disposition home or self-care (01) ==
LOC: HO.HMGCX 15:21
PROVIDERS: PCP Nurse Practitioner Family; Visit Provider Urology
DX: N20.0 Calculus of kidney (principal)
CPT/HCPCS: 74018

== ENCOUNTER 2024-08-13 14:58 | Outpatient (AMB) | payer MEDICARE, MEDICAID, SELFPAY ==
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
--- OUTSIDE RECORDS SUMMARY | 2024-08-13 15:26 | XMS_ITS | Encounter Summary ---
Author Organization [employer] Address [address] [facility] [address] [place] [address] Care Team Providers Care Swimming Pool Cleaner Name Role Phone Unavailable Primary Care Provider Unavailabl e Reason for Visit * Reason Onset Date Comments Dentures 04/09/2022 Michelle Greco 0 1960 Patient called in and stated if upper dentures repairs are in office. Please advise Appointment 04/09/2022 Encounter Details Date Type Department Care Team ([facility] st Contact Info) Description 04/09/2022 Telephone C [facility] [address] [place] [address] Bharath Chand, DDS [address] [place] [address] Dentures (Michelle Greco 1960 Patient called in [...]
--- OUTSIDE RECORDS SUMMARY | 2024-08-13 15:26 | XMS_ITS | Encounter Summary ---
Author Organization [facility] Address [address] [place] [address] Care Team Providers Care Intelligence Group Supervisor Name Role Phone Carol Jiménez Md, MD Primary Care Provider Unavailable Ruddy Nicole NP Primary Care Provider Unavail able Carol Jiménez Md, MD Unavailable Unava ilable Encounter Details Date Type Department Care Team Description 04/28/2017 Release of Information Medical Records [address] [place] [id number] Abstract, Provider Social History Tobacco Use Types [...] on filedocumented in this encounter Care Teams Intelligence Group Supervisor Relationship Specialty Start Date End Date Carol Jiménez MD, MD PCP - General Internal Medicine 03/21/17 Ruddy Nicole NP PCP - General Family Practice 08/07/18 Carol Jiménez MD, MD Internal Medicine 08/07/18 documented as of this encounter
--- OUTSIDE RECORDS SUMMARY | 2024-08-13 15:27 | XMS_ITS | Clinical Summary ---
Author Organization [address] [facility] Address [address] [place] [address] Phone Care Team Providers Care Microbiology Technician Name Role Phone Ruddy Nicole NP Primary [...] obesity with BMI of 5 0.0-59.9, adult ([facility] V24, [facility] V28) 10/11/2018 DX:Morbid obesity wit h BMI of 50.0-59.9, adult ([facility]) Lumbar spinal stenosis 10/11/2018 DX:Lumbar [...] 99 02/13/2024 1:15 PM EST Temperature 36.6 C (97.8 F) 02/13/2024 1:15 PM EST Respiratory Rate 20 02/13/2024 1:15 PM EST [...] 1:00 PM EST Office Visit Pulmonolgy - [place] [address] [facility] [address] [place] [id number] Hayley Hutchins MD [address] [facility] [address] [place] [address] Health Maintenance Due Date Last Done Comments [...] 2023 05/06/2022, 05/22/2020, 05/01/2020 Influenza Vaccine (#1) 2024 HIB Vaccines Aged Out No longer [...] 5 Years) and At-Risk Patients (6 to 49 Years) Aged Out No longer eligible b ased on patient's age to complete this topic RSV Immunization Patients Under 20 months Aged Out No longer eligible b ased on patient's age to complete this topic Varicella Vaccines Aged Out No longer eligible based on patient's age to complete this topic Insurance MEDICARE MEDICAID - [place] Care Teams Microbiology Technician Relationship Specialty Start Date End Date Ruddy Nicole NP [address] [place], [place] PCP - General 08/07/18
== END 2024-08-13 15:54 | disposition home or self-care (01) ==
LOC: HO.HNS 14:58
PROVIDERS: PCP Nurse Practitioner Family; Visit Provider Physician Assistant
DX: M54.16 Radiculopathy, lumbar region (principal)
CPT/HCPCS: 99213

== ENCOUNTER → 2024-08-13 14:58 | Outpatient (BNVA) | payer MEDICARE, MEDICAID, SELFPAY | PROVIDERS: PCP Nurse Practitioner Family; Visit Provider Physician Assistant | DX: M54.16 Radiculopathy, lumbar region (principal); Z79.52 Long term (current) use of systemic steroids | CPT/HCPCS: 99212 ==

== ENCOUNTER 2024-08-22 10:24 | Outpatient (AMB) | payer OTHER, MEDICARE, SELFPAY ==
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
[2024-08-22 10:34] VITALS: BP 114/70; PULSE 79; RESP 18; TEMP 36.9; O2SAT 97; BMI 48.9
--- OUTSIDE RECORDS SUMMARY | 2024-08-22 11:00 | XMS_ITS | Clinical Summary ---
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 [address] [place] [address] Health Maintenance Due Date Last Done Comments [...] of Health Screening 01/17/2022 COVID-19 Vaccine (4 2023-2 5 season) 2023 [...] Insurance MEDICARE MEDICAID - [place] Care Teams [employer]orer [employer] Relationship Specialty Start Date End Date Ruddy Nicole NP [address] [place], [place] PCP - General 08/07/18
--- OUTSIDE RECORDS SUMMARY | 2024-08-22 11:00 | XMS_ITS | Encounter Summary ---
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 Please advise Appointment 04/09/2022 Encounter Details Date Type Department Care Team ([facility] st Contact Info) Description 04/09/2022 Telephone [facility] [address] [place] [address] Bharath Chand, DDS [address] [place] [address] Dentures (Michelle Greco 1960 Patient called in [...]
== END 2024-08-22 11:32 | disposition home or self-care (01) ==
LOC: HO.HMCC 10:25
PROVIDERS: PCP Nurse Practitioner Family; Visit Provider Nurse Practitioner Family
DX: F41.8 Other specified anxiety disorders (principal); I10 Essential (primary) hypertension; E78.5 Hyperlipidemia, unspecified

== ENCOUNTER → 2024-08-22 10:24 | Outpatient (BNVA) | payer OTHER, MEDICARE, SELFPAY | PROVIDERS: PCP Nurse Practitioner Family; Visit Provider Nurse Practitioner Family | DX: I10 Essential (primary) hypertension (principal); E78.5 Hyperlipidemia, unspecified; E66.01 Morbid (severe) obesity due to excess calories; F41.8 Other specified anxiety disorders; Z68.42 Body mass index [BMI] 45.0-49.9, adult | CPT/HCPCS: 96127 ==

== ENCOUNTER 2024-08-24 09:53 | Outpatient (AMB) | payer MEDICARE, MEDICAID, SELFPAY ==
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
--- OUTSIDE RECORDS SUMMARY | 2024-08-24 10:07 | XMS_ITS | Encounter Summary ---
Author Organization [employer] Address [address] [place] [address] Care Team Providers Care Sales Development Manager Name Role Phone Unavailable Primary Care Provider Unavailabl e Reason for Visit * Reason Onset Date Comments Dentures 04/09/2022 Michelle Greco 0 1960 Patient called in and stated if upper dentures repairs are in office. Please advise Appointment 04/09/2022 Encounter Details Date Type Department Care Team ([facility] st Contact Info) Description 04/09/2022 Telephone C [facility] ADULT DENTAL [address] [place] [address] Bharath Chand, DDS [address] [place] [address] Dentures (Michelle Greco 1960 Patient called in [...]
--- OUTSIDE RECORDS SUMMARY | 2024-08-24 10:07 | XMS_ITS | Encounter Summary ---
Author Organization [facility] Address [address] [place] [address] Care Team Providers Care Aemt Name Role Phone Carol Jiménez Md, MD Primary Care Provider Unavailable Ruddy Nicole NP Primary Care Provider Unavail able Carol Jiménez Md, MD Unavailable Unava ilable Encounter Details Date Type Department Care Team Description 04/28/2017 Release of Information Medical Records [address] [place] [id number] Abstract, Provider Social History Tobacco Use Types [...] on filedocumented in this encounter Care Teams Aemt Relationship Specialty Start Date End Date Carol Jiménez MD, MD PCP - General Internal Medicine 03/21/17 Ruddy Nicole NP PCP - General Family Practice 08/07/18 Carol Jiménez MD, MD Internal Medicine 08/07/18 documented as of this encounter
--- OUTSIDE RECORDS SUMMARY | 2024-08-24 10:07 | XMS_ITS | Clinical Summary ---
Author Organization [address] [facility] Address [address] [place] [address] Phone Care Team Providers Care Liquor Department Manager Name Role Phone Ruddy Nicole NP Primary [...] obesity with BMI of 5 0.0-59.9, adult ([facility] V24, [facility] V28) 10/11/2018 DX:Morbid obesity wit h BMI of 50.0-59.9, adult ([facility]) Lumbar spinal stenosis 10/11/2018 DX:Lumbar spinal stenosis; [...] 1:00 PM EST Office Visit Pulmonolgy - [place] [address] [place] [phone] Hayley Hutchins MD [address] [facility] [address] [place] [address] Health Maintenance Due Date Last Done Comments [...] Insurance MEDICARE MEDICAID - [place] Care Teams Liquor Department Manager Relationship Specialty Start Date End Date Ruddy Nicole NP [address] [place], [place] PCP - General 08/07/18
== END 2024-08-24 10:57 | disposition home or self-care (01) ==
LOC: HO.HUSH 09:53
PROVIDERS: PCP Nurse Practitioner Family; Visit Provider Urology
DX: N20.0 Calculus of kidney (principal); R31.0 Gross hematuria; Z87.891 Personal history of nicotine dependence; R10.9 Unspecified abdominal pain
CPT/HCPCS: 99214

== ENCOUNTER 2024-08-30 15:08 | Outpatient (REF) | payer MEDICARE, MEDICAID, SELFPAY ==
--- OUTSIDE RECORDS SUMMARY | 2024-08-30 15:14 | XMS_ITS | Clinical Summary ---
Author Organization [address] [facility] Address [address] [place] [address] Phone Care Team Providers Care Cap Inspector Name Role Phone Ruddy Nicole NP Primary Care Provider [phone] Allergies No known active allergies Medications aspirin [...] obesity with BMI of 5 0.0-59.9, adult ([facility] V24, [facility] V28) 10/11/2018 DX:Morbid obesity wit h BMI of 50.0-59.9, adult ([facility]) Lumbar spinal stenosis 10/11/2018 DX:Lumbar spinal stenosis; [...] 1:00 PM EST Office Visit Pulmonolgy - [place] [address] [place] [phone] Hayley Hutchins MD [address] [facility] [address] [place] [address] Health Maintenance Due Date Last Done Comments Breast Cancer Screening 1960 DTaP,Tdap,and Td Vaccines (1 - Tdap) 1980 Cervical Cancer Screening: P ap Smear 1982 Pneumococcal Vaccine: 50+ Years (1 of 1 - PCV) 06/13/2011 Zoster Vaccines (1 of 2) 06/13/2011 RSV Immunization Adult Patients (1 - Risk 60-74 years 1-dose series) 2021 Cholesterol Screening (Lipid Panel) 01/17/2022 Colorectal Cancer Screening: Colonoscopy 01/17/2022 HIV Screening 01/17/2022 Hepatitis C Screening 01/17/2022 Medicare Annual Wellness Visit 01/17/2022 Social Influencers of Health Screening 01/17/2022 COVID-19 Vaccine (4 - 2023-2 5 season) 2023 05/06/2022, 05/22/2020, 05/01/2020 Depression Screening 02/08/2024 Influenza Vaccine (#1) 2024 HIB Vaccines Aged [...] Insurance MEDICARE MEDICAID - [place] Care Teams Cap Inspector Relationship Specialty Start Date End Date Ruddy Nicole NP [address] [place], [place] PCP - General 08/07/18
--- OUTSIDE RECORDS SUMMARY | 2024-08-30 15:14 | XMS_ITS | Encounter Summary ---
Author Organization [employer] Address [address] [facility] [address] [place] [address] Care Team Providers Care Torch Shearer Name Role Phone Unavailable Primary Care Provider Unavailabl e Reason for Visit * Reason Onset Date Comments Dentures 04/09/2022 Michelle Greco 0 1960 Patient called in and stated if upper dentures repairs are in office. Please advise Appointment 04/09/2022 Encounter Details Date Type Department Care Team ([facility] st Contact Info) Description 04/09/2022 Telephone C [facility] ADULT DENTAL [address] [place] [address] Bharath Chand, DDS [address] [place] [address] Dentures (Michelle Greco 1960 Patient called in [...]
[2024-08-30 16:23] LABS: Appearance Urine Clear; Glucose Urine UA Negative (Negative); PH 7.0 (5.0-9.0); Specific Gravity - Urine <= 1.005 (1.005-1.025); UMIC TRIGGER UACC YES
[2024-08-30 16:24] LABS: MANUAL DIFF FLAG NO
[2024-08-30 16:39] LABS: Hematocrit 39.1 % (37.0-47.0); Hemoglobin 12.9 g/dl (12.0-16.0); Imm Gran Abs Auto 0.07 X10*3/uL (0.00-0.03); Imm Gran Pct Auto 0.6 % (0.0-0.4); Lymphocytes Absolute Auto 4.4 X10*3/uL (1.2-4.9); Mean Corpuscular HGB Conc 33.0 g/dl (31.0-35.0); Mean Corpuscular Hemoglobin 30.3 pg (27.0-33.0); Mean Corpuscular Volume 91.8 fL (80.0-98.0); NRBC Abs Auto 0.000 X10*3/uL (0.0-0.012); NRBC Pct Auto 0.0 /100WBC (0.0-0.2); Platelet Count 217 X10*3/uL (160-400); Red Blood Count 4.26 X10*6/uL (4.20-5.50); White Blood Count 12.4 X10*3/uL (4.8-10.8)
[2024-08-30 16:49] LABS: UACC Culture Trigger YES
[2024-08-30 17:08] LABS: Alanine Aminotransferase 43 U/L (0-31); Albumin Level 4.1 g/dL (3.5-5.0); Alkaline Phosphatase 110 U/L (39-117); Anion Gap 10 (12-20); Aspartate Amino Transferase 23 U/L (5-31); Blood Urea Nitrogen 15 mg/dL (9-16); Calcium 10.1 mg/dL (8.4-10.2); Carbon Dioxide 28 mmol/L (22-29); Chloride 106 mmol/L (96-108); Cholesterol 154 mg/dL (<200); Estimated Glomerular Filt Rate > 60; HDL Cholesterol 75 mg/dL (>40); Potassium 3.5 mmol/L (3.3-5.1); Sodium 140 mmol/L (135-145); Total Protein 6.6 g/dL (6.5-8.0); Triglycerides 74 mg/dL (<150)
[2024-08-30 18:17] LABS: Free T4 (Free Thyroxine) 1.46 ng/dL (0.71-1.85)
== END 2024-08-30 15:09 | disposition home or self-care (01) ==
LOC: HO.HMGCLDS 15:08
PROVIDERS: PCP Nurse Practitioner Family; Visit Provider Nurse Practitioner Family
DX: I10 Essential (primary) hypertension (principal); F41.8 Other specified anxiety disorders; E78.5 Hyperlipidemia, unspecified
CPT/HCPCS: 36415; 80053; 80061; 81001; 84439; 84443; 85025; 87086

== ENCOUNTER 2024-09-05 14:17 | Outpatient (REF) | payer MEDICARE, MEDICAID, SELFPAY ==
--- OUTSIDE RECORDS SUMMARY | 2024-09-05 14:59 | XMS_ITS | Clinical Summary ---
Author Organization 175 [facility] Address 175 [place] [address] Phone Care Team Providers Care Cutter Grinder Name Role Phone Ruddy Nicole NP Primary [...] with BMI of 5 0.0-59.9, adult ([facility] V24, [facility] V28) 10/11/2018 DX:Morbid obesity wit h BMI of 50.0-59.9, adult ([facility]) Lumbar spinal stenosis 10/11/2018 DX:Lumbar [...] 1:00 PM EST Office Visit Pulmonolgy - [place] 175 [facility] [address] [place] [phone] Hayley Hutchins MD 175 [facility] 200 [place] [address] Health Maintenance Due Date Last Done Comments [...] Insurance MEDICARE MEDICAID - [place] Care Teams Cutter Grinder Relationship Specialty Start Date End Date Ruddy Nicole NP [address] [place], [place] PCP - General 08/07/18
--- OUTSIDE RECORDS SUMMARY | 2024-09-05 14:59 | XMS_ITS | Encounter Summary ---
Author Organization [employer] Address 75 [facility] 7t [place] [address] Care Team Providers Care Lens Inspector Name Role Phone Unavailable Primary Care Provider Unavailabl e Reason for Visit * Reason Onset Date Comments Dentures 04/09/2022 Michelle Greco 0 1960 Patient called in and stated if upper dentures repairs are in office. Please advise Appointment 04/09/2022 Encounter Details Date Type Department Care Team ([facility] st Contact Info) Description 04/09/2022 Telephone C [facility] ADULT DENT[facility] [address] [place] [address] Bharath Chand, DDS [address] [place] [address] Dentures (Michelle Greco 1960 Patient called in [...]
[2024-09-05 16:04] LABS: MANUAL DIFF FLAG NO
[2024-09-05 16:10] LABS: Hematocrit 37.0 % (37.0-47.0); Hemoglobin 12.2 g/dl (12.0-16.0); Imm Gran Abs Auto 0.01 X10*3/uL (0.00-0.03); Imm Gran Pct Auto 0.1 % (0.0-0.4); Lymphocytes Absolute Auto 1.9 X10*3/uL (1.2-4.9); Mean Corpuscular HGB Conc 33.0 g/dl (31.0-35.0); Mean Corpuscular Hemoglobin 30.3 pg (27.0-33.0); Mean Corpuscular Volume 92.0 fL (80.0-98.0); NRBC Abs Auto 0.000 X10*3/uL (0.0-0.012); NRBC Pct Auto 0.0 /100WBC (0.0-0.2); Platelet Count 185 X10*3/uL (160-400); Red Blood Count 4.02 X10*6/uL (4.20-5.50); White Blood Count 6.9 X10*3/uL (4.8-10.8)
[2024-09-05 16:17] LABS: Appearance Urine Clear; Glucose Urine UA Negative (Negative); PH 7.0 (5.0-9.0); Specific Gravity - Urine <= 1.005 (1.005-1.025); UMIC TRIGGER UACC YES
[2024-09-05 17:26] LABS: Free T4 (Free Thyroxine) 1.50 ng/dL (0.71-1.85)
== END 2024-09-05 14:18 | disposition home or self-care (01) ==
LOC: HO.HMGCLDS 14:17
PROVIDERS: PCP Nurse Practitioner Family; Visit Provider Nurse Practitioner Family
DX: I95.1 Orthostatic hypotension (principal); R42 Dizziness and giddiness; I10 Essential (primary) hypertension; F41.8 Other specified anxiety disorders; E05.90 Thyrotoxicosis, unspecified without thyrotoxic crisis or storm; E78.5 Hyperlipidemia, unspecified; E03.9 Hypothyroidism, unspecified; D72.829 Elevated white blood cell count, unspecified
CPT/HCPCS: 36415; 81001; 81003; 84439; 84443; 85025; 99212

== ENCOUNTER 2024-09-05 14:31 | Outpatient (AMB) | payer MEDICARE, MEDICAID, SELFPAY ==
[2024-09-05 14:50] VITALS: BP 106/68; PULSE 91; TEMP 36.7; O2SAT 98; BMI 49.9
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
[2024-09-05 15:00] VITALS: BP 108/70
== END 2024-09-05 16:13 | disposition home or self-care (01) ==
PROVIDERS: PCP Nurse Practitioner Family; Visit Provider Physician Assistant
DX: I95.1 Orthostatic hypotension (principal); E05.90 Thyrotoxicosis, unspecified without thyrotoxic crisis or storm

== ENCOUNTER 2024-09-19 13:34 | Outpatient (AMB) | payer MEDICARE, MEDICAID, SELFPAY ==
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
--- OUTSIDE RECORDS SUMMARY | 2024-09-19 14:02 | XMS_ITS | Encounter Summary ---
Author Organization [employer] Address 75 [facility] 7t [place] [address] Care Team Providers Care Brick Veneer Maker Name Role Phone Unavailable Primary Care Provider Unavailabl e Reason for Visit * Reason Onset Date Comments Dentures 04/09/2022 Michelle Greco 0 1960 Patient called in and stated if upper dentures repairs are in office. Please advise Appointment 04/09/2022 Encounter Details Date Type Department Care Team ([facility] st Contact Info) Description 04/09/2022 Telephone C [facility]ULT [facility] [address] [place] [address] Bharath Chand, DDS [address] [place] [address] Dentures (Michelle Greco 1960 Patient called in [...]
--- OUTSIDE RECORDS SUMMARY | 2024-09-19 14:02 | XMS_ITS | Clinical Summary ---
Author Organization [address] [facility] Address [address] [place] [address] Phone Care Team Providers Care Court Operations Clerk Name Role Phone Ruddy Nicole NP [...] obesity with BMI of 5 0.0-59.9, adult ([facility] V24, [facility] V28) 10/11/2018 DX:Morbid obesity wit h BMI of 50.0-59.9, adult ([facility]) Lumbar spinal stenosis 10/11/2018 DX:Lumbar [...] 1:00 PM EST Office Visit Pulmonolgy - [place] 175 [facility] [address] [place] [phone] Hayley Hutchins MD 175 [facility] 200 [place] [address] Health Maintenance Due Date Last Done Comments [...] Insurance MEDICARE MEDICAID - [place] Care Teams Court Operations Clerk Relationship Specialty Start Date End Date Ruddy Nicole NP [address] [place], [place] PCP - General 08/07/18
== END 2024-09-19 14:18 | disposition home or self-care (01) ==
LOC: HO.HNS 13:35
PROVIDERS: PCP Nurse Practitioner Family; Visit Provider Neurological Surgery
DX: M51.16 Intervertebral disc disorders with radiculopathy, lumbar region (principal)
CPT/HCPCS: 99214

== ENCOUNTER → 2024-09-19 13:34 | Outpatient (BNVA) | payer MEDICARE, MEDICAID, SELFPAY | PROVIDERS: PCP Nurse Practitioner Family; Visit Provider Neurological Surgery | DX: M51.16 Intervertebral disc disorders with radiculopathy, lumbar region (principal); Z71.89 Other specified counseling | CPT/HCPCS: 99212 ==

== ENCOUNTER 2024-10-11 13:03 | Outpatient (REF) | payer MEDICARE, MEDICAID, SELFPAY ==
--- NOTE | ~2024-10-11 | US_ITS ---
EXAMINATION: US RETROPERITONEAL LIMITED (RENAL ONLY) CLINICAL INFORMATION: Calculus of kidney. COMPARISON: 03/29/2023. TECHNIQUE: Real-time imaging of the kidneys. FINDINGS: RIGHT KIDNEY: 11.6 x 4.4 x 4.7 cm (SAG x AP x TRV). The kidney is normal in size, contour, and echogenicity. Renal cortical thickness is normal. There is a focal parenchymal defect in the upper pole, likely scarring. There is a nonobstructing upper pole calculus measuring 5 x 5 x 8 mm. There is a mid pole calculus measuring 4 x 3 x 4 mm. No hydronephrosis. Suspicious lesion. LEFT KIDNEY: 11.8 x 4.6 x 5.1 cm (SAG x AP x TRV). The kidney is normal in size, contour, and echogenicity. Renal cortical thickness is normal. There is moderate hydronephrosis. There is a lower pole cyst measuring 1.3 cm. US/US renal BI IMPRESSION: 1. LEFT renal hydronephrosis. This is of uncertain etiology. 2. Nonobstructing right renal calculi. No RIGHT hydronephrosis present. 3. There is a simple LEFT lower kidney cyst measuring 1.3 cm Electronically signed by: Aquilino Quintana MD 10/11/2024 01:52 PM EDT
--- OUTSIDE RECORDS SUMMARY | 2024-10-11 14:18 | XMS_ITS | Clinical Summary ---
Author Organization [employer] Address 75 [facility] 7t [place] [address] Care Team Providers Care Registered Health Nurse Name Role Phone Unavailable Primary Care Provider [...] of 2) 06/13/2011 COVID-19 Vaccine (4 - 2024-2 6 season) 2024 05/06/2022, 05/22/2020, 05/01/2020 Influenza [...]
--- OUTSIDE RECORDS SUMMARY | 2024-10-11 14:18 | XMS_ITS | Encounter Summary ---
Author Organization [employer] Address 75 [facility] 7t [place] [address] Care Team Providers Care Lining Stamper Name Role Phone Unavailable Primary Care Provider Unavailabl e Reason for Visit * Reason Onset Date Comments Dentures 04/09/2022 Michelle Greco 0 1960 Patient called in and stated if upper dentures repairs are in office. Please advise Appointment 04/09/2022 Encounter Details Date Type Department Care Team ([facility] st Contact Info) Description 04/09/2022 Telephone C [facility] ADULT DENT[facility] [address] [place] [address] Bharath Chand, DDS [address] [place] [address] Dentures (Michelle Greco 1960 Patient called in [...]
--- OUTSIDE RECORDS SUMMARY | 2024-10-11 14:18 | XMS_ITS | Clinical Summary ---
Author Organization 175 [facility] Address [address] [place] [address] Phone Care Team Providers Care Fuels Sales Representative Name Role Phone Ruddy Nicole NP Primary [...] obesity with BMI of 5 0.0-59.9, adult ([facility] V24, [facility] V28) 10/11/2018 DX:Morbid obesity [...] 1:00 PM EST Office Visit Pulmonolgy - [place] 175 [facility] [address] [place] [address] Hayley Hutchins MD [address] [place] [phone] Health Maintenance Due Date Last Done Comments [...] patient's age to complete this topic Insurance * Guarantor: Michelle Greco Account Type Relation to Patient Date of Phone Billing Address Personal/Family Self [address] [place] [id number] MEDICARE MEDICAID - [place] Care Teams Fuels Sales Representative Relationship Specialty Start Date End Date Ruddy Nicole NP [address] [place], [place] PCP - General 08/07/18
--- OUTSIDE RECORDS SUMMARY | 2024-10-11 14:18 | XMS_ITS | Encounter Summary ---
Author Organization [employer] Address 75 [facility] 7t [place] [address] Care Team Providers Care Online Producer Name Role Phone Unavailable Primary Care [...]
--- OUTSIDE RECORDS SUMMARY | 2024-10-11 14:18 | XMS_ITS | Encounter Summary ---
Author Organization [employer] Address 75 [facility] 7t [place] [address] Care Team Providers Care Customer Counter Associate Name Role Phone Unavailable Primary Care Provider [...]
== END 2024-10-11 13:04 | disposition home or self-care (01) ==
LOC: HO.HMGCX 13:03
PROVIDERS: PCP Nurse Practitioner Family; Visit Provider Urology
DX: N20.0 Calculus of kidney (principal)
CPT/HCPCS: 76775

== ENCOUNTER → 2024-10-11 13:04 | Outpatient (BNV) | payer MEDICARE, MEDICAID, SELFPAY | PROVIDERS: PCP Nurse Practitioner Family; Visit Provider Radiology Diagnostic Radiology | DX: N13.2 Hydronephrosis with renal and ureteral calculous obstruction (principal); N28.1 Cyst of kidney, acquired | CPT/HCPCS: 76775 ==

== ENCOUNTER 2024-10-18 08:56 | Day surgery (SDC) | payer MEDICARE, MEDICAID, SELFPAY ==
[2024-10-09 11:08] VITALS: BMI 53.3
--- OUTSIDE RECORDS SUMMARY | 2024-10-09 12:34 | XMS_ITS | Encounter Summary ---
Author Organization [employer] Address 75 [facility] 7t [place] [address] Care Team Providers Care Naphthalene Operator Helper Name Role Phone Unavailable Primary Care Provider Unavailabl e Reason for Visit * Reason Onset Date Comments Dentures 04/09/2022 Michelle Greco 0 1960 Patient called in and stated if upper dentures repairs are in office. Please advise Appointment 04/09/2022 Encounter Details Date Type Department Care Team ([facility] st Contact Info) Description 04/09/2022 Telephone C [facility] ADULT DENTAL [address] [place] [address] Bharath Chand, DDS [address] [place] [address] Dentures (Michelle Greco 1960 Patient called in [...]
--- OUTSIDE RECORDS SUMMARY | 2024-10-09 12:34 | XMS_ITS | Clinical Summary ---
Author Organization 175 [facility] Address [address] [place] [address] Phone Care Team Providers Care Animal Laboratory Technician Name Role Phone Ruddy Nicole NP [...] obesity with BMI of 5 0.0-59.9, adult ([facility] V24, [facility] V28) 10/11/2018 DX:Morbid obesity wit h BMI of 50.0-59.9, adult ([facility]) Lumbar spinal stenosis 10/11/2018 DX:Lumbar spinal [...] 1:00 PM EST Office Visit Pulmonolgy - [place] 175 [facility] [address] [place] [address] Hayley Hutchins MD [address] [place] [phone] Health Maintenance Due Date Last Done Comments [...] 01/17/2022 Social Influencers of Health Screening 01/17/2022 Depression Screening 02/08/2024 COVID-19 Vaccine (2024-2 6 season) 2024 05/06/2022, 05/22/2020, 05/01/2020 Influenza Vaccine (#1) 2024 [...] Insurance MEDICARE [place]ICA[place] - [place] Care Teams Animal Laboratory Technician Relationship Specialty Start Date End Date Ruddy Nicole NP [address] [place], [place] PCP - General 08/07/18
--- OUTSIDE RECORDS SUMMARY | 2024-10-09 12:35 | XMS_ITS | Clinical Summary ---
Author Organization [employer] Address 75 [facility] 7t [place] [address] Care Team Providers Care Sap Abap Programmer Name Role Phone Unavailable Primary Care Provider [...] Panel 1960 SDOH Screening 1960 Sigmoidoscopy 1960 Disability Screening 1960 Alcohol/Substance Use Screening 1973 Tobacco Screening 1973 Hepatitis C Screening 06/13/1979 DTaP/Tdap/Td Vaccines (1 - Tdap) 1980 Pap Smear 1982 Cervical Cancer Screening 06/13/1991 HPV/Cotest 06/13/1991 Mammogram 2001 Pneumococcal Vaccine: 50+ Years (1 of 1 - PCV) 06/13/2011 Zoster Vaccines (1 of 2) 06/13/2011 COVID-19 Vaccine (4 - 2023-2 5 season) 2023 05/06/2022, 05/22/2020, 05/01/2020 Influenza Vaccine (#1) 2024 RSV Patients and Patients Aged 60 years [...]
--- OUTSIDE RECORDS SUMMARY | 2024-10-09 12:35 | XMS_ITS | Encounter Summary ---
Author Organization [employer] Address 75 [facility] 7t [place] [address] Care Team Providers Care Hydrogen Treater Name Role Phone Unavailable Primary Care Provider [...]
--- OUTSIDE RECORDS SUMMARY | 2024-10-09 12:35 | XMS_ITS | Encounter Summary ---
Author Organization [employer] Address 75 [facility] 7t [place] [address] Care Team Providers Care Stenographic Court Reporter Name Role Phone Unavailable Primary Care Provider [...]
--- NOTE | 2024-10-16 15:41 | P.DS_ITS ---
DS: Providers Provider Date of Service: 10/18/24 Date of discharge: 10/18/24 Primary care physician: STACIE Luo Admitting clinician: Chico Rivera DS: Diagnosis Discharge Diagnosis (1) Lumbar disc herniation with radiculopathy: Status: Acute DS: Summary Time Attestation Discharge Coordination Time (in mins): 5 Quality: Safe Use of Opioids Does Pt have an Active Cancer Diagnosis on the Problem List?: No Quality: Stroke Does the patient have a stroke diagnosis?: No Physical Exam Vital Signs: Vital Signs: BMI result Body Mass Index 53.3 Discharge Plan Discharge Patient Disposition: Home, Self-Care Referrals: Ruddy Nicole FNP-BC [Primary Care Provider, Internal Medicine] - 1 Week Discharge Medications: New docusate sodium [Colace] 100 mg capsule 100 mg PO BID Qty: 20 0RF oxycodone 5 mg tablet 5 mg PO Q4H PRN (Reason: pain) Qty: 20 0RF Rx Instructions: Partial Fill upon patient request. Continued atorvastatin 80 mg tablet 80 mg PO DAILY Qty: 90 3RF Calcium 600 with Vitamin D3 600 mg-10 mcg (400 unit) tablet,chewable 1 tab PO BID Qty: 180 1RF atenolol 25 mg tablet 25 mg PO DAILY Qty: 90 3RF bupropion HCl 300 mg tablet extended release 24 hr 300 mg PO QAM Qty: 90 0RF levothyroxine 150 mcg tablet 150 mcg PO QAM Qty: 90 1RF clotrimazole-betamethasone 1-0.05 % cream 1 appl topical BID PRN (Reason: itching) Rx Instructions: use a directed betamethasone, augmented 0.05 % ointment 1 appl topical BEDTIME PRN (Reason: itching) Qty: 45 0RF Rx Instructions: use as directed for itching celecoxib [Celebrex] 200 mg capsule 200 mg PO BID 30 Days Qty: 60 3RF tamsulosin [Flomax] 0.4 mg capsule 0.4 mg PO BEDTIME Qty: 20 0RF Held aspirin [Adult Low Dose Aspirin] 81 mg tablet,delayed release (DR/EC) 81 mg PO DAILY Hold Instructions: Resume on 10/25/24. You may resume aspirin 1 week after surgery No Action tirzepatide (weight loss) 12.5 mg/0.5 mL pen injector 12.5 mg subcut QWEEK Qty: 2 0RF Discharge Orders: Discharge Order (Routine); Ordered 10/18/24 Ordered By: Axel Cornejo Diet: Advance to usual diet Activity on Discharge: As tolerated Activity Restrictions/Additional Instructions: After your spinal surgery we ask you to observe the following restrictions/guidelines: Activity: It is normal to feel some discomfort as you increase your activity, but that will improve with time. We ask you avoid heavy lifting or acitivities that cause pain. As a general rule, 8lbs is a safe limit for lifting right after surgery. Walk as much as you feel comfortable but not to exhaustion. You will feel extra tired the first few days after surgery. Stay well hydrated. It is OK to walk up and down stairs You may return to driving when you are off narcotics (such as vicodin, oxycodone, dilaudid, etc), and you are back to normal functional capacity. If you have any concerns please check with office before driving. Return to work is specific to each patient and each surgery, so please speak with your doctor/PA at first follow up. Please bring paperwork such as FMLA at that time if you need it filled out. Medications: You may resume aspirin 1 week after surgery For optimum pain control, it is best to start with a combination of 500 mg of Tylenol every 4 hours with 600 mg of Motrin every 8 hours, and use narcotics as needed in between for breakthrough pain. We will give you a short supply of narcotics after surgery (usually one weeks worth). If you need more please call the office but do not use more than prescribed. You will need to give our office 48 hours notice if you need narcotics refilled and we do not fill narcotics on weekends or evenings. If you are on a narcotic, it is a good idea to take a stool softener such as colace or senna to avoid constipation If you take blood thinner such as aspirin, Plavix, Coumadin, Effient, Eliquis etc for conditions such as Afib, DVT, Pulmonary embolus, coronary disease, stents etc please speak with your surgeon about specific details as to when you can resume these medications. Follow up: Please call the office, , after surgery to arrange a 3 week follow up for wound check. Wound Care: You may remove your dressing on the first day after surgery. ?You may ?leave open to air. Please do not remove the steri strips underneath. they will fall off on their own in one week. IT IS NORMAL FOR THE WOUND TO OOZE OR BE BLOODY FOR A FEW DAYS AFTER SURGERY. ?IF THIS HAPPENS JUST PLACE NEW DRESSING OVER IT TO AVOID STAINING CLOTHES. You may shower on post op day # 1 We ask that you do not let the water soak the wound. If it does get wet, just towel dry lightly. Please do not scrub your incision or place any type of chemical/ointment on the wound. No tub baths, pools or jacuzzis for one month. If you have any leaking or redness from your wound, or fevers, please call o ffice Print Language: South Korean
[2024-10-18] VITALS (8 sets, daily range): BP systolic 103–127; BP diastolic 48–77; PULSE 71–80; RESP 12–18; TEMP 36.2–36.7; O2SAT 93–99; BMI 52.6
--- NOTE | ~2024-10-18 | FL_ITS ---
EXAMINATION: FL GUIDANCE ONLY HISTORY: L5-S1 microdiscectomy COMPARISON: None available. TECHNIQUE: Fluoroscopy time: 0.1 minutes. Cumulative Dose: 8.89 mGy. DAP: 1.90 mGym2 Images: 3. FINDINGS: Fluoroscopic spot films of the lumbar spine demonstrate a probe directed toward the L5-S1 intervertebral disc space. FL/FL guidance in OR IMPRESSION: Fluoroscopy during procedure. Please see procedure report for additional information. Electronically signed by: Ghassan Shultz MD 10/18/2024 12:29 PM EDT
[2024-10-18] MEDS: Lactated Ringers 1,000 ML 100 ML IVCONT (09:22)
--- NOTE | 2024-10-18 09:47 | MHC.SHP ---
Pre-Procedural Eval Section A - 24 Hr Update-Section A only Date of Service: 10/18/24 The patient is an INPATIENT: No Section B - Complete if H&P > 30 days Chief Complaint: Intervertebral disc disorders with radiculopathy, Details of Present Illness: Right leg pain Allergies: Allergies Allergy/AdvReac Type Severity Reaction Status Date / Time tioconazole (From Monistat 1 Allergy Intermediate Rash Verified 10/18/24 09:17 (tioconazole)) Penicillins Allergy Unknown Unknown Verified 10/18/24 09:17 Sulfa (Sulfonamide Allergy Unknown Unknown Verified 10/18/24 09:17 Antibiotics) Review of Systems Sugical H&P ROS: Negative: Constitution, Cardiovascular, Respiratory, Neurological, Psychiatric, Hem-Onc, Allergic/Immunologic, Gastrointestinal, Genitourinary, Musculoskeletal, Integumentary, Endocrine and Eyes/Ears/Nose/Throat Exam Surgical H&P Exam: Normal: HEENT, Normal: Heart, Normal: Lungs, Normal: Extremities, Normal: Abdomen, Normal: Skin and Normal: Neurological (Awake alert) Plan Diagnosis/Plan: Unchanged I have reviewed the history and physical and performed a pertinent physical examination on my patient. No changes have occurred unless specified. Right L5-S1 microdiskectomy metrics tubes Time Spent With Patient Time: Total time managing care of this patient today5 ____ minutes.
[2024-10-18] MEDS: vancomycin/NS 2,000 MG/500 ML PLAST..BAG 250 MG IV (10:07)
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
--- NOTE | 2024-10-18 12:40 | W.PM.OPN ---
Operative Note Operative Note Date of Service: 10/18/24 Narrative: Preoperative diagnosis: Right lumbar radiculopathy due to disc herniation Postoperative diagnosis: Same Procedure: Right L5-S1 microdiskectomy with microscope Surgeon: Chico Rivera MD, PhD Administrative Services Coordinator: bill Craig This morbidly obese patient with a BMI of 52.6 in suffering from right lumbar radiculopathy due to an extruded disc herniation L5-S1. The patient was offered a right L5-S1 microdiskectomy to decompress the nerve root. The procedure complications were explained. The patient was consented. The patient was brought to the operating room and endotracheally intubated. The patient was turned in a prone position on the Harsh frame. Positioning took much longer due to the patient's habitus. Prepping and draping was done followed by time-out. A mid lumbar incision was made followed by release of the paravertebral muscles on the right side side to expose the L5-S1 interspace. An intraoperative x-rays obtained to confirm the correct level. The microscope was brought in. A L5 laminotomy was done followed by opening of the flavum ligament. This whole process took 45 minutes compared to normal of approximately 10 minutes. The S1 nerve root was identified and retracted medially to expose the L5-S1 disc space. The MRI showed that the disc was caudally migrated. I was unable to find a disc herniation. However the removal of the flavum ligament and partial facetectomy decompress the nervous structures well. Hemostasis was done. The microscope was removed. Marcaine was injected intramuscularly.The incision was closed in two layers. Steri-Strips used to approximate the incision. An op-site were taken there was used to cover the incision. All sponge and needle counts were correct. Patient was extubated and transported in stable condition to recovery room. this procedure was done with the aid of a physician library services assistant who performed the initial exposure until the microscope was brought in and performed the closure of the incision. Anesthesia: General Blood loss: 10 mL Complications: None Specimen: None Surgical time: 90 minutes Disposition: Discharge home
[2024-10-18] MEDS: oxyCODONE HCl Immed Release 5 MG TABLET PO (13:29)
== END 2024-10-18 14:22 | disposition home or self-care (01) ==
LOC: HO.SSS 08:56
PROVIDERS: PCP Nurse Practitioner Family; Visit Provider Neurological Surgery
PROC: (CPT 63030; principal; 2024-10-18 10:50)
DX: M51.16 Intervertebral disc disorders with radiculopathy, lumbar region (principal); Z87.828 Personal history of other (healed) physical injury and trauma; G47.33 Obstructive sleep apnea (adult) (pediatric); Z88.0 Allergy status to penicillin; Z88.2 Allergy status to sulfonamides; Z88.8 Allergy status to other drugs, medicaments and biological substances
CPT/HCPCS: 63030; J0131; J1100; J1885; J2003; J2250; J2405; J2704; J3010; J3373

== ENCOUNTER → 2024-10-18 08:56 | Outpatient (BNV) | payer MEDICARE, MEDICAID, SELFPAY | PROVIDERS: PCP Nurse Practitioner Family; Visit Provider Physician Assistant | DX: M51.16 Intervertebral disc disorders with radiculopathy, lumbar region (principal) | CPT/HCPCS: 63030; 99499 ==

== ENCOUNTER 2024-10-31 13:33 | Outpatient (AMB) | payer MEDICARE, MEDICAID, SELFPAY ==
--- NOTE | 2024-10-31 13:37 | HO.SPINEOV ---
Intake Visit Reasons: incision check Intake Note: Ms. Greco is here today for her incision check. Java [email or web address] Application Developer Required: No Allergies tioconazole (From Monistat 1 (tioconazole)) Allergy (Intermediate, Verified 10/31/24 13:37) Rash Penicillins Allergy (Unknown, Verified 10/31/24 13:37) Unknown Sulfa (Sulfonamide Antibiotics) Allergy (Unknown, Verified 10/31/24 13:37) Unknown Assessment & Plan Assessment & Plan (1) S/P lumbar microdiscectomy: Code(s): Z98.890 - Other specified postprocedural states Category: Surgical Plan Michelle is a pleasant 64-year-old female comes in today for evaluation of her incision site, she states that it has been draining clear/bloody fluid since her surgery. The patient reports that the leaking from the incision site does not seem to be coming down at all, and she has continued to need to utilize nonadherent gauze and tape in order to stop the drainage from leaking onto are clothes. She has no pain at the incision site, but does report some associated swelling of the area. She denies any purulent white or yellow fluid draining from the incision. No at home fever, no chills, sweating, or nausea / vomiting. On examination the patient is well appearing and in no acute distress. She ambulates well with no assistive devices. The incision appears to be slightly opened near the bottom 1/3 with some leaking of clear / serosanguineous fluid. No obvious purulent fluid drainage. Mild erythema. Mild edema. No pain to manipulation of wound edges. No pain when expressing serosanguineous material. Dr. Rivera was in clinic with me today, so I had him come and look at the wound is well. He recommended starting the patient on a course of antibiotics that will cover both Gram-negative / Gram-positive as a preventative measure. This is likely draining fat necrosis or seroma. Low overall clinical suspicion for infection. We will follow the patient closely. I will have her keep her follow up appointment for next week. I did instruct her to supplement her diet with probiotics for the duration of her antibiotic therapy. I will also send in Diflucan for jose ppx per the patients request. Jaswinder Rivera MD,PhD [facility] Medications: New cephalexin 500 mg PO Q8H 21 caps 0RF prophylaxis 7 days doxycycline hyclate 100 mg PO BID 14 caps 0RF prophylaxis 7 days fluconazole Take 1 tablet after initiating antibiotics. Take second tablet if symptoms persist 3 days later. 150 mg PO Q3D 2 tabs 0RF 2 doses Coding Level of Care Code Global (62284) Diagnoses S/P lumbar microdiscectomy Z98.890
--- OUTSIDE RECORDS SUMMARY | 2024-10-31 15:59 | XMS_ITS | Encounter Summary ---
Author Organization [employer] Address [address] [facility] [address] [place] [address] Care Team Providers Care Ecommerce Marketing Manager Name Role Phone Unavailable Primary Care Provider Unavailabl e Reason for Visit * Reason Onset Date Comments Dentures 04/09/2022 Michelle Greco 0 1960 Patient called in and stated if upper dentures repairs are in office. Please advise Appointment 04/09/2022 Encounter Details Date Type Department Care Team ([facility] st Contact Info) Description 04/09/2022 Telephone C [facility]ULT [facility] [address] [place] [address] Bharath Chand, DDS [address] [place] [address] Dentures (Michelle Greco 1960 Patient called in [...]
--- OUTSIDE RECORDS SUMMARY | 2024-10-31 15:59 | XMS_ITS | Encounter Summary ---
Author Organization [employer] Address [address] [facility] [address] [place] [address] Care Team Providers Care Envelope Sealer Name Role Phone Unavailable Primary Care Provider [...]
--- OUTSIDE RECORDS SUMMARY | 2024-10-31 15:59 | XMS_ITS | Clinical Summary ---
Author Organization [address] [facility] Address [address] [place] [address] Phone Care Team Providers Care Investor Name Role Phone Ruddy Nicole NP Primary [...] obesity with BMI of 5 0.0-59.9, adult ([facility] V24, [facility] V28) 10/11/2018 DX:Morbid obesity wit h BMI of 50.0-59.9, adult ([facility]) Lumbar spinal stenosis 10/11/2018 DX:Lumbar spinal [...] Description 02/13/2025 1:00 PM EST Office Visit Pulmonology - [place] [address] [facility] [address] [place] [id number] Hayley Hutchins MD [address] [facility] [address] [place] [address] Health Maintenance Due Date Last Done Comments [...] Screening 01/17/2022 Depression Screening 02/08/2024 COVID-19 Vaccine (4 - 2024-2 6 season) [...] Insurance MEDICARE MEDICAID - [place] Care Teams Investor Relationship Specialty Start Date End Date Ruddy Nicole NP [address], [place] PCP - General 08/07/18
--- OUTSIDE RECORDS SUMMARY | 2024-10-31 15:59 | XMS_ITS | Encounter Summary ---
Author Organization [employer] Address [address] [facility] [address] [place] [address] Care Team Providers Care Certified Meeting Professional Name Role Phone Unavailable Primary Care Provider [...]
--- OUTSIDE RECORDS SUMMARY | 2024-10-31 15:59 | XMS_ITS | Clinical Summary ---
Author Organization [employer] Address [address] [facility] [address] [place] [address] Care Team Providers Care Machine Rug Cleaner Name Role Phone Unavailable Primary Care [...]
== END 2024-10-31 14:21 | disposition home or self-care (01) ==
LOC: HO.HNS 13:34
PROVIDERS: PCP Nurse Practitioner Family; Visit Provider Physician Assistant
DX: Z98.890 Other specified postprocedural states (principal)
CPT/HCPCS: 99024

== ENCOUNTER → 2024-10-31 13:33 | Outpatient (BNVA) | payer MEDICARE, MEDICAID, SELFPAY | PROVIDERS: PCP Nurse Practitioner Family; Visit Provider Physician Assistant | DX: T81.9XXA Unspecified complication of procedure, initial encounter (principal); Z98.890 Other specified postprocedural states | CPT/HCPCS: 99212 ==

== ENCOUNTER 2024-11-01 15:52 | Outpatient (AMB) | payer MEDICARE, MEDICAID, SELFPAY ==
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
--- OUTSIDE RECORDS SUMMARY | 2024-11-01 19:48 | XMS_ITS | Clinical Summary ---
Author Organization [address] [facility] Address [address] [place] [address] Phone Care Team Providers Care Electric Detector Operator Name Role Phone Ruddy Nicole NP Primary [...] obesity with BMI of 5 0.0-59.9, adult ([facility] V24, [facility] V28) 10/11/2018 DX:Morbid obesity wit h BMI of 50.0-59.9, adult ([facility]) Lumbar spinal stenosis 10/11/2018 DX:Lumbar [...] 1:00 PM EST Office Visit Pulmonology - [place] [address] [facility] [address] [place] [id number] Hayley Hutchins MD [address] [facility] [address] [place] [address] Health Maintenance Due Date Last Done Comments [...] Insurance MEDICARE MEDICAID - [place] Care Teams Electric Detector Operator Relationship Specialty Start Date End Date Ruddy Nicole NP [address] [place], [place] PCP - General 08/07/18
--- OUTSIDE RECORDS SUMMARY | 2024-11-01 19:48 | XMS_ITS | Encounter Summary ---
Author Organization [email or web address] Address [address] [facility] [address] [place] [address] Care Team Providers Care Business Center Representative Name Role Phone Unavailable Primary Care Provider Unavailabl e Reason for Visit * Reason Onset Date Comments Dentures 04/09/2022 Michelle Greco 0 1960 Patient called in and stated if upper dentures repairs are in office. Please advise Appointment 04/09/2022 Encounter Details Date Type Department Care Team ([facility] st Contact Info) Description 04/09/2022 Telephone C [facility] ADULT DENTAL [address] [place] [address] Bharath Chand, DDS [address] [place] [address] Dentures (Michelle Greco 1960 Patient called in [...]
--- OUTSIDE RECORDS SUMMARY | 2024-11-01 19:48 | XMS_ITS | Clinical Summary ---
Author Organization [employer] Address [address] [facility] [address] [place] [address] Care Team Providers Care Clinical Aide Name Role Phone Unavailable Primary Care Provider [...]
--- OUTSIDE RECORDS SUMMARY | 2024-11-01 19:48 | XMS_ITS | Encounter Summary ---
Author Organization [employer] Address [address] [facility] [address] [place] [address] Care Team Providers Care Account Manager Sales Representative Name Role Phone Unavailable Primary Care [...]
--- OUTSIDE RECORDS SUMMARY | 2024-11-01 19:48 | XMS_ITS | Encounter Summary ---
Author Organization [employer] Address [address] [facility] [address] [place] [address] Care Team Providers Care Breastfeeding Educator Name Role Phone Unavailable Primary Care Provider [...]
== END 2024-11-01 17:00 | disposition home or self-care (01) ==
LOC: HO.HUSH 15:52
PROVIDERS: PCP Nurse Practitioner Family; Visit Provider Urology
DX: N20.0 Calculus of kidney (principal); R31.0 Gross hematuria; Z87.891 Personal history of nicotine dependence; N13.30 Unspecified hydronephrosis
CPT/HCPCS: 99214

== ENCOUNTER 2024-11-02 15:27 | Outpatient (AMB) | payer MEDICARE, MEDICAID, SELFPAY ==
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
[2024-11-02 15:36] VITALS: BP 173/95; PULSE 97; O2SAT 98; BMI 52.9
--- OUTSIDE RECORDS SUMMARY | 2024-11-02 15:53 | XMS_ITS | Encounter Summary ---
Author Organization [employer] Address [address] [facility] 7t [place] [address] Care Team Providers Care Activities Coordinator Name Role Phone Unavailable Primary Care [...]
--- OUTSIDE RECORDS SUMMARY | 2024-11-02 15:53 | XMS_ITS | Clinical Summary ---
Author Organization 175 [facility] Address [address] [place] [address] Phone Care Team Providers Care Mechanical Engineering Officer Name Role Phone Ruddy Nicole NP Primary [...] obesity with BMI of 5 0.0-59.9, adult ([facility] V24, [facility] V28) 10/11/2018 DX:Morbid obesity wit h BMI of 50.0-59.9, adult ([facility]) Lumbar spinal stenosis 10/11/2018 DX:Lumbar [...] 1:00 PM EST Office Visit Pulmonology - [place] [address] [facility] [address] [place] [phone] Hayley Hutchins MD [address] [facility] [address] [place] [address] Health Maintenance Due Date Last Done Comments [...] Insurance MEDICARE MEDICAID - [place] Care Teams Mechanical Engineering Officer Relationship Specialty Start Date End Date Ruddy Nicole NP [address] [place], [place] PCP - General 08/07/18
--- OUTSIDE RECORDS SUMMARY | 2024-11-02 15:53 | XMS_ITS | Encounter Summary ---
Author Organization [employer] Address [address] [facility] 7t [place] [address] Care Team Providers Care Customer Quality Engineer Name Role Phone Unavailable Primary Care Provider [...]
--- OUTSIDE RECORDS SUMMARY | 2024-11-02 15:53 | XMS_ITS | Encounter Summary ---
Author Organization [employer] Address [address] [facility] [address]t [place] [address] Care Team Providers Care Technician Support Association Name Role Phone Unavailable Primary Care Provider Unavailabl e Reason for Visit * Reason Onset Date Comments Dentures 04/09/2022 Michelle Greco 0 1960 Patient called in and stated if upper dentures repairs are in office. Please advise Appointment 04/09/2022 Encounter Details Date Type Department Care Team ([facility] st Contact Info) Description 04/09/2022 Telephone C [facility] ADULT DENTAL [address] [place] [address] Bharath Chand, DDS [address] [place] [address] Dentures (Michelle Greco 1960 Patient called in [...]
--- OUTSIDE RECORDS SUMMARY | 2024-11-02 15:53 | XMS_ITS | Clinical Summary ---
Author Organization [employer] Address [address] [facility] [address] [place] [address] Care Team Providers Care Tank Terminal Gauger Name Role Phone Unavailable Primary Care Provider [...]
== END 2024-11-02 16:08 | disposition home or self-care (01) ==
LOC: HO.PMC 15:28
PROVIDERS: PCP Nurse Practitioner Family; Visit Provider Nurse Practitioner Family
DX: M25.562 Pain in left knee (principal); M23.307 Other meniscus derangements, unspecified meniscus, left knee; M17.0 Bilateral primary osteoarthritis of knee
CPT/HCPCS: 99204

== ENCOUNTER → 2024-11-02 15:27 | Outpatient (BNVA) | payer MEDICARE, MEDICAID, SELFPAY | PROVIDERS: PCP Nurse Practitioner Family; Visit Provider Nurse Practitioner Family | DX: M17.0 Bilateral primary osteoarthritis of knee (principal); M23.307 Other meniscus derangements, unspecified meniscus, left knee; M25.562 Pain in left knee | CPT/HCPCS: 99202 ==

== ENCOUNTER 2024-11-06 12:53 | Outpatient (REF) | payer MEDICARE, MEDICAID, SELFPAY ==
--- OUTSIDE RECORDS SUMMARY | 2024-11-06 14:02 | XMS_ITS | Encounter Summary ---
Author Organization [employer] Address [address] [facility] [address] [place] [address] Care Team Providers Care Holiday Detector Operator Name Role Phone Unavailable Primary Care [...]
--- OUTSIDE RECORDS SUMMARY | 2024-11-06 14:02 | XMS_ITS | Encounter Summary ---
Author Organization [employer] Address [address] [facility] [address] [place] [address] Care Team Providers Care Pipe Connector Name Role Phone Unavailable Primary Care Provider [...]
--- OUTSIDE RECORDS SUMMARY | 2024-11-06 14:02 | XMS_ITS | Encounter Summary ---
Author Organization [employer] Address [address] [facility] [address] [place] [address] Care Team Providers Care Tagman Name Role Phone Unavailable Primary Care Provider Unavailabl e Reason for Visit * Reason Onset Date Comments Dentures 04/09/2022 Michelle Greco 0 1960 Patient called in and stated if upper dentures repairs are in office. Please advise Appointment 04/09/2022 Encounter Details Date Type Department Care Team ([facility] st Contact Info) Description 04/09/2022 Telephone C [facility] ADULT DENTAL [address] [place] [address] Bharath Chand, DDS [address] [place] [address] Dentures (Michelle Greco 1960 Patient called in [...]
--- OUTSIDE RECORDS SUMMARY | 2024-11-06 14:02 | XMS_ITS | Clinical Summary ---
Author Organization 175 [facility] Address [address] [place] [address] Phone Care Team Providers Care Network Support Name Role Phone Ruddy Nicole NP Primary [...] apnea syndrome 07/19/2016 Pulmonary nodule 04/07/2016 Immunizations Immunization Administration Dates Next Due Pfizer SARS-CoV-2 COVID-19, [...] obesity with BMI of 5 0.0-59.9, adult ([facility] V24, [facility] V28) 10/11/2018 DX:Morbid obesity wit h BMI of 50.0-59.9, adult ([facility]) Lumbar spinal stenosis 10/11/2018 DX:Lumbar spinal stenosis; [...] 1:00 PM EST Office Visit Pulmonology - [place] [address] [facility] [address] [place] [phone] Hayley Hutchins MD [address] [facility] [address] [place] [address] Health Maintenance Due Date Last Done Comments [...] Insurance MEDICARE MEDICAID - [place] Care Teams Network Support Relationship Specialty Start Date End Date Ruddy Nicole NP [address] [place], [place] PCP - General 08/07/18
--- OUTSIDE RECORDS SUMMARY | 2024-11-06 14:02 | XMS_ITS | Clinical Summary ---
Author Organization [employer] Address [address] [facility] [address] [place] [address] Care Team Providers Care Collections Assistant Name Role Phone Unavailable Primary Care Provider [...]
== END 2024-11-06 12:54 | disposition home or self-care (01) ==
LOC: HO.HMGCLDS 12:53
PROVIDERS: PCP Nurse Practitioner Family; Referring Provider Urology; Visit Provider Nurse Practitioner Family
DX: E03.9 Hypothyroidism, unspecified (principal)
CPT/HCPCS: 36415; 84443

== ENCOUNTER 2024-11-08 14:12 | Outpatient (AMB) | payer MEDICARE, MEDICAID, SELFPAY ==
--- NOTE | 2024-11-08 14:18 | HO.SPINEOV ---
Intake Visit Reasons: 1st post op Intake Note: Ms. Greco is here today for her 1st post op. Lithographing Machine Operator Required: No Allergies tioconazole (From Monistat 1 (tioconazole)) Allergy (Intermediate, Verified 11/02/24 15:35) Rash Penicillins Allergy (Unknown, Verified 11/02/24 15:35) Unknown Sulfa (Sulfonamide Antibiotics) Allergy (Unknown, Verified 11/02/24 15:35) Unknown Assessment & Plan Assessment & Plan (1) S/P lumbar microdiscectomy: Code(s): Z98.890 - Other specified postprocedural states Category: Surgical Plan Michelle is a pleasant 64-year-old female comes in today for follow up re: evaluation of her incision site. She states that it has slowed down draining significantly since she was evaluated last week. About 1/3 of her incision site has healed, but she reports that the inferior portion has remained open. She has been doing daily dressing changes, and attempting to keep the area clean via daily hygeine. She did complete her antibiotic course yesterday after we manipulated her wound in office during her last visit. This was sent in as a prophylactic measure. On examination the patient is well appearing and in no acute distress. She ambulates well with no assistive devices. The incision appears to remain opened near the bottom 1/3 of the incision. This area was cleansed with iodine and again covered with non-adherent gauze and cloth tape. The patient was evaluated alongside my attending neurosurgeon Dr. Rivera, who believes the wound will simply heal on its own over the course of the next few weeks. We believe that due to her body habitus some of the superficial sutures may have broken, precipitating the wound opening slightly. We would like to follow her closely until the wound closes up a bit more. We will see her back in clinic next week. Jaswinder Rivera MD,PhD [facility] Coding Level of Care Code Global (85042) Diagnoses S/P lumbar microdiscectomy Z98.890
--- OUTSIDE RECORDS SUMMARY | 2024-11-08 15:50 | XMS_ITS | Encounter Summary ---
Author Organization [employer] Address [address] [facility] [address] [place] [address] Care Team Providers Care Facilities Officer Name Role Phone Unavailable Primary Care Provider Unavailabl e Reason for Visit * Reason Onset Date Comments Dentures 04/09/2022 Michelle Greco 0 1960 Patient called in and stated if upper dentures repairs are in office. Please advise Appointment 04/09/2022 Encounter Details Date Type Department Care Team ([facility] st Contact Info) Description 04/09/2022 Telephone C [facility]ULT [facility] [address] [place] [address] Bharath Chand, DDS [address] [place] [address] Dentures (Michelle Greco 1960 Patient called in [...]
--- OUTSIDE RECORDS SUMMARY | 2024-11-08 15:51 | XMS_ITS | Encounter Summary ---
Author Organization [employer] Address [address] [facility] [address] [place] [address] Care Team Providers Care Wash Oil Pump Operator Name Role Phone Unavailable Primary Care [...]
--- OUTSIDE RECORDS SUMMARY | 2024-11-08 15:51 | XMS_ITS | Clinical Summary ---
Author Organization [employer] Address [address] [facility] 7t [place] [address] Care Team Providers Care Loan Adviser Name Role Phone Unavailable Primary Care Provider [...]
--- OUTSIDE RECORDS SUMMARY | 2024-11-08 15:51 | XMS_ITS | Clinical Summary ---
Author Organization 175 [facility] Address [address] [place] [address] Phone Care Team Providers Care Aviation Metalsmith Name Role Phone Ruddy Nicole NP Primary Care Provider [phone] Allergies No known active allergies Medications aspirin [...] obesity with BMI of 5 0.0-59.9, adult ([facility] V24, [facility] V28) 10/11/2018 DX:Morbid obesity wit h BMI of 50.0-59.9, adult ([facility]) Lumbar spinal stenosis 10/11/2018 DX:Lumbar spinal stenosis; [...] 1:00 PM EST Office Visit Pulmonology - [place] [address] [facility] [address] [place] [phone] Hayley Hutchins MD [address] [facility] [address] [place] [address] Health Maintenance Due Date Last Done Comments Breast Cancer Screening 1960 Colorectal Cancer Screening: Colonoscopy 1960 DTaP,Tdap,and Td Vaccines (1 - Tdap) 1980 Cervical Cancer Screening: P ap Smear 1982 Pneumococcal Vaccine: 50+ Years (1 of 1 - PCV) 06/13/2011 Zoster Vaccines (1 of 2) 06/13/2011 RSV Immunization Adult Patients (1 - Risk 60-74 years 1-dose series) 2021 Cholesterol Screening (Lipid Panel) 01/17/2022 HIV Screening 01/17/2022 Hepatitis C Screening 01/17/2022 Medicare Annual Wellness Visit 01/17/2022 Social Influencers of Health Screening 01/17/2022 Depression Screening 02/08/2024 COVID-19 Vaccine (4 2024-2 6 season) 2024 05/06/2022, 05/22/2020, 05/01/2020 [...] Insurance MEDICARE MEDICAID - [place] Care Teams Aviation Metalsmith Relationship Specialty Start Date End Date Ruddy Nicole NP [address] [place], [place] PCP - General 08/07/18
--- OUTSIDE RECORDS SUMMARY | 2024-11-08 15:51 | XMS_ITS | Encounter Summary ---
Author Organization [employer] Address [address] [facility] [address]t [place] [address] Care Team Providers Care Mechanical Apprentice Name Role Phone Unavailable Primary Care Provider [...]
== END 2024-11-08 14:46 | disposition home or self-care (01) ==
PROVIDERS: PCP Nurse Practitioner Family; Visit Provider Neurological Surgery
DX: Z98.890 Other specified postprocedural states (principal)
CPT/HCPCS: 99024

== ENCOUNTER 2024-11-12 14:02 | Outpatient (REF) | payer MEDICARE, MEDICAID, SELFPAY ==
--- NOTE | ~2024-11-12 | CT_ITS ---
EXAMINATION: CT ABDOMEN AND PELVIS WITHOUT CONTRAST CLINICAL INFORMATION: N13.30 - Unspecified hydronephrosis seen on ultrasound 10/11/2024 COMPARISON: CT 01/16/2024 and ultrasound 10/11/2024 TECHNIQUE: Multidetector volumetric imaging was performed from the superior aspect of the liver through the pubic symphysis. Sagittal and coronal reformatted images were obtained on the technologist's workstation. This CT examination was performed using dose optimization techniques as appropriate, variously including the following: *Automated exposure control *Adjustment of mA and/or kV according to patient size (this includes techniques or standardized protocols for targeted exams where dose is matched to indication/reason for exam; i.e. extremities or head) *Use of iterative reconstruction technique FINDINGS: LUNG BASES: The visualized lung bases are unremarkable. LIVER, GALLBLADDER, AND BILIARY TREE: The liver is normal in size, shape, and attenuation. No focal hepatic lesion or biliary ductal dilatation is present. Gallbladder is surgically absent and there are clips in the gallbladder fossa. There is no bile duct dilation. PANCREAS: Unremarkable. SPLEEN: Unremarkable. ADRENAL GLANDS: Unremarkable. KIDNEYS AND URETERS: There is a 7 mm nonobstructing stone in the upper pole right kidney, slightly increased in size from the prior. There is a 2 mm nonobstructing stone in the lower pole right kidney, new since the prior. 5 x 14 mm nonobstructing stone is present in the lower pole left kidney, increased in size since the prior. There is minimal left hydronephrosis and a left ureterovesicular junction stone measuring 4 x 5 mm. BLADDER: Aside from the left UVJ stone, unremarkable. GASTROINTESTINAL TRACT/ABDOMINAL WALL: There is an infra-umbilical hernia. It is present on the prior study. The neck is 3.3 cm diameter. It contains adipose tissue and a segment of small bowel. Previously, it did not contain small bowel. The hernia sac measures 7.0 x 9.6 cm which is slightly smaller than on the prior. There is no obstruction. Right supra-umbilical hernia containing adipose tissue is unchanged. Hernia sac measures 2.6 x 4.8 cm. The neck of the hernia is 2 cm diameter. The appendix is within normal limits. LYMPH NODES: Normal. VASCULAR: Multifocal vascular calcifications are evident. PELVIC VISCERA: Uterus and ovaries are unremarkable. OSSEOUS STRUCTURES: Degenerative disc disease most advanced at L5-S1. CT/CT kidney stone IMPRESSION: Left UVJ stone measuring 4 x 5 mm results in minimal hydronephrosis. There are additional kidney stones bilaterally that are increasing in size. Again seen is a infraumbilical hernia. Although the hernia sac is smaller than on the prior, it now contains small bowel which it did not previously. There is no sign of obstruction. Stable right supraumbilical hernia containing adipose tissue. Fleischner guidelines were followed. Electronically signed by: Vinh Olivo MD 11/12/2024 04:10 PM EDT RP
--- OUTSIDE RECORDS SUMMARY | 2024-11-12 16:36 | XMS_ITS | Clinical Summary ---
Author Organization 175 [facility] Address [address] [place] [address] Phone Care Team Providers Care Upper Extremity Surgeon Name Role Phone Ruddy Nicole NP Primary Care Provider [phone] Allergies No known active allergies Medications aspirin [...] obesity with BMI of 5 0.0-59.9, adult ([facility] V24, [facility] V28) 10/11/2018 DX:Morbid obesity wit h BMI of 50.0-59.9, adult ([facility]) Lumbar spinal stenosis 10/11/2018 DX:Lumbar [...] 1:00 PM EST Office Visit Pulmonology - [place] 175 [facility] [address] [place] [phone] Hayley Hutchins MD [address] [facility] [address] [place] [address] Health Maintenance Due Date Last Done Comments [...] Insurance MEDICARE MEDICAID - [place] Care Teams Upper Extremity Surgeon Relationship Specialty Start Date End Date Ruddy Nicole NP [address] [place], [place] PCP - General 08/07/18
--- OUTSIDE RECORDS SUMMARY | 2024-11-12 16:36 | XMS_ITS | Encounter Summary ---
Author Organization [employer] Address [address] [facility] [address] [place] [address] Care Team Providers Care Furniture Associate Name Role Phone Unavailable Primary Care [...]
--- OUTSIDE RECORDS SUMMARY | 2024-11-12 16:36 | XMS_ITS | Encounter Summary ---
Author Organization [employer] Address [address] [facility] [address]t [place] [address] Care Team Providers Care Environmental Program Manager Name Role Phone Unavailable Primary Care Provider Unavailabl e Reason for Visit * Reason Onset Date Comments Dentures 04/09/2022 Michelle Greco 0 1960 Patient called in and stated if upper dentures repairs are in office. Please advise Appointment 04/09/2022 Encounter Details Date Type Department Care Team ([facility] st Contact Info) Description 04/09/2022 Telephone C [facility] ADULT DENTAL [address] [place] [address] Bharath Chand, DDS [address] [place] [address] Dentures (Michelle Greco 1960 Patient called in [...]
--- OUTSIDE RECORDS SUMMARY | 2024-11-12 16:36 | XMS_ITS | Clinical Summary ---
Author Organization [employer] Address [address] [facility] [address] [place] [address] Care Team Providers Care Sanitary Inspector Name Role Phone Unavailable Primary Care [...]
--- OUTSIDE RECORDS SUMMARY | 2024-11-12 16:36 | XMS_ITS | Encounter Summary ---
Author Organization [employer] Address [address] [facility] 7t [place] [address] Care Team Providers Care Necktie Operator Pockets And Pieces Name Role Phone Unavailable Primary Care Provider [...]
== END 2024-11-12 14:03 | disposition home or self-care (01) ==
LOC: HO.CT 14:02
PROVIDERS: PCP Nurse Practitioner Family; Visit Provider Urology
DX: N20.0 Calculus of kidney (principal); N13.30 Unspecified hydronephrosis; Z98.890 Other specified postprocedural states
CPT/HCPCS: 74176; 99212

== ENCOUNTER → 2024-11-12 14:03 | Outpatient (BNV) | payer MEDICARE, MEDICAID, SELFPAY | PROVIDERS: PCP Nurse Practitioner Family; Visit Provider Radiology Diagnostic Radiology | DX: N13.2 Hydronephrosis with renal and ureteral calculous obstruction (principal); K42.9 Umbilical hernia without obstruction or gangrene | CPT/HCPCS: 74176 ==

== ENCOUNTER 2024-11-13 14:58 | Outpatient (REF) | payer MEDICARE, MEDICAID, SELFPAY ==
[2024-11-13 16:38] LABS: Blood Urea Nitrogen 13 mg/dL (9-16); Estimated Glomerular Filt Rate > 60
--- OUTSIDE RECORDS SUMMARY | 2024-11-13 18:15 | XMS_ITS | Encounter Summary ---
Author Organization [employer] Address 75 [facility] 7t [place] [address] Care Team Providers Care Elementary School Music Teacher Name Role Phone Unavailable Primary Care Provider [...]
--- OUTSIDE RECORDS SUMMARY | 2024-11-13 18:15 | XMS_ITS | Encounter Summary ---
Author Organization [employer] Address 75 [facility] 7t [place] [address] Care Team Providers Care Rotary Drill Operator Name Role Phone Unavailable Primary Care [...]
--- OUTSIDE RECORDS SUMMARY | 2024-11-13 18:15 | XMS_ITS | Clinical Summary ---
Author Organization 175 [facility] Address [address] [place] [address] Phone Care Team Providers Care Financial Brokers Name Role Phone Ruddy Nicole NP Primary [...] obesity with BMI of 5 0.0-59.9, adult ([facility] V24, [facility] V28) 10/11/2018 DX:Morbid obesity wit h BMI of 50.0-59.9, adult ([facility]) Lumbar spinal stenosis 10/11/2018 DX:Lumbar [...] 1:00 PM EST Office Visit Pulmonology - [place] [address] [facility] [address] [place] [phone] Hayley Hutchins MD [address] [facility] [address] [place] [address] Health Maintenance Due Date Last Done Comments [...] Insurance MEDICARE MEDICAID - [place] Care Teams Financial Brokers Relationship Specialty Start Date End Date Ruddy Nicole NP [address] [place], [place] PCP - General 08/07/18
--- OUTSIDE RECORDS SUMMARY | 2024-11-13 18:15 | XMS_ITS | Encounter Summary ---
Author Organization [employer] Address 75 [facility] 7t [place] [address] Care Team Providers Care Airline Security Representative Name Role Phone Unavailable Primary Care Provider Unavailabl e Reason for Visit * Reason Onset Date Comments Dentures 04/09/2022 Michelle Greco 0 1960 Patient called in and stated if upper dentures repairs are in office. Please advise Appointment 04/09/2022 Encounter Details Date Type Department Care Team ([facility] st Contact Info) Description 04/09/2022 Telephone C [facility] ADULT DENTAL [address] [place] [address] Bharath Chand, DDS [address] [place] [address] Dentures (Michelle Greco 1960 Patient called in [...]
--- OUTSIDE RECORDS SUMMARY | 2024-11-13 18:15 | XMS_ITS | Clinical Summary ---
Author Organization [employer] Address 75 [facility] 7t [place] [address] Care Team Providers Care Fountain Waitress/Waiter Name Role Phone Unavailable Primary Care Provider [...]
== END 2024-11-13 14:59 | disposition home or self-care (01) ==
LOC: HO.HMGCLDS 14:58
PROVIDERS: PCP Nurse Practitioner Family; Visit Provider Urology
DX: N13.2 Hydronephrosis with renal and ureteral calculous obstruction (principal)
CPT/HCPCS: 36415; 82565; 84520

== ENCOUNTER 2024-11-15 14:28 | Outpatient (AMB) | payer MEDICARE, MEDICAID, SELFPAY ==
--- NOTE | 2024-11-15 14:31 | HO.SPINEOV ---
Intake Visit Reasons: 1 week f/up Intake Note: Ms. Greco is here today for her 1 week F/u incision. Slab Conditioner Supervisor Required: No Allergies tioconazole (From Monistat 1 (tioconazole)) Allergy (Intermediate, Verified 11/02/24 15:35) Rash Penicillins Allergy (Unknown, Verified 11/02/24 15:35) Unknown Sulfa (Sulfonamide Antibiotics) Allergy (Unknown, Verified 11/02/24 15:35) Unknown Assessment & Plan Assessment & Plan (1) Back pain: Code(s): M54.9 - Dorsalgia, unspecified Category: Medical Plan MRs Greco came in for wound follow-up. She has been having no fevers, having minimal discharge from the wound. No significant back pain. Intermittent sciatic pains, occasionally on the left side now. She has had no trouble with the wound. I evaluated it and there is about a 1 cm opening at the inferior pole. It looks like it is yellowish sloughed off serous tissue, there is no redness around the wound to suggest it is infected. There is no discharge upon palpation. It is very superficial opening in the wound. However, I looked at it with Dr. Rivera, and it looks like it could benefit from having some of the tissue denuded to get some fresh blood supply into the area as it has not healed much over the last week. I used a scalpel after sterilizing the area with Betadine and cut off some of the serous tissue to expose more active bleeding to the area. I reinforced it with a bandage. I will follow up with her next week. She will obviously call if she develops any signs of infection. Axel Rivera MD, PhD [facility] Coding Level of Care Code Global (63544) Diagnoses Back pain M54.9
--- OUTSIDE RECORDS SUMMARY | 2024-11-15 14:32 | XMS_ITS | Clinical Summary ---
Author Organization [employer] Address [address] [facility] 7t [place] [address] Care Team Providers Care Urban Redevelopment Specialist Name Role Phone Unavailable Primary Care [...]
--- OUTSIDE RECORDS SUMMARY | 2024-11-15 14:32 | XMS_ITS | Clinical Summary ---
Author Organization 175 [facility] Address [address] [place] [address] Phone Care Team Providers Care Street And Building Decorator Name Role Phone Ruddy Nicole NP Primary [...] obesity with BMI of 5 0.0-59.9, adult ([facility] V24, [facility] V28) 10/11/2018 DX:Morbid obesity wit h BMI of 50.0-59.9, adult ([facility]) Lumbar spinal stenosis 10/11/2018 DX:Lumbar spinal stenosis; [...] 1:00 PM EST Office Visit Pulmonology - [place] [address] [facility] [address] [place] [phone] Hayley Hutchins MD [address] [facility] [address] [place] [address] Health Maintenance Due Date Last Done Comments [...] Insurance MEDICARE MEDICAID - [place] Care Teams Street And Building Decorator Relationship Specialty Start Date End Date Ruddy Nicole NP [address] [place], [place] PCP - General 08/07/18
--- OUTSIDE RECORDS SUMMARY | 2024-11-15 14:32 | XMS_ITS | Encounter Summary ---
Author Organization [employer] Address [address] [facility] 7t [place] [address] Care Team Providers Care Tool Maker Apprentice Name Role Phone Unavailable Primary Care Provider Unavailabl e Reason for Visit * Reason Onset Date Comments Dentures 04/09/2022 Michelle Greco 0 1960 Patient called in and stated if upper dentures repairs are in office. Please advise Appointment 04/09/2022 Encounter Details Date Type Department Care Team ([facility] st Contact Info) Description 04/09/2022 Telephone C [facility] ADULT DENTAL [address] [place] [address] Bharath Chand, DDS [address] [place] [address] Dentures (Michelle Greco 1960 Patient called in [...]
--- OUTSIDE RECORDS SUMMARY | 2024-11-15 14:32 | XMS_ITS | Encounter Summary ---
Author Organization [employer] Address [address] [facility] 7t [place] [address] Care Team Providers Care Assembly Inspector Helper Name Role Phone Unavailable Primary Care [...]
--- OUTSIDE RECORDS SUMMARY | 2024-11-15 14:32 | XMS_ITS | Encounter Summary ---
Author Organization [employer] Address [address] [facility] 7t [place] [address] Care Team Providers Care Senior Engineering Team Leader Name Role Phone Unavailable Primary Care [...]
== END 2024-11-15 15:03 | disposition home or self-care (01) ==
LOC: HO.HNS 14:29
PROVIDERS: PCP Nurse Practitioner Family; Visit Provider Physician Assistant
DX: M54.9 Dorsalgia, unspecified (principal)
CPT/HCPCS: 99024

== ENCOUNTER → 2024-11-15 14:28 | Outpatient (BNVA) | payer MEDICARE, MEDICAID, SELFPAY | PROVIDERS: PCP Nurse Practitioner Family; Visit Provider Physician Assistant | DX: M54.9 Dorsalgia, unspecified (principal); Z48.89 Encounter for other specified surgical aftercare | CPT/HCPCS: 99212 ==

== ENCOUNTER 2024-11-22 15:17 | Outpatient (AMB) | payer MEDICARE, MEDICAID, SELFPAY ==
--- NOTE | 2024-11-22 15:24 | HO.SPINEOV ---
Intake Visit Reasons: post op Intake Note: Ms. Greco is here for a post op appointment. Psychodramatist Required: No Allergies tioconazole (From Monistat 1 (tioconazole)) Allergy (Intermediate, Verified 11/02/24 15:35) Rash Penicillins Allergy (Unknown, Verified 11/02/24 15:35) Unknown Sulfa (Sulfonamide Antibiotics) Allergy (Unknown, Verified 11/02/24 15:35) Unknown Assessment & Plan Assessment & Plan (1) Lumbar radiculopathy: Code(s): M54.16 - Radiculopathy, lumbar region Category: Medical Plan Mrs Greco's wound is coming along nicely. Edges are closing and no signs of redness. There is small less than 1 cm opening now. I sterilized with betadine and I denuded some of the remaining slough tissue. I will see her back next week. I encouraged her to continue to shower and wash with soap. Axel Rivera MD, PhD [facility] Coding Level of Care Code Global (90528) Diagnoses Lumbar radiculopathy M54.16
--- OUTSIDE RECORDS SUMMARY | 2024-11-22 19:07 | XMS_ITS | Encounter Summary ---
Author Organization [employer] Address [address] [facility] 7t [place] [address] Care Team Providers Care Police Cadet Name Role Phone Unavailable Primary Care Provider Unavailabl e Reason for Visit * Reason Onset Date Comments Dentures 04/09/2022 Michelle Greco 0 1960 Patient called in and stated if upper dentures repairs are in office. Please advise Appointment 04/09/2022 Encounter Details Date Type Department Care Team ([facility] st Contact Info) Description 04/09/2022 Telephone C [facility] ADULT DENTAL [address] [place] [address] Bharath Chand, DDS [address] [place] [address] Dentures (Michelle Greco 1960 Patient called in [...]
--- OUTSIDE RECORDS SUMMARY | 2024-11-22 19:07 | XMS_ITS | Encounter Summary ---
Author Organization [employer] Address [address] [facility] 7t [place] [address] Care Team Providers Care Toll Bridge Operator Name Role Phone Unavailable Primary Care [...]
--- OUTSIDE RECORDS SUMMARY | 2024-11-22 19:07 | XMS_ITS | Clinical Summary ---
Author Organization [employer] Address [address] [facility] 7t [place] [address] Care Team Providers Care Pie Dough Roller Name Role Phone Unavailable Primary Care Provider [...]
--- OUTSIDE RECORDS SUMMARY | 2024-11-22 19:07 | XMS_ITS | Encounter Summary ---
Author Organization [employer] Address 75 [facility] 7t [place] [address] Care Team Providers Care Merchandise Flow Team Leader Name Role Phone Unavailable Primary [...]
== END 2024-11-22 15:59 | disposition home or self-care (01) ==
LOC: HO.HNS 15:18
PROVIDERS: PCP Nurse Practitioner Family; Visit Provider Physician Assistant
DX: M54.16 Radiculopathy, lumbar region (principal)
CPT/HCPCS: 99024

== ENCOUNTER → 2024-11-22 15:17 | Outpatient (BNVA) | payer MEDICARE, MEDICAID, SELFPAY | PROVIDERS: PCP Nurse Practitioner Family; Visit Provider Physician Assistant | DX: Z47.89 Encounter for other orthopedic aftercare (principal); M54.16 Radiculopathy, lumbar region | CPT/HCPCS: 99212 ==

== ENCOUNTER 2024-11-29 14:57 | Outpatient (AMB) | payer MEDICARE, MEDICAID, SELFPAY ==
--- NOTE | 2024-11-29 15:11 | A.SPINEOV_ITS ---
Intake Visit Reasons: post op Intake Note: Ms. Greco is here today for a post op. Burn Out Scarfing Operator Required: No Allergies tioconazole (From Monistat 1 (tioconazole)) Allergy (Intermediate, Verified 11/02/24 15:35) Rash Penicillins Allergy (Unknown, Verified 11/02/24 15:35) Unknown Sulfa (Sulfonamide Antibiotics) Allergy (Unknown, Verified 11/02/24 15:35) Unknown Assessment & Plan Assessment & Plan (1) S/P lumbar microdiscectomy: Code(s): Z98.890 - Other specified postprocedural states Category: Medical Plan Mrs Greco is here to follow-up. Her wound is healing up very nicely at this point there is just a small scab on the wound, and no signs of infection so I think for the most part that is finished. She is continuing to have left-sided back pain going down the back of her left hamstring. It started awhile before surgery, but remains there when she stands and walks. We did a right-sided only approach with a disc [facility] She does have a fairly severely collapsed disc at L5-S1. We talked about the fact that any attempts to go after the L5-S1 disc pathology would likely require a fusion given that 1 of her main complaint is back pain. She has had a fairly extensive abdominal history including 3 C sections, multiple hernia repairs including reoperations with mesh. Most likely that anterior approach will not work secondary to all the scar tissue. That would mean we would be choosing an approach from the back, possibly something like a transforaminal lumbar interbody fusion, but given her body habitus that would be a fairly extensive undertaking. She has been having a lot of trouble with her knees and has been walking with a bit of a Trendelenburg gait because of the knee pain. That could just be aggravating her back and giving her some inflammation. She is due for some injections in her knees which hopefully will help some of the pain and make her walk a little more comfortably. Maybe this will take some of the pressure off her back and help the leg pain. I told her to follow up with us after she has completed her workup with the knees. Axel Rivera MD, PhD [facility] Coding Level of Care Code Global (55598) Diagnoses S/P lumbar microdiscectomy Z98.890
--- OUTSIDE RECORDS SUMMARY | 2024-11-29 18:52 | XMS_ITS | Encounter Summary ---
Author Organization [employer] Address 75 [facility] 7t [place] [address] Care Team Providers Care Rattle Leak And Squeak Repairer Name Role Phone Unavailable Primary Care Provider [...]
--- OUTSIDE RECORDS SUMMARY | 2024-11-29 18:52 | XMS_ITS | Clinical Summary ---
Author Organization [employer] Address [address] [facility] 7t [place] [address] Care Team Providers Care Rocket Assembly Operator Name Role Phone Unavailable Primary Care [...]
--- OUTSIDE RECORDS SUMMARY | 2024-11-29 18:52 | XMS_ITS | Encounter Summary ---
Author Organization [employer] Address [address] [facility] 7t [place] [address] Care Team Providers Care Solaris Administrator Name Role Phone Unavailable Primary Care Provider [...]
--- OUTSIDE RECORDS SUMMARY | 2024-11-29 18:52 | XMS_ITS | Clinical Summary ---
Author Organization 175 [facility] Address [address] [place] [address] Phone Care Team Providers Care Methods Time Analyst Name Role Phone Ruddy Nicole NP [...] obesity with BMI of 5 0.0-59.9, adult ([facility] V24, [facility] V28) 10/11/2018 DX:Morbid obesity wit h BMI of 50.0-59.9, adult ([facility]) Lumbar spinal stenosis 10/11/2018 DX:Lumbar [...] 1:00 PM EST Office Visit Pulmonology - [employer] [address] [facility] [address] [place] [phone] Hayley Hutchins MD [address] [facility] [address] [place] [address] Health Maintenance Due Date Last Done Comments Breast Cancer Screening 1960 Colorectal Cancer Screening: Colonoscopy 1960 DTaP,Tdap,and Td Vaccines (1 - Tdap) 1980 Cervical Cancer Screening: P ap Smear 1982 Pneumococcal Vaccine: 50+ Years (1 of 1 - PCV) 06/13/2011 RSV Immunization Adult Patients (1 - Risk 50-74 years 1-dose series) 06/13/2011 Zoster Vaccines (1 of 2) 06/13/2011 Cholesterol Screening (Lipid Panel) 01/17/2022 HIV Screening [...] Insurance MEDICARE MEDICAID - [place] Care Teams Methods Time Analyst Relationship Specialty Start Date End Date Ruddy Nicole NP [address] [place], [place] PCP - General 08/07/18
--- OUTSIDE RECORDS SUMMARY | 2024-11-29 18:52 | XMS_ITS | Encounter Summary ---
Author Organization [employer] Address 75 [facility] 7t [place] [address] Care Team Providers Care Manager Pe Name Role Phone Unavailable Primary Care Provider Unavailabl e Reason for Visit * Reason Onset Date Comments Dentures 04/09/2022 Michelle Greco 0 1960 Patient called in and stated if upper dentures repairs are in office. Please advise Appointment 04/09/2022 Encounter Details Date Type Department Care Team ([facility] st Contact Info) Description 04/09/2022 Telephone C [facility] ADULT DENTAL [address] [place] [address] Bharath Chand, DDS [address] [place] [address] Dentures (Michelle Greco 1960 Patient called in [...]
== END 2024-11-29 15:48 | disposition home or self-care (01) ==
LOC: HO.HNS 14:58
PROVIDERS: PCP Nurse Practitioner Family; Visit Provider Physician Assistant
DX: Z98.890 Other specified postprocedural states (principal)
CPT/HCPCS: 99024

== ENCOUNTER → 2024-11-29 14:57 | Outpatient (BNVA) | payer MEDICARE, MEDICAID, SELFPAY | PROVIDERS: PCP Nurse Practitioner Family; Visit Provider Physician Assistant | DX: Z47.89 Encounter for other orthopedic aftercare (principal); Z98.890 Other specified postprocedural states | CPT/HCPCS: 99212 ==

== ENCOUNTER 2024-12-19 14:16 | Outpatient (REF) | payer MEDICARE, MEDICAID, SELFPAY ==
[2024-12-19 16:14] LABS: MANUAL DIFF FLAG NO
[2024-12-19 16:18] LABS: Appearance Urine Cloudy; Glucose Urine UA Negative (Negative); Hematocrit 40.8 % (37.0-47.0); Hemoglobin 12.9 g/dl (12.0-16.0); Imm Gran Abs Auto 0.02 X10*3/uL (0.00-0.03); Imm Gran Pct Auto 0.3 % (0.0-0.4); Lymphocytes Absolute Auto 1.9 X10*3/uL (1.2-4.9); Mean Corpuscular HGB Conc 31.6 g/dl (31.0-35.0); Mean Corpuscular Hemoglobin 29.4 pg (27.0-33.0); Mean Corpuscular Volume 92.9 fL (80.0-98.0); NRBC Abs Auto 0.000 X10*3/uL (0.0-0.012); NRBC Pct Auto 0.0 /100WBC (0.0-0.2); PH 6.0 (5.0-9.0); Platelet Count 215 X10*3/uL (160-400); Red Blood Count 4.39 X10*6/uL (4.20-5.50); Specific Gravity - Urine 1.025 (1.005-1.025); UMIC TRIGGER UACC YES; White Blood Count 6.2 X10*3/uL (4.8-10.8)
[2024-12-19 16:37] LABS: Alanine Aminotransferase 41 U/L (0-31); Albumin Level 4.4 g/dL (3.5-5.0); Alkaline Phosphatase 113 U/L (39-117); Anion Gap 11 (12-20); Aspartate Amino Transferase 35 U/L (5-31); Blood Urea Nitrogen 14 mg/dL (9-16); Calcium 9.7 mg/dL (8.4-10.2); Carbon Dioxide 30 mmol/L (22-29); Chloride 106 mmol/L (96-108); Cholesterol 134 mg/dL (<200); Estimated Glomerular Filt Rate 57; HDL Cholesterol 64 mg/dL (>40); Potassium 3.9 mmol/L (3.3-5.1); Sodium 143 mmol/L (135-145); Total Protein 6.9 g/dL (6.5-8.0); Triglycerides 79 mg/dL (<150)
--- OUTSIDE RECORDS SUMMARY | 2024-12-19 17:39 | XMS_ITS | Encounter Summary ---
Author Organization [employer] Address [address] [facility] 7t [place] [address] Care Team Providers Care Produce Manager Name Role Phone Unavailable Primary Care [...]
--- OUTSIDE RECORDS SUMMARY | 2024-12-19 17:39 | XMS_ITS | Clinical Summary ---
Author Organization [employer] Address [address] [facility] 7t [place] [address] Care Team Providers Care Bag Making Machine Tender Name Role Phone Unavailable Primary Care Provider [...]
--- OUTSIDE RECORDS SUMMARY | 2024-12-19 17:39 | XMS_ITS | Encounter Summary ---
Author Organization [employer] Address [address] [facility] [address]t [place] [address] Care Team Providers Care Bag Printer Name Role Phone Unavailable Primary Care Provider [...]
--- OUTSIDE RECORDS SUMMARY | 2024-12-19 17:39 | XMS_ITS | Encounter Summary ---
Author Organization [employer] Address [address] [facility] 7t [place] [address] Care Team Providers Care X Ray Tech Name Role Phone Unavailable Primary Care Provider Unavailabl e Reason for Visit * Reason Onset Date Comments Dentures 04/09/2022 Michelle Greco 0 1960 Patient called in and stated if upper dentures repairs are in office. Please advise Appointment 04/09/2022 Encounter Details Date Type Department Care Team ([facility] st Contact Info) Description 04/09/2022 Telephone C [facility] ADULT DENTAL [address] [place] [address] Bharath Chand, DDS [address] [place] [address] Dentures (Michelle Greco 1960 Patient called in [...]
--- OUTSIDE RECORDS SUMMARY | 2024-12-19 17:39 | XMS_ITS | Clinical Summary ---
Author Organization 175 [facility] Address [address] [place] [address] Phone Care Team Providers Care Client Experience Consultant Name Role Phone Ruddy Nicole NP Primary [...] obesity with BMI of 5 0.0-59.9, adult ([facility] V24, [facility] V28) 10/11/2018 DX:Morbid obesity wit h BMI of 50.0-59.9, adult ([facility]) Lumbar spinal stenosis 10/11/2018 [...] Smoking Tobacco: Former Cigarettes 1 Q uit: 02/08/2004 Smokeless Tobacco: Never Tobacco [...] 1:00 PM EST Office Visit Pulmonology - [address] [place] [address] Hayley Hutchins MD [address] [place] [phone] Health Maintenance Due Date Last Done Comments [...] Insurance MEDICARE MEDICAID - [place] Care Teams Client Experience Consultant Relationship Specialty Start Date End Date Ruddy Nicole NP [address] [place], [place] PCP - General 08/07/18
== END 2024-12-19 14:17 | disposition home or self-care (01) ==
LOC: HO.HMGCLDS 14:16
PROVIDERS: PCP Nurse Practitioner Family; Visit Provider Nurse Practitioner Family
DX: I10 Essential (primary) hypertension (principal); E55.9 Vitamin D deficiency, unspecified
CPT/HCPCS: 36415; 80053; 80061; 81001; 82306; 84443; 85025

== ENCOUNTER 2024-12-26 13:38 | Outpatient (AMB) | payer MEDICARE, MEDICAID, SELFPAY ==
[2024-12-26 13:53] VITALS: BP 118/64; PULSE 81; RESP 16; O2SAT 97; BMI 53.1
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
[2024-12-26 14:05] VITALS: BMI 53.1
--- OUTSIDE RECORDS SUMMARY | 2024-12-27 01:41 | XMS_ITS | Encounter Summary ---
Author Organization [employer] Address [address] [facility] [address] [place] [address] Care Team Providers Care Coupon And Bond Collection Clerk Name Role Phone Unavailable Primary Care [...]
--- OUTSIDE RECORDS SUMMARY | 2024-12-27 01:41 | XMS_ITS | Encounter Summary ---
Author Organization [employer] Address [address] [facility] [address] [place] [address] Care Team Providers Care Supervisor Plate Forming Name Role Phone Unavailable Primary Care Provider [...]
--- OUTSIDE RECORDS SUMMARY | 2024-12-27 01:41 | XMS_ITS | Encounter Summary ---
Author Organization [employer] Address [address] [place] [address] Care Team Providers Care Salesman/Owner Name Role Phone Unavailable Primary Care Provider Unavailabl e Reason for Visit * Reason Onset Date Comments Dentures 04/09/2022 Michelle Greco 0 1960 Patient called in and stated if upper dentures repairs are in office. Please advise Appointment 04/09/2022 Encounter Details Date Type Department Care Team ([facility] st Contact Info) Description 04/09/2022 Telephone C [facility] ADULT DENTAL [address] [place] [address] Bharath Chand, DDS [address] [place] [address] Dentures (Michelle Greco 1960 Patient called in [...]
--- OUTSIDE RECORDS SUMMARY | 2024-12-27 01:41 | XMS_ITS | Clinical Summary ---
Author Organization [employer] Address [address] [facility] [address] [place] [address] Care Team Providers Care Hoisting Engineer Name Role Phone Unavailable Primary Care [...]
== END 2024-12-26 14:46 | disposition home or self-care (01) ==
LOC: HO.HMCC 13:39
PROVIDERS: PCP Nurse Practitioner Family; Visit Provider Nurse Practitioner Family
DX: Z00.00 Encounter for general adult medical examination without abnormal findings (principal); E55.9 Vitamin D deficiency, unspecified; Z78.0 Asymptomatic menopausal state

== ENCOUNTER 2025-01-01 06:30 | Outpatient (AMB) | payer MEDICARE, MEDICAID, SELFPAY ==
--- OUTSIDE RECORDS SUMMARY | 2025-01-01 06:36 | XMS_ITS | Encounter Summary ---
Author Organization [employer] Address [address] [facility] [address] [place] [address] Care Team Providers Care Change Of Address Clerk Name Role Phone Unavailable Primary Care Provider Unavailabl e Reason for Visit * Reason Onset Date Comments Dentures 04/09/2022 Michelle Greco 0 1960 Patient called in and stated if upper dentures repairs are in office. Please advise Appointment 04/09/2022 Encounter Details Date Type Department Care Team ([facility] st Contact Info) Description 04/09/2022 Telephone C [facility] ADULT DENTAL [address] [place] [address] Bharath Chand, DDS [address] [place] [address] Dentures (Michelle Greco 1960 Patient called in [...]
--- OUTSIDE RECORDS SUMMARY | 2025-01-01 06:36 | XMS_ITS | Clinical Summary ---
Author Organization [address] [facility] Address [address] [place] [address] Phone Care Team Providers Care Car Parker Name Role Phone Ruddy Nicole NP Primary [...] obesity with BMI of 5 0.0-59.9, adult ([facility] V24, [facility] [...] 1:00 PM EST Office Visit Pulmonology - [address] [place] [address] Hayley Hutchins MD [address] [place] [phone] Health Maintenance Due Date Last Done [...] Insurance MEDICARE MEDICAID - [place] Care Teams Car Parker Relationship Specialty Start Date End Date Ruddy Nicole NP [address] [place], [place] PCP - General 08/07/18
--- OUTSIDE RECORDS SUMMARY | 2025-01-01 06:36 | XMS_ITS | Encounter Summary ---
Author Organization [employer] Address [address] [facility] [address] [place] [address] Care Team Providers Care Banking Services Clerk [...]
--- OUTSIDE RECORDS SUMMARY | 2025-01-01 06:36 | XMS_ITS | Clinical Summary ---
Author Organization [employer] Address [address] [facility] [address] [place] [address] Care Team Providers Care Chief Writer Name Role Phone Unavailable Primary Care Provider [...]
--- OUTSIDE RECORDS SUMMARY | 2025-01-01 06:36 | XMS_ITS | Encounter Summary ---
Author Organization [employer] Address [address] [facility] [address] [place] [address] Care Team Providers Care Manager Patient Name Role Phone Unavailable Primary Care Provider [...]
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
== END 2025-01-01 09:15 | disposition home or self-care (01) ==
LOC: HO.HMCC 06:31
PROVIDERS: PCP Nurse Practitioner Family; Visit Provider Nurse Practitioner Family
DX: M25.511 Pain in right shoulder (principal); V89.2XXA Person injured in unspecified motor-vehicle accident, traffic, initial encounter

== ENCOUNTER → 2025-01-01 06:30 | Outpatient (BNVA) | payer MEDICARE, MEDICAID, SELFPAY | PROVIDERS: PCP Nurse Practitioner Family; Visit Provider Nurse Practitioner Family | DX: M25.511 Pain in right shoulder (principal); V89.2XXD Person injured in unspecified motor-vehicle accident, traffic, subsequent encounter | CPT/HCPCS: 99212 ==

== ENCOUNTER 2025-01-14 11:27 | Outpatient (AMB) | payer MEDICARE, MEDICAID, SELFPAY ==
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
[2025-01-14 11:31] VITALS: BP 133/82; PULSE 93; RESP 16; O2SAT 98; BMI 52.3
--- OUTSIDE RECORDS SUMMARY | 2025-01-14 19:28 | XMS_ITS | Encounter Summary ---
Author Organization [employer] Address [address] [place] [address] Care Team Providers Care Cement Finisher Helper Name Role Phone Unavailable Primary Care Provider Unavailabl e Reason for Visit * Reason Onset Date Comments Dentures 04/09/2022 Michelle Greco 0 1960 Patient called in and stated if upper dentures repairs are in office. Please advise Appointment 04/09/2022 Encounter Details Date Type Department Care Team ([facility] st Contact Info) Description 04/09/2022 Telephone C [facility] [address] [place] [address] Bharath Chand, DDS [address] [place] [address] Dentures (Michelle Greco 1960 Patient called in [...]
--- OUTSIDE RECORDS SUMMARY | 2025-01-14 19:29 | XMS_ITS | Clinical Summary ---
Author Organization [employer] Address [address] [place] [address] Care Team Providers Care Linoleum Tile Floor Layer Name Role Phone Unavailable Primary Care Provider [...]
--- OUTSIDE RECORDS SUMMARY | 2025-01-14 19:30 | XMS_ITS | Encounter Summary ---
Author Organization [employer] Address [address] [facility] [address] [place] [address] Care Team Providers Care Drum Drier Operator Name Role Phone Unavailable Primary Care [...]
--- OUTSIDE RECORDS SUMMARY | 2025-01-14 19:30 | XMS_ITS | Encounter Summary ---
Author Organization [employer] Address [address] [facility] [address] [place] [address] Care Team Providers Care Glass Mold Repairer Name Role Phone Unavailable Primary Care [...]
== END 2025-01-14 11:51 | disposition home or self-care (01) ==
LOC: HO.PMC 11:28
PROVIDERS: Visit Provider Internal Medicine
DX: M25.562 Pain in left knee (principal)
CPT/HCPCS: 64454; 99213

== ENCOUNTER → 2025-01-14 11:27 | Outpatient (BNVA) | payer MEDICARE, MEDICAID, SELFPAY | PROVIDERS: Visit Provider Internal Medicine | DX: M25.562 Pain in left knee (principal); M17.12 Unilateral primary osteoarthritis, left knee | CPT/HCPCS: 64454; 99212; J2795 ==

== ENCOUNTER 2025-01-17 11:29 | Outpatient (AMB) | payer MEDICARE, MEDICAID, SELFPAY ==
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
[2025-01-17 11:38] VITALS: BP 179/101; PULSE 80; O2SAT 100; BMI 52.3
[2025-01-17 11:39] VITALS: BP 159/78
== END 2025-01-17 12:01 | disposition home or self-care (01) ==
LOC: HO.PMC 11:30
PROVIDERS: PCP Nurse Practitioner Family; Visit Provider Nurse Practitioner Family
DX: M25.562 Pain in left knee (principal); M17.0 Bilateral primary osteoarthritis of knee; E66.01 Morbid (severe) obesity due to excess calories
CPT/HCPCS: 99213

== ENCOUNTER → 2025-01-17 11:29 | Outpatient (BNVA) | payer MEDICARE, MEDICAID, SELFPAY | PROVIDERS: PCP Nurse Practitioner Family; Visit Provider Nurse Practitioner Family | DX: M25.562 Pain in left knee (principal); M17.0 Bilateral primary osteoarthritis of knee; E66.01 Morbid (severe) obesity due to excess calories | CPT/HCPCS: 99212 ==

== ENCOUNTER 2025-01-25 14:02 | Outpatient (AMB) | payer MEDICARE, MEDICAID, SELFPAY ==
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
--- OUTSIDE RECORDS SUMMARY | 2025-01-25 15:39 | XMS_ITS | Encounter Summary ---
Author Organization [employer] Address [address] [facility] [address] [place] [address] Care Team Providers Care Air Tank Assembler Name Role Phone Unavailable Primary Care Provider [...]
--- OUTSIDE RECORDS SUMMARY | 2025-01-25 15:39 | XMS_ITS | Clinical Summary ---
Author Organization [address] [facility] Address [address] [place] [address] Phone Care Team Providers Care Journalism Intern Name Role Phone Ruddy Nicole NP Primary [...] obesity with BMI of 5 0.0-59.9, adult ([facility] V24, [facility] V28) 10/11/2018 DX:Morbid obesity wit h BMI of 50.0-59.9, adult ([facility]) Lumbar spinal stenosis 10/11/2018 DX:Lumbar [...] on file Sexual Orientation Not on file Last Filed Vital Signs Vital Sign Reading [...] 1:00 PM EST Office Visit Pulmonology - [address] [place] [phone] Hayley Hutchins MD [address] [place] [phone] Health Maintenance Due Date Last Done [...] Insurance MEDICARE MEDICAID - [place] Care Teams Journalism Intern Relationship Specialty Start Date End Date Ruddy Nicole NP [address] [place], [place] PCP - General 08/07/18
--- OUTSIDE RECORDS SUMMARY | 2025-01-25 15:39 | XMS_ITS | Clinical Summary ---
Author Organization [employer] Address [address] [facility] [address] [place] [address] Care Team Providers Care Community Integration Specialist Name Role Phone Unavailable Primary Care [...]
--- OUTSIDE RECORDS SUMMARY | 2025-01-25 15:39 | XMS_ITS | Encounter Summary ---
Author Organization [employer] Address [address] [facility] [address] [place] [address] Care Team Providers Care Surveying Crew Rodman Name Role Phone Unavailable Primary Care Provider [...]
--- OUTSIDE RECORDS SUMMARY | 2025-01-25 15:39 | XMS_ITS | Encounter Summary ---
Author Organization [employer] Address [address] [facility] [address] [place] [address] Care Team Providers Care Registered Medical Transcriptionist Name Role Phone Unavailable Primary Care Provider [...] [facility] [address] [place] [address] Bharath Chand, DDS [address] [place] [address] Dentures (Michelle Greco 1960 Patient called in [...]
== END 2025-01-25 15:09 | disposition home or self-care (01) ==
LOC: HO.HUSH 14:03
PROVIDERS: PCP Nurse Practitioner Family; Visit Provider Urology
DX: Z13.9 Encounter for screening, unspecified (principal)

== ENCOUNTER 2025-02-02 11:30 | Outpatient (REF) | payer MEDICARE, MEDICAID, SELFPAY ==
--- NOTE | ~2025-02-02 | MR_ITS ---
CLINICAL HISTORY: M25.511 - Pain in right shoulder Exam: Nonenhanced MRI of the right shoulder. Comparison: None. Rotator cuff: There is a full-thickness tear at what appears to be the confluence between the posterior aspect of the supraspinatus tendon and inferior aspect of the infraspinatus tendon (9; 18 -16). Tear extends over anterior-posterior distance of up to 11 mm (measured contents; 18). More anteriorly, supraspinatus tendon appears intact, and more posteriorly, of the posterior aspect of the infraspinatus tendon appears intact. Subscapularis tendon may reveal slight tendinosis, without definable tear. Glenoid labrum: No focal glenoid labral tear is appreciated. Bicipital tendon: Bicipital tendon is within its expected position in the intertubercular groove. Bicipital anchor appears intact. Acromioclavicular joint: Moderate degenerative disease. Joint space and soft tissues: There is small amount of fluid within the subacromial and subdeltoid bursa. Impression: 1. Full-thickness tear at what appears to be the confluence between the posterior aspect of the supraspinatus tendon and anterior aspect of the infraspinatus tendon, at their insertion onto the greater tuberosity of the humerus as described above. This document has been electronically signed by: Zhao Jackson MD on 02/05/2025 14:53:37
--- OUTSIDE RECORDS SUMMARY | 2025-02-02 11:35 | XMS_ITS | Clinical Summary ---
Author Organization [email or web address] Address [address] [facility] [address] [place] [address] Care Team Providers Care Senior Application Security Consultant Name Role Phone Unavailable Primary Care Provider [...]
--- OUTSIDE RECORDS SUMMARY | 2025-02-02 11:35 | XMS_ITS | Encounter Summary ---
Author Organization [employer] Address [address] [facility] [address] [place] [address] Care Team Providers Care Wind Technician Name Role Phone Unavailable Primary Care Provider Unavailabl e Reason for Visit * Reason Onset Date Comments Dentures 04/09/2022 Michelle Greco 0 1960 Patient called in and stated if upper dentures repairs are in office. Please advise Appointment 04/09/2022 Encounter Details Date Type Department Care Team ([facility] st Contact Info) Description 04/09/2022 Telephone C [facility] [address] [place] [address] Bharath Chand, DDS [address] [place] [address] Dentures (Michelle Greco 1960 Patient called in [...]
--- OUTSIDE RECORDS SUMMARY | 2025-02-02 11:35 | XMS_ITS | Encounter Summary ---
Author Organization [employer] Address [address] [facility] [address] [place] [address] Care Team Providers Care Ground Intelligence Officer Name Role Phone Unavailable Primary Care [...]
--- OUTSIDE RECORDS SUMMARY | 2025-02-02 11:35 | XMS_ITS | Encounter Summary ---
Author Organization [employer] Address [address] [facility] [address] [place] [address] Care Team Providers Care Jig Filler Name Role Phone Unavailable Primary Care Provider [...]
--- OUTSIDE RECORDS SUMMARY | 2025-02-02 11:35 | XMS_ITS | Clinical Summary ---
Author Organization [facility] Address [address] [place] [address] Phone Care Team Providers Care Armature Connector Name Role Phone Ruddy Nicole NP Primary Care Provider [phone] Allergies No known active allergies Medications aspirin [...] BMI of 5 0.0-59.9, adult ([facility] V24, [facility] V28) [...] 1:00 PM EST Office Visit Pulmonology - [address] [place] [id number] Hayley Hutchins MD [address] [place] [phone] Health Maintenance Due Date Last Done [...] Insurance MEDICARE [place]ICA[place] Care Teams Armature Connector Relationship Specialty Start Date End Date Ruddy Nicole NP [address] [place], [place] PCP - General 08/07/18
== END 2025-02-02 11:31 | disposition home or self-care (01) ==
LOC: HO.MRI 11:30
PROVIDERS: PCP Nurse Practitioner Family; Visit Provider Nurse Practitioner Family
DX: M25.511 Pain in right shoulder (principal)
CPT/HCPCS: 73221